=== PATIENT | male | born 1960 | race Caucasian/White ===

== ENCOUNTER 2017-09-30 19:45 | Inpatient (IN) | payer MEDICARE, MEDICAID ==
--- NOTE | 2017-09-30 20:11 | ED Physician Chart ---
ED Chief Complaint/HPI - Patient Information Date Seen:: 09/30/17 Time Seen:: 20:11 Chief Complaint:: Agitation History of Present Illness:: 57 yo male was brought from SNF to ER for evaluation of increased agitation and aggressive behavior. Allergies:: Allergies Allergy/AdvReac Type Severity Reaction Status Date / Time benztropine [From Cogentin] Allergy Verified 03/09/16 15:01 divalproex sodium Allergy Verified 03/09/16 15:01 haloperidol [From Haldol] Allergy Verified 03/09/16 15:01 sodium Allergy Verified 03/09/16 15:01 tetracycline Allergy Verified 03/09/16 15:01 Vitals:: Vital Signs - 8 hr 09/30/17 19:45 Temp 98.2 F HR 111 RR 18 BP 176/108 O2 Sat % 95 ED Review of Systems - Review of Systems General/Constitutional: No fever Skin: No bruising Head: No headache Eyes: No pain ENT: No nasal drainage Neck: No neck pain Cardio Vascular: No chest pain Pulmonary: No SOB GI: No nausea, No vomiting Musculoskeletal: No bone or joint pain Psychiatric: Prior psych history Neurological: No focal symptoms ED Past Medical History - Past Medical History Past Medical History: Other (HYPOKALEMIA, MUSCLE WEAKNESS, ABNORMAL POSTURE ) Social History: Non Smoker, No Alcohol, No Drug Use Psychiatricy History: Other (SCHIZOAFFECTIVE DISORDER) Family Medical History - Family Member Mother History Unknown: Yes Ethnicity: Hx Family Coronary Artery Disease: Yes ED Physical Exam - Physical Examination General/Constitutional: Awake, Alert Head: Atraumatic Eyes: PERRL Skin: No ecchymosis ENMT: Nasal exam nl Neck: No nuchal rigidity Respiratory: No Wheeze/Rhonchi/Rales Cardio Vascular: RRR, No murmur, gallop, rubs, NL S1 S2 GI: No tenderness/rebounding/guarding Extremities: No edema Neuro/Psych: No focal deficits ED Labs/Radiology/EKG Results - Lab Results Results: Na 135, K 2.9, Glu 155, BNP 232, WBC 9.9, UA negative - Radiology Results Results: CXR: no focal consolidation ED Assessment - Assessment General Assessment: Hypokalemia Hyponatremia Hypertension CHF? Schizoaffective disorder Psychosis Assessment/Comments:: CBC, CMP, UA EKG, CXR KCL 40 mEq po Lasix 40mg po Cleared for geropsych admission ED Septic Shock - . Is Septic Shock (SBP<90, OR Lactate>4 mmol\L) present?: No - <6hrs of presentation: Vital Signs: Vital Signs - 8 hr 09/30/17 19:45 Temp 98.2 F HR 111 RR 18 BP 176/108 O2 Sat % 95 ED Reassessment (Disposition) - Reassessment Reassessment Condition:: Improved - Patient Disposition Discharge/Transfer:: Geropsych unit w/in this hosp Admitting Medical Physician:: Kia Perez Admitting Psych Physician:: Sada Alvarado ED Discharge Plan - Patient Disposition Admit/Discharge/Transfer: Acute Care w/in this hosp
[2017-09-30 20:35] LABS: % BASOPHILS 0.5 % (0.0-2.0); % EOSINOPHILS 4.5 % (0.0-5.0); % LYMPHOCYTES 18.4 % (20.0-50.0); % MONOCYTES 7.8 % (2.0-10.0); % NEUTROPHILS 68.8 % (40.0-80.0); EOSINOPHILE ABSOLUTE 0.4 Th/cmm (0.1-0.4); HEMATOCRIT 42.6 % (41.0-60); HEMOGLOBIN 14.4 gm/dL (12-16); LYMPHOCYTE ABSOLUTE 1.8 Th/cmm (1.5-3.0); MEAN CELL VOLUME 84.9 fl (80-99); MEAN CORPUSCULAR HEMOGLOBIN 28.7 pg (26.0-30.0); MEAN CORPUSCULAR HGB CONC 33.8 pg (28.0-36.0); MEAN PLATELET VOLUME 7.3 fl; MONOCYTE ABSOLUTE 0.8 Th/cmm (0.3-1.0); NEUTROPHILE ABSOLUTE 6.9 Th/cmm (1.8-8.0); PLATELET COUNT 329 Th/cmm (150-400); RED BLOOD COUNT 5.02 Mil/cmm (4.30-5.70); RED CELL DISTRIBUTION WIDTH 13.4 % (11.5-20.0); WHITE BLOOD COUNT 9.9 Th/cmm (4.8-10.8)
[2017-09-30 20:56] LABS: ALBUMIN 3.8 gm/dL (4.2-5.5); ALKALINE PHOSPHATASE 92 U/L (34-104); ANION GAP 9.2 (7.0-16.0); BILIRUBIN,TOTAL 0.4 mg/dL (0.3-1.0); BUN - UREA NITROGEN 15 mg/dL (7-25); CALCIUM SERUM 9.3 mg/dL (8.6-10.3); CARBON DIOXIDE 29.7 mEq/L (21.0-31.0); CHLORIDE 99 mEq/L (98-107); CREATININE - SERUM 0.7 mg/dL (0.7-1.3); GFR AFRICAN-AMERICAN > 60.0 ml/min (>90); GFR NON AFRICAN-AMERICAN > 60.0 ml/min; GLUCOSE 155 mg/dL (70-105); MAGNESIUM 1.9 mg/dL (1.9-2.7); SGOT 29 U/L (13-39); SGPT/ALT 23 U/L (7-52); SODIUM SERUM 135 mEq/L (136-145); TOTAL PROTEIN,SERUM 7.8 gm/dL (6.0-8.3)
[2017-09-30] MEDS ORDERED: Potassium Chloride Elixir 20 mEq /15 mL UDC PO ONE (21:24)
[2017-09-30] MEDS ORDERED: Potassium Chloride Elixir 20 mEq /15 mL UDC ONE (21:26)
[2017-09-30 21:27] LABS: POTASSIUM SERUM 2.9 mEq/L (3.5-5.1)
[2017-09-30 22:07] LABS: URINE BILIRUBIN NEGATIVE (NEGATIVE); URINE BLOOD NEGATIVE (NEGATIVE); URINE GLUCOSE (UA) NEGATIVE (NEGATIVE); URINE KETONE NEGATIVE (NEGATIVE); URINE LEUKOCYTE ESTERASE NEGATIVE (NEGATIVE); URINE MICROSCOPIC INDICATED? YES; URINE NITRATE NEGATIVE (NEGATIVE); URINE PH 7.5 (4.6 - 8.0); URINE PROTEIN NEGATIVE (NEGATIVE); URINE SOURCE RANDOM
[2017-09-30 22:14] LABS: URINE COLOR YELLOW
[2017-09-30 22:15] LABS: URINE CLARITY CLEAR (CLEAR)
[2017-09-30 22:21] LABS: URINE BACTERIA OCCASIONAL /hpf (NONE SEEN); URINE EPITHELIAL CELLS OCCASIONAL /lpf (FEW); URINE RBC 0-2 /hpf (0-5); URINE WBC 0-2 /hpf (0-5)
[2017-09-30 22:32] VITALS: BP 142/108
[2017-09-30] MEDS ORDERED: Magnesium Hydroxide (MOM) 30 mL UDC PO PRN (22:33)
[2017-09-30] MEDS ORDERED: Maalox 30 mL Cup PO PRN (22:33)
[2017-09-30] MEDS ORDERED: Non-Formulary Item 1 EA (Melatonin [Melatonin] 6 MG) PO PRN (23:04)
--- NOTE | 2017-10-01 08:43 | Diagnostic Imaging Report ---
CHEST X-RAY: AP view INDICATION: Shortness of breath COMPARISON: Chest x-ray 09/01/2014 FINDINGS mild chronic lung changes are noted.: There is no focal consolidation or pleural effusions. The heart size at the upper limits of normal. Mildly tortuous thoracic aorta is again noted. There is evidence of old trauma and surgery of the right clavicle as seen on prior exam. IMPRESSION: No focal consolidation identified. Mildly tortuous aorta as seen on prior exam.
[2017-10-01] MEDS: Potassium Chloride 20 mEq ER Tab PO SCH (09:56)
[2017-10-01] MEDS: Multivitamin Tab PO SCH (09:56)
[2017-10-01] MEDS: Aspirin 81mg Chewable Tab PO SCH (09:57)
[2017-10-01] MEDS: Atorvastatin Calcium 10 MG TAB PO SCH (21:47)
--- NOTE | 2017-10-01 22:13 | Psychosocial Evaluation ---
DATE OF SERVICE: 10/01/2017 PSYCHIATRIC INITIAL EVALUATION AND MENTAL STATUS EXAM AGE: 57. SEX: Male. PHYSICIAN: Dr. Alvarado. CHIEF COMPLAINT: Agitation and irritability. HISTORY OF PRESENT ILLNESS: The patient is a 57-year-old male who lives in [facility] at the time. I received a phone call from the nurse correctional supply supervisor in [facility] because the patient has been agitated and in irritable mood and has been aggressive. The patient also has been restless and argumentative and intrusive to others. The patient also has not been able to follow directions. He also has been delusional and paranoid. The patient thinks that his is sleeping with his brother and that she is cheating on him. He also has been delusional and extremely paranoid and suspicious. He also has been getting easily agitated and angry. PAST PSYCHIATRIC HISTORY: The patient has history of psychosis and delusional. The patient is taking Trileptal and Risperdal. PAST MEDICAL HISTORY: The patient has a history of hypertension, hypokalemia, hyponatremia, seizure disorder, and gastroesophageal reflux disease. SOCIAL HISTORY: The patient is , but currently lives in [facility]. The patient also has no known alcohol or street drug use. ALLERGIES: No known allergies. MENTAL STATUS EXAMINATION: The patient appears slightly older than stated age. Disheveled. Irritable mood. Seems to be preoccupied. Thought processes are circumstantial. The patient denies auditory or visual hallucinations, but the patient is delusional and paranoid. The patient is alert and oriented to the situation, time and place. Intact immediate, recent and remote memories. Poor insight and poor judgment. ASSESSMENT: PRIMARY DIAGNOSIS: Schizoaffective disorder, bipolar type, severe, with psychotic features. TREATMENT PLAN: We will continue Risperdal and Trileptal. We will start individual as well as milieu psychotherapy. We will monitor and adjust psychotropic medications. ESTIMATED LENGTH OF STAY: 5-7 days. THE PATIENT'S STRENGTHS AND WEAKNESSES: The patient's strength is not clear at this time. Weaknesses is his psychosis and his irritability and poor impulse control. AFTER DISCHARGE PLAN: The patient will return to [facility] with plans for outpatient treatment and follow up to continue as an outpatient. CRITERIA FOR DISCHARGE: Better impulse control and agitation. JOB# [id number]
--- NOTE | 2017-10-01 22:53 | History & Physical ---
ADMIT DATE: HISTORY OF PRESENT ILLNESS: The patient is a 57-year-old male with history of hypertension, mild CHF, degenerative joint disease, psychosis, admitted to [facility] Department under Dr. Alvarado's service. If he has any chest pain, shortness of breath, nausea, vomiting, fever or chills. PAST MEDICAL HISTORY: Significant for hypertension, degenerative joint disease, dementia, psychosis, hyperlipidemia. PAST SURGICAL HISTORY: No recent surgery. ALLERGIES: HE IS ALLERGIC TO BENZTROPINE, VALPROIC ACID, HALOPERIDOL, SODIUM, TETRACYCLINE. SOCIAL HISTORY: No smoking, no alcohol, no drug. FAMILY HISTORY: Noncontributory. MEDICATIONS: Follow admission reconciliation. REVIEW OF SYSTEMS: RENAL SYSTEM: No history of chronic renal disorder. CARDIOVASCULAR SYSTEM: He has history of hypertension, mild CHF. ENDOCRINE SYSTEM: No diabetes or thyroid problem. GASTROINTESTINAL SYSTEM: No upper or lower GI bleeding. NEUROLOGICAL SYSTEM: No seizure disorder. SKELETOMUSCULAR SYSTEM: No muscular dystrophy. HEMATOLOGICAL SYSTEM: No bleeding tendency. RESPIRATORY SYSTEM: No asthma. GENITOURINARY SYSTEM: No dysuria or hematuria. PHYSICAL EXAMINATION: GENERAL: He is awake, not coherent. VITAL SIGNS: Temperature is 98.4, heart rate 91, blood pressure 151/93. HEENT: Normocephalic. Pupils reactive to light and accommodation. Sclerae clear. NECK: Supple. Negative for lymphadenopathy, JVD or bruit. CHEST: Air entry bilaterally normal. No rhonchi or wheezing. HEART: S1, S2 normal. No murmur. No gallop rhythm. ABDOMEN: Soft, bowel sounds positive. EXTREMITIES: No edema. BACK: No tenderness. SKIN: Intact. GENITAL AND RECTAL: No complaint. NEUROLOGIC: He is awake, alert, not fully oriented. No focal motor or sensory deficit. ASSESSMENT: 1. Hypertension. 2. Hyperlipidemia. 3. Degenerative joint disease. 4. Psychosis. PLAN: The patient admitted to the hospital under Dr. Alvarado's service. MEDICAL PROBLEMS ADDRESSED DURING HOSPITALIZATION: Psychosis. MEDICAL PROBLEMS ADDRESSED AT DISCHARGE: Hypertension and hyperlipidemia. The patient is medically stable for activity. Thank you Dr. Alvarado for asking me to see your patient. JOB# [id number]
[2017-10-02] MEDS ORDERED: chlorproMAZINE 25 mg/mL 2mL Amp ONE (07:52)
[2017-10-02] MEDS ORDERED: chlorproMAZINE 25 mg/mL 2mL Amp IM STA (07:58)
[2017-10-02] MEDS: Potassium Chloride 20 mEq ER Tab PO SCH (08:58)
[2017-10-02] MEDS: Aspirin 81mg Chewable Tab PO SCH (08:58)
[2017-10-02] MEDS: Multivitamin Tab PO SCH (08:58)
[2017-10-02 10:11] LABS: ALBUMIN 3.6 gm/dL (4.2-5.5); ALKALINE PHOSPHATASE 87 U/L (34-104); ANION GAP 10.6 (7.0-16.0); BILIRUBIN,TOTAL 0.7 mg/dL (0.3-1.0); BUN - UREA NITROGEN 16 mg/dL (7-25); CALCIUM SERUM 9.1 mg/dL (8.6-10.3); CARBON DIOXIDE 28.1 mEq/L (21.0-31.0); CHLORIDE 100 mEq/L (98-107); CREATININE - SERUM 0.9 mg/dL (0.7-1.3); GFR AFRICAN-AMERICAN > 60.0 ml/min (>90); GFR NON AFRICAN-AMERICAN > 60.0 ml/min; GLUCOSE 173 mg/dL (70-105); SGOT 41 U/L (13-39); SGPT/ALT 28 U/L (7-52); SODIUM SERUM 136 mEq/L (136-145); TOTAL PROTEIN,SERUM 7.3 gm/dL (6.0-8.3)
[2017-10-02 10:33] LABS: POTASSIUM SERUM 2.7 mEq/L (3.5-5.1)
[2017-10-02] MEDS ORDERED: Potassium Chloride 20 mEq ER Tab PO ONE ×2 (13:00→17:00)
--- NOTE | 2017-10-02 19:22 | Internal Medicine Prog Note ---
Internal Medicine Subjective - Subjective Service Date: 10/02/17 Patient seen and examined:: with staff Patient is:: talking, confused Internal Medicine Objective - Results Result Diagrams: 09/30/17 20:20 10/02/17 09:20 Recent Labs: Laboratory Last Values WBC 9.9 Th/cmm (4.8-10.8) 09/30/17 20:20 RBC 5.02 Mil/cmm (4.30-5.70) 09/30/17 20:20 Hgb 14.4 gm/dL (12-16) 09/30/17 20:20 Hct 42.6 % (41.0-60) 09/30/17 20:20 MCV 84.9 fl (80-99) 09/30/17 20:20 MCH 28.7 pg (26.0-30.0) 09/30/17 20:20 MCHC Differential 33.8 pg (28.0-36.0) 09/30/17 20:20 RDW 13.4 % (11.5-20.0) 09/30/17 20:20 Plt Count 329 Th/cmm (150-400) 09/30/17 20:20 MPV 7.3 fl 09/30/17 20:20 Neutrophils % 68.8 % (40.0-80.0) 09/30/17 20:20 Lymphocytes % 18.4 % (20.0-50.0) L 09/30/17 20:20 Monocytes % 7.8 % (2.0-10.0) 09/30/17 20:20 Eosinophils % 4.5 % (0.0-5.0) 09/30/17 20:20 Basophils % 0.5 % (0.0-2.0) 09/30/17 20:20 Sodium 136 mEq/L (136-145) 10/02/17 09:20 Potassium 2.7 mEq/L (3.5-5.1) L* 10/02/17 09:20 Chloride 100 mEq/L (98-107) 10/02/17 09:20 Carbon Dioxide 28.1 mEq/L (21.0-31.0) 10/02/17 09:20 Anion Gap 10.6 (7.0-16.0) 10/02/17 09:20 BUN 16 mg/dL (7-25) 10/02/17 09:20 Creatinine 0.9 mg/dL (0.7-1.3) 10/02/17 09:20 Est GFR ( Amer) > 60.0 ml/min (>90) 10/02/17 09:20 Est GFR (Non-Af Amer) > 60.0 ml/min 10/02/17 09:20 BUN/Creatinine Ratio 17.8 10/02/17 09:20 Glucose 173 mg/dL (70-105) H 10/02/17 09:20 Calcium 9.1 mg/dL (8.6-10.3) 10/02/17 09:20 Magnesium 1.9 mg/dL (1.9-2.7) 09/30/17 20:20 Total Bilirubin 0.7 mg/dL (0.3-1.0) 10/02/17 09:20 AST 41 U/L (13-39) H 10/02/17 09:20 ALT 28 U/L (7-52) 10/02/17 09:20 Alkaline Phosphatase 87 U/L (34-104) 10/02/17 09:20 Troponin I 0.03 ng/mL (0.01-0.05) 09/30/17 20:20 B-Natriuretic Peptide 232.0 pg/mL (5.0-100.0) H 09/30/17 20:20 Total Protein 7.3 gm/dL (6.0-8.3) 10/02/17 09:20 Albumin 3.6 gm/dL (4.2-5.5) L 10/02/17 09:20 Globulin 3.7 gm/dL 10/02/17 09:20 Albumin/Globulin Ratio 1.0 (1.0-1.8) 10/02/17 09:20 Urine Source RANDOM 09/30/17 20:40 Urine Color YELLOW 09/30/17 20:40 Urine Clarity CLEAR (CLEAR) 09/30/17 20:40 Urine pH 7.5 (4.6 - 8.0) 09/30/17 20:40 Ur Specific [place] 1.010 (1.005-1.030) 09/30/17 20:40 Urine Protein NEGATIVE mg/dL (NEGATIVE) 09/30/17 20:40 Urine Glucose (UA) NEGATIVE mg/dL (NEGATIVE) 09/30/17 20:40 Urine Ketones NEGATIVE mg/dL (NEGATIVE) 09/30/17 20:40 Urine Blood NEGATIVE (NEGATIVE) 09/30/17 20:40 Urine Nitrate NEGATIVE (NEGATIVE) 09/30/17 20:40 Urine Bilirubin NEGATIVE (NEGATIVE) 09/30/17 20:40 Urine Urobilinogen 1.0 E.U./dL (0.2 - 1.0) 09/30/17 20:40 Ur Leukocyte Esterase NEGATIVE (NEGATIVE) 09/30/17 20:40 Urine RBC 0-2 /hpf (0-5) H 09/30/17 20:40 Urine WBC 0-2 /hpf (0-5) 09/30/17 20:40 Ur Epithelial Cells OCCASIONAL /lpf (FEW) 09/30/17 20:40 Urine Bacteria OCCASIONAL /hpf (NONE SEEN) 09/30/17 20:40 - Physical Exam Vitals and I&O: Vital Signs Temp 98.2 F 10/02/17 15:08 Pulse 87 10/02/17 17:19 Resp 18 10/02/17 15:08 BP 123/79 10/02/17 17:19 Pulse Ox 96 10/02/17 15:08 Intake & Output 10/02/17 10/02/17 10/03/17 06:59 18:59 06:59 Intake Total 120 900 Balance 120 900 Intake: Oral 120 900 Other: # Voids 2 3 Active Medications: Current Medications Acetaminophen (Tylenol) 650 mg PO Q4HR PRN PRN Reason: Mild Pain / Temp above 100 Stop: 11/29/17 22:32 Al Hydrox/Mg Hydrox/Simethicone (Maalox) 30 ml PO Q4HR PRN PRN Reason: GI DISTRESS Stop: 11/29/17 22:32 Amlodipine Besylate (Norvasc) 10 mg PO DAILY [facility]IKEL Stop: 11/30/17 08:59 Last Admin: 10/02/17 08:57 Dose: Not Given Aspirin (Aspirin Chewable) 81 mg PO DAILY [facility]IKEL Stop: 11/30/17 08:59 Last Admin: 10/02/17 08:58 Dose: Not Given Atorvastatin Calcium (Lipitor) 20 mg PO HS MAIKEL Stop: 11/30/17 20:59 Last Admin: 10/01/17 21:47 Dose: Not Given Hydralazine HCl (Apresoline) 25 mg PO TID [facility] Stop: 11/30/17 08:59 Last Admin: 10/02/17 14:00 Dose: Not Given Ibuprofen (Motrin) 800 mg PO Q8HR PRN PRN Reason: right lower ext pain Stop: 11/29/17 23:03 Lisinopril (Zestril) 20 mg PO DAILY [facility] Stop: 11/30/17 08:59 Last Admin: 10/02/17 08:58 Dose: Not Given Lorazepam (Ativan) 0.5 mg PO Q4HR PRN; Protocol PRN Reason: Anxiety/agitation Stop: 10/30/17 22:32 Last Admin: 10/01/17 23:09 Dose: 0.5 mg Magnesium Hydroxide (Milk Of Magnesia) 30 ml PO HS PRN PRN Reason: Constipation Metoprolol Tartrate (Lopressor) 25 mg PO BID [facility] Stop: 11/30/17 08:59 Last Admin: 10/02/17 17:19 Dose: 25 mg Multivitamins/Vitamin C (Theragran) 1 tab PO DAILY [facility]IK[facility] Stop: 11/30/17 08:59 Last Admin: 10/02/17 08:58 Dose: Not Given Oxcarbazepine (Trileptal) 300 mg PO BID [facility]; Protocol Stop: 11/30/17 08:59 Last Admin: 10/02/17 17:19 Dose: 300 mg Potassium Chloride (Klor-Con) 20 meq PO DAILY [facility] Stop: 11/30/17 08:59 Last Admin: 10/02/17 08:58 Dose: Not Given Quetiapine Fumarate (Seroquel) 50 mg PO BID [facility]; Protocol Stop: 11/30/17 08:59 Last Admin: 10/02/17 17:19 Dose: 50 mg General: demented HEENT: NC/AT, PERRLA, EOMI, anicteric sclerae, throat clear Neck: Supple, No JVD, No thyromegaly, +2 carotid pulse wo bruit, No LAD Cardiovascular: RRR, Normal S1, Normal S2, without murmur Abdomen: soft, non-tender, non-distended Neurological: no change - Procedures Procedures: Procedures Procedure Code Date OTHER GROUP THERAPY 94.44 09/01/14 RECREATIONAL THERAPY 93.81 12/23/11 Internal Medicine Assmt/Plan - Assessment Assessment: 1.HTN. 2.CHF. 3.DEMENTIA. 4.PSYCHOSIS. 5.HYPOKALEMIA - Plan Plan: KCL 40 MEQ PO X 2.
[2017-10-02] MEDS: Atorvastatin Calcium 10 MG TAB PO SCH (20:59)
--- NOTE | 2017-10-03 00:21 | Progress Notes ---
DATE: SUBJECTIVE: Chart reviewed and the patient interviewed. Also discussed the patient's condition with the staff and reviewed the records and labs. The patient continued to be easily irritable and is still easily agitated. The patient also seems to be preoccupied and still needs lots of redirections. The patient also is still verbally abusive to staff and is talking to himself. The patient also is shouting loudly and disturbing other patients. He also is still easily agitated and easily irritable and have difficulty redirecting him. Otherwise, the patient is compliant with taking his medications with no side effects of medications. ASSESSMENT: The patient is still agitated and psychotic. TREATMENT PLAN: Continue working on behavioral modification and adjusting psychotropic medications. Also, continue follow up closely because he can be dangerous to others. JOB# [id number]
[2017-10-03] MEDS: Aspirin 81mg Chewable Tab PO SCH (08:10)
[2017-10-03] MEDS: Multivitamin Tab PO SCH (08:13)
[2017-10-03] MEDS: Potassium Chloride 20 mEq ER Tab PO SCH (08:20)
--- NOTE | 2017-10-03 14:36 | Internal Medicine Prog Note ---
Internal Medicine Subjective - Subjective Service Date: 10/03/17 Patient is:: awake, in bed, talking, confused Per staff patient has:: no adverse event Internal Medicine Objective - Results Result Diagrams: 09/30/17 20:20 10/02/17 09:20 Recent Labs: Laboratory Last Values WBC 9.9 Th/cmm (4.8-10.8) 09/30/17 20:20 RBC 5.02 Mil/cmm (4.30-5.70) 09/30/17 20:20 Hgb 14.4 gm/dL (12-16) 09/30/17 20:20 Hct 42.6 % (41.0-60) 09/30/17 20:20 MCV 84.9 fl (80-99) 09/30/17 20:20 MCH 28.7 pg (26.0-30.0) 09/30/17 20:20 MCHC Differential 33.8 pg (28.0-36.0) 09/30/17 20:20 RDW 13.4 % (11.5-20.0) 09/30/17 20:20 Plt Count 329 Th/cmm (150-400) 09/30/17 20:20 MPV 7.3 fl 09/30/17 20:20 Neutrophils % 68.8 % (40.0-80.0) 09/30/17 20:20 Lymphocytes % 18.4 % (20.0-50.0) L 09/30/17 20:20 Monocytes % 7.8 % (2.0-10.0) 09/30/17 20:20 Eosinophils % 4.5 % (0.0-5.0) 09/30/17 20:20 Basophils % 0.5 % (0.0-2.0) 09/30/17 20:20 Sodium 136 mEq/L (136-145) 10/02/17 09:20 Potassium 2.7 mEq/L (3.5-5.1) L* 10/02/17 09:20 Chloride 100 mEq/L (98-107) 10/02/17 09:20 Carbon Dioxide 28.1 mEq/L (21.0-31.0) 10/02/17 09:20 Anion Gap 10.6 (7.0-16.0) 10/02/17 09:20 BUN 16 mg/dL (7-25) 10/02/17 09:20 Creatinine 0.9 mg/dL (0.7-1.3) 10/02/17 09:20 Est GFR ( Amer) > 60.0 ml/min (>90) 10/02/17 09:20 Est GFR (Non-Af Amer) > 60.0 ml/min 10/02/17 09:20 BUN/Creatinine Ratio 17.8 10/02/17 09:20 Glucose 173 mg/dL (70-105) H 10/02/17 09:20 Calcium 9.1 mg/dL (8.6-10.3) 10/02/17 09:20 Magnesium 1.9 mg/dL (1.9-2.7) 09/30/17 20:20 Total Bilirubin 0.7 mg/dL (0.3-1.0) 10/02/17 09:20 AST 41 U/L (13-39) H 10/02/17 09:20 ALT 28 U/L (7-52) 10/02/17 09:20 Alkaline Phosphatase 87 U/L (34-104) 10/02/17 09:20 Troponin I 0.03 ng/mL (0.01-0.05) 09/30/17 20:20 B-Natriuretic Peptide 232.0 pg/mL (5.0-100.0) H 09/30/17 20:20 Total Protein 7.3 gm/dL (6.0-8.3) 10/02/17 09:20 Albumin 3.6 gm/dL (4.2-5.5) L 10/02/17 09:20 Globulin 3.7 gm/dL 10/02/17 09:20 Albumin/Globulin Ratio 1.0 (1.0-1.8) 10/02/17 09:20 Urine Source RANDOM 09/30/17 20:40 Urine Color YELLOW 09/30/17 20:40 Urine Clarity CLEAR (CLEAR) 09/30/17 20:40 Urine pH 7.5 (4.6 - 8.0) 09/30/17 20:40 Ur Specific [place] 1.010 (1.005-1.030) 09/30/17 20:40 Urine Protein NEGATIVE mg/dL (NEGATIVE) 09/30/17 20:40 Urine Glucose (UA) NEGATIVE mg/dL (NEGATIVE) 09/30/17 20:40 Urine Ketones NEGATIVE mg/dL (NEGATIVE) 09/30/17 20:40 Urine Blood NEGATIVE (NEGATIVE) 09/30/17 20:40 Urine Nitrate NEGATIVE (NEGATIVE) 09/30/17 20:40 Urine Bilirubin NEGATIVE (NEGATIVE) 09/30/17 20:40 Urine Urobilinogen 1.0 E.U./dL (0.2 - 1.0) 09/30/17 20:40 Ur Leukocyte Esterase NEGATIVE (NEGATIVE) 09/30/17 20:40 Urine RBC 0-2 /hpf (0-5) H 09/30/17 20:40 Urine WBC 0-2 /hpf (0-5) 09/30/17 20:40 Ur Epithelial Cells OCCASIONAL /lpf (FEW) 09/30/17 20:40 Urine Bacteria OCCASIONAL /hpf (NONE SEEN) 09/30/17 20:40 - Physical Exam Vitals and I&O: Vital Signs Temp 97.9 F 10/03/17 06:28 Pulse 96 10/03/17 08:12 Resp 18 10/03/17 08:00 BP 148/96 10/03/17 08:12 Pulse Ox 97 10/03/17 06:28 Intake & Output 10/02/17 10/03/17 10/03/17 18:59 06:59 18:59 Intake Total 900 120 Balance 900 120 Intake: Oral 900 120 Other: # Voids 3 2 Active Medications: Current Medications Acetaminophen (Tylenol) 650 mg PO Q4HR PRN PRN Reason: Mild Pain / Temp above 100 Stop: 11/29/17 22:32 Al Hydrox/Mg Hydrox/Simethicone (Maalox) 30 ml PO Q4HR PRN PRN Reason: GI DISTRESS Stop: 11/29/17 22:32 Amlodipine Besylate (Norvasc) 10 mg PO DAILY [facility] Stop: 11/30/17 08:59 Last Admin: 10/03/17 08:11 Dose: Not Given Aspirin (Aspirin Chewable) 81 mg PO DAILY [facility] Stop: 11/30/17 08:59 Last Admin: 10/03/17 08:10 Dose: Not Given Atorvastatin Calcium (Lipitor) 20 mg PO HS [facility] Stop: 11/30/17 20:59 Last Admin: 10/02/17 20:59 Dose: 20 mg Hydralazine HCl (Apresoline) 25 mg PO TID [facility] Stop: 11/30/17 08:59 Last Admin: 10/03/17 13:21 Dose: Not Given Ibuprofen (Motrin) 800 mg PO Q8HR PRN PRN Reason: right lower ext pain Stop: 11/29/17 23:03 Lisinopril (Zestril) 20 mg PO DAILY [facility] Stop: 11/30/17 08:59 Last Admin: 10/03/17 08:12 Dose: Not Given Lorazepam (Ativan) 0.5 mg PO Q4HR PRN; Protocol PRN Reason: Anxiety/agitation Stop: 10/30/17 22:32 Last Admin: 10/03/17 13:49 Dose: 0.5 mg Magnesium Hydroxide (Milk Of Magnesia) 30 ml PO HS PRN PRN Reason: Constipation Metoprolol Tartrate (Lopressor) 25 mg PO BID [facility] Stop: 11/30/17 08:59 Last Admin: 10/03/17 08:12 Dose: Not Given Multivitamins/Vitamin C (Theragran) 1 tab PO DAILY [facility] Stop: 11/30/17 08:59 Last Admin: 10/03/17 08:13 Dose: Not Given Oxcarbazepine (Trileptal) 300 mg PO BID [facility]; Protocol Stop: 11/30/17 08:59 Last Admin: 10/03/17 08:12 Dose: Not Given Potassium Chloride (Klor-Con) 20 meq PO DAILY [facility] Stop: 11/30/17 08:59 Last Admin: 10/03/17 08:20 Dose: 20 meq Quetiapine Fumarate (Seroquel) 50 mg PO DAILY [facility]; Protocol Stop: 12/02/17 08:59 Last Admin: 10/03/17 08:11 Dose: Not Given Quetiapine Fumarate (Seroquel) 200 mg PO HS [facility]; Protocol Stop: 12/02/17 20:59 Zolpidem Tartrate (Ambien) 5 mg PO HS PRN PRN Reason: Insomnia Stop: 12/01/17 20:43 General: demented HEENT: NC/AT, PERRLA, EOMI, anicteric sclerae, throat clear Neck: Supple, No JVD, No thyromegaly, +2 carotid pulse wo bruit, No LAD Cardiovascular: RRR, Normal S1, Normal S2, without murmur Abdomen: soft, non-tender, non-distended Neurological: no change - Procedures Procedures: Procedures Procedure Code Date OTHER GROUP THERAPY 94.44 09/01/14 RECREATIONAL THERAPY 93.81 12/23/11 Internal Medicine Assmt/Plan - Assessment Assessment: 1.HTN. 2.CHF. 3.DEMENTIA. 4.PSYCHOSIS. 5.HYPOKALEMIA - Plan Plan: CONTINUE ON CURRENT MEDICATION AND DIET. Nutritional Asmnt/Malnutr-PDOC - Dietary Evaluation Malnutrition Findings (Please click <Entered> for more info): Nutritional Asmnt/Malnutrition Start: 10/03/17 13: 42 Text: Status: Complete Freq: Protocol: Document 10/03/17 13:42 MC (Rec: 10/03/17 14:02 MC [email or web address]) Nutritional Asmnt/Malnutrition Patient General Information Nutritional Screening Moderate Risk Diagnosis psychosis Pertinent Medical Hx/Surgical Hx HTN, DJD, dementia, psychosis, hyperlipidemia Subjective Information Pt seen lying in bed at time of visit, waiting for lunch, talking confused. Per EMR, PO itnake 75-100% of meals. Current Diet Order/ Nutrition Support JAVAN, non fat milk and sugar free diet, high protein nourishment with lunch Pertinent Medications theragran, kcl, seroquel Pertinent Labs 10/02 K 2.7, glucose 173 Nutritional Hx/Data Height 1.68 m Height (Calculated Centimeters) 167.6 Current Weight (lbs) 83.461 kg Weight (Calculated Kilograms) 83.5 Weight (Calculated Grams) 34528.0 [place] Body Weight 142 Body Mass Index (BMI) 29.7 Weight Status Approriate GI Symptoms GI Symptoms None Last BM none Difficult in: None Skin Integrity/Comment: per EMR, pt refused skin check . Sujit 22. Current %PO Good (75-100%) Estimated Nutritional Goals BEE in Kcals: Using Current wt Calories/Kcals/Kg 20-25 Kcals Calculated 3435-5314 Protein: Using Current wt Protein g/k.8 Protein Calculated 67 Fluid: ml 1680-2100ml (1ml/kcal) Nutritional Problem No current Nutrition Prob Problem N/A Malnutrition Alert Is there a minimum of two criteria No selected? Query Text:Check all the applicable criteria. A minimum of two criteria are recommended for diagnosis of either severe or non-severe malnutrition. Intervention/Recommendation Comments 1. Continue with current diet as ordered. 2. Monitor PO intake, wt, labs and skin integrity 3. F/U as low risk in 7 days, 10/10 Expected Outcomes/Goals Expected Outcomes/Goals 1. PO intake to meet at least 75% of nutritional needs. 2. Wt stability, skin to remain intact, labs to approach WNL.
[2017-10-03] MEDS ORDERED: chlorproMAZINE 25 mg/mL 2mL Amp IM STA (14:53)
[2017-10-03] MEDS ORDERED: chlorproMAZINE 25 mg/mL 2mL Amp ONE (14:54)
--- NOTE | 2017-10-03 15:38 | Progress Notes ---
DATE: 10/03/2017 PSYCHIATRIC PROGRESS NOTE SUBJECTIVE: Chart reviewed and the patient interviewed. Also discussed the patient's condition with the staff and reviewed records and labs. The patient is still easily agitated and easily irritable. The patient also did not sleep last night according to the staff and he has been up all night, talking to self and in irritable and angry mood and easily agitated. The patient also is still suspicious and paranoid. Otherwise, the patient is trying to interact more, but needs lots of redirections. The patient is also still feeling that he does not belong to the hospital and minimizes his symptoms. ASSESSMENT: The patient is still psychotic and agitated. TREATMENT PLAN: We will continue monitoring his behavior and his condition closely. Also, we will increase Seroquel to 50 mg in the morning and 200 mg at bedtime. Hopefully, that will help the patient with his psychosis as well as agitation and to help him to sleep better at night. Also, continue to work on his behavior and agitation. JOB# [id number]
[2017-10-03] MEDS: Atorvastatin Calcium 10 MG TAB PO SCH (21:57)
[2017-10-04] MEDS: Aspirin 81mg Chewable Tab PO SCH (08:38)
[2017-10-04] MEDS: Potassium Chloride 20 mEq ER Tab PO SCH (08:39)
[2017-10-04] MEDS: Multivitamin Tab PO SCH (08:39)
--- NOTE | 2017-10-04 16:55 | Progress Notes ---
DATE: 10/04/2017 PSYCHIATRIC PROGRESS NOTE SUBJECTIVE: Chart reviewed and the patient interviewed. Also discussed the patient's condition with the staff and reviewed records and labs. The patient remains in angry and in irritable mood. The patient also is still easily agitated. The patient also is rambling and the thought processes are disorganized and nonsensical. The patient also still has episodes of yelling and screaming. Also, during my interview, the patient does not make any sense and he is angry and irritable. Otherwise, the patient is compliant with taking his medications. ASSESSMENT: The patient is still psychotic and agitated. TREATMENT PLAN: Continue to monitor his behavior and his condition closely. Also, continue Seroquel that was increased to 50 mg in the morning and 200 mg at bedtime and will continue to follow up closely. [facility]# [id number]
[2017-10-04] MEDS: Atorvastatin Calcium 10 MG TAB PO SCH (21:45)
--- NOTE | 2017-10-04 23:18 | General Progress Note ---
Subjective - Review of Systems Service Date: 10/04/17 Subjective: resting comfortably no distress Objective - Results Result Diagrams: 09/30/17 20:20 10/02/17 09:20 Recent Labs: Laboratory Last Values WBC 9.9 Th/cmm (4.8-10.8) 09/30/17 20:20 RBC 5.02 Mil/cmm (4.30-5.70) 09/30/17 20:20 Hgb 14.4 gm/dL (12-16) 09/30/17 20:20 Hct 42.6 % (41.0-60) 09/30/17 20:20 MCV 84.9 fl (80-99) 09/30/17 20:20 MCH 28.7 pg (26.0-30.0) 09/30/17 20:20 MCHC Differential 33.8 pg (28.0-36.0) 09/30/17 20:20 RDW 13.4 % (11.5-20.0) 09/30/17 20:20 Plt Count 329 Th/cmm (150-400) 09/30/17 20:20 MPV 7.3 fl 09/30/17 20:20 Neutrophils % 68.8 % (40.0-80.0) 09/30/17 20:20 Lymphocytes % 18.4 % (20.0-50.0) L 09/30/17 20:20 Monocytes % 7.8 % (2.0-10.0) 09/30/17 20:20 Eosinophils % 4.5 % (0.0-5.0) 09/30/17 20:20 Basophils % 0.5 % (0.0-2.0) 09/30/17 20:20 Sodium 136 mEq/L (136-145) 10/02/17 09:20 Potassium 2.7 mEq/L (3.5-5.1) L* 10/02/17 09:20 Chloride 100 mEq/L (98-107) 10/02/17 09:20 Carbon Dioxide 28.1 mEq/L (21.0-31.0) 10/02/17 09:20 Anion Gap 10.6 (7.0-16.0) 10/02/17 09:20 BUN 16 mg/dL (7-25) 10/02/17 09:20 Creatinine 0.9 mg/dL (0.7-1.3) 10/02/17 09:20 Est GFR ( Amer) > 60.0 ml/min (>90) 10/02/17 09:20 Est GFR (Non-Af Amer) > 60.0 ml/min 10/02/17 09:20 BUN/Creatinine Ratio 17.8 10/02/17 09:20 Glucose 173 mg/dL (70-105) H 10/02/17 09:20 Calcium 9.1 mg/dL (8.6-10.3) 10/02/17 09:20 Magnesium 1.9 mg/dL (1.9-2.7) 09/30/17 20:20 Total Bilirubin 0.7 mg/dL (0.3-1.0) 10/02/17 09:20 AST 41 U/L (13-39) H 10/02/17 09:20 ALT 28 U/L (7-52) 10/02/17 09:20 Alkaline Phosphatase 87 U/L (34-104) 10/02/17 09:20 Troponin I 0.03 ng/mL (0.01-0.05) 09/30/17 20:20 B-Natriuretic Peptide 232.0 pg/mL (5.0-100.0) H 09/30/17 20:20 Total Protein 7.3 gm/dL (6.0-8.3) 10/02/17 09:20 Albumin 3.6 gm/dL (4.2-5.5) L 10/02/17 09:20 Globulin 3.7 gm/dL 10/02/17 09:20 Albumin/Globulin Ratio 1.0 (1.0-1.8) 10/02/17 09:20 Urine Source RANDOM 09/30/17 20:40 Urine Color YELLOW 09/30/17 20:40 Urine Clarity CLEAR (CLEAR) 09/30/17 20:40 Urine pH 7.5 (4.6 - 8.0) 09/30/17 20:40 Ur Specific [place] 1.010 (1.005-1.030) 09/30/17 20:40 Urine Protein NEGATIVE mg/dL (NEGATIVE) 09/30/17 20:40 Urine Glucose (UA) NEGATIVE mg/dL (NEGATIVE) 09/30/17 20:40 Urine Ketones NEGATIVE mg/dL (NEGATIVE) 09/30/17 20:40 Urine Blood NEGATIVE (NEGATIVE) 09/30/17 20:40 Urine Nitrate NEGATIVE (NEGATIVE) 09/30/17 20:40 Urine Bilirubin NEGATIVE (NEGATIVE) 09/30/17 20:40 Urine Urobilinogen 1.0 E.U./dL (0.2 - 1.0) 09/30/17 20:40 Ur Leukocyte Esterase NEGATIVE (NEGATIVE) 09/30/17 20:40 Urine RBC 0-2 /hpf (0-5) H 09/30/17 20:40 Urine WBC 0-2 /hpf (0-5) 09/30/17 20:40 Ur Epithelial Cells OCCASIONAL /lpf (FEW) 09/30/17 20:40 Urine Bacteria OCCASIONAL /hpf (NONE SEEN) 09/30/17 20:40 - Physical Exam Vitals and I&O: Vital Signs Temp 98.3 F 10/04/17 20:17 Pulse 91 10/04/17 21:45 Resp 18 10/04/17 20:17 BP 139/94 10/04/17 21:45 Pulse Ox 97 10/04/17 20:17 Intake & Output 10/04/17 10/04/17 10/05/17 06:59 18:59 06:59 Intake Total 1200 240 Balance 1200 240 Intake: Oral 1200 240 Other: # Voids 1 # Bowel Movements 1 Active Medications: Current Medications Acetaminophen (Tylenol) 650 mg PO Q4HR PRN PRN Reason: Mild Pain / Temp above 100 Stop: 11/29/17 22:32 Al Hydrox/Mg Hydrox/Simethicone (Maalox) 30 ml PO Q4HR PRN PRN Reason: GI DISTRESS Stop: 11/29/17 22:32 Amlodipine Besylate (Norvasc) 10 mg PO DAILY [facility] Stop: 11/30/17 08:59 Last Admin: 10/04/17 08:37 Dose: 10 mg Aspirin (Aspirin Chewable) 81 mg PO DAILY [facility] Stop: 11/30/17 08:59 Last Admin: 10/04/17 08:38 Dose: 81 mg Atorvastatin Calcium (Lipitor) 20 mg PO HS [facility] Stop: 11/30/17 20:59 Last Admin: 10/04/17 21:45 Dose: 20 mg Hydralazine HCl (Apresoline) 25 mg PO TID [facility] Stop: 11/30/17 08:59 Last Admin: 10/04/17 21:45 Dose: 25 mg Ibuprofen (Motrin) 800 mg PO Q8HR PRN PRN Reason: right lower ext pain Stop: 11/29/17 23:03 Lisinopril (Zestril) 20 mg PO DAILY [facility] Stop: 11/30/17 08:59 Last Admin: 10/04/17 08:38 Dose: 20 mg Lorazepam (Ativan) 0.5 mg PO Q4HR PRN; Protocol PRN Reason: Anxiety/agitation Stop: 10/30/17 22:32 Last Admin: 10/03/17 13:49 Dose: 0.5 mg Magnesium Hydroxide (Milk Of Magnesia) 30 ml PO HS PRN PRN Reason: Constipation Metoprolol Tartrate (Lopressor) 25 mg PO BID [facility] Stop: 11/30/17 08:59 Last Admin: 10/04/17 17:50 Dose: Not Given Multivitamins/Vitamin C (Theragran) 1 tab PO DAILY [facility] Stop: 11/30/17 08:59 Last Admin: 10/04/17 08:39 Dose: 1 tab Oxcarbazepine (Trileptal) 300 mg PO BID [facility]; Protocol Stop: 11/30/17 08:59 Last Admin: 10/04/17 17:51 Dose: Not Given Potassium Chloride (Klor-Con) 20 meq PO DAILY [facility] Stop: 11/30/17 08:59 Last Admin: 10/04/17 08:39 Dose: 20 meq Quetiapine Fumarate (Seroquel) 50 mg PO DAILY [facility]; Protocol Stop: 12/02/17 08:59 Last Admin: 10/04/17 08:39 Dose: 50 mg Quetiapine Fumarate (Seroquel) 200 mg PO HS [facility]; Protocol Stop: 12/02/17 20:59 Last Admin: 10/04/17 21:45 Dose: 200 mg Zolpidem Tartrate (Ambien) 5 mg PO HS PRN PRN Reason: Insomnia Stop: 12/01/17 20:43 General: No acute distress HEENT: Atraumatic Neck: Supple, JVD Cardiovascular: Regular rate, Normal S1, Normal S2 Lungs: Clear to auscultation, Normal air movement Abdomen: Bowel sounds, Soft - Procedures Procedures: Procedures Procedure Code Date OTHER GROUP THERAPY 94.44 09/01/14 RECREATIONAL THERAPY 93.81 12/23/11 Assessment/Plan - Assessment Assessment: 1.HTN. 2.CHF. 3.DEMENTIA. 4.PSYCHOSIS - Plan Plan: cont current treatment Nutritional Asmnt/Malnutr-PDOC - Dietary Evaluation Malnutrition Findings (Please click <Entered> for more info): Nutritional Asmnt/Malnutrition Start: 10/03/17 13: 42 Text: Status: Complete Freq: Protocol: Document 10/03/17 13:42 MC (Rec: 10/03/17 14:02 AARON [email or web address]) Nutritional Asmnt/Malnutrition Patient General Information Nutritional Screening Moderate Risk Diagnosis psychosis Pertinent Medical Hx/Surgical Hx HTN, DJD, dementia, psychosis, hyperlipidemia Subjective Information Pt seen lying in bed at time of visit, waiting for lunch, talking confused. Per EMR, PO itnake 75-100% of meals. Current Diet Order/ Nutrition Support JAVAN, non fat milk and sugar free diet, high protein nourishment with lunch Pertinent Medications theragran, kcl, seroquel Pertinent Labs 10/02 K 2.7, glucose 173 Nutritional Hx/Data Height 1.68 m Height (Calculated Centimeters) 167.6 Current Weight (lbs) 83.461 kg Weight (Calculated Kilograms) 83.5 Weight (Calculated Grams) 27617.0 [place] Body Weight 142 Body Mass Index (BMI) 29.7 Weight Status Approriate GI Symptoms GI Symptoms None Last BM none Difficult in: None Skin Integrity/Comment: per EMR, pt refused skin check . Sujit 22. Current %PO Good (75-100%) Estimated Nutritional Goals BEE in Kcals: Using Current wt Calories/Kcals/Kg 20-25 Kcals Calculated 3501-3525 Protein: Using Current wt Protein g/k.8 Protein Calculated 67 Fluid: ml 1680-2100ml (1ml/kcal) Nutritional Problem No current Nutrition Prob Problem N/A Malnutrition Alert Is there a minimum of two criteria No selected? Query Text:Check all the applicable criteria. A minimum of two criteria are recommended for diagnosis of either severe or non-severe malnutrition. Intervention/Recommendation Comments 1. Continue with current diet as ordered. 2. Monitor PO intake, wt, labs and skin integrity 3. F/U as low risk in 7 days, 10/10 Expected Outcomes/Goals Expected Outcomes/Goals 1. PO intake to meet at least 75% of nutritional needs. 2. Wt stability, skin to remain intact, labs to approach WNL.
[2017-10-05] MEDS: Potassium Chloride 20 mEq ER Tab PO SCH (08:09)
[2017-10-05] MEDS ORDERED: chlorproMAZINE 25 mg/mL 2mL Amp ONE ×2 (09:31→17:16)
[2017-10-05] MEDS ORDERED: chlorproMAZINE 25 mg/mL 2mL Amp IM STA ×2 (09:37→17:23)
[2017-10-05] MEDS: Aspirin 81mg Chewable Tab PO SCH (10:01)
[2017-10-05] MEDS: Multivitamin Tab PO SCH (10:02)
--- NOTE | 2017-10-05 15:24 | General Progress Note ---
Subjective - Review of Systems Service Date: 10/05/17 Subjective: resting comfortably no distress Objective - Results Result Diagrams: 09/30/17 20:20 10/02/17 09:20 Recent Labs: Laboratory Last Values WBC 9.9 Th/cmm (4.8-10.8) 09/30/17 20:20 RBC 5.02 Mil/cmm (4.30-5.70) 09/30/17 20:20 Hgb 14.4 gm/dL (12-16) 09/30/17 20:20 Hct 42.6 % (41.0-60) 09/30/17 20:20 MCV 84.9 fl (80-99) 09/30/17 20:20 MCH 28.7 pg (26.0-30.0) 09/30/17 20:20 MCHC Differential 33.8 pg (28.0-36.0) 09/30/17 20:20 RDW 13.4 % (11.5-20.0) 09/30/17 20:20 Plt Count 329 Th/cmm (150-400) 09/30/17 20:20 MPV 7.3 fl 09/30/17 20:20 Neutrophils % 68.8 % (40.0-80.0) 09/30/17 20:20 Lymphocytes % 18.4 % (20.0-50.0) L 09/30/17 20:20 Monocytes % 7.8 % (2.0-10.0) 09/30/17 20:20 Eosinophils % 4.5 % (0.0-5.0) 09/30/17 20:20 Basophils % 0.5 % (0.0-2.0) 09/30/17 20:20 Sodium 136 mEq/L (136-145) 10/02/17 09:20 Potassium 2.7 mEq/L (3.5-5.1) L* 10/02/17 09:20 Chloride 100 mEq/L (98-107) 10/02/17 09:20 Carbon Dioxide 28.1 mEq/L (21.0-31.0) 10/02/17 09:20 Anion Gap 10.6 (7.0-16.0) 10/02/17 09:20 BUN 16 mg/dL (7-25) 10/02/17 09:20 Creatinine 0.9 mg/dL (0.7-1.3) 10/02/17 09:20 Est GFR ( Amer) > 60.0 ml/min (>90) 10/02/17 09:20 Est GFR (Non-Af Amer) > 60.0 ml/min 10/02/17 09:20 BUN/Creatinine Ratio 17.8 10/02/17 09:20 Glucose 173 mg/dL (70-105) H 10/02/17 09:20 Calcium 9.1 mg/dL (8.6-10.3) 10/02/17 09:20 Magnesium 1.9 mg/dL (1.9-2.7) 09/30/17 20:20 Total Bilirubin 0.7 mg/dL (0.3-1.0) 10/02/17 09:20 AST 41 U/L (13-39) H 10/02/17 09:20 ALT 28 U/L (7-52) 10/02/17 09:20 Alkaline Phosphatase 87 U/L (34-104) 10/02/17 09:20 Troponin I 0.03 ng/mL (0.01-0.05) 09/30/17 20:20 B-Natriuretic Peptide 232.0 pg/mL (5.0-100.0) H 09/30/17 20:20 Total Protein 7.3 gm/dL (6.0-8.3) 10/02/17 09:20 Albumin 3.6 gm/dL (4.2-5.5) L 10/02/17 09:20 Globulin 3.7 gm/dL 10/02/17 09:20 Albumin/Globulin Ratio 1.0 (1.0-1.8) 10/02/17 09:20 Urine Source RANDOM 09/30/17 20:40 Urine Color YELLOW 09/30/17 20:40 Urine Clarity CLEAR (CLEAR) 09/30/17 20:40 Urine pH 7.5 (4.6 - 8.0) 09/30/17 20:40 Ur Specific [place] 1.010 (1.005-1.030) 09/30/17 20:40 Urine Protein NEGATIVE mg/dL (NEGATIVE) 09/30/17 20:40 Urine Glucose (UA) NEGATIVE mg/dL (NEGATIVE) 09/30/17 20:40 Urine Ketones NEGATIVE mg/dL (NEGATIVE) 09/30/17 20:40 Urine Blood NEGATIVE (NEGATIVE) 09/30/17 20:40 Urine Nitrate NEGATIVE (NEGATIVE) 09/30/17 20:40 Urine Bilirubin NEGATIVE (NEGATIVE) 09/30/17 20:40 Urine Urobilinogen 1.0 E.U./dL (0.2 - 1.0) 09/30/17 20:40 Ur Leukocyte Esterase NEGATIVE (NEGATIVE) 09/30/17 20:40 Urine RBC 0-2 /hpf (0-5) H 09/30/17 20:40 Urine WBC 0-2 /hpf (0-5) 09/30/17 20:40 Ur Epithelial Cells OCCASIONAL /lpf (FEW) 09/30/17 20:40 Urine Bacteria OCCASIONAL /hpf (NONE SEEN) 09/30/17 20:40 - Physical Exam Vitals and I&O: Vital Signs Temp 98.3 F 10/04/17 20:17 Pulse 91 10/04/17 21:45 Resp 18 10/04/17 20:17 BP 139/94 10/04/17 21:45 Pulse Ox 97 10/04/17 20:17 Intake & Output 10/04/17 10/05/17 10/05/17 18:59 06:59 18:59 Intake Total 1200 480 Balance 1200 480 Intake: Oral 1200 480 Other: # Voids 1 # Bowel Movements 1 Active Medications: Current Medications Acetaminophen (Tylenol) 650 mg PO Q4HR PRN PRN Reason: Mild Pain / Temp above 100 Stop: 11/29/17 22:32 Al Hydrox/Mg Hydrox/Simethicone (Maalox) 30 ml PO Q4HR PRN PRN Reason: GI DISTRESS Stop: 11/29/17 22:32 Amlodipine Besylate (Norvasc) 10 mg PO DAILY [facility] Stop: 11/30/17 08:59 Last Admin: 10/05/17 10:01 Dose: Not Given Aspirin (Aspirin Chewable) 81 mg PO DAILY [facility] Stop: 11/30/17 08:59 Last Admin: 10/05/17 10:01 Dose: Not Given Atorvastatin Calcium (Lipitor) 20 mg PO HS [facility] Stop: 11/30/17 20:59 Last Admin: 10/04/17 21:45 Dose: 20 mg Chlorpromazine (Thorazine) 100 mg PO TID [facility]; Protocol Stop: 12/04/17 13:59 Last Admin: 10/05/17 14:09 Dose: Not Given Hydralazine HCl (Apresoline) 25 mg PO TID [facility] Stop: 11/30/17 08:59 Last Admin: 10/05/17 14:09 Dose: Not Given Ibuprofen (Motrin) 800 mg PO Q8HR PRN PRN Reason: right lower ext pain Stop: 11/29/17 23:03 Lisinopril (Zestril) 20 mg PO DAILY [facility] Stop: 11/30/17 08:59 Last Admin: 10/05/17 10:02 Dose: Not Given Lorazepam (Ativan) 0.5 mg PO Q4HR PRN; Protocol PRN Reason: Anxiety/agitation Stop: 10/30/17 22:32 Last Admin: 10/03/17 13:49 Dose: 0.5 mg Magnesium Hydroxide (Milk Of Magnesia) 30 ml PO HS PRN PRN Reason: Constipation Metoprolol Tartrate (Lopressor) 25 mg PO BID [facility] Stop: 11/30/17 08:59 Last Admin: 10/05/17 10:02 Dose: Not Given Multivitamins/Vitamin C (Theragran) 1 tab PO DAILY [facility] Stop: 11/30/17 08:59 Last Admin: 10/05/17 10:02 Dose: Not Given Oxcarbazepine (Trileptal) 300 mg PO BID [facility]; Protocol Stop: 11/30/17 08:59 Last Admin: 10/05/17 10:02 Dose: Not Given Potassium Chloride (Klor-Con) 20 meq PO DAILY [facility] Stop: 11/30/17 08:59 Last Admin: 10/05/17 08:09 Dose: 20 meq Quetiapine Fumarate (Seroquel) 50 mg PO DAILY [facility]; Protocol Stop: 12/02/17 08:59 Last Admin: 10/05/17 08:09 Dose: 50 mg Quetiapine Fumarate (Seroquel) 200 mg PO HS [facility]; Protocol Stop: 12/02/17 20:59 Last Admin: 10/04/17 21:45 Dose: 200 mg Zolpidem Tartrate (Ambien) 5 mg PO HS PRN PRN Reason: Insomnia Stop: 12/01/17 20:43 General: No acute distress HEENT: Atraumatic Neck: Supple, JVD Cardiovascular: Regular rate, Normal S1, Normal S2 Lungs: Clear to auscultation, Normal air movement Abdomen: Bowel sounds, Soft - Procedures Procedures: Procedures Procedure Code Date OTHER GROUP THERAPY 94.44 09/01/14 RECREATIONAL THERAPY 93.81 12/23/11 Assessment/Plan - Assessment Assessment: 1.HTN. 2.CHF. 3.DEMENTIA. 4.PSYCHOSIS - Plan Plan: cont current treatment Nutritional Asmnt/Malnutr-PDOC - Dietary Evaluation Malnutrition Findings (Please click <Entered> for more info): Nutritional Asmnt/Malnutrition Start: 10/03/17 13: 42 Text: Status: Complete Freq: Protocol: Document 10/03/17 13:42 MC (Rec: 10/03/17 14:02 MC [email or web address]) Nutritional Asmnt/Malnutrition Patient General Information Nutritional Screening Moderate Risk Diagnosis psychosis Pertinent Medical Hx/Surgical Hx HTN, DJD, dementia, psychosis, hyperlipidemia Subjective Information Pt seen lying in bed at time of visit, waiting for lunch, talking confused. Per EMR, PO itnake 75-100% of meals. Current Diet Order/ Nutrition Support JAVAN, non fat milk and sugar free diet, high protein nourishment with lunch Pertinent Medications theragran, kcl, seroquel Pertinent Labs 10/02 K 2.7, glucose 173 Nutritional Hx/Data Height 1.68 m Height (Calculated Centimeters) 167.6 Current Weight (lbs) 83.461 kg Weight (Calculated Kilograms) 83.5 Weight (Calculated Grams) 07474.0 [place] Body Weight 142 Body Mass Index (BMI) 29.7 Weight Status Approriate GI Symptoms GI Symptoms None Last BM none Difficult in: None Skin Integrity/Comment: per EMR, pt refused skin check . Sujit 22. Current %PO Good (75-100%) Estimated Nutritional Goals BEE in Kcals: Using Current wt Calories/Kcals/Kg 20-25 Kcals Calculated 6710-5594 Protein: Using Current wt Protein g/k.8 Protein Calculated 67 Fluid: ml 1680-2100ml (1ml/kcal) Nutritional Problem No current Nutrition Prob Problem N/A Malnutrition Alert Is there a minimum of two criteria No selected? Query Text:Check all the applicable criteria. A minimum of two criteria are recommended for diagnosis of either severe or non-severe malnutrition. Intervention/Recommendation Comments 1. Continue with current diet as ordered. 2. Monitor PO intake, wt, labs and skin integrity 3. F/U as low risk in 7 days, 10/10 Expected Outcomes/Goals Expected Outcomes/Goals 1. PO intake to meet at least 75% of nutritional needs. 2. Wt stability, skin to remain intact, labs to approach WNL.
[2017-10-05] MEDS: Atorvastatin Calcium 10 MG TAB PO SCH (21:58)
--- NOTE | 2017-10-06 07:07 | Progress Notes ---
DATE: 10/05/2017 PSYCHIATRIC PROGRESS NOTE SUBJECTIVE: Chart reviewed and the patient interviewed. Also discussed the patient's condition with the staff and reviewed records and labs. The patient is still rambling and he is still actively hallucinating and actively talking to himself. The patient also has been nonsensical and is unable to provide any safe information or carry on coherent conversation. The patient actually is easily agitated and has difficulty following directions. Otherwise, the patient also is refusing to take medications to give him the medications with no side effects. ASSESSMENT: The patient is still aggressive and psychotic. TREATMENT PLAN: Continue to monitor his behavior and his condition closely. Also, we will increase the Thorazine to 50 mg 3 times a day and we will continue to follow up. JOB# [id number]
[2017-10-06] MEDS: Multivitamin Tab PO SCH (08:05)
[2017-10-06] MEDS: Potassium Chloride 20 mEq ER Tab PO SCH (08:05)
[2017-10-06] MEDS: Aspirin 81mg Chewable Tab PO SCH (08:05)
--- NOTE | 2017-10-06 17:35 | Internal Medicine Prog Note ---
Internal Medicine Subjective - Subjective Service Date: 10/06/17 Patient seen and examined:: with staff (HE FEELS BETTER) Patient is:: awake, in bed, talking, confused Per staff patient has:: no adverse event Internal Medicine Objective - Results Result Diagrams: 09/30/17 20:20 10/02/17 09:20 Recent Labs: Laboratory Last Values WBC 9.9 Th/cmm (4.8-10.8) 09/30/17 20:20 RBC 5.02 Mil/cmm (4.30-5.70) 09/30/17 20:20 Hgb 14.4 gm/dL (12-16) 09/30/17 20:20 Hct 42.6 % (41.0-60) 09/30/17 20:20 MCV 84.9 fl (80-99) 09/30/17 20:20 MCH 28.7 pg (26.0-30.0) 09/30/17 20:20 MCHC Differential 33.8 pg (28.0-36.0) 09/30/17 20:20 RDW 13.4 % (11.5-20.0) 09/30/17 20:20 Plt Count 329 Th/cmm (150-400) 09/30/17 20:20 MPV 7.3 fl 09/30/17 20:20 Neutrophils % 68.8 % (40.0-80.0) 09/30/17 20:20 Lymphocytes % 18.4 % (20.0-50.0) L 09/30/17 20:20 Monocytes % 7.8 % (2.0-10.0) 09/30/17 20:20 Eosinophils % 4.5 % (0.0-5.0) 09/30/17 20:20 Basophils % 0.5 % (0.0-2.0) 09/30/17 20:20 Sodium 136 mEq/L (136-145) 10/02/17 09:20 Potassium 2.7 mEq/L (3.5-5.1) L* 10/02/17 09:20 Chloride 100 mEq/L (98-107) 10/02/17 09:20 Carbon Dioxide 28.1 mEq/L (21.0-31.0) 10/02/17 09:20 Anion Gap 10.6 (7.0-16.0) 10/02/17 09:20 BUN 16 mg/dL (7-25) 10/02/17 09:20 Creatinine 0.9 mg/dL (0.7-1.3) 10/02/17 09:20 Est GFR ( Amer) > 60.0 ml/min (>90) 10/02/17 09:20 Est GFR (Non-Af Amer) > 60.0 ml/min 10/02/17 09:20 BUN/Creatinine Ratio 17.8 10/02/17 09:20 Glucose 173 mg/dL (70-105) H 10/02/17 09:20 Calcium 9.1 mg/dL (8.6-10.3) 10/02/17 09:20 Magnesium 1.9 mg/dL (1.9-2.7) 09/30/17 20:20 Total Bilirubin 0.7 mg/dL (0.3-1.0) 10/02/17 09:20 AST 41 U/L (13-39) H 10/02/17 09:20 ALT 28 U/L (7-52) 10/02/17 09:20 Alkaline Phosphatase 87 U/L (34-104) 10/02/17 09:20 Troponin I 0.03 ng/mL (0.01-0.05) 09/30/17 20:20 B-Natriuretic Peptide 232.0 pg/mL (5.0-100.0) H 09/30/17 20:20 Total Protein 7.3 gm/dL (6.0-8.3) 10/02/17 09:20 Albumin 3.6 gm/dL (4.2-5.5) L 10/02/17 09:20 Globulin 3.7 gm/dL 10/02/17 09:20 Albumin/Globulin Ratio 1.0 (1.0-1.8) 10/02/17 09:20 Urine Source RANDOM 09/30/17 20:40 Urine Color YELLOW 09/30/17 20:40 Urine Clarity CLEAR (CLEAR) 09/30/17 20:40 Urine pH 7.5 (4.6 - 8.0) 09/30/17 20:40 Ur Specific [place] 1.010 (1.005-1.030) 09/30/17 20:40 Urine Protein NEGATIVE mg/dL (NEGATIVE) 09/30/17 20:40 Urine Glucose (UA) NEGATIVE mg/dL (NEGATIVE) 09/30/17 20:40 Urine Ketones NEGATIVE mg/dL (NEGATIVE) 09/30/17 20:40 Urine Blood NEGATIVE (NEGATIVE) 09/30/17 20:40 Urine Nitrate NEGATIVE (NEGATIVE) 09/30/17 20:40 Urine Bilirubin NEGATIVE (NEGATIVE) 09/30/17 20:40 Urine Urobilinogen 1.0 E.U./dL (0.2 - 1.0) 09/30/17 20:40 Ur Leukocyte Esterase NEGATIVE (NEGATIVE) 09/30/17 20:40 Urine RBC 0-2 /hpf (0-5) H 09/30/17 20:40 Urine WBC 0-2 /hpf (0-5) 09/30/17 20:40 Ur Epithelial Cells OCCASIONAL /lpf (FEW) 09/30/17 20:40 Urine Bacteria OCCASIONAL /hpf (NONE SEEN) 09/30/17 20:40 - Physical Exam Vitals and I&O: Vital Signs Temp 98.3 F 10/04/17 20:17 Pulse 91 10/04/17 21:45 Resp 20 10/05/17 19:40 BP 139/94 10/04/17 21:45 Pulse Ox 97 10/04/17 20:17 Intake & Output 10/05/17 10/06/17 10/06/17 18:59 06:59 18:59 Intake Total 1200 420 Balance 1200 420 Intake: Oral 1200 420 Other: # Voids 3 2 # Bowel Movements 0 Active Medications: Current Medications Acetaminophen (Tylenol) 650 mg PO Q4HR PRN PRN Reason: Mild Pain / Temp above 100 Stop: 11/29/17 22:32 Al Hydrox/Mg Hydrox/Simethicone (Maalox) 30 ml PO Q4HR PRN PRN Reason: GI DISTRESS Stop: 11/29/17 22:32 Amlodipine Besylate (Norvasc) 10 mg PO DAILY [facility] Stop: 12/06/17 08:59 Aspirin (Aspirin Chewable) 81 mg PO DAILY [facility] Stop: 11/30/17 08:59 Last Admin: 10/06/17 08:05 Dose: Not Given Atorvastatin Calcium (Lipitor) 20 mg PO HS [facility] Stop: 11/30/17 20:59 Last Admin: 10/05/17 21:58 Dose: Not Given Chlorpromazine (Thorazine) 100 mg PO TID [facility]; Protocol Stop: 12/04/17 13:59 Last Admin: 10/06/17 14:09 Dose: Not Given Hydralazine HCl (Apresoline) 25 mg PO TID [facility] Stop: 11/30/17 08:59 Last Admin: 10/06/17 14:09 Dose: Not Given Ibuprofen (Motrin) 800 mg PO Q8HR PRN PRN Reason: right lower ext pain Stop: 11/29/17 23:03 Lisinopril (Zestril) 20 mg PO DAILY [facility] Stop: 11/30/17 08:59 Last Admin: 10/06/17 08:05 Dose: Not Given Lorazepam (Ativan) 0.5 mg PO Q4HR PRN; Protocol PRN Reason: Anxiety/agitation Stop: 10/30/17 22:32 Last Admin: 10/03/17 13:49 Dose: 0.5 mg Magnesium Hydroxide (Milk Of Magnesia) 30 ml PO HS PRN PRN Reason: Constipation Metoprolol Tartrate (Lopressor) 25 mg PO BID [facility] Stop: 11/30/17 08:59 Last Admin: 10/06/17 16:05 Dose: Not Given Multivitamins/Vitamin C (Theragran) 1 tab PO DAILY [facility] Stop: 11/30/17 08:59 Last Admin: 10/06/17 08:05 Dose: Not Given Oxcarbazepine (Trileptal) 300 mg PO BID [facility]; Protocol Stop: 11/30/17 08:59 Last Admin: 10/06/17 16:05 Dose: Not Given Potassium Chloride (Klor-Con) 20 meq PO DAILY [facility] Stop: 11/30/17 08:59 Last Admin: 10/06/17 08:05 Dose: Not Given Quetiapine Fumarate (Seroquel) 50 mg PO DAILY [facility]; Protocol Stop: 12/02/17 08:59 Last Admin: 10/06/17 08:05 Dose: Not Given Quetiapine Fumarate (Seroquel) 200 mg PO HS [facility]; Protocol Stop: 12/02/17 20:59 Last Admin: 10/05/17 21:59 Dose: Not Given Zolpidem Tartrate (Ambien) 5 mg PO HS PRN PRN Reason: Insomnia Stop: 12/01/17 20:43 General: demented HEENT: NC/AT, PERRLA, EOMI, anicteric sclerae, throat clear Neck: Supple, No JVD, No thyromegaly, +2 carotid pulse wo bruit, No LAD Cardiovascular: RRR, Normal S1, Normal S2, without murmur Abdomen: soft, non-tender, non-distended Neurological: no change - Procedures Procedures: Procedures Procedure Code Date OTHER GROUP THERAPY 94.44 09/01/14 RECREATIONAL THERAPY 93.81 12/23/11 Internal Medicine Assmt/Plan - Assessment Assessment: 1.HTN. 2.CHF. 3.DEMENTIA. 4.PSYCHOSIS. 5.HYPOKALEMIA - Plan Plan: CONTINUE ON CURRENT MEDICATION AND DIET. Nutritional Asmnt/Malnutr-PDOC - Dietary Evaluation Malnutrition Findings (Please click <Entered> for more info): Nutritional Asmnt/Malnutrition Start: 10/03/17 13: 42 Text: Status: Complete Freq: Protocol: Document 10/03/17 13:42 MC (Rec: 10/03/17 14:02 MC [email or web address]) Nutritional Asmnt/Malnutrition Patient General Information Nutritional Screening Moderate Risk Diagnosis psychosis Pertinent Medical Hx/Surgical Hx HTN, DJD, dementia, psychosis, hyperlipidemia Subjective Information Pt seen lying in bed at time of visit, waiting for lunch, talking confused. Per EMR, PO itnake 75-100% of meals. Current Diet Order/ Nutrition Support JAVAN, non fat milk and sugar free diet, high protein nourishment with lunch Pertinent Medications theragran, kcl, seroquel Pertinent Labs 10/02 K 2.7, glucose 173 Nutritional Hx/Data Height 1.68 m Height (Calculated Centimeters) 167.6 Current Weight (lbs) 83.461 kg Weight (Calculated Kilograms) 83.5 Weight (Calculated Grams) 29421.0 [place] Body Weight 142 Body Mass Index (BMI) 29.7 Weight Status Approriate GI Symptoms GI Symptoms None Last BM none Difficult in: None Skin Integrity/Comment: per EMR, pt refused skin check . Sujit 22. Current %PO Good (75-100%) Estimated Nutritional Goals BEE in Kcals: Using Current wt Calories/Kcals/Kg 20-25 Kcals Calculated 3992-3758 Protein: Using Current wt Protein g/k.8 Protein Calculated 67 Fluid: ml 1680-2100ml (1ml/kcal) Nutritional Problem No current Nutrition Prob Problem N/A Malnutrition Alert Is there a minimum of two criteria No selected? Query Text:Check all the applicable criteria. A minimum of two criteria are recommended for diagnosis of either severe or non-severe malnutrition. Intervention/Recommendation Comments 1. Continue with current diet as ordered. 2. Monitor PO intake, wt, labs and skin integrity 3. F/U as low risk in 7 days, 10/10 Expected Outcomes/Goals Expected Outcomes/Goals 1. PO intake to meet at least 75% of nutritional needs. 2. Wt stability, skin to remain intact, labs to approach WNL.
[2017-10-06] MEDS: Atorvastatin Calcium 10 MG TAB PO SCH ×2 (20:38→21:31)
--- NOTE | 2017-10-07 02:50 | Progress Notes ---
DATE: 10/06/[address] Alvarado. Case was discussed with staff of the patient, reviewed records. This is a 57-year-old male who was admitted on 09/30/2017. He came from [facility]. The patient has been agitated, irritable, aggressive, restless, argumentative, intrusive, needing redirection with a history of psychosis, delusional behavior. He continues to be unpredictable, impulsive, continues to need redirection. Continues to have poor insight about his behavior. He is on Largactil of chlorpromazine 100 mg 3 times a day that was increased yesterday. He continues to have poor insight. He is also on Seroquel 50 mg daily and Trileptal 300 mg twice a day, multivitamin 1 tablet daily. Medication reviewed and no side effects with the medication, no sedation or nausea, no extrapyramidal symptoms. We will continue outpatient group therapy, milieu therapy, adjust medication as needed. [facility]# [id number]
[2017-10-07] MEDS: Multivitamin Tab PO SCH (08:51)
[2017-10-07] MEDS: Potassium Chloride 20 mEq ER Tab PO SCH (08:53)
[2017-10-07] MEDS: Aspirin 81mg Chewable Tab PO SCH (08:53)
--- NOTE | 2017-10-07 21:24 | Internal Medicine Prog Note ---
Internal Medicine Subjective - Subjective Service Date: 10/07/17 Patient seen and examined:: with staff (HE DENIES ANY PAIN) Patient is:: awake, in bed, talking, confused Per staff patient has:: no adverse event Internal Medicine Objective - Results Result Diagrams: 09/30/17 20:20 10/02/17 09:20 Recent Labs: Laboratory Last Values WBC 9.9 Th/cmm (4.8-10.8) 09/30/17 20:20 RBC 5.02 Mil/cmm (4.30-5.70) 09/30/17 20:20 Hgb 14.4 gm/dL (12-16) 09/30/17 20:20 Hct 42.6 % (41.0-60) 09/30/17 20:20 MCV 84.9 fl (80-99) 09/30/17 20:20 MCH 28.7 pg (26.0-30.0) 09/30/17 20:20 MCHC Differential 33.8 pg (28.0-36.0) 09/30/17 20:20 RDW 13.4 % (11.5-20.0) 09/30/17 20:20 Plt Count 329 Th/cmm (150-400) 09/30/17 20:20 MPV 7.3 fl 09/30/17 20:20 Neutrophils % 68.8 % (40.0-80.0) 09/30/17 20:20 Lymphocytes % 18.4 % (20.0-50.0) L 09/30/17 20:20 Monocytes % 7.8 % (2.0-10.0) 09/30/17 20:20 Eosinophils % 4.5 % (0.0-5.0) 09/30/17 20:20 Basophils % 0.5 % (0.0-2.0) 09/30/17 20:20 Sodium 136 mEq/L (136-145) 10/02/17 09:20 Potassium 2.7 mEq/L (3.5-5.1) L* 10/02/17 09:20 Chloride 100 mEq/L (98-107) 10/02/17 09:20 Carbon Dioxide 28.1 mEq/L (21.0-31.0) 10/02/17 09:20 Anion Gap 10.6 (7.0-16.0) 10/02/17 09:20 BUN 16 mg/dL (7-25) 10/02/17 09:20 Creatinine 0.9 mg/dL (0.7-1.3) 10/02/17 09:20 Est GFR ( Amer) > 60.0 ml/min (>90) 10/02/17 09:20 Est GFR (Non-Af Amer) > 60.0 ml/min 10/02/17 09:20 BUN/Creatinine Ratio 17.8 10/02/17 09:20 Glucose 173 mg/dL (70-105) H 10/02/17 09:20 Calcium 9.1 mg/dL (8.6-10.3) 10/02/17 09:20 Magnesium 1.9 mg/dL (1.9-2.7) 09/30/17 20:20 Total Bilirubin 0.7 mg/dL (0.3-1.0) 10/02/17 09:20 AST 41 U/L (13-39) H 10/02/17 09:20 ALT 28 U/L (7-52) 10/02/17 09:20 Alkaline Phosphatase 87 U/L (34-104) 10/02/17 09:20 Troponin I 0.03 ng/mL (0.01-0.05) 09/30/17 20:20 B-Natriuretic Peptide 232.0 pg/mL (5.0-100.0) H 09/30/17 20:20 Total Protein 7.3 gm/dL (6.0-8.3) 10/02/17 09:20 Albumin 3.6 gm/dL (4.2-5.5) L 10/02/17 09:20 Globulin 3.7 gm/dL 10/02/17 09:20 Albumin/Globulin Ratio 1.0 (1.0-1.8) 10/02/17 09:20 Urine Source RANDOM 09/30/17 20:40 Urine Color YELLOW 09/30/17 20:40 Urine Clarity CLEAR (CLEAR) 09/30/17 20:40 Urine pH 7.5 (4.6 - 8.0) 09/30/17 20:40 Ur Specific [place] 1.010 (1.005-1.030) 09/30/17 20:40 Urine Protein NEGATIVE mg/dL (NEGATIVE) 09/30/17 20:40 Urine Glucose (UA) NEGATIVE mg/dL (NEGATIVE) 09/30/17 20:40 Urine Ketones NEGATIVE mg/dL (NEGATIVE) 09/30/17 20:40 Urine Blood NEGATIVE (NEGATIVE) 09/30/17 20:40 Urine Nitrate NEGATIVE (NEGATIVE) 09/30/17 20:40 Urine Bilirubin NEGATIVE (NEGATIVE) 09/30/17 20:40 Urine Urobilinogen 1.0 E.U./dL (0.2 - 1.0) 09/30/17 20:40 Ur Leukocyte Esterase NEGATIVE (NEGATIVE) 09/30/17 20:40 Urine RBC 0-2 /hpf (0-5) H 09/30/17 20:40 Urine WBC 0-2 /hpf (0-5) 09/30/17 20:40 Ur Epithelial Cells OCCASIONAL /lpf (FEW) 09/30/17 20:40 Urine Bacteria OCCASIONAL /hpf (NONE SEEN) 09/30/17 20:40 - Physical Exam Vitals and I&O: Vital Signs Temp 97.2 F 10/07/17 06:05 Pulse 72 10/07/17 08:52 Resp 18 10/07/17 08:00 BP 130/87 10/07/17 08:52 Pulse Ox 99 10/07/17 06:05 Intake & Output 10/07/17 10/07/17 10/08/17 06:59 18:59 06:59 Intake Total 360 1200 Balance 360 1200 Intake: Oral 360 1200 Other: # Voids 1 4 # Bowel Movements 0 Active Medications: Current Medications Acetaminophen (Tylenol) 650 mg PO Q4HR PRN PRN Reason: Mild Pain / Temp above 100 Stop: 11/29/17 22:32 Al Hydrox/Mg Hydrox/Simethicone (Maalox) 30 ml PO Q4HR PRN PRN Reason: GI DISTRESS Stop: 11/29/17 22:32 Amlodipine Besylate (Norvasc) 10 mg PO DAILY [facility] Stop: 12/06/17 08:59 Last Admin: 10/07/17 08:51 Dose: 10 mg Aspirin (Aspirin Chewable) 81 mg PO DAILY [facility] Stop: 11/30/17 08:59 Last Admin: 10/07/17 08:53 Dose: 81 mg Atorvastatin Calcium (Lipitor) 20 mg PO HS [facility] Stop: 11/30/17 20:59 Last Admin: 06/25/18 21:31 Dose: Not Given Chlorpromazine (Thorazine) 100 mg PO TID [facility]; Protocol Stop: 12/04/17 13:59 Last Admin: 10/07/17 13:50 Dose: Not Given Hydralazine HCl (Apresoline) 25 mg PO TID [facility] Stop: 11/30/17 08:59 Last Admin: 10/07/17 13:51 Dose: Not Given Ibuprofen (Motrin) 800 mg PO Q8HR PRN PRN Reason: right lower ext pain Stop: 11/29/17 23:03 Lisinopril (Zestril) 20 mg PO DAILY [facility] Stop: 11/30/17 08:59 Last Admin: 10/07/17 08:51 Dose: 20 mg Lorazepam (Ativan) 0.5 mg PO Q4HR PRN; Protocol PRN Reason: Anxiety/agitation Stop: 10/30/17 22:32 Last Admin: 10/06/17 20:38 Dose: 0.5 mg Magnesium Hydroxide (Milk Of Magnesia) 30 ml PO HS PRN PRN Reason: Constipation Metoprolol Tartrate (Lopressor) 25 mg PO BID [facility] Stop: 11/30/17 08:59 Last Admin: 10/07/17 17:27 Dose: Not Given Multivitamins/Vitamin C (Theragran) 1 tab PO DAILY [facility] Stop: 11/30/17 08:59 Last Admin: 10/07/17 08:51 Dose: 1 tab Oxcarbazepine (Trileptal) 300 mg PO BID [facility]; Protocol Stop: 11/30/17 08:59 Last Admin: 10/07/17 17:28 Dose: Not Given Potassium Chloride (Klor-Con) 20 meq PO DAILY [facility] Stop: 11/30/17 08:59 Last Admin: 10/07/17 08:53 Dose: 20 meq Quetiapine Fumarate (Seroquel) 50 mg PO DAILY [facility]; Protocol Stop: 12/02/17 08:59 Last Admin: 10/07/17 08:51 Dose: 50 mg Quetiapine Fumarate (Seroquel) 200 mg PO HS [facility]; Protocol Stop: 12/02/17 20:59 Last Admin: 10/06/17 20:38 Dose: 200 mg Zolpidem Tartrate (Ambien) 5 mg PO HS PRN PRN Reason: Insomnia Stop: 12/01/17 20:43 Last Admin: 10/06/17 20:37 Dose: 5 mg General: demented HEENT: NC/AT, PERRLA, EOMI, anicteric sclerae, throat clear Neck: Supple, No JVD, No thyromegaly, +2 carotid pulse wo bruit, No LAD Cardiovascular: RRR, Normal S1, Normal S2, without murmur Abdomen: soft, non-tender, non-distended Neurological: no change - Procedures Procedures: Procedures Procedure Code Date OTHER GROUP THERAPY 94.44 09/01/14 RECREATIONAL THERAPY 93.81 12/23/11 Internal Medicine Assmt/Plan - Assessment Assessment: 1.HTN. 2.CHF. 3.DEMENTIA. 4.PSYCHOSIS. 5.HYPOKALEMIA - Plan Plan: CONTINUE ON CURRENT MEDICATION AND DIET. Nutritional Asmnt/Malnutr-PDOC - Dietary Evaluation Malnutrition Findings (Please click <Entered> for more info): Nutritional Asmnt/Malnutrition Start: 10/03/17 13: 42 Text: Status: Complete Freq: Protocol: Document 10/03/17 13:42 LCHENG (Rec: 10/03/17 14:02 LCHENG [id number]) Nutritional Asmnt/Malnutrition Patient General Information Nutritional Screening Moderate Risk Diagnosis psychosis Pertinent Medical Hx/Surgical Hx HTN, DJD, dementia, psychosis, hyperlipidemia Subjective Information Pt seen lying in bed at time of visit, waiting for lunch, talking confused. Per EMR, PO itnake 75-100% of meals. Current Diet Order/ Nutrition Support JAVAN, non fat milk and sugar free diet, high protein nourishment with lunch Pertinent Medications theragran, kcl, seroquel Pertinent Labs 10/02 K 2.7, glucose 173 Nutritional Hx/Data Height 1.68 m Height (Calculated Centimeters) 167.6 Current Weight (lbs) 83.461 kg Weight (Calculated Kilograms) 83.5 Weight (Calculated Grams) 24465.0 [place] Body Weight 142 Body Mass Index (BMI) 29.7 Weight Status Approriate GI Symptoms GI Symptoms None Last BM none Difficult in: None Skin Integrity/Comment: per EMR, pt refused skin check . Sujit 22. Current %PO Good (75-100%) Estimated Nutritional Goals BEE in Kcals: Using Current wt Calories/Kcals/Kg 20-25 Kcals Calculated 5091-4606 Protein: Using Current wt Protein g/k.8 Protein Calculated 67 Fluid: ml 1680-2100ml (1ml/kcal) Nutritional Problem No current Nutrition Prob Problem N/A Malnutrition Alert Is there a minimum of two criteria No selected? Query Text:Check all the applicable criteria. A minimum of two criteria are recommended for diagnosis of either severe or non-severe malnutrition. Intervention/Recommendation Comments 1. Continue with current diet as ordered. 2. Monitor PO intake, wt, labs and skin integrity 3. F/U as low risk in 7 days, 10/10 Expected Outcomes/Goals Expected Outcomes/Goals 1. PO intake to meet at least 75% of nutritional needs. 2. Wt stability, skin to remain intact, labs to approach WNL.
[2017-10-07] MEDS: Atorvastatin Calcium 10 MG TAB PO SCH (21:25)
--- NOTE | 2017-10-08 00:35 | Progress Notes ---
DATE: 10/07/2017 Case was discussed with staff of the patient, reviewed records. Covering for Dr. Alvarado. We also reviewed the labs, the patient continue to be rambling, continues to be responding to internal stimuli, at times talking to himself, not make ____, at times hard to redirect. He is compliant with the medication with no side effects, no sedation, no nausea, no extrapyramidal symptoms. He is on Seroquel 50 mg daily and 200 mg at bedtime, Trileptal 300 mg twice a day. No side effects of the medication, no sedation, no nausea, no extrapyramidal symptoms and we will continue to work with the patient in group therapy, milieu therapy, adjust medication as needed. JOB# [id number]
[2017-10-08] MEDS ORDERED: chlorproMAZINE 25 mg/mL 2mL Amp ONE (07:43)
[2017-10-08] MEDS ORDERED: chlorproMAZINE 25 mg/mL 2mL Amp IM STA (07:44)
[2017-10-08] MEDS: Aspirin 81mg Chewable Tab PO SCH (09:07)
[2017-10-08] MEDS: Potassium Chloride 20 mEq ER Tab PO SCH (09:07)
[2017-10-08] MEDS: Multivitamin Tab PO SCH (09:07)
--- NOTE | 2017-10-08 19:08 | Internal Medicine Prog Note ---
Internal Medicine Subjective - Subjective Service Date: 10/08/17 Patient seen and examined:: with staff (HE FEELS BETTER) Patient is:: awake, in bed, talking, confused Per staff patient has:: no adverse event Internal Medicine Objective - Results Result Diagrams: 09/30/17 20:20 10/02/17 09:20 Recent Labs: Laboratory Last Values WBC 9.9 Th/cmm (4.8-10.8) 09/30/17 20:20 RBC 5.02 Mil/cmm (4.30-5.70) 09/30/17 20:20 Hgb 14.4 gm/dL (12-16) 09/30/17 20:20 Hct 42.6 % (41.0-60) 09/30/17 20:20 MCV 84.9 fl (80-99) 09/30/17 20:20 MCH 28.7 pg (26.0-30.0) 09/30/17 20:20 MCHC Differential 33.8 pg (28.0-36.0) 09/30/17 20:20 RDW 13.4 % (11.5-20.0) 09/30/17 20:20 Plt Count 329 Th/cmm (150-400) 09/30/17 20:20 MPV 7.3 fl 09/30/17 20:20 Neutrophils % 68.8 % (40.0-80.0) 09/30/17 20:20 Lymphocytes % 18.4 % (20.0-50.0) L 09/30/17 20:20 Monocytes % 7.8 % (2.0-10.0) 09/30/17 20:20 Eosinophils % 4.5 % (0.0-5.0) 09/30/17 20:20 Basophils % 0.5 % (0.0-2.0) 09/30/17 20:20 Sodium 136 mEq/L (136-145) 10/02/17 09:20 Potassium 2.7 mEq/L (3.5-5.1) L* 10/02/17 09:20 Chloride 100 mEq/L (98-107) 10/02/17 09:20 Carbon Dioxide 28.1 mEq/L (21.0-31.0) 10/02/17 09:20 Anion Gap 10.6 (7.0-16.0) 10/02/17 09:20 BUN 16 mg/dL (7-25) 10/02/17 09:20 Creatinine 0.9 mg/dL (0.7-1.3) 10/02/17 09:20 Est GFR ( Amer) > 60.0 ml/min (>90) 10/02/17 09:20 Est GFR (Non-Af Amer) > 60.0 ml/min 10/02/17 09:20 BUN/Creatinine Ratio 17.8 10/02/17 09:20 Glucose 173 mg/dL (70-105) H 10/02/17 09:20 Calcium 9.1 mg/dL (8.6-10.3) 10/02/17 09:20 Magnesium 1.9 mg/dL (1.9-2.7) 09/30/17 20:20 Total Bilirubin 0.7 mg/dL (0.3-1.0) 10/02/17 09:20 AST 41 U/L (13-39) H 10/02/17 09:20 ALT 28 U/L (7-52) 10/02/17 09:20 Alkaline Phosphatase 87 U/L (34-104) 10/02/17 09:20 Troponin I 0.03 ng/mL (0.01-0.05) 09/30/17 20:20 B-Natriuretic Peptide 232.0 pg/mL (5.0-100.0) H 09/30/17 20:20 Total Protein 7.3 gm/dL (6.0-8.3) 10/02/17 09:20 Albumin 3.6 gm/dL (4.2-5.5) L 10/02/17 09:20 Globulin 3.7 gm/dL 10/02/17 09:20 Albumin/Globulin Ratio 1.0 (1.0-1.8) 10/02/17 09:20 Urine Source RANDOM 09/30/17 20:40 Urine Color YELLOW 09/30/17 20:40 Urine Clarity CLEAR (CLEAR) 09/30/17 20:40 Urine pH 7.5 (4.6 - 8.0) 09/30/17 20:40 Ur Specific [place] 1.010 (1.005-1.030) 09/30/17 20:40 Urine Protein NEGATIVE mg/dL (NEGATIVE) 09/30/17 20:40 Urine Glucose (UA) NEGATIVE mg/dL (NEGATIVE) 09/30/17 20:40 Urine Ketones NEGATIVE mg/dL (NEGATIVE) 09/30/17 20:40 Urine Blood NEGATIVE (NEGATIVE) 09/30/17 20:40 Urine Nitrate NEGATIVE (NEGATIVE) 09/30/17 20:40 Urine Bilirubin NEGATIVE (NEGATIVE) 09/30/17 20:40 Urine Urobilinogen 1.0 E.U./dL (0.2 - 1.0) 09/30/17 20:40 Ur Leukocyte Esterase NEGATIVE (NEGATIVE) 09/30/17 20:40 Urine RBC 0-2 /hpf (0-5) H 09/30/17 20:40 Urine WBC 0-2 /hpf (0-5) 09/30/17 20:40 Ur Epithelial Cells OCCASIONAL /lpf (FEW) 09/30/17 20:40 Urine Bacteria OCCASIONAL /hpf (NONE SEEN) 09/30/17 20:40 - Physical Exam Vitals and I&O: Vital Signs Temp 97.4 F 10/08/17 14:35 Pulse 89 10/08/17 14:35 Resp 18 10/08/17 14:35 BP 131/81 10/08/17 14:35 Pulse Ox 97 10/08/17 14:35 Intake & Output 10/08/17 10/08/17 10/09/17 06:59 18:59 06:59 Intake Total 120 Balance 120 Intake: Oral 120 Other: # Voids 2 Active Medications: Current Medications Acetaminophen (Tylenol) 650 mg PO Q4HR PRN PRN Reason: Mild Pain / Temp above 100 Stop: 11/29/17 22:32 Al Hydrox/Mg Hydrox/Simethicone (Maalox) 30 ml PO Q4HR PRN PRN Reason: GI DISTRESS Stop: 11/29/17 22:32 Amlodipine Besylate (Norvasc) 10 mg PO DAILY [facility] Stop: 12/06/17 08:59 Last Admin: 10/08/17 09:06 Dose: Not Given Aspirin (Aspirin Chewable) 81 mg PO DAILY [facility] Stop: 11/30/17 08:59 Last Admin: 10/08/17 09:07 Dose: Not Given Atorvastatin Calcium (Lipitor) 20 mg PO HS [facility] Stop: 11/30/17 20:59 Last Admin: 10/07/17 21:25 Dose: Not Given Chlorpromazine (Thorazine) 200 mg PO TID [facility]; Protocol Stop: 12/07/17 08:59 Last Admin: 10/08/17 14:47 Dose: Not Given Hydralazine HCl (Apresoline) 25 mg PO TID [facility] Stop: 11/30/17 08:59 Last Admin: 10/08/17 14:48 Dose: Not Given Ibuprofen (Motrin) 800 mg PO Q8HR PRN PRN Reason: right lower ext pain Stop: 11/29/17 23:03 Lisinopril (Zestril) 20 mg PO DAILY [facility] Stop: 11/30/17 08:59 Last Admin: 10/08/17 09:07 Dose: Not Given Lorazepam (Ativan) 0.5 mg PO Q4HR PRN; Protocol PRN Reason: Anxiety/agitation Stop: 10/30/17 22:32 Last Admin: 10/08/17 03:09 Dose: 0.5 mg Magnesium Hydroxide (Milk Of Magnesia) 30 ml PO HS PRN PRN Reason: Constipation Metoprolol Tartrate (Lopressor) 25 mg PO BID [facility] Stop: 11/30/17 08:59 Last Admin: 10/08/17 16:38 Dose: Not Given Multivitamins/Vitamin C (Theragran) 1 tab PO DAILY [facility] Stop: 11/30/17 08:59 Last Admin: 10/08/17 09:07 Dose: Not Given Oxcarbazepine (Trileptal) 300 mg PO BID [facility]; Protocol Stop: 11/30/17 08:59 Last Admin: 10/08/17 16:38 Dose: Not Given Potassium Chloride (Klor-Con) 20 meq PO DAILY [facility] Stop: 11/30/17 08:59 Last Admin: 10/08/17 09:07 Dose: Not Given Quetiapine Fumarate (Seroquel) 50 mg PO DAILY [facility]; Protocol Stop: 12/02/17 08:59 Last Admin: 10/08/17 09:07 Dose: Not Given Quetiapine Fumarate (Seroquel) 200 mg PO HS [facility]; Protocol Stop: 12/02/17 20:59 Last Admin: 10/07/17 21:58 Dose: Not Given Zolpidem Tartrate (Ambien) 5 mg PO HS PRN PRN Reason: Insomnia Stop: 12/01/17 20:43 Last Admin: 10/06/17 20:37 Dose: 5 mg General: demented HEENT: NC/AT, PERRLA, EOMI, anicteric sclerae, throat clear Neck: Supple, No JVD, No thyromegaly, +2 carotid pulse wo bruit, No LAD Cardiovascular: RRR, Normal S1, Normal S2, without murmur Abdomen: soft, non-tender, non-distended Neurological: no change - Procedures Procedures: Procedures Procedure Code Date OTHER GROUP THERAPY 94.44 09/01/14 RECREATIONAL THERAPY 93.81 12/23/11 Internal Medicine Assmt/Plan - Assessment Assessment: 1.HTN. 2.CHF. 3.DEMENTIA. 4.PSYCHOSIS. 5.HYPOKALEMIA - Plan Plan: CONTINUE ON CURRENT MEDICATION AND DIET. Nutritional Asmnt/Malnutr-PDOC - Dietary Evaluation Malnutrition Findings (Please click <Entered> for more info): Nutritional Asmnt/Malnutrition Start: 10/03/17 13: 42 Text: Status: Complete Freq: Protocol: Document 10/03/17 13:42 MARCEL (Rec: 10/03/17 14:02 MARCEL [email or web address]) Nutritional Asmnt/Malnutrition Patient General Information Nutritional Screening Moderate Risk Diagnosis psychosis Pertinent Medical Hx/Surgical Hx HTN, DJD, dementia, psychosis, hyperlipidemia Subjective Information Pt seen lying in bed at time of visit, waiting for lunch, talking confused. Per EMR, PO itnake 75-100% of meals. Current Diet Order/ Nutrition Support JAVAN, non fat milk and sugar free diet, high protein nourishment with lunch Pertinent Medications theragran, kcl, seroquel Pertinent Labs 10/02 K 2.7, glucose 173 Nutritional Hx/Data Height 1.68 m Height (Calculated Centimeters) 167.6 Current Weight (lbs) 83.461 kg Weight (Calculated Kilograms) 83.5 Weight (Calculated Grams) 55698.0 [place] Body Weight 142 Body Mass Index (BMI) 29.7 Weight Status Approriate GI Symptoms GI Symptoms None Last BM none Difficult in: None Skin Integrity/Comment: per EMR, pt refused skin check . Sujit 22. Current %PO Good (75-100%) Estimated Nutritional Goals BEE in Kcals: Using Current wt Calories/Kcals/Kg 20-25 Kcals Calculated 4556-7054 Protein: Using Current wt Protein g/k.8 Protein Calculated 67 Fluid: ml 1680-2100ml (1ml/kcal) Nutritional Problem No current Nutrition Prob Problem N/A Malnutrition Alert Is there a minimum of two criteria No selected? Query Text:Check all the applicable criteria. A minimum of two criteria are recommended for diagnosis of either severe or non-severe malnutrition. Intervention/Recommendation Comments 1. Continue with current diet as ordered. 2. Monitor PO intake, wt, labs and skin integrity 3. F/U as low risk in 7 days, 10/10 Expected Outcomes/Goals Expected Outcomes/Goals 1. PO intake to meet at least 75% of nutritional needs. 2. Wt stability, skin to remain intact, labs to approach WNL.
[2017-10-08] MEDS: Atorvastatin Calcium 10 MG TAB PO SCH (21:44)
--- NOTE | 2017-10-09 09:49 | Progress Notes ---
DATE: 10/08/2017 PSYCHIATRIC PROGRESS NOTE Chart reviewed and the patient interviewed. Also discussed the patient's condition with the staff and reviewed records and labs. The patient continued to be extremely agitated and extremely irritable. The patient is actively hallucinating and he is actively responding. The patient is talking to himself and he is pacing up and down the unit in a confused state and agitated and tries to hit others and the patient and the staff. The patient also was not able to follow directions and the patient has to be given emergency medications to calm him down. He is still rambling and has disorganized thoughts. The patient also was placed on seclusion room for a short time in order to control his anger and his aggressive behavior. Otherwise, the patient is still refusing to take medications. ASSESSMENT: The patient is agitated and is still aggressive and psychotic. TREATMENT PLAN: Continue to monitor his behavior and his condition closely. Also, we will increase Thorazine to 100 mg 3 times a day and will continue to follow up closely. [facility]# [id number]
[2017-10-09 09:55] LABS: ALBUMIN 3.6 gm/dL (4.2-5.5); ALKALINE PHOSPHATASE 76 U/L (34-104); ANION GAP 9.5 (7.0-16.0); BILIRUBIN,TOTAL 0.6 mg/dL (0.3-1.0); BUN - UREA NITROGEN 12 mg/dL (7-25); CARBON DIOXIDE 26.7 mEq/L (21.0-31.0); CHLORIDE 102 mEq/L (98-107); CREATININE - SERUM 0.7 mg/dL (0.7-1.3); GFR AFRICAN-AMERICAN > 60.0 ml/min (>90); GFR NON AFRICAN-AMERICAN > 60.0 ml/min; GLUCOSE 140 mg/dL (70-105); POTASSIUM SERUM 3.2 mEq/L (3.5-5.1); SGOT 34 U/L (13-39); SGPT/ALT 21 U/L (7-52); SODIUM SERUM 135 mEq/L (136-145); TOTAL PROTEIN,SERUM 7.4 gm/dL (6.0-8.3)
[2017-10-09] MEDS: Potassium Chloride 20 mEq ER Tab PO SCH (10:32)
[2017-10-09] MEDS: Multivitamin Tab PO SCH (10:32)
[2017-10-09] MEDS: Aspirin 81mg Chewable Tab PO SCH (10:32)
[2017-10-09] MEDS: risperiDONE 1 mg/mL 30 mL Bottle PO SCH ×2 (10:33→17:59)
[2017-10-09] MEDS ORDERED: chlorproMAZINE 25 mg/mL 2mL Amp ONE (14:34)
[2017-10-09] MEDS ORDERED: chlorproMAZINE 25 mg/mL 2mL Amp IM STA (14:36)
--- NOTE | 2017-10-09 17:34 | Internal Medicine Prog Note ---
Internal Medicine Subjective - Subjective Service Date: 10/09/17 Patient seen and examined:: with staff Patient is:: awake, in bed, talking, confused Per staff patient has:: no adverse event Internal Medicine Objective - Results Result Diagrams: 09/30/17 20:20 10/09/17 09:22 Recent Labs: Laboratory Last Values WBC 9.9 Th/cmm (4.8-10.8) 09/30/17 20:20 RBC 5.02 Mil/cmm (4.30-5.70) 09/30/17 20:20 Hgb 14.4 gm/dL (12-16) 09/30/17 20:20 Hct 42.6 % (41.0-60) 09/30/17 20:20 MCV 84.9 fl (80-99) 09/30/17 20:20 MCH 28.7 pg (26.0-30.0) 09/30/17 20:20 MCHC Differential 33.8 pg (28.0-36.0) 09/30/17 20:20 RDW 13.4 % (11.5-20.0) 09/30/17 20:20 Plt Count 329 Th/cmm (150-400) 09/30/17 20:20 MPV 7.3 fl 09/30/17 20:20 Neutrophils % 68.8 % (40.0-80.0) 09/30/17 20:20 Lymphocytes % 18.4 % (20.0-50.0) L 09/30/17 20:20 Monocytes % 7.8 % (2.0-10.0) 09/30/17 20:20 Eosinophils % 4.5 % (0.0-5.0) 09/30/17 20:20 Basophils % 0.5 % (0.0-2.0) 09/30/17 20:20 Sodium 135 mEq/L (136-145) L 10/09/17 09:22 Potassium 3.2 mEq/L (3.5-5.1) L 10/09/17 09:22 Chloride 102 mEq/L (98-107) 10/09/17 09:22 Carbon Dioxide 26.7 mEq/L (21.0-31.0) 10/09/17 09:22 Anion Gap 9.5 (7.0-16.0) 10/09/17 09:22 BUN 12 mg/dL (7-25) 10/09/17 09:22 Creatinine 0.7 mg/dL (0.7-1.3) 10/09/17 09:22 Est GFR ( Amer) > 60.0 ml/min (>90) 10/09/17 09:22 Est GFR (Non-Af Amer) > 60.0 ml/min 10/09/17 09:22 BUN/Creatinine Ratio 17.1 10/09/17 09:22 Glucose 140 mg/dL (70-105) H 10/09/17 09:22 Calcium 9.0 mg/dL (8.6-10.3) 10/09/17 09:22 Magnesium 1.9 mg/dL (1.9-2.7) 09/30/17 20:20 Total Bilirubin 0.6 mg/dL (0.3-1.0) 10/09/17 09:22 AST 34 U/L (13-39) 10/09/17 09:22 ALT 21 U/L (7-52) 10/09/17 09:22 Alkaline Phosphatase 76 U/L (34-104) 10/09/17 09:22 Troponin I 0.03 ng/mL (0.01-0.05) 09/30/17 20:20 B-Natriuretic Peptide 232.0 pg/mL (5.0-100.0) H 09/30/17 20:20 Total Protein 7.4 gm/dL (6.0-8.3) 10/09/17 09:22 Albumin 3.6 gm/dL (4.2-5.5) L 10/09/17 09:22 Globulin 3.8 gm/dL 10/09/17 09:22 Albumin/Globulin Ratio 1.0 (1.0-1.8) 10/09/17 09:22 Urine Source RANDOM 09/30/17 20:40 Urine Color YELLOW 09/30/17 20:40 Urine Clarity CLEAR (CLEAR) 09/30/17 20:40 Urine pH 7.5 (4.6 - 8.0) 09/30/17 20:40 Ur Specific [place] 1.010 (1.005-1.030) 09/30/17 20:40 Urine Protein NEGATIVE mg/dL (NEGATIVE) 09/30/17 20:40 Urine Glucose (UA) NEGATIVE mg/dL (NEGATIVE) 09/30/17 20:40 Urine Ketones NEGATIVE mg/dL (NEGATIVE) 09/30/17 20:40 Urine Blood NEGATIVE (NEGATIVE) 09/30/17 20:40 Urine Nitrate NEGATIVE (NEGATIVE) 09/30/17 20:40 Urine Bilirubin NEGATIVE (NEGATIVE) 09/30/17 20:40 Urine Urobilinogen 1.0 E.U./dL (0.2 - 1.0) 09/30/17 20:40 Ur Leukocyte Esterase NEGATIVE (NEGATIVE) 09/30/17 20:40 Urine RBC 0-2 /hpf (0-5) H 09/30/17 20:40 Urine WBC 0-2 /hpf (0-5) 09/30/17 20:40 Ur Epithelial Cells OCCASIONAL /lpf (FEW) 09/30/17 20:40 Urine Bacteria OCCASIONAL /hpf (NONE SEEN) 09/30/17 20:40 - Physical Exam Vitals and I&O: Vital Signs Temp 97.6 F 10/09/17 06:22 Pulse 97 10/09/17 06:22 Resp 18 10/09/17 08:00 BP 150/83 10/09/17 06:22 Pulse Ox 98 10/09/17 06:22 Intake & Output 10/08/17 10/09/17 10/09/17 18:59 06:59 18:59 Intake Total 120 Balance 120 Intake: Oral 120 Other: # Voids 3 Active Medications: Current Medications Acetaminophen (Tylenol) 650 mg PO Q4HR PRN PRN Reason: Mild Pain / Temp above 100 Stop: 11/29/17 22:32 Al Hydrox/Mg Hydrox/Simethicone (Maalox) 30 ml PO Q4HR PRN PRN Reason: GI DISTRESS Stop: 11/29/17 22:32 Amlodipine Besylate (Norvasc) 10 mg PO DAILY [facility] Stop: 12/06/17 08:59 Last Admin: 10/09/17 10:32 Dose: Not Given Aspirin (Aspirin Chewable) 81 mg PO DAILY [facility] Stop: 11/30/17 08:59 Last Admin: 10/09/17 10:32 Dose: Not Given Atorvastatin Calcium (Lipitor) 20 mg PO HS [facility] Stop: 11/30/17 20:59 Last Admin: 10/08/17 21:44 Dose: Not Given Chlorpromazine (Thorazine) 200 mg PO TID [facility]; Protocol Stop: 12/07/17 08:59 Last Admin: 10/09/17 14:01 Dose: Not Given Hydralazine HCl (Apresoline) 25 mg PO TID [facility] Stop: 11/30/17 08:59 Last Admin: 10/09/17 14:02 Dose: Not Given Ibuprofen (Motrin) 800 mg PO Q8HR PRN PRN Reason: right lower ext pain Stop: 11/29/17 23:03 Lisinopril (Zestril) 20 mg PO DAILY [facility] Stop: 11/30/17 08:59 Last Admin: 10/09/17 10:32 Dose: Not Given Lorazepam (Ativan) 0.5 mg PO Q4HR PRN; Protocol PRN Reason: Anxiety/agitation Stop: 10/30/17 22:32 Last Admin: 10/08/17 03:09 Dose: 0.5 mg Magnesium Hydroxide (Milk Of Magnesia) 30 ml PO HS PRN PRN Reason: Constipation Metoprolol Tartrate (Lopressor) 25 mg PO BID [facility] Stop: 11/30/17 08:59 Last Admin: 10/09/17 10:31 Dose: Not Given Multivitamins/Vitamin C (Theragran) 1 tab PO DAILY [facility] Stop: 11/30/17 08:59 Last Admin: 10/09/17 10:32 Dose: Not Given Oxcarbazepine (Trileptal) 300 mg PO BID [facility]; Protocol Stop: 11/30/17 08:59 Last Admin: 10/09/17 10:32 Dose: Not Given Potassium Chloride (Klor-Con) 20 meq PO DAILY [facility] Stop: 11/30/17 08:59 Last Admin: 10/09/17 10:32 Dose: Not Given Potassium Phosphate (K Phos) 500 mg PO DAILY [facility] Stop: 12/09/17 08:59 Quetiapine Fumarate (Seroquel) 50 mg PO DAILY [facility]; Protocol Stop: 12/02/17 08:59 Last Admin: 10/09/17 10:32 Dose: Not Given Quetiapine Fumarate (Seroquel) 200 mg PO HS [facility]; Protocol Stop: 12/02/17 20:59 Last Admin: 10/08/17 21:45 Dose: Not Given Risperidone (Risperdal) 1 mg PO BID [facility]; Protocol Stop: 12/08/17 08:59 Last Admin: 10/09/17 10:33 Dose: Not Given Zolpidem Tartrate (Ambien) 5 mg PO HS PRN PRN Reason: Insomnia Stop: 12/01/17 20:43 Last Admin: 10/06/17 20:37 Dose: 5 mg General: demented HEENT: NC/AT, PERRLA, EOMI, anicteric sclerae, throat clear Neck: Supple, No JVD, No thyromegaly, +2 carotid pulse wo bruit, No LAD Cardiovascular: RRR, Normal S1, Normal S2, without murmur Abdomen: soft, non-tender, non-distended Neurological: no change - Procedures Procedures: Procedures Procedure Code Date OTHER GROUP THERAPY 94.44 09/01/14 RECREATIONAL THERAPY 93.81 12/23/11 Internal Medicine Assmt/Plan - Assessment Assessment: 1.HTN. 2.CHF. 3.DEMENTIA. 4.PSYCHOSIS. 5.HYPOKALEMIA - Plan Plan: CONTINUE ON CURRENT MEDICATION AND DIET.kphose 500 mg po daliy. Nutritional Asmnt/Malnutr-PDOC - Dietary Evaluation Malnutrition Findings (Please click <Entered> for more info): Nutritional Asmnt/Malnutrition Start: 10/03/17 13: 42 Text: Status: Complete Freq: Protocol: Document 10/03/17 13:42 LCHENG (Rec: 10/03/17 14:02 LCHENG [email or web address]) Nutritional Asmnt/Malnutrition Patient General Information Nutritional Screening Moderate Risk Diagnosis psychosis Pertinent Medical Hx/Surgical Hx HTN, DJD, dementia, psychosis, hyperlipidemia Subjective Information Pt seen lying in bed at time of visit, waiting for lunch, talking confused. Per EMR, PO itnake 75-100% of meals. Current Diet Order/ Nutrition Support JAVAN, non fat milk and sugar free diet, high protein nourishment with lunch Pertinent Medications theragran, kcl, seroquel Pertinent Labs 10/02 K 2.7, glucose 173 Nutritional Hx/Data Height 1.68 m Height (Calculated Centimeters) 167.6 Current Weight (lbs) 83.461 kg Weight (Calculated Kilograms) 83.5 Weight (Calculated Grams) 90238.0 [place] Body Weight 142 Body Mass Index (BMI) 29.7 Weight Status Approriate GI Symptoms GI Symptoms None Last BM none Difficult in: None Skin Integrity/Comment: per EMR, pt refused skin check . Sujit 22. Current %PO Good (75-100%) Estimated Nutritional Goals BEE in Kcals: Using Current wt Calories/Kcals/Kg 20-25 Kcals Calculated 6950-0911 Protein: Using Current wt Protein g/k.8 Protein Calculated 67 Fluid: ml 1680-2100ml (1ml/kcal) Nutritional Problem No current Nutrition Prob Problem N/A Malnutrition Alert Is there a minimum of two criteria No selected? Query Text:Check all the applicable criteria. A minimum of two criteria are recommended for diagnosis of either severe or non-severe malnutrition. Intervention/Recommendation Comments 1. Continue with current diet as ordered. 2. Monitor PO intake, wt, labs and skin integrity 3. F/U as low risk in 7 days, 10/10 Expected Outcomes/Goals Expected Outcomes/Goals 1. PO intake to meet at least 75% of nutritional needs. 2. Wt stability, skin to remain intact, labs to approach WNL.
[2017-10-09] MEDS: Atorvastatin Calcium 10 MG TAB PO SCH (20:35)
--- NOTE | 2017-10-10 07:08 | Progress Notes ---
DATE: 10/09/2017 PSYCHIATRIC PROGRESS NOTE SUBJECTIVE: Chart reviewed and the patient interviewed. Also discussed the patient's condition with the staff and reviewed records and labs. The patient is extremely agitated and extremely irritable. The patient is taking off his gown and he is staying 1/2 naked, yelling, screaming and disturbing others. The patient also has been extremely paranoid and suspicious. He also has not been compliant with taking his medications and refused to take his medications. In spite of explaining to the patient the importance of taking his medications, but he was not able to follow and even I was trying to talk to him today, he kept being in angry and irritable mood and he kept not following any of my directions or instructions and kept talking about different issues and topics. ASSESSMENT: The patient is still psychotic and agitated. TREATMENT PLAN: Since the patient is refusing to take his medications, I will start the patient on Risperdal suspension. I will plan to change it to Risperdal Consta long-acting injection for better compliance with medications. At the same time, we will continue monitoring his behavior closely and will continue to follow up. JOB# [id number]
[2017-10-10] MEDS: risperiDONE 1 mg/mL 30 mL Bottle PO SCH ×2 (08:07→16:40)
[2017-10-10] MEDS: Potassium Chloride 20 mEq ER Tab PO SCH (08:08)
[2017-10-10] MEDS: Multivitamin Tab PO SCH (08:23)
[2017-10-10] MEDS: Aspirin 81mg Chewable Tab PO SCH (08:23)
--- NOTE | 2017-10-10 16:01 | Internal Medicine Prog Note ---
Internal Medicine Subjective - Subjective Service Date: 10/10/17 Patient seen and examined:: with staff Patient is:: awake, in bed, talking, confused Per staff patient has:: no adverse event Internal Medicine Objective - Results Result Diagrams: 09/30/17 20:20 10/09/17 09:22 Recent Labs: Laboratory Last Values WBC 9.9 Th/cmm (4.8-10.8) 09/30/17 20:20 RBC 5.02 Mil/cmm (4.30-5.70) 09/30/17 20:20 Hgb 14.4 gm/dL (12-16) 09/30/17 20:20 Hct 42.6 % (41.0-60) 09/30/17 20:20 MCV 84.9 fl (80-99) 09/30/17 20:20 MCH 28.7 pg (26.0-30.0) 09/30/17 20:20 MCHC Differential 33.8 pg (28.0-36.0) 09/30/17 20:20 RDW 13.4 % (11.5-20.0) 09/30/17 20:20 Plt Count 329 Th/cmm (150-400) 09/30/17 20:20 MPV 7.3 fl 09/30/17 20:20 Neutrophils % 68.8 % (40.0-80.0) 09/30/17 20:20 Lymphocytes % 18.4 % (20.0-50.0) L 09/30/17 20:20 Monocytes % 7.8 % (2.0-10.0) 09/30/17 20:20 Eosinophils % 4.5 % (0.0-5.0) 09/30/17 20:20 Basophils % 0.5 % (0.0-2.0) 09/30/17 20:20 Sodium 135 mEq/L (136-145) L 10/09/17 09:22 Potassium 3.2 mEq/L (3.5-5.1) L 10/09/17 09:22 Chloride 102 mEq/L (98-107) 10/09/17 09:22 Carbon Dioxide 26.7 mEq/L (21.0-31.0) 10/09/17 09:22 Anion Gap 9.5 (7.0-16.0) 10/09/17 09:22 BUN 12 mg/dL (7-25) 10/09/17 09:22 Creatinine 0.7 mg/dL (0.7-1.3) 10/09/17 09:22 Est GFR ( Amer) > 60.0 ml/min (>90) 10/09/17 09:22 Est GFR (Non-Af Amer) > 60.0 ml/min 10/09/17 09:22 BUN/Creatinine Ratio 17.1 10/09/17 09:22 Glucose 140 mg/dL (70-105) H 10/09/17 09:22 Calcium 9.0 mg/dL (8.6-10.3) 10/09/17 09:22 Magnesium 1.9 mg/dL (1.9-2.7) 09/30/17 20:20 Total Bilirubin 0.6 mg/dL (0.3-1.0) 10/09/17 09:22 AST 34 U/L (13-39) 10/09/17 09:22 ALT 21 U/L (7-52) 10/09/17 09:22 Alkaline Phosphatase 76 U/L (34-104) 10/09/17 09:22 Troponin I 0.03 ng/mL (0.01-0.05) 09/30/17 20:20 B-Natriuretic Peptide 232.0 pg/mL (5.0-100.0) H 09/30/17 20:20 Total Protein 7.4 gm/dL (6.0-8.3) 10/09/17 09:22 Albumin 3.6 gm/dL (4.2-5.5) L 10/09/17 09:22 Globulin 3.8 gm/dL 10/09/17 09:22 Albumin/Globulin Ratio 1.0 (1.0-1.8) 10/09/17 09:22 Urine Source RANDOM 09/30/17 20:40 Urine Color YELLOW 09/30/17 20:40 Urine Clarity CLEAR (CLEAR) 09/30/17 20:40 Urine pH 7.5 (4.6 - 8.0) 09/30/17 20:40 Ur Specific [place] 1.010 (1.005-1.030) 09/30/17 20:40 Urine Protein NEGATIVE mg/dL (NEGATIVE) 09/30/17 20:40 Urine Glucose (UA) NEGATIVE mg/dL (NEGATIVE) 09/30/17 20:40 Urine Ketones NEGATIVE mg/dL (NEGATIVE) 09/30/17 20:40 Urine Blood NEGATIVE (NEGATIVE) 09/30/17 20:40 Urine Nitrate NEGATIVE (NEGATIVE) 09/30/17 20:40 Urine Bilirubin NEGATIVE (NEGATIVE) 09/30/17 20:40 Urine Urobilinogen 1.0 E.U./dL (0.2 - 1.0) 09/30/17 20:40 Ur Leukocyte Esterase NEGATIVE (NEGATIVE) 09/30/17 20:40 Urine RBC 0-2 /hpf (0-5) H 09/30/17 20:40 Urine WBC 0-2 /hpf (0-5) 09/30/17 20:40 Ur Epithelial Cells OCCASIONAL /lpf (FEW) 09/30/17 20:40 Urine Bacteria OCCASIONAL /hpf (NONE SEEN) 09/30/17 20:40 - Physical Exam Vitals and I&O: Vital Signs Temp 97.8 F 10/10/17 15:54 Pulse 94 10/10/17 15:54 Resp 20 10/10/17 15:54 BP 150/92 10/10/17 15:54 Pulse Ox 98 10/10/17 15:54 Intake & Output 10/09/17 10/10/17 10/10/17 18:59 06:59 18:59 Intake Total 1000 Balance 1000 Intake: Oral 1000 Other: # Voids 3 # Bowel Movements 1 Active Medications: Current Medications Acetaminophen (Tylenol) 650 mg PO Q4HR PRN PRN Reason: Mild Pain / Temp above 100 Stop: 11/29/17 22:32 Al Hydrox/Mg Hydrox/Simethicone (Maalox) 30 ml PO Q4HR PRN PRN Reason: GI DISTRESS Stop: 11/29/17 22:32 Amlodipine Besylate (Norvasc) 10 mg PO DAILY [facility] Stop: 12/06/17 08:59 Last Admin: 10/10/17 08:23 Dose: 10 mg Aspirin (Aspirin Chewable) 81 mg PO DAILY [facility] Stop: 11/30/17 08:59 Last Admin: 10/10/17 08:23 Dose: 81 mg Atorvastatin Calcium (Lipitor) 20 mg PO HS [facility] Stop: 11/30/17 20:59 Last Admin: 10/09/17 20:35 Dose: Not Given Chlorpromazine (Thorazine) 200 mg PO TID [facility]; Protocol Stop: 12/07/17 08:59 Last Admin: 10/10/17 15:04 Dose: Not Given Hydralazine HCl (Apresoline) 25 mg PO TID [facility] Stop: 11/30/17 08:59 Last Admin: 10/10/17 15:02 Dose: 25 mg Ibuprofen (Motrin) 800 mg PO Q8HR PRN PRN Reason: right lower ext pain Stop: 11/29/17 23:03 Lisinopril (Zestril) 20 mg PO DAILY [facility] Stop: 11/30/17 08:59 Last Admin: 10/10/17 08:23 Dose: 20 mg Lorazepam (Ativan) 0.5 mg PO Q4HR PRN; Protocol PRN Reason: Anxiety/agitation Stop: 10/30/17 22:32 Last Admin: 10/08/17 03:09 Dose: 0.5 mg Magnesium Hydroxide (Milk Of Magnesia) 30 ml PO HS PRN PRN Reason: Constipation Metoprolol Tartrate (Lopressor) 25 mg PO BID [facility] Stop: 11/30/17 08:59 Last Admin: 10/10/17 08:22 Dose: 25 mg Multivitamins/Vitamin C (Theragran) 1 tab PO DAILY [facility] Stop: 11/30/17 08:59 Last Admin: 10/10/17 08:23 Dose: 1 tab Oxcarbazepine (Trileptal) 300 mg PO BID [facility]; Protocol Stop: 11/30/17 08:59 Last Admin: 10/10/17 08:24 Dose: 300 mg Potassium Chloride (Klor-Con) 20 meq PO DAILY [facility] Stop: 11/30/17 08:59 Last Admin: 10/10/17 08:08 Dose: 20 meq Potassium Phosphate (K Phos) 500 mg PO DAILY [facility] Stop: 12/09/17 08:59 Last Admin: 10/10/17 08:08 Dose: 500 mg Quetiapine Fumarate (Seroquel) 50 mg PO DAILY [facility]; Protocol Stop: 12/02/17 08:59 Last Admin: 10/10/17 08:23 Dose: 50 mg Quetiapine Fumarate (Seroquel) 200 mg PO HS [facility]; Protocol Stop: 12/02/17 20:59 Last Admin: 10/09/17 22:55 Dose: 200 mg Risperidone (Risperdal) 1 mg PO BID [facility]; Protocol Stop: 12/08/17 08:59 Last Admin: 10/10/17 08:07 Dose: 1 mg Zolpidem Tartrate (Ambien) 5 mg PO HS PRN PRN Reason: Insomnia Stop: 12/01/17 20:43 Last Admin: 10/06/17 20:37 Dose: 5 mg General: demented HEENT: NC/AT, PERRLA, EOMI, anicteric sclerae, throat clear Neck: Supple, No JVD, No thyromegaly, +2 carotid pulse wo bruit, No LAD Cardiovascular: RRR, Normal S1, Normal S2, without murmur Abdomen: soft, non-tender, non-distended Neurological: no change - Procedures Procedures: Procedures Procedure Code Date OTHER GROUP THERAPY 94.44 09/01/14 RECREATIONAL THERAPY 93.81 12/23/11 Internal Medicine Assmt/Plan - Assessment Assessment: 1.HTN. 2.CHF. 3.DEMENTIA. 4.PSYCHOSIS. 5.HYPOKALEMIA - Plan Plan: CONTINUE ON CURRENT MEDICATION AND DIET.CHEM 16 IN AM. Nutritional Asmnt/Malnutr-PDOC - Dietary Evaluation Malnutrition Findings (Please click <Entered> for more info): Nutritional Asmnt/Malnutrition Start: 10/03/17 13: 42 Text: Status: Complete Freq: Protocol: Document 10/03/17 13:42 LCHENG (Rec: 10/03/17 14:02 LCHENG [email or web address]) Nutritional Asmnt/Malnutrition Patient General Information Nutritional Screening Moderate Risk Diagnosis psychosis Pertinent Medical Hx/Surgical Hx HTN, DJD, dementia, psychosis, hyperlipidemia Subjective Information Pt seen lying in bed at time of visit, waiting for lunch, talking confused. Per EMR, PO itnake 75-100% of meals. Current Diet Order/ Nutrition Support JAVAN, non fat milk and sugar free diet, high protein nourishment with lunch Pertinent Medications theragran, kcl, seroquel Pertinent Labs 10/02 K 2.7, glucose 173 Nutritional Hx/Data Height 1.68 m Height (Calculated Centimeters) 167.6 Current Weight (lbs) 83.461 kg Weight (Calculated Kilograms) 83.5 Weight (Calculated Grams) 70420.0 [place] Body Weight 142 Body Mass Index (BMI) 29.7 Weight Status Approriate GI Symptoms GI Symptoms None Last BM none Difficult in: None Skin Integrity/Comment: per EMR, pt refused skin check . Sujit 22. Current %PO Good (75-100%) Estimated Nutritional Goals BEE in Kcals: Using Current wt Calories/Kcals/Kg 20-25 Kcals Calculated 6288-4793 Protein: Using Current wt Protein g/k.8 Protein Calculated 67 Fluid: ml 1680-2100ml (1ml/kcal) Nutritional Problem No current Nutrition Prob Problem N/A Malnutrition Alert Is there a minimum of two criteria No selected? Query Text:Check all the applicable criteria. A minimum of two criteria are recommended for diagnosis of either severe or non-severe malnutrition. Intervention/Recommendation Comments 1. Continue with current diet as ordered. 2. Monitor PO intake, wt, labs and skin integrity 3. F/U as low risk in 7 days, 10/10 Expected Outcomes/Goals Expected Outcomes/Goals 1. PO intake to meet at least 75% of nutritional needs. 2. Wt stability, skin to remain intact, labs to approach WNL.
[2017-10-10] MEDS: Atorvastatin Calcium 10 MG TAB PO SCH (21:21)
[2017-10-11] MEDS ORDERED: chlorproMAZINE 25 mg/mL 2mL Amp ONE (07:20)
[2017-10-11] MEDS ORDERED: chlorproMAZINE 25 mg/mL 2mL Amp IM STA (07:22)
[2017-10-11] MEDS: Aspirin 81mg Chewable Tab PO SCH ×2 (09:54→13:50)
[2017-10-11] MEDS: Multivitamin Tab PO SCH ×3 (09:55→14:19)
[2017-10-11] MEDS: Potassium Chloride 20 mEq ER Tab PO SCH ×2 (09:55→13:51)
[2017-10-11] MEDS: risperiDONE 1 mg/mL 30 mL Bottle PO SCH ×3 (09:56→16:43)
--- NOTE | 2017-10-11 10:57 | Internal Medicine Prog Note ---
Internal Medicine Subjective - Subjective Service Date: 10/11/17 Patient seen and examined:: with staff Patient is:: awake, in bed, talking, confused Per staff patient has:: no adverse event Internal Medicine Objective - Results Result Diagrams: 09/30/17 20:20 10/09/17 09:22 Recent Labs: Laboratory Last Values WBC 9.9 Th/cmm (4.8-10.8) 09/30/17 20:20 RBC 5.02 Mil/cmm (4.30-5.70) 09/30/17 20:20 Hgb 14.4 gm/dL (12-16) 09/30/17 20:20 Hct 42.6 % (41.0-60) 09/30/17 20:20 MCV 84.9 fl (80-99) 09/30/17 20:20 MCH 28.7 pg (26.0-30.0) 09/30/17 20:20 MCHC Differential 33.8 pg (28.0-36.0) 09/30/17 20:20 RDW 13.4 % (11.5-20.0) 09/30/17 20:20 Plt Count 329 Th/cmm (150-400) 09/30/17 20:20 MPV 7.3 fl 09/30/17 20:20 Neutrophils % 68.8 % (40.0-80.0) 09/30/17 20:20 Lymphocytes % 18.4 % (20.0-50.0) L 09/30/17 20:20 Monocytes % 7.8 % (2.0-10.0) 09/30/17 20:20 Eosinophils % 4.5 % (0.0-5.0) 09/30/17 20:20 Basophils % 0.5 % (0.0-2.0) 09/30/17 20:20 Sodium 135 mEq/L (136-145) L 10/09/17 09:22 Potassium 3.2 mEq/L (3.5-5.1) L 10/09/17 09:22 Chloride 102 mEq/L (98-107) 10/09/17 09:22 Carbon Dioxide 26.7 mEq/L (21.0-31.0) 10/09/17 09:22 Anion Gap 9.5 (7.0-16.0) 10/09/17 09:22 BUN 12 mg/dL (7-25) 10/09/17 09:22 Creatinine 0.7 mg/dL (0.7-1.3) 10/09/17 09:22 Est GFR ( Amer) > 60.0 ml/min (>90) 10/09/17 09:22 Est GFR (Non-Af Amer) > 60.0 ml/min 10/09/17 09:22 BUN/Creatinine Ratio 17.1 10/09/17 09:22 Glucose 140 mg/dL (70-105) H 10/09/17 09:22 Calcium 9.0 mg/dL (8.6-10.3) 10/09/17 09:22 Magnesium 1.9 mg/dL (1.9-2.7) 09/30/17 20:20 Total Bilirubin 0.6 mg/dL (0.3-1.0) 10/09/17 09:22 AST 34 U/L (13-39) 10/09/17 09:22 ALT 21 U/L (7-52) 10/09/17 09:22 Alkaline Phosphatase 76 U/L (34-104) 10/09/17 09:22 Troponin I 0.03 ng/mL (0.01-0.05) 09/30/17 20:20 B-Natriuretic Peptide 232.0 pg/mL (5.0-100.0) H 09/30/17 20:20 Total Protein 7.4 gm/dL (6.0-8.3) 10/09/17 09:22 Albumin 3.6 gm/dL (4.2-5.5) L 10/09/17 09:22 Globulin 3.8 gm/dL 10/09/17 09:22 Albumin/Globulin Ratio 1.0 (1.0-1.8) 10/09/17 09:22 Urine Source RANDOM 09/30/17 20:40 Urine Color YELLOW 09/30/17 20:40 Urine Clarity CLEAR (CLEAR) 09/30/17 20:40 Urine pH 7.5 (4.6 - 8.0) 09/30/17 20:40 Ur Specific [place] 1.010 (1.005-1.030) 09/30/17 20:40 Urine Protein NEGATIVE mg/dL (NEGATIVE) 09/30/17 20:40 Urine Glucose (UA) NEGATIVE mg/dL (NEGATIVE) 09/30/17 20:40 Urine Ketones NEGATIVE mg/dL (NEGATIVE) 09/30/17 20:40 Urine Blood NEGATIVE (NEGATIVE) 09/30/17 20:40 Urine Nitrate NEGATIVE (NEGATIVE) 09/30/17 20:40 Urine Bilirubin NEGATIVE (NEGATIVE) 09/30/17 20:40 Urine Urobilinogen 1.0 E.U./dL (0.2 - 1.0) 09/30/17 20:40 Ur Leukocyte Esterase NEGATIVE (NEGATIVE) 09/30/17 20:40 Urine RBC 0-2 /hpf (0-5) H 09/30/17 20:40 Urine WBC 0-2 /hpf (0-5) 09/30/17 20:40 Ur Epithelial Cells OCCASIONAL /lpf (FEW) 09/30/17 20:40 Urine Bacteria OCCASIONAL /hpf (NONE SEEN) 09/30/17 20:40 - Physical Exam Vitals and I&O: Vital Signs Temp 97.8 F 10/11/17 06:43 Pulse 91 10/11/17 09:55 Resp 20 10/11/17 06:43 BP 140/84 10/11/17 09:55 Pulse Ox 98 10/11/17 06:43 Intake & Output 10/10/17 10/11/17 10/11/17 18:59 06:59 18:59 Intake Total 1500 480 Balance 1500 480 Intake: Oral 1500 480 Other: # Voids 3 1 # Bowel Movements 1 Active Medications: Current Medications Acetaminophen (Tylenol) 650 mg PO Q4HR PRN PRN Reason: Mild Pain / Temp above 100 Stop: 11/29/17 22:32 Al Hydrox/Mg Hydrox/Simethicone (Maalox) 30 ml PO Q4HR PRN PRN Reason: GI DISTRESS Stop: 11/29/17 22:32 Amlodipine Besylate (Norvasc) 10 mg PO DAILY [facility] Stop: 12/06/17 08:59 Last Admin: 10/11/17 09:53 Dose: Not Given Aspirin (Aspirin Chewable) 81 mg PO DAILY [facility] Stop: 11/30/17 08:59 Last Admin: 10/11/17 09:54 Dose: Not Given Atorvastatin Calcium (Lipitor) 20 mg PO HS [facility] Stop: 11/30/17 20:59 Last Admin: 10/10/17 21:21 Dose: 20 mg Chlorpromazine (Thorazine) 200 mg PO TID [facility]; Protocol Stop: 12/07/17 08:59 Last Admin: 10/11/17 09:54 Dose: Not Given Hydralazine HCl (Apresoline) 25 mg PO TID [facility] Stop: 11/30/17 08:59 Last Admin: 10/11/17 09:54 Dose: Not Given Ibuprofen (Motrin) 800 mg PO Q8HR PRN PRN Reason: right lower ext pain Stop: 11/29/17 23:03 Lisinopril (Zestril) 20 mg PO DAILY [facility] Stop: 11/30/17 08:59 Last Admin: 10/11/17 09:55 Dose: Not Given Lorazepam (Ativan) 0.5 mg PO Q4HR PRN; Protocol PRN Reason: Anxiety/agitation Stop: 10/30/17 22:32 Last Admin: 10/08/17 03:09 Dose: 0.5 mg Magnesium Hydroxide (Milk Of Magnesia) 30 ml PO HS PRN PRN Reason: Constipation Metoprolol Tartrate (Lopressor) 25 mg PO BID [facility] Stop: 11/30/17 08:59 Last Admin: 10/11/17 09:52 Dose: Not Given Multivitamins/Vitamin C (Theragran) 1 tab PO DAILY [facility] Stop: 11/30/17 08:59 Last Admin: 10/11/17 09:55 Dose: Not Given Oxcarbazepine (Trileptal) 300 mg PO BID [facility]; Protocol Stop: 11/30/17 08:59 Last Admin: 10/11/17 09:53 Dose: Not Given Potassium Chloride (Klor-Con) 20 meq PO DAILY [facility] Stop: 11/30/17 08:59 Last Admin: 10/11/17 09:55 Dose: Not Given Potassium Phosphate (K Phos) 500 mg PO DAILY [facility] Stop: 12/09/17 08:59 Last Admin: 10/11/17 09:55 Dose: Not Given Quetiapine Fumarate (Seroquel) 50 mg PO DAILY [facility]; Protocol Stop: 12/02/17 08:59 Last Admin: 10/11/17 09:56 Dose: Not Given Quetiapine Fumarate (Seroquel) 200 mg PO HS [facility]; Protocol Stop: 12/02/17 20:59 Last Admin: 10/10/17 21:20 Dose: 200 mg Risperidone (Risperdal) 1 mg PO BID [facility]; Protocol Stop: 12/08/17 08:59 Last Admin: 10/11/17 09:56 Dose: Not Given Zolpidem Tartrate (Ambien) 5 mg PO HS PRN PRN Reason: Insomnia Stop: 12/01/17 20:43 Last Admin: 10/06/17 20:37 Dose: 5 mg General: demented HEENT: NC/AT, PERRLA, EOMI, anicteric sclerae, throat clear Neck: Supple, No JVD, No thyromegaly, +2 carotid pulse wo bruit, No LAD Cardiovascular: RRR, Normal S1, Normal S2, without murmur Abdomen: soft, non-tender, non-distended Neurological: no change - Procedures Procedures: Procedures Procedure Code Date OTHER GROUP THERAPY 94.44 09/01/14 RECREATIONAL THERAPY 93.81 12/23/11 Internal Medicine Assmt/Plan - Assessment Assessment: 1.HTN. 2.CHF. 3.DEMENTIA. 4.PSYCHOSIS. 5.HYPOKALEMIA - Plan Plan: CONTINUE ON CURRENT MEDICATION AND DIET. Nutritional Asmnt/Malnutr-PDOC - Dietary Evaluation Malnutrition Findings (Please click <Entered> for more info): Nutritional Asmnt/Malnutrition Start: 10/03/17 13: 42 Text: Status: Complete Freq: Protocol: Document 10/03/17 13:42 LCHENG (Rec: 10/03/17 14:02 LCHENG [email or web address]) Nutritional Asmnt/Malnutrition Patient General Information Nutritional Screening Moderate Risk Diagnosis psychosis Pertinent Medical Hx/Surgical Hx HTN, DJD, dementia, psychosis, hyperlipidemia Subjective Information Pt seen lying in bed at time of visit, waiting for lunch, talking confused. Per EMR, PO itnake 75-100% of meals. Current Diet Order/ Nutrition Support JAVAN, non fat milk and sugar free diet, high protein nourishment with lunch Pertinent Medications theragran, kcl, seroquel Pertinent Labs 10/02 K 2.7, glucose 173 Nutritional Hx/Data Height 1.68 m Height (Calculated Centimeters) 167.6 Current Weight (lbs) 83.461 kg Weight (Calculated Kilograms) 83.5 Weight (Calculated Grams) 41678.0 [place] Body Weight 142 Body Mass Index (BMI) 29.7 Weight Status Approriate GI Symptoms GI Symptoms None Last BM none Difficult in: None Skin Integrity/Comment: per EMR, pt refused skin check . Sujit 22. Current %PO Good (75-100%) Estimated Nutritional Goals BEE in Kcals: Using Current wt Calories/Kcals/Kg 20-25 Kcals Calculated 1152-6502 Protein: Using Current wt Protein g/k.8 Protein Calculated 67 Fluid: ml 1680-2100ml (1ml/kcal) Nutritional Problem No current Nutrition Prob Problem N/A Malnutrition Alert Is there a minimum of two criteria No selected? Query Text:Check all the applicable criteria. A minimum of two criteria are recommended for diagnosis of either severe or non-severe malnutrition. Intervention/Recommendation Comments 1. Continue with current diet as ordered. 2. Monitor PO intake, wt, labs and skin integrity 3. F/U as low risk in 7 days, 10/10 Expected Outcomes/Goals Expected Outcomes/Goals 1. PO intake to meet at least 75% of nutritional needs. 2. Wt stability, skin to remain intact, labs to approach WNL.
[2017-10-11 14:35] LABS: ALB/GLOB RATIO 0.9 (1.0-1.8); ALBUMIN 3.4 gm/dL (4.2-5.5); ALKALINE PHOSPHATASE 73 U/L (34-104); ANION GAP 8.3 (7.0-16.0); BILIRUBIN,TOTAL 0.4 mg/dL (0.3-1.0); BUN - UREA NITROGEN 9 mg/dL (7-25); CALCIUM SERUM 8.9 mg/dL (8.6-10.3); CHLORIDE 103 mEq/L (98-107); CREATININE - SERUM 0.8 mg/dL (0.7-1.3); GFR AFRICAN-AMERICAN > 60.0 ml/min (>90); GFR NON AFRICAN-AMERICAN > 60.0 ml/min; GLUCOSE 104 mg/dL (70-105); POTASSIUM SERUM 3.3 mEq/L (3.5-5.1); SGOT 45 U/L (13-39); SGPT/ALT 22 U/L (7-52); SODIUM SERUM 138 mEq/L (136-145)
--- NOTE | 2017-10-11 21:29 | Progress Notes ---
DATE: 10/11/2017 Case discussed with staff of the patient, reviewed records. The patient has to be medicated today because of his agitated behaviour, continues to be out at times yelling and screaming or getting mixed, paranoid, suspicious at times not taking his medication ____ self-care, unpredictable and impulsive. He is on chlorpromazine now 200 mg 3 times a day with no side effects, no sedation, no nausea and no extrapyramidal symptoms, continue Trileptal 300 mg twice a day as well as Seroquel 50 mg daily and 200 at bedtime, Risperdal 1 mg and we will continue to work with the patient in group therapy, milieu therapy and adjust medications as needed. JOB# [id number]
[2017-10-11] MEDS: Atorvastatin Calcium 10 MG TAB PO SCH (21:45)
[2017-10-12] MEDS: risperiDONE 1 mg/mL 30 mL Bottle PO SCH ×2 (09:22→18:00)
[2017-10-12] MEDS: Multivitamin Tab PO SCH (09:22)
[2017-10-12] MEDS: Aspirin 81mg Chewable Tab PO SCH (09:22)
[2017-10-12] MEDS: Potassium Chloride 20 mEq ER Tab PO SCH (09:23)
--- NOTE | 2017-10-12 14:41 | Internal Medicine Prog Note ---
Internal Medicine Subjective - Subjective Service Date: 10/12/17 Patient seen and examined:: with staff Patient is:: awake, in bed, talking, confused Per staff patient has:: no adverse event Internal Medicine Objective - Results Result Diagrams: 09/30/17 20:20 10/11/17 14:03 Recent Labs: Laboratory Last Values WBC 9.9 Th/cmm (4.8-10.8) 09/30/17 20:20 RBC 5.02 Mil/cmm (4.30-5.70) 09/30/17 20:20 Hgb 14.4 gm/dL (12-16) 09/30/17 20:20 Hct 42.6 % (41.0-60) 09/30/17 20:20 MCV 84.9 fl (80-99) 09/30/17 20:20 MCH 28.7 pg (26.0-30.0) 09/30/17 20:20 MCHC Differential 33.8 pg (28.0-36.0) 09/30/17 20:20 RDW 13.4 % (11.5-20.0) 09/30/17 20:20 Plt Count 329 Th/cmm (150-400) 09/30/17 20:20 MPV 7.3 fl 09/30/17 20:20 Neutrophils % 68.8 % (40.0-80.0) 09/30/17 20:20 Lymphocytes % 18.4 % (20.0-50.0) L 09/30/17 20:20 Monocytes % 7.8 % (2.0-10.0) 09/30/17 20:20 Eosinophils % 4.5 % (0.0-5.0) 09/30/17 20:20 Basophils % 0.5 % (0.0-2.0) 09/30/17 20:20 Sodium 138 mEq/L (136-145) 10/11/17 14:03 Potassium 3.3 mEq/L (3.5-5.1) L 10/11/17 14:03 Chloride 103 mEq/L (98-107) 10/11/17 14:03 Carbon Dioxide 30.0 mEq/L (21.0-31.0) 10/11/17 14:03 Anion Gap 8.3 (7.0-16.0) 10/11/17 14:03 BUN 9 mg/dL (7-25) 10/11/17 14:03 Creatinine 0.8 mg/dL (0.7-1.3) 10/11/17 14:03 Est GFR ( Amer) > 60.0 ml/min (>90) 10/11/17 14:03 Est GFR (Non-Af Amer) > 60.0 ml/min 10/11/17 14:03 BUN/Creatinine Ratio 11.3 10/11/17 14:03 Glucose 104 mg/dL (70-105) 10/11/17 14:03 Calcium 8.9 mg/dL (8.6-10.3) 10/11/17 14:03 Magnesium 1.9 mg/dL (1.9-2.7) 09/30/17 20:20 Total Bilirubin 0.4 mg/dL (0.3-1.0) 10/11/17 14:03 AST 45 U/L (13-39) H 10/11/17 14:03 ALT 22 U/L (7-52) 10/11/17 14:03 Alkaline Phosphatase 73 U/L (34-104) 10/11/17 14:03 Troponin I 0.03 ng/mL (0.01-0.05) 09/30/17 20:20 B-Natriuretic Peptide 232.0 pg/mL (5.0-100.0) H 09/30/17 20:20 Total Protein 7.0 gm/dL (6.0-8.3) 10/11/17 14:03 Albumin 3.4 gm/dL (4.2-5.5) L 10/11/17 14:03 Globulin 3.6 gm/dL 10/11/17 14:03 Albumin/Globulin Ratio 0.9 (1.0-1.8) L 10/11/17 14:03 Urine Source RANDOM 09/30/17 20:40 Urine Color YELLOW 09/30/17 20:40 Urine Clarity CLEAR (CLEAR) 09/30/17 20:40 Urine pH 7.5 (4.6 - 8.0) 09/30/17 20:40 Ur Specific [place] 1.010 (1.005-1.030) 09/30/17 20:40 Urine Protein NEGATIVE mg/dL (NEGATIVE) 09/30/17 20:40 Urine Glucose (UA) NEGATIVE mg/dL (NEGATIVE) 09/30/17 20:40 Urine Ketones NEGATIVE mg/dL (NEGATIVE) 09/30/17 20:40 Urine Blood NEGATIVE (NEGATIVE) 09/30/17 20:40 Urine Nitrate NEGATIVE (NEGATIVE) 09/30/17 20:40 Urine Bilirubin NEGATIVE (NEGATIVE) 09/30/17 20:40 Urine Urobilinogen 1.0 E.U./dL (0.2 - 1.0) 09/30/17 20:40 Ur Leukocyte Esterase NEGATIVE (NEGATIVE) 09/30/17 20:40 Urine RBC 0-2 /hpf (0-5) H 09/30/17 20:40 Urine WBC 0-2 /hpf (0-5) 09/30/17 20:40 Ur Epithelial Cells OCCASIONAL /lpf (FEW) 09/30/17 20:40 Urine Bacteria OCCASIONAL /hpf (NONE SEEN) 09/30/17 20:40 - Physical Exam Vitals and I&O: Vital Signs Temp 97.6 F 10/12/17 06:29 Pulse 94 10/12/17 13:04 Resp 20 10/12/17 06:29 BP 136/87 10/12/17 13:04 Pulse Ox 97 10/12/17 06:29 Intake & Output 10/11/17 10/12/17 10/12/17 18:59 06:59 18:59 Intake Total 120 Balance 120 Intake: Oral 120 Other: # Voids 2 Stool Characteristics Formed Active Medications: Current Medications Acetaminophen (Tylenol) 650 mg PO Q4HR PRN PRN Reason: Mild Pain / Temp above 100 Stop: 11/29/17 22:32 Al Hydrox/Mg Hydrox/Simethicone (Maalox) 30 ml PO Q4HR PRN PRN Reason: GI DISTRESS Stop: 11/29/17 22:32 Amlodipine Besylate (Norvasc) 10 mg PO DAILY [facility] Stop: 12/06/17 08:59 Last Admin: 10/12/17 10:11 Dose: Not Given Aspirin (Aspirin Chewable) 81 mg PO DAILY [facility] Stop: 11/30/17 08:59 Last Admin: 10/12/17 09:22 Dose: 81 mg Atorvastatin Calcium (Lipitor) 20 mg PO HS [facility] Stop: 11/30/17 20:59 Last Admin: 06/30/18 21:45 Dose: 20 mg Chlorpromazine (Thorazine) 200 mg PO TID [facility]; Protocol Stop: 12/07/17 08:59 Last Admin: 10/12/17 13:05 Dose: 50 mg Hydralazine HCl (Apresoline) 25 mg PO TID [facility] Stop: 11/30/17 08:59 Last Admin: 10/12/17 13:04 Dose: 25 mg Ibuprofen (Motrin) 800 mg PO Q8HR PRN PRN Reason: right lower ext pain Stop: 11/29/17 23:03 Lisinopril (Zestril) 20 mg PO DAILY [facility] Stop: 11/30/17 08:59 Last Admin: 10/12/17 10:12 Dose: Not Given Lorazepam (Ativan) 0.5 mg PO Q4HR PRN; Protocol PRN Reason: Anxiety/agitation Stop: 10/30/17 22:32 Last Admin: 10/08/17 03:09 Dose: 0.5 mg Magnesium Hydroxide (Milk Of Magnesia) 30 ml PO HS PRN PRN Reason: Constipation Metoprolol Tartrate (Lopressor) 25 mg PO BID [facility] Stop: 11/30/17 08:59 Last Admin: 10/12/17 10:10 Dose: Not Given Multivitamins/Vitamin C (Theragran) 1 tab PO DAILY [facility] Stop: 11/30/17 08:59 Last Admin: 10/12/17 09:22 Dose: 1 tab Oxcarbazepine (Trileptal) 300 mg PO BID [facility]; Protocol Stop: 11/30/17 08:59 Last Admin: 10/12/17 09:24 Dose: 300 mg Potassium Chloride (Klor-Con) 20 meq PO DAILY [facility] Stop: 11/30/17 08:59 Last Admin: 10/12/17 09:23 Dose: 20 meq Potassium Phosphate (K Phos) 500 mg PO DAILY [facility] Stop: 12/09/17 08:59 Last Admin: 10/12/17 09:21 Dose: 500 mg Quetiapine Fumarate (Seroquel) 50 mg PO DAILY [facility]; Protocol Stop: 12/02/17 08:59 Last Admin: 10/12/17 09:23 Dose: 50 mg Quetiapine Fumarate (Seroquel) 200 mg PO HS [facility]; Protocol Stop: 12/02/17 20:59 Last Admin: 10/11/17 21:45 Dose: 200 mg Risperidone (Risperdal) 1 mg PO BID [facility]; Protocol Stop: 12/08/17 08:59 Last Admin: 10/12/17 09:22 Dose: 1 mg Zolpidem Tartrate (Ambien) 5 mg PO HS PRN PRN Reason: Insomnia Stop: 12/01/17 20:43 Last Admin: 10/06/17 20:37 Dose: 5 mg General: demented HEENT: NC/AT, PERRLA, EOMI, anicteric sclerae, throat clear Neck: Supple, No JVD, No thyromegaly, +2 carotid pulse wo bruit, No LAD Cardiovascular: RRR, Normal S1, Normal S2, without murmur Abdomen: soft, non-tender, non-distended Neurological: no change - Procedures Procedures: Procedures Procedure Code Date OTHER GROUP THERAPY 94.44 09/01/14 RECREATIONAL THERAPY 93.81 12/23/11 Internal Medicine Assmt/Plan - Assessment Assessment: 1.HTN. 2.CHF. 3.DEMENTIA. 4.PSYCHOSIS. 5.HYPOKALEMIA - Plan Plan: CONTINUE ON CURRENT MEDICATION AND DIET.CHEM 16. Nutritional Asmnt/Malnutr-PDOC - Dietary Evaluation Malnutrition Findings (Please click <Entered> for more info): Nutritional Asmnt/Malnutrition Start: 10/03/17 13: 42 Text: Status: Complete Freq: Protocol: Document 10/03/17 13:42 LCHENG (Rec: 10/03/17 14:02 LCHENG [email or web address]) Nutritional Asmnt/Malnutrition Patient General Information Nutritional Screening Moderate Risk Diagnosis psychosis Pertinent Medical Hx/Surgical Hx HTN, DJD, dementia, psychosis, hyperlipidemia Subjective Information Pt seen lying in bed at time of visit, waiting for lunch, talking confused. Per EMR, PO itnake 75-100% of meals. Current Diet Order/ Nutrition Support JAVAN, non fat milk and sugar free diet, high protein nourishment with lunch Pertinent Medications theragran, kcl, seroquel Pertinent Labs 10/02 K 2.7, glucose 173 Nutritional Hx/Data Height 1.68 m Height (Calculated Centimeters) 167.6 Current Weight (lbs) 83.461 kg Weight (Calculated Kilograms) 83.5 Weight (Calculated Grams) 58728.0 [place] Body Weight 142 Body Mass Index (BMI) 29.7 Weight Status Approriate GI Symptoms GI Symptoms None Last BM none Difficult in: None Skin Integrity/Comment: per EMR, pt refused skin check . Sujit 22. Current %PO Good (75-100%) Estimated Nutritional Goals BEE in Kcals: Using Current wt Calories/Kcals/Kg 20-25 Kcals Calculated 4235-6476 Protein: Using Current wt Protein g/k.8 Protein Calculated 67 Fluid: ml 1680-2100ml (1ml/kcal) Nutritional Problem No current Nutrition Prob Problem N/A Malnutrition Alert Is there a minimum of two criteria No selected? Query Text:Check all the applicable criteria. A minimum of two criteria are recommended for diagnosis of either severe or non-severe malnutrition. Intervention/Recommendation Comments 1. Continue with current diet as ordered. 2. Monitor PO intake, wt, labs and skin integrity 3. F/U as low risk in 7 days, 10/10 Expected Outcomes/Goals Expected Outcomes/Goals 1. PO intake to meet at least 75% of nutritional needs. 2. Wt stability, skin to remain intact, labs to approach WNL.
[2017-10-12 15:29] LABS: ALB/GLOB RATIO 0.9 (1.0-1.8); ALKALINE PHOSPHATASE 68 U/L (34-104); BILIRUBIN,TOTAL 0.3 mg/dL (0.3-1.0); BUN - UREA NITROGEN 10 mg/dL (7-25); CALCIUM SERUM 8.7 mg/dL (8.6-10.3); CARBON DIOXIDE 27.1 mEq/L (21.0-31.0); CHLORIDE 103 mEq/L (98-107); CREATININE - SERUM 0.8 mg/dL (0.7-1.3); GFR AFRICAN-AMERICAN > 60.0 ml/min (>90); GFR NON AFRICAN-AMERICAN > 60.0 ml/min; GLUCOSE 115 mg/dL (70-105); POTASSIUM SERUM 4.1 mEq/L (3.5-5.1); SGOT 34 U/L (13-39); SGPT/ALT 21 U/L (7-52); SODIUM SERUM 137 mEq/L (136-145); TOTAL PROTEIN,SERUM 6.2 gm/dL (6.0-8.3)
--- NOTE | 2017-10-12 16:36 | Progress Notes ---
DATE: 10/10/2017 PSYCHIATRIC PROGRESS NOTE SUBJECTIVE: Chart reviewed and the patient interviewed. Also, discussed the patient's condition with the staff and reviewed records and labs. The patient seems to be slightly calmer than before. He seems to be less irritable and less agitated. The patient also is interacting slightly more, but he is still confused and unable to carry on coherent conversation. The patient also is still argumentative and having episodes of agitation and anger. Otherwise, also patient started to comply more with medications with no side effects. ASSESSMENT: The patient is still psychotic and needs close monitoring. TREATMENT PLAN: Continue to monitor behavior and condition closely. Also, continue to work on his compliance with medication and adjusting psychotropic medications and continue to follow up. JOB# [id number]
--- NOTE | 2017-10-12 20:08 | Psychosocial Evaluation ---
DATE OF SERVICE: 10/12/[address] Alvarado. Case was discussed with staff of the patient, reviewed records and medication list and lab work. The patient continues to have still agitation. Continues to be unpredictable, impulsive, needing redirection. Continues to have poor insight, unable to make a safe plan for self-care. Continues to be paranoid, suspicious, and not ready to go to a lesser level of care because of his irritable, unpredictable, aggressive behavior. No side effects with the medication, no sedation, no nausea, no extrapyramidal symptoms. We will continue outpatient group therapy, milieu therapy and adjust medications as needed. JOB# [id number]
[2017-10-12] MEDS: Atorvastatin Calcium 10 MG TAB PO SCH (21:05)
--- NOTE | 2017-10-13 06:45 | Progress Notes ---
DATE: 10/13/2017 PSYCHIATRIC PROGRESS NOTE SUBJECTIVE: Chart reviewed and the patient interviewed. Also discussed the patient's condition with the staff and reviewed records and labs. The patient seems to be slightly calmer, but he is still talking nonstop and preoccupied. The patient also still talking to himself and is severely paranoid. Also, is preoccupied and he is still easily agitated, but easier to redirect him. The patient also has been compliant with taking his medications with no side effects of medications. ASSESSMENT: The patient is showing some improvement and he seems to be less agitated. TREATMENT PLAN: Continue to monitor his behavior and his condition closely. Also, continue to adjust his medications. Also, working on behavioral modification as well as discharge plans. JOB# [id number]
[2017-10-13] MEDS: risperiDONE 1 mg/mL 30 mL Bottle PO SCH ×3 (10:10→18:28)
[2017-10-13] MEDS: Potassium Chloride 20 mEq ER Tab PO SCH (10:10)
[2017-10-13] MEDS: Aspirin 81mg Chewable Tab PO SCH (10:13)
[2017-10-13] MEDS: Multivitamin Tab PO SCH (10:13)
--- NOTE | 2017-10-13 18:19 | Internal Medicine Prog Note ---
Internal Medicine Subjective - Subjective Service Date: 10/13/17 Patient seen and examined:: with staff Patient is:: awake, in bed, talking, confused Per staff patient has:: no adverse event Internal Medicine Objective - Results Result Diagrams: 09/30/17 20:20 10/12/17 14:54 Recent Labs: Laboratory Last Values WBC 9.9 Th/cmm (4.8-10.8) 09/30/17 20:20 RBC 5.02 Mil/cmm (4.30-5.70) 09/30/17 20:20 Hgb 14.4 gm/dL (12-16) 09/30/17 20:20 Hct 42.6 % (41.0-60) 09/30/17 20:20 MCV 84.9 fl (80-99) 09/30/17 20:20 MCH 28.7 pg (26.0-30.0) 09/30/17 20:20 MCHC Differential 33.8 pg (28.0-36.0) 09/30/17 20:20 RDW 13.4 % (11.5-20.0) 09/30/17 20:20 Plt Count 329 Th/cmm (150-400) 09/30/17 20:20 MPV 7.3 fl 09/30/17 20:20 Neutrophils % 68.8 % (40.0-80.0) 09/30/17 20:20 Lymphocytes % 18.4 % (20.0-50.0) L 09/30/17 20:20 Monocytes % 7.8 % (2.0-10.0) 09/30/17 20:20 Eosinophils % 4.5 % (0.0-5.0) 09/30/17 20:20 Basophils % 0.5 % (0.0-2.0) 09/30/17 20:20 Sodium 137 mEq/L (136-145) 10/12/17 14:54 Potassium 4.1 mEq/L (3.5-5.1) 10/12/17 14:54 Chloride 103 mEq/L (98-107) 10/12/17 14:54 Carbon Dioxide 27.1 mEq/L (21.0-31.0) 10/12/17 14:54 Anion Gap 11.0 (7.0-16.0) 10/12/17 14:54 BUN 10 mg/dL (7-25) 10/12/17 14:54 Creatinine 0.8 mg/dL (0.7-1.3) 10/12/17 14:54 Est GFR ( Amer) > 60.0 ml/min (>90) 10/12/17 14:54 Est GFR (Non-Af Amer) > 60.0 ml/min 10/12/17 14:54 BUN/Creatinine Ratio 12.5 10/12/17 14:54 Glucose 115 mg/dL (70-105) H 10/12/17 14:54 Calcium 8.7 mg/dL (8.6-10.3) 10/12/17 14:54 Magnesium 1.9 mg/dL (1.9-2.7) 09/30/17 20:20 Total Bilirubin 0.3 mg/dL (0.3-1.0) 10/12/17 14:54 AST 34 U/L (13-39) 10/12/17 14:54 ALT 21 U/L (7-52) 10/12/17 14:54 Alkaline Phosphatase 68 U/L (34-104) 10/12/17 14:54 Troponin I 0.03 ng/mL (0.01-0.05) 09/30/17 20:20 B-Natriuretic Peptide 232.0 pg/mL (5.0-100.0) H 09/30/17 20:20 Total Protein 6.2 gm/dL (6.0-8.3) 10/12/17 14:54 Albumin 3.0 gm/dL (4.2-5.5) L 10/12/17 14:54 Globulin 3.2 gm/dL 10/12/17 14:54 Albumin/Globulin Ratio 0.9 (1.0-1.8) L 10/12/17 14:54 Urine Source RANDOM 09/30/17 20:40 Urine Color YELLOW 09/30/17 20:40 Urine Clarity CLEAR (CLEAR) 09/30/17 20:40 Urine pH 7.5 (4.6 - 8.0) 09/30/17 20:40 Ur Specific [place] 1.010 (1.005-1.030) 09/30/17 20:40 Urine Protein NEGATIVE mg/dL (NEGATIVE) 09/30/17 20:40 Urine Glucose (UA) NEGATIVE mg/dL (NEGATIVE) 09/30/17 20:40 Urine Ketones NEGATIVE mg/dL (NEGATIVE) 09/30/17 20:40 Urine Blood NEGATIVE (NEGATIVE) 09/30/17 20:40 Urine Nitrate NEGATIVE (NEGATIVE) 09/30/17 20:40 Urine Bilirubin NEGATIVE (NEGATIVE) 09/30/17 20:40 Urine Urobilinogen 1.0 E.U./dL (0.2 - 1.0) 09/30/17 20:40 Ur Leukocyte Esterase NEGATIVE (NEGATIVE) 09/30/17 20:40 Urine RBC 0-2 /hpf (0-5) H 09/30/17 20:40 Urine WBC 0-2 /hpf (0-5) 09/30/17 20:40 Ur Epithelial Cells OCCASIONAL /lpf (FEW) 09/30/17 20:40 Urine Bacteria OCCASIONAL /hpf (NONE SEEN) 09/30/17 20:40 - Physical Exam Vitals and I&O: Vital Signs Temp 98.0 F 10/13/17 15:04 Pulse 96 10/13/17 16:27 Resp 18 10/13/17 15:04 BP 129/80 10/13/17 16:27 Pulse Ox 98 10/13/17 15:04 Intake & Output 10/12/17 10/13/17 10/13/17 18:59 06:59 18:59 Intake Total 2703 067 6489 Balance 1807 025 8927 Intake: Oral 4216 950 5465 Other: # Voids 4 2 4 # Bowel Movements 1 Active Medications: Current Medications Acetaminophen (Tylenol) 650 mg PO Q4HR PRN PRN Reason: Mild Pain / Temp above 100 Stop: 11/29/17 22:32 Al Hydrox/Mg Hydrox/Simethicone (Maalox) 30 ml PO Q4HR PRN PRN Reason: GI DISTRESS Stop: 11/29/17 22:32 Amlodipine Besylate (Norvasc) 10 mg PO DAILY [facility] Stop: 12/06/17 08:59 Last Admin: 10/13/17 10:12 Dose: Not Given Aspirin (Aspirin Chewable) 81 mg PO DAILY [facility] Stop: 11/30/17 08:59 Last Admin: 10/13/17 10:13 Dose: Not Given Atorvastatin Calcium (Lipitor) 20 mg PO HS [facility] Stop: 11/30/17 20:59 Last Admin: 10/12/17 21:05 Dose: 20 mg Chlorpromazine (Thorazine) 200 mg PO TID [facility]; Protocol Stop: 12/07/17 08:59 Last Admin: 10/13/17 16:28 Dose: 200 mg Hydralazine HCl (Apresoline) 25 mg PO TID [facility] Stop: 11/30/17 08:59 Last Admin: 10/13/17 14:30 Dose: Not Given Ibuprofen (Motrin) 800 mg PO Q8HR PRN PRN Reason: right lower ext pain Stop: 11/29/17 23:03 Lisinopril (Zestril) 20 mg PO DAILY [facility] Stop: 11/30/17 08:59 Last Admin: 10/13/17 10:13 Dose: Not Given Lorazepam (Ativan) 0.5 mg PO Q4HR PRN; Protocol PRN Reason: Anxiety/agitation Stop: 10/30/17 22:32 Last Admin: 10/12/17 21:06 Dose: 0.5 mg Magnesium Hydroxide (Milk Of Magnesia) 30 ml PO HS PRN PRN Reason: Constipation Metoprolol Tartrate (Lopressor) 25 mg PO BID [facility] Stop: 11/30/17 08:59 Last Admin: 10/13/17 16:27 Dose: 25 mg Multivitamins/Vitamin C (Theragran) 1 tab PO DAILY [facility] Stop: 11/30/17 08:59 Last Admin: 10/13/17 10:13 Dose: Not Given Oxcarbazepine (Trileptal) 300 mg PO BID [facility]; Protocol Stop: 11/30/17 08:59 Last Admin: 10/13/17 16:30 Dose: 300 mg Potassium Chloride (Klor-Con) 20 meq PO DAILY [facility] Stop: 11/30/17 08:59 Last Admin: 10/13/17 10:10 Dose: Not Given Potassium Phosphate (K Phos) 500 mg PO DAILY [facility] Stop: 12/09/17 08:59 Last Admin: 10/13/17 10:11 Dose: 500 mg Quetiapine Fumarate (Seroquel) 50 mg PO DAILY [facility]; Protocol Stop: 12/02/17 08:59 Last Admin: 10/13/17 12:31 Dose: 50 mg Quetiapine Fumarate (Seroquel) 200 mg PO HS [facility]; Protocol Stop: 12/02/17 20:59 Last Admin: 10/12/17 21:05 Dose: 200 mg Risperidone (Risperdal) 1 mg PO BID [facility]; Protocol Stop: 12/08/17 08:59 Last Admin: 10/13/17 16:31 Dose: 1 mg Zolpidem Tartrate (Ambien) 5 mg PO HS PRN PRN Reason: Insomnia Stop: 12/01/17 20:43 Last Admin: 10/12/17 21:05 Dose: 5 mg General: demented HEENT: NC/AT, PERRLA, EOMI, anicteric sclerae, throat clear Neck: Supple, No JVD, No thyromegaly, +2 carotid pulse wo bruit, No LAD Cardiovascular: RRR, Normal S1, Normal S2, without murmur Abdomen: soft, non-tender, non-distended Neurological: no change - Procedures Procedures: Procedures Procedure Code Date OTHER GROUP THERAPY 94.44 09/01/14 RECREATIONAL THERAPY 93.81 12/23/11 Internal Medicine Assmt/Plan - Assessment Assessment: 1.HTN. 2.CHF. 3.DEMENTIA. 4.PSYCHOSIS. 5.HYPOKALEMIA - Plan Plan: CONTINUE ON CURRENT MEDICATION AND DIET. Nutritional Asmnt/Malnutr-PDOC - Dietary Evaluation Malnutrition Findings (Please click <Entered> for more info): Nutritional Asmnt/Malnutrition Start: 10/03/17 13: 42 Text: Status: Complete Freq: Protocol: Document 10/03/17 13:42 LCHENG (Rec: 10/03/17 14:02 LCHENG [email or web address]) Nutritional Asmnt/Malnutrition Patient General Information Nutritional Screening Moderate Risk Diagnosis psychosis Pertinent Medical Hx/Surgical Hx HTN, DJD, dementia, psychosis, hyperlipidemia Subjective Information Pt seen lying in bed at time of visit, waiting for lunch, talking confused. Per EMR, PO itnake 75-100% of meals. Current Diet Order/ Nutrition Support JAVAN, non fat milk and sugar free diet, high protein nourishment with lunch Pertinent Medications theragran, kcl, seroquel Pertinent Labs 10/02 K 2.7, glucose 173 Nutritional Hx/Data Height 1.68 m Height (Calculated Centimeters) 167.6 Current Weight (lbs) 83.461 kg Weight (Calculated Kilograms) 83.5 Weight (Calculated Grams) 16355.0 [place] Body Weight 142 Body Mass Index (BMI) 29.7 Weight Status Approriate GI Symptoms GI Symptoms None Last BM none Difficult in: None Skin Integrity/Comment: per EMR, pt refused skin check . Sujit 22. Current %PO Good (75-100%) Estimated Nutritional Goals BEE in Kcals: Using Current wt Calories/Kcals/Kg 20-25 Kcals Calculated 4492-0400 Protein: Using Current wt Protein g/k.8 Protein Calculated 67 Fluid: ml 1680-2100ml (1ml/kcal) Nutritional Problem No current Nutrition Prob Problem N/A Malnutrition Alert Is there a minimum of two criteria No selected? Query Text:Check all the applicable criteria. A minimum of two criteria are recommended for diagnosis of either severe or non-severe malnutrition. Intervention/Recommendation Comments 1. Continue with current diet as ordered. 2. Monitor PO intake, wt, labs and skin integrity 3. F/U as low risk in 7 days, 10/10 Expected Outcomes/Goals Expected Outcomes/Goals 1. PO intake to meet at least 75% of nutritional needs. 2. Wt stability, skin to remain intact, labs to approach WNL.
--- NOTE | 2017-10-13 19:10 | Internal Medicine Prog Note ---
Internal Medicine Subjective - Subjective Service Date: 10/13/17 Patient seen and examined:: with staff Patient is:: awake, in bed, talking, confused Per staff patient has:: no adverse event Internal Medicine Objective - Results Result Diagrams: 09/30/17 20:20 10/12/17 14:54 Recent Labs: Laboratory Last Values WBC 9.9 Th/cmm (4.8-10.8) 09/30/17 20:20 RBC 5.02 Mil/cmm (4.30-5.70) 09/30/17 20:20 Hgb 14.4 gm/dL (12-16) 09/30/17 20:20 Hct 42.6 % (41.0-60) 09/30/17 20:20 MCV 84.9 fl (80-99) 09/30/17 20:20 MCH 28.7 pg (26.0-30.0) 09/30/17 20:20 MCHC Differential 33.8 pg (28.0-36.0) 09/30/17 20:20 RDW 13.4 % (11.5-20.0) 09/30/17 20:20 Plt Count 329 Th/cmm (150-400) 09/30/17 20:20 MPV 7.3 fl 09/30/17 20:20 Neutrophils % 68.8 % (40.0-80.0) 09/30/17 20:20 Lymphocytes % 18.4 % (20.0-50.0) L 09/30/17 20:20 Monocytes % 7.8 % (2.0-10.0) 09/30/17 20:20 Eosinophils % 4.5 % (0.0-5.0) 09/30/17 20:20 Basophils % 0.5 % (0.0-2.0) 09/30/17 20:20 Sodium 137 mEq/L (136-145) 10/12/17 14:54 Potassium 4.1 mEq/L (3.5-5.1) 10/12/17 14:54 Chloride 103 mEq/L (98-107) 10/12/17 14:54 Carbon Dioxide 27.1 mEq/L (21.0-31.0) 10/12/17 14:54 Anion Gap 11.0 (7.0-16.0) 10/12/17 14:54 BUN 10 mg/dL (7-25) 10/12/17 14:54 Creatinine 0.8 mg/dL (0.7-1.3) 10/12/17 14:54 Est GFR ( Amer) > 60.0 ml/min (>90) 10/12/17 14:54 Est GFR (Non-Af Amer) > 60.0 ml/min 10/12/17 14:54 BUN/Creatinine Ratio 12.5 10/12/17 14:54 Glucose 115 mg/dL (70-105) H 10/12/17 14:54 Calcium 8.7 mg/dL (8.6-10.3) 10/12/17 14:54 Magnesium 1.9 mg/dL (1.9-2.7) 09/30/17 20:20 Total Bilirubin 0.3 mg/dL (0.3-1.0) 10/12/17 14:54 AST 34 U/L (13-39) 10/12/17 14:54 ALT 21 U/L (7-52) 10/12/17 14:54 Alkaline Phosphatase 68 U/L (34-104) 10/12/17 14:54 Troponin I 0.03 ng/mL (0.01-0.05) 09/30/17 20:20 B-Natriuretic Peptide 232.0 pg/mL (5.0-100.0) H 09/30/17 20:20 Total Protein 6.2 gm/dL (6.0-8.3) 10/12/17 14:54 Albumin 3.0 gm/dL (4.2-5.5) L 10/12/17 14:54 Globulin 3.2 gm/dL 10/12/17 14:54 Albumin/Globulin Ratio 0.9 (1.0-1.8) L 10/12/17 14:54 Urine Source RANDOM 09/30/17 20:40 Urine Color YELLOW 09/30/17 20:40 Urine Clarity CLEAR (CLEAR) 09/30/17 20:40 Urine pH 7.5 (4.6 - 8.0) 09/30/17 20:40 Ur Specific [place] 1.010 (1.005-1.030) 09/30/17 20:40 Urine Protein NEGATIVE mg/dL (NEGATIVE) 09/30/17 20:40 Urine Glucose (UA) NEGATIVE mg/dL (NEGATIVE) 09/30/17 20:40 Urine Ketones NEGATIVE mg/dL (NEGATIVE) 09/30/17 20:40 Urine Blood NEGATIVE (NEGATIVE) 09/30/17 20:40 Urine Nitrate NEGATIVE (NEGATIVE) 09/30/17 20:40 Urine Bilirubin NEGATIVE (NEGATIVE) 09/30/17 20:40 Urine Urobilinogen 1.0 E.U./dL (0.2 - 1.0) 09/30/17 20:40 Ur Leukocyte Esterase NEGATIVE (NEGATIVE) 09/30/17 20:40 Urine RBC 0-2 /hpf (0-5) H 09/30/17 20:40 Urine WBC 0-2 /hpf (0-5) 09/30/17 20:40 Ur Epithelial Cells OCCASIONAL /lpf (FEW) 09/30/17 20:40 Urine Bacteria OCCASIONAL /hpf (NONE SEEN) 09/30/17 20:40 - Physical Exam Vitals and I&O: Vital Signs Temp 98.0 F 10/13/17 15:04 Pulse 96 10/13/17 15:04 Resp 18 10/13/17 15:04 BP 129/80 10/13/17 15:04 Pulse Ox 98 10/13/17 15:04 Intake & Output 10/13/17 10/13/17 10/14/17 06:59 18:59 06:59 Intake Total 120 1000 Balance 120 1000 Intake: Oral 120 1000 Other: # Voids 2 4 # Bowel Movements 1 Active Medications: Current Medications Acetaminophen (Tylenol) 650 mg PO Q4HR PRN PRN Reason: Mild Pain / Temp above 100 Stop: 11/29/17 22:32 Al Hydrox/Mg Hydrox/Simethicone (Maalox) 30 ml PO Q4HR PRN PRN Reason: GI DISTRESS Stop: 11/29/17 22:32 Amlodipine Besylate (Norvasc) 10 mg PO DAILY [facility] Stop: 12/06/17 08:59 Last Admin: 10/13/17 10:12 Dose: Not Given Aspirin (Aspirin Chewable) 81 mg PO DAILY [facility] Stop: 11/30/17 08:59 Last Admin: 10/13/17 10:13 Dose: Not Given Atorvastatin Calcium (Lipitor) 20 mg PO HS [facility] Stop: 11/30/17 20:59 Last Admin: 10/12/17 21:05 Dose: 20 mg Chlorpromazine (Thorazine) 200 mg PO TID [facility]; Protocol Stop: 12/07/17 08:59 Last Admin: 10/13/17 14:27 Dose: Not Given Hydralazine HCl (Apresoline) 25 mg PO TID [facility] Stop: 11/30/17 08:59 Last Admin: 10/13/17 14:30 Dose: Not Given Ibuprofen (Motrin) 800 mg PO Q8HR PRN PRN Reason: right lower ext pain Stop: 11/29/17 23:03 Lisinopril (Zestril) 20 mg PO DAILY [facility] Stop: 11/30/17 08:59 Last Admin: 10/13/17 10:13 Dose: Not Given Lorazepam (Ativan) 0.5 mg PO Q4HR PRN; Protocol PRN Reason: Anxiety/agitation Stop: 10/30/17 22:32 Last Admin: 10/12/17 21:06 Dose: 0.5 mg Magnesium Hydroxide (Milk Of Magnesia) 30 ml PO HS PRN PRN Reason: Constipation Metoprolol Tartrate (Lopressor) 25 mg PO BID [facility] Stop: 11/30/17 08:59 Last Admin: 10/13/17 18:28 Dose: Not Given Multivitamins/Vitamin C (Theragran) 1 tab PO DAILY [facility] Stop: 11/30/17 08:59 Last Admin: 10/13/17 10:13 Dose: Not Given Oxcarbazepine (Trileptal) 300 mg PO BID [facility]; Protocol Stop: 11/30/17 08:59 Last Admin: 10/13/17 18:28 Dose: Not Given Potassium Chloride (Klor-Con) 20 meq PO DAILY [facility] Stop: 11/30/17 08:59 Last Admin: 10/13/17 10:10 Dose: Not Given Potassium Phosphate (K Phos) 500 mg PO DAILY [facility] Stop: 12/09/17 08:59 Last Admin: 10/13/17 10:11 Dose: 500 mg Quetiapine Fumarate (Seroquel) 50 mg PO DAILY [facility]; Protocol Stop: 12/02/17 08:59 Last Admin: 10/13/17 12:31 Dose: 50 mg Quetiapine Fumarate (Seroquel) 200 mg PO HS [facility]; Protocol Stop: 08/21/18 20:59 Last Admin: 10/12/17 21:05 Dose: 200 mg Risperidone (Risperdal) 1 mg PO BID [facility]; Protocol Stop: 12/08/17 08:59 Last Admin: 10/13/17 18:28 Dose: Not Given Zolpidem Tartrate (Ambien) 5 mg PO HS PRN PRN Reason: Insomnia Stop: 12/01/17 20:43 Last Admin: 10/12/17 21:05 Dose: 5 mg General: demented HEENT: NC/AT, PERRLA, EOMI, anicteric sclerae, throat clear Neck: Supple, No JVD, No thyromegaly, +2 carotid pulse wo bruit, No LAD Cardiovascular: RRR, Normal S1, Normal S2, without murmur Abdomen: soft, non-tender, non-distended Neurological: no change - Procedures Procedures: Procedures Procedure Code Date OTHER GROUP THERAPY 94.44 09/01/14 RECREATIONAL THERAPY 93.81 12/23/11 Internal Medicine Assmt/Plan - Assessment Assessment: 1.HTN. 2.CHF. 3.DEMENTIA. 4.PSYCHOSIS. 5.HYPOKALEMIA - Plan Plan: CONTINUE ON CURRENT MEDICATION AND DIET. Nutritional Asmnt/Malnutr-PDOC - Dietary Evaluation Malnutrition Findings (Please click <Entered> for more info): Nutritional Asmnt/Malnutrition Start: 10/03/17 13: 42 Text: Status: Complete Freq: Protocol: Document 10/03/17 13:42 LCHENG (Rec: 10/03/17 14:02 LCHENG [email or web address]) Nutritional Asmnt/Malnutrition Patient General Information Nutritional Screening Moderate Risk Diagnosis psychosis Pertinent Medical Hx/Surgical Hx HTN, DJD, dementia, psychosis, hyperlipidemia Subjective Information Pt seen lying in bed at time of visit, waiting for lunch, talking confused. Per EMR, PO itnake 75-100% of meals. Current Diet Order/ Nutrition Support JAVAN, non fat milk and sugar free diet, high protein nourishment with lunch Pertinent Medications theragran, kcl, seroquel Pertinent Labs 10/02 K 2.7, glucose 173 Nutritional Hx/Data Height 1.68 m Height (Calculated Centimeters) 167.6 Current Weight (lbs) 83.461 kg Weight (Calculated Kilograms) 83.5 Weight (Calculated Grams) 97060.0 [place] Body Weight 142 Body Mass Index (BMI) 29.7 Weight Status Approriate GI Symptoms GI Symptoms None Last BM none Difficult in: None Skin Integrity/Comment: per EMR, pt refused skin check . Sujit 22. Current %PO Good (75-100%) Estimated Nutritional Goals BEE in Kcals: Using Current wt Calories/Kcals/Kg 20-25 Kcals Calculated 0895-8795 Protein: Using Current wt Protein g/k.8 Protein Calculated 67 Fluid: ml 1680-2100ml (1ml/kcal) Nutritional Problem No current Nutrition Prob Problem N/A Malnutrition Alert Is there a minimum of two criteria No selected? Query Text:Check all the applicable criteria. A minimum of two criteria are recommended for diagnosis of either severe or non-severe malnutrition. Intervention/Recommendation Comments 1. Continue with current diet as ordered. 2. Monitor PO intake, wt, labs and skin integrity 3. F/U as low risk in 7 days, 10/10 Expected Outcomes/Goals Expected Outcomes/Goals 1. PO intake to meet at least 75% of nutritional needs. 2. Wt stability, skin to remain intact, labs to approach WNL.
[2017-10-13] MEDS: Atorvastatin Calcium 10 MG TAB PO SCH (21:43)
--- NOTE | 2017-10-14 06:52 | Progress Notes ---
DATE: 10/14/2017 PSYCHIATRIC PROGRESS NOTE SUBJECTIVE: Chart reviewed and the patient interviewed. Also discussed the patient's condition with the staff and reviewed records and labs. The patient seems to be slightly calmer, but he is still paranoid and is still agitated easily and in irritable mood. The patient also is still having mood swings and at times seems to be calm and at times is agitated. Also, during the conversation the patient is having thought processes are circumstantial with flight of ideas. Also, he is still at times demanding. Also, not easy to take medications. Otherwise, the patient is showing some improvement and not as irritable. ASSESSMENT: The patient is still psychotic, but slightly improved. TREATMENT PLAN: Continue monitoring his medications and continue adjusting psychotropic medications and continue to work on his irritability and followup. JOB# [id number]
[2017-10-14] MEDS: risperiDONE 1 mg/mL 30 mL Bottle PO SCH ×2 (08:01→17:24)
[2017-10-14] MEDS: Aspirin 81mg Chewable Tab PO SCH (08:04)
[2017-10-14] MEDS: Potassium Chloride 20 mEq ER Tab PO SCH (08:06)
[2017-10-14] MEDS: Multivitamin Tab PO SCH (08:07)
[2017-10-14] MEDS: Atorvastatin Calcium 10 MG TAB PO SCH (20:47)
--- NOTE | 2017-10-14 21:30 | Internal Medicine Prog Note ---
Internal Medicine Subjective - Subjective Service Date: 10/14/17 Patient seen and examined:: with staff (HE FEELS WELL) Patient is:: awake, in bed, talking, confused Per staff patient has:: no adverse event Internal Medicine Objective - Results Result Diagrams: 09/30/17 20:20 10/12/17 14:54 Recent Labs: Laboratory Last Values WBC 9.9 Th/cmm (4.8-10.8) 09/30/17 20:20 RBC 5.02 Mil/cmm (4.30-5.70) 09/30/17 20:20 Hgb 14.4 gm/dL (12-16) 09/30/17 20:20 Hct 42.6 % (41.0-60) 09/30/17 20:20 MCV 84.9 fl (80-99) 09/30/17 20:20 MCH 28.7 pg (26.0-30.0) 09/30/17 20:20 MCHC Differential 33.8 pg (28.0-36.0) 09/30/17 20:20 RDW 13.4 % (11.5-20.0) 09/30/17 20:20 Plt Count 329 Th/cmm (150-400) 09/30/17 20:20 MPV 7.3 fl 09/30/17 20:20 Neutrophils % 68.8 % (40.0-80.0) 09/30/17 20:20 Lymphocytes % 18.4 % (20.0-50.0) L 09/30/17 20:20 Monocytes % 7.8 % (2.0-10.0) 09/30/17 20:20 Eosinophils % 4.5 % (0.0-5.0) 09/30/17 20:20 Basophils % 0.5 % (0.0-2.0) 09/30/17 20:20 Sodium 137 mEq/L (136-145) 10/12/17 14:54 Potassium 4.1 mEq/L (3.5-5.1) 10/12/17 14:54 Chloride 103 mEq/L (98-107) 10/12/17 14:54 Carbon Dioxide 27.1 mEq/L (21.0-31.0) 10/12/17 14:54 Anion Gap 11.0 (7.0-16.0) 10/12/17 14:54 BUN 10 mg/dL (7-25) 10/12/17 14:54 Creatinine 0.8 mg/dL (0.7-1.3) 10/12/17 14:54 Est GFR ( Amer) > 60.0 ml/min (>90) 10/12/17 14:54 Est GFR (Non-Af Amer) > 60.0 ml/min 10/12/17 14:54 BUN/Creatinine Ratio 12.5 10/12/17 14:54 Glucose 115 mg/dL (70-105) H 10/12/17 14:54 Calcium 8.7 mg/dL (8.6-10.3) 10/12/17 14:54 Magnesium 1.9 mg/dL (1.9-2.7) 09/30/17 20:20 Total Bilirubin 0.3 mg/dL (0.3-1.0) 10/12/17 14:54 AST 34 U/L (13-39) 10/12/17 14:54 ALT 21 U/L (7-52) 10/12/17 14:54 Alkaline Phosphatase 68 U/L (34-104) 10/12/17 14:54 Troponin I 0.03 ng/mL (0.01-0.05) 09/30/17 20:20 B-Natriuretic Peptide 232.0 pg/mL (5.0-100.0) H 09/30/17 20:20 Total Protein 6.2 gm/dL (6.0-8.3) 10/12/17 14:54 Albumin 3.0 gm/dL (4.2-5.5) L 10/12/17 14:54 Globulin 3.2 gm/dL 10/12/17 14:54 Albumin/Globulin Ratio 0.9 (1.0-1.8) L 10/12/17 14:54 Urine Source RANDOM 09/30/17 20:40 Urine Color YELLOW 09/30/17 20:40 Urine Clarity CLEAR (CLEAR) 09/30/17 20:40 Urine pH 7.5 (4.6 - 8.0) 09/30/17 20:40 Ur Specific [place] 1.010 (1.005-1.030) 09/30/17 20:40 Urine Protein NEGATIVE mg/dL (NEGATIVE) 09/30/17 20:40 Urine Glucose (UA) NEGATIVE mg/dL (NEGATIVE) 09/30/17 20:40 Urine Ketones NEGATIVE mg/dL (NEGATIVE) 09/30/17 20:40 Urine Blood NEGATIVE (NEGATIVE) 09/30/17 20:40 Urine Nitrate NEGATIVE (NEGATIVE) 09/30/17 20:40 Urine Bilirubin NEGATIVE (NEGATIVE) 09/30/17 20:40 Urine Urobilinogen 1.0 E.U./dL (0.2 - 1.0) 09/30/17 20:40 Ur Leukocyte Esterase NEGATIVE (NEGATIVE) 09/30/17 20:40 Urine RBC 0-2 /hpf (0-5) H 09/30/17 20:40 Urine WBC 0-2 /hpf (0-5) 09/30/17 20:40 Ur Epithelial Cells OCCASIONAL /lpf (FEW) 09/30/17 20:40 Urine Bacteria OCCASIONAL /hpf (NONE SEEN) 09/30/17 20:40 - Physical Exam Vitals and I&O: Vital Signs Temp 97.0 F 10/14/17 20:36 Pulse 97 10/14/17 20:48 Resp 20 10/14/17 20:36 BP 143/99 10/14/17 20:48 Pulse Ox 95 10/14/17 20:36 Intake & Output 10/14/17 10/14/17 10/15/17 06:59 18:59 06:59 Intake Total 240 1500 180 Balance 240 1500 180 Intake: Oral 240 1500 180 Other: # Voids 1 4 2 # Bowel Movements 1 0 Active Medications: Current Medications Acetaminophen (Tylenol) 650 mg PO Q4HR PRN PRN Reason: Mild Pain / Temp above 100 Stop: 11/29/17 22:32 Al Hydrox/Mg Hydrox/Simethicone (Maalox) 30 ml PO Q4HR PRN PRN Reason: GI DISTRESS Stop: 11/29/17 22:32 Amlodipine Besylate (Norvasc) 10 mg PO DAILY [facility] Stop: 12/06/17 08:59 Last Admin: 10/14/17 08:04 Dose: Not Given Aspirin (Aspirin Chewable) 81 mg PO DAILY [facility] Stop: 11/30/17 08:59 Last Admin: 10/14/17 08:04 Dose: Not Given Atorvastatin Calcium (Lipitor) 20 mg PO HS [facility] Stop: 11/30/17 20:59 Last Admin: 10/14/17 20:47 Dose: 20 mg Chlorpromazine (Thorazine) 200 mg PO TID [facility] Stop: 12/13/17 08:59 Last Admin: 10/14/17 20:47 Dose: 200 mg Hydralazine HCl (Apresoline) 25 mg PO TID [facility] Stop: 11/30/17 08:59 Last Admin: 10/14/17 20:48 Dose: 25 mg Ibuprofen (Motrin) 800 mg PO Q8HR PRN PRN Reason: right lower ext pain Stop: 11/29/17 23:03 Lisinopril (Zestril) 20 mg PO DAILY [facility] Stop: 11/30/17 08:59 Last Admin: 10/14/17 08:06 Dose: Not Given Lorazepam (Ativan) 0.5 mg PO Q4HR PRN; Protocol PRN Reason: Anxiety/agitation Stop: 10/30/17 22:32 Last Admin: 10/14/17 20:48 Dose: 0.5 mg Magnesium Hydroxide (Milk Of Magnesia) 30 ml PO HS PRN PRN Reason: Constipation Metoprolol Tartrate (Lopressor) 25 mg PO BID [facility] Stop: 11/30/17 08:59 Last Admin: 10/14/17 17:24 Dose: 25 mg Multivitamins/Vitamin C (Theragran) 1 tab PO DAILY [facility] Stop: 11/30/17 08:59 Last Admin: 10/14/17 08:07 Dose: Not Given Oxcarbazepine (Trileptal) 300 mg PO BID [facility]; Protocol Stop: 11/30/17 08:59 Last Admin: 10/14/17 17:24 Dose: 300 mg Potassium Chloride (Klor-Con) 20 meq PO DAILY [facility] Stop: 11/30/17 08:59 Last Admin: 10/14/17 08:06 Dose: Not Given Potassium Phosphate (K Phos) 500 mg PO DAILY [facility] Stop: 12/09/17 08:59 Last Admin: 10/14/17 08:08 Dose: Not Given Quetiapine Fumarate (Seroquel) 50 mg PO DAILY [facility]; Protocol Stop: 12/02/17 08:59 Last Admin: 10/14/17 08:05 Dose: 50 mg Quetiapine Fumarate (Seroquel) 200 mg PO HS [facility]; Protocol Stop: 12/02/17 20:59 Last Admin: 10/14/17 20:48 Dose: 200 mg Risperidone (Risperdal) 1 mg PO BID [facility]; Protocol Stop: 12/08/17 08:59 Last Admin: 10/14/17 17:24 Dose: 1 mg Zolpidem Tartrate (Ambien) 5 mg PO HS PRN PRN Reason: Insomnia Stop: 12/01/17 20:43 Last Admin: 10/14/17 20:48 Dose: 5 mg General: demented HEENT: NC/AT, PERRLA, EOMI, anicteric sclerae, throat clear Neck: Supple, No JVD, No thyromegaly, +2 carotid pulse wo bruit, No LAD Cardiovascular: RRR, Normal S1, Normal S2, without murmur Abdomen: soft, non-tender, non-distended Neurological: no change - Procedures Procedures: Procedures Procedure Code Date OTHER GROUP THERAPY 94.44 09/01/14 RECREATIONAL THERAPY 93.81 12/23/11 Internal Medicine Assmt/Plan - Assessment Assessment: 1.HTN. 2.CHF. 3.DEMENTIA. 4.PSYCHOSIS. 5.HYPOKALEMIA - Plan Plan: CONTINUE ON CURRENT MEDICATION AND DIET. Nutritional Asmnt/Malnutr-PDOC - Dietary Evaluation Malnutrition Findings (Please click <Entered> for more info): Nutritional Asmnt/Malnutrition Start: 10/03/17 13: 42 Text: Status: Complete Freq: Protocol: Document 10/03/17 13:42 LCHENG (Rec: 10/03/17 14:02 LCHENG [email or web address]) Nutritional Asmnt/Malnutrition Patient General Information Nutritional Screening Moderate Risk Diagnosis psychosis Pertinent Medical Hx/Surgical Hx HTN, DJD, dementia, psychosis, hyperlipidemia Subjective Information Pt seen lying in bed at time of visit, waiting for lunch, talking confused. Per EMR, PO itnake 75-100% of meals. Current Diet Order/ Nutrition Support JAVAN, non fat milk and sugar free diet, high protein nourishment with lunch Pertinent Medications theragran, kcl, seroquel Pertinent Labs 10/02 K 2.7, glucose 173 Nutritional Hx/Data Height 1.68 m Height (Calculated Centimeters) 167.6 Current Weight (lbs) 83.461 kg Weight (Calculated Kilograms) 83.5 Weight (Calculated Grams) [address]40.[address] [place] Body Weight 142 Body Mass Index (BMI) 29.7 Weight Status Approriate GI Symptoms GI Symptoms None Last BM none Difficult in: None Skin Integrity/Comment: per EMR, pt refused skin check . Sujit 22. Current %PO Good (75-100%) Estimated Nutritional Goals BEE in Kcals: Using Current wt Calories/Kcals/Kg 20-25 Kcals Calculated 0400-7659 Protein: Using Current wt Protein g/k.8 Protein Calculated 67 Fluid: ml 1680-2100ml (1ml/kcal) Nutritional Problem No current Nutrition Prob Problem N/A Malnutrition Alert Is there a minimum of two criteria No selected? Query Text:Check all the applicable criteria. A minimum of two criteria are recommended for diagnosis of either severe or non-severe malnutrition. Intervention/Recommendation Comments 1. Continue with current diet as ordered. 2. Monitor PO intake, wt, labs and skin integrity 3. F/U as low risk in 7 days, 10/10 Expected Outcomes/Goals Expected Outcomes/Goals 1. PO intake to meet at least 75% of nutritional needs. 2. Wt stability, skin to remain intact, labs to approach WNL.
[2017-10-15] MEDS ORDERED: risperiDONE 1 mg/mL 30 mL Bottle PO SCH (09:00)
[2017-10-15] MEDS: risperiDONE 1 mg/mL 30 mL Bottle PO SCH ×2 (09:01→16:17)
[2017-10-15] MEDS: Multivitamin Tab PO SCH (09:03)
[2017-10-15] MEDS: Aspirin 81mg Chewable Tab PO SCH (09:08)
[2017-10-15] MEDS: Potassium Chloride 20 mEq ER Tab PO SCH (09:08)
--- NOTE | 2017-10-15 20:54 | Internal Medicine Prog Note ---
Internal Medicine Subjective - Subjective Service Date: 10/15/17 Patient seen and examined:: with staff Patient is:: awake, in bed, talking, confused Per staff patient has:: no adverse event Internal Medicine Objective - Results Result Diagrams: 09/30/17 20:20 10/12/17 14:54 Recent Labs: Laboratory Last Values WBC 9.9 Th/cmm (4.8-10.8) 09/30/17 20:20 RBC 5.02 Mil/cmm (4.30-5.70) 09/30/17 20:20 Hgb 14.4 gm/dL (12-16) 09/30/17 20:20 Hct 42.6 % (41.0-60) 09/30/17 20:20 MCV 84.9 fl (80-99) 09/30/17 20:20 MCH 28.7 pg (26.0-30.0) 09/30/17 20:20 MCHC Differential 33.8 pg (28.0-36.0) 09/30/17 20:20 RDW 13.4 % (11.5-20.0) 09/30/17 20:20 Plt Count 329 Th/cmm (150-400) 09/30/17 20:20 MPV 7.3 fl 09/30/17 20:20 Neutrophils % 68.8 % (40.0-80.0) 09/30/17 20:20 Lymphocytes % 18.4 % (20.0-50.0) L 09/30/17 20:20 Monocytes % 7.8 % (2.0-10.0) 09/30/17 20:20 Eosinophils % 4.5 % (0.0-5.0) 09/30/17 20:20 Basophils % 0.5 % (0.0-2.0) 09/30/17 20:20 Sodium 137 mEq/L (136-145) 10/12/17 14:54 Potassium 4.1 mEq/L (3.5-5.1) 10/12/17 14:54 Chloride 103 mEq/L (98-107) 10/12/17 14:54 Carbon Dioxide 27.1 mEq/L (21.0-31.0) 10/12/17 14:54 Anion Gap 11.0 (7.0-16.0) 10/12/17 14:54 BUN 10 mg/dL (7-25) 10/12/17 14:54 Creatinine 0.8 mg/dL (0.7-1.3) 10/12/17 14:54 Est GFR ( Amer) > 60.0 ml/min (>90) 10/12/17 14:54 Est GFR (Non-Af Amer) > 60.0 ml/min 10/12/17 14:54 BUN/Creatinine Ratio 12.5 10/12/17 14:54 Glucose 115 mg/dL (70-105) H 10/12/17 14:54 Calcium 8.7 mg/dL (8.6-10.3) 10/12/17 14:54 Magnesium 1.9 mg/dL (1.9-2.7) 09/30/17 20:20 Total Bilirubin 0.3 mg/dL (0.3-1.0) 10/12/17 14:54 AST 34 U/L (13-39) 10/12/17 14:54 ALT 21 U/L (7-52) 10/12/17 14:54 Alkaline Phosphatase 68 U/L (34-104) 10/12/17 14:54 Troponin I 0.03 ng/mL (0.01-0.05) 09/30/17 20:20 B-Natriuretic Peptide 232.0 pg/mL (5.0-100.0) H 09/30/17 20:20 Total Protein 6.2 gm/dL (6.0-8.3) 10/12/17 14:54 Albumin 3.0 gm/dL (4.2-5.5) L 10/12/17 14:54 Globulin 3.2 gm/dL 10/12/17 14:54 Albumin/Globulin Ratio 0.9 (1.0-1.8) L 10/12/17 14:54 Urine Source RANDOM 09/30/17 20:40 Urine Color YELLOW 09/30/17 20:40 Urine Clarity CLEAR (CLEAR) 09/30/17 20:40 Urine pH 7.5 (4.6 - 8.0) 09/30/17 20:40 Ur Specific [place] 1.010 (1.005-1.030) 09/30/17 20:40 Urine Protein NEGATIVE mg/dL (NEGATIVE) 09/30/17 20:40 Urine Glucose (UA) NEGATIVE mg/dL (NEGATIVE) 09/30/17 20:40 Urine Ketones NEGATIVE mg/dL (NEGATIVE) 09/30/17 20:40 Urine Blood NEGATIVE (NEGATIVE) 09/30/17 20:40 Urine Nitrate NEGATIVE (NEGATIVE) 09/30/17 20:40 Urine Bilirubin NEGATIVE (NEGATIVE) 09/30/17 20:40 Urine Urobilinogen 1.0 E.U./dL (0.2 - 1.0) 09/30/17 20:40 Ur Leukocyte Esterase NEGATIVE (NEGATIVE) 09/30/17 20:40 Urine RBC 0-2 /hpf (0-5) H 09/30/17 20:40 Urine WBC 0-2 /hpf (0-5) 09/30/17 20:40 Ur Epithelial Cells OCCASIONAL /lpf (FEW) 09/30/17 20:40 Urine Bacteria OCCASIONAL /hpf (NONE SEEN) 09/30/17 20:40 - Physical Exam Vitals and I&O: Vital Signs Temp 97.8 F 10/15/17 14:31 Pulse 97 10/15/17 16:19 Resp 20 10/15/17 14:31 BP 140/89 10/15/17 16:19 Pulse Ox 96 10/15/17 14:31 Intake & Output 10/15/17 10/15/17 10/16/17 06:59 18:59 06:59 Intake Total 420 1500 Balance 420 1500 Intake: Oral 420 1500 Other: # Voids 1 4 # Bowel Movements 0 1 Active Medications: Current Medications Acetaminophen (Tylenol) 650 mg PO Q4HR PRN PRN Reason: Mild Pain / Temp above 100 Stop: 11/29/17 22:32 Al Hydrox/Mg Hydrox/Simethicone (Maalox) 30 ml PO Q4HR PRN PRN Reason: GI DISTRESS Stop: 11/29/17 22:32 Amlodipine Besylate (Norvasc) 10 mg PO DAILY [facility] Stop: 12/06/17 08:59 Last Admin: 10/15/17 08:58 Dose: 10 mg Aspirin (Aspirin Chewable) 81 mg PO DAILY [facility] Stop: 11/30/17 08:59 Last Admin: 10/15/17 09:08 Dose: Not Given Atorvastatin Calcium (Lipitor) 20 mg PO HS [facility] Stop: 11/30/17 20:59 Last Admin: 10/14/17 20:47 Dose: 20 mg Chlorpromazine (Thorazine) 200 mg PO TID [facility] Stop: 12/13/17 08:59 Last Admin: 10/15/17 14:31 Dose: Not Given Hydralazine HCl (Apresoline) 25 mg PO TID [facility] Stop: 11/30/17 08:59 Last Admin: 10/15/17 14:33 Dose: 25 mg Ibuprofen (Motrin) 800 mg PO Q8HR PRN PRN Reason: right lower ext pain Stop: 11/29/17 23:03 Lisinopril (Zestril) 20 mg PO DAILY [facility] Stop: 11/30/17 08:59 Last Admin: 10/15/17 09:03 Dose: 20 mg Lorazepam (Ativan) 0.5 mg PO Q4HR PRN; Protocol PRN Reason: Anxiety/agitation Stop: 10/30/17 22:32 Last Admin: 10/14/17 20:48 Dose: 0.5 mg Magnesium Hydroxide (Milk Of Magnesia) 30 ml PO HS PRN PRN Reason: Constipation Metoprolol Tartrate (Lopressor) 25 mg PO BID [facility] Stop: 11/30/17 08:59 Last Admin: 10/15/17 16:19 Dose: Not Given Multivitamins/Vitamin C (Theragran) 1 tab PO DAILY [facility] Stop: 11/30/17 08:59 Last Admin: 10/15/17 09:03 Dose: Not Given Oxcarbazepine (Trileptal) 300 mg PO BID [facility]; Protocol Stop: 11/30/17 08:59 Last Admin: 10/15/17 16:18 Dose: Not Given Potassium Chloride (Klor-Con) 20 meq PO DAILY [facility] Stop: 11/30/17 08:59 Last Admin: 10/15/17 09:08 Dose: 20 meq Potassium Phosphate (K Phos) 500 mg PO DAILY [facility] Stop: 12/09/17 08:59 Last Admin: 10/15/17 09:09 Dose: 500 mg Quetiapine Fumarate (Seroquel) 50 mg PO DAILY [facility]; Protocol Stop: 12/02/17 08:59 Last Admin: 10/15/17 09:05 Dose: 50 mg Quetiapine Fumarate (Seroquel) 200 mg PO HS [facility]; Protocol Stop: 12/02/17 20:59 Last Admin: 10/14/17 20:48 Dose: 200 mg Risperidone (Risperdal) 1 mg PO BID [facility]; Protocol Stop: 12/08/17 08:59 Last Admin: 10/15/17 16:17 Dose: Not Given Zolpidem Tartrate (Ambien) 5 mg PO HS PRN PRN Reason: Insomnia Stop: 12/01/17 20:43 Last Admin: 10/14/17 20:48 Dose: 5 mg General: demented HEENT: NC/AT, PERRLA, EOMI, anicteric sclerae, throat clear Neck: Supple, No JVD, No thyromegaly, +2 carotid pulse wo bruit, No LAD Cardiovascular: RRR, Normal S1, Normal S2, without murmur Abdomen: soft, non-tender, non-distended Neurological: no change - Procedures Procedures: Procedures Procedure Code Date OTHER GROUP THERAPY 94.44 09/01/14 RECREATIONAL THERAPY 93.81 12/23/11 Internal Medicine Assmt/Plan - Assessment Assessment: 1.HTN. 2.CHF. 3.DEMENTIA. 4.PSYCHOSIS. - Plan Plan: CONTINUE ON CURRENT MEDICATION AND DIET. Nutritional Asmnt/Malnutr-PDOC - Dietary Evaluation Malnutrition Findings (Please click <Entered> for more info): Nutritional Asmnt/Malnutrition Start: 10/03/17 13: 42 Text: Status: Complete Freq: Protocol: Document 10/03/17 13:42 LCHENG (Rec: 10/03/17 14:02 LCHENG [email or web address]) Nutritional Asmnt/Malnutrition Patient General Information Nutritional Screening Moderate Risk Diagnosis psychosis Pertinent Medical Hx/Surgical Hx HTN, DJD, dementia, psychosis, hyperlipidemia Subjective Information Pt seen lying in bed at time of visit, waiting for lunch, talking confused. Per EMR, PO itnake 75-100% of meals. Current Diet Order/ Nutrition Support JAVAN, non fat milk and sugar free diet, high protein nourishment with lunch Pertinent Medications theragran, kcl, seroquel Pertinent Labs 10/02 K 2.7, glucose 173 Nutritional Hx/Data Height 1.68 m Height (Calculated Centimeters) 167.6 Current Weight (lbs) 83.461 kg Weight (Calculated Kilograms) 83.5 Weight (Calculated Grams) 57299.0 [place] Body Weight 142 Body Mass Index (BMI) 29.7 Weight Status Approriate GI Symptoms GI Symptoms None Last BM none Difficult in: None Skin Integrity/Comment: per EMR, pt refused skin check . Sujit 22. Current %PO Good (75-100%) Estimated Nutritional Goals BEE in Kcals: Using Current wt Calories/Kcals/Kg 20-25 Kcals Calculated 9299-2169 Protein: Using Current wt Protein g/k.8 Protein Calculated 67 Fluid: ml 1680-2100ml (1ml/kcal) Nutritional Problem No current Nutrition Prob Problem N/A Malnutrition Alert Is there a minimum of two criteria No selected? Query Text:Check all the applicable criteria. A minimum of two criteria are recommended for diagnosis of either severe or non-severe malnutrition. Intervention/Recommendation Comments 1. Continue with current diet as ordered. 2. Monitor PO intake, wt, labs and skin integrity 3. F/U as low risk in 7 days, 10/10 Expected Outcomes/Goals Expected Outcomes/Goals 1. PO intake to meet at least 75% of nutritional needs. 2. Wt stability, skin to remain intact, labs to approach WNL.
[2017-10-15] MEDS: Atorvastatin Calcium 10 MG TAB PO SCH (21:30)
--- NOTE | 2017-10-16 01:40 | Progress Notes ---
DATE: SUBJECTIVE: Chart reviewed and the patient interviewed. Also discussed the patient's condition with the staff and reviewed records and labs. The patient is still agitated and in irritable mood. The patient also is still obsessed with drinking water. Also, he is still paranoid and he is still agitated. The patient also is still inconsistent with taking his medications, sometimes taking and sometimes refuse to take it. staff has to be prompt with him to take it. Otherwise, the patient is slightly easier to redirect him. ASSESSMENT: The patient is still psychotic and is still agitated. TREATMENT PLAN: Continue to monitor his behavior and his condition closely. Also, we will start the patient on Risperdal 1 mg twice a day with plan to change it to Risperdal Consta for better compliance with taking his medications and after establishing non-sensitivity to Risperdal. JOB# [id number]
[2017-10-16] MEDS: Potassium Chloride 20 mEq ER Tab PO SCH (09:30)
[2017-10-16] MEDS: risperiDONE 1 mg/mL 30 mL Bottle PO SCH ×2 (09:30→17:01)
[2017-10-16] MEDS: Multivitamin Tab PO SCH (09:30)
[2017-10-16] MEDS: Aspirin 81mg Chewable Tab PO SCH (09:35)
--- NOTE | 2017-10-16 17:13 | Internal Medicine Prog Note ---
Internal Medicine Subjective - Subjective Service Date: 10/16/17 Patient seen and examined:: with staff Patient is:: awake, in bed, talking, confused Per staff patient has:: no adverse event Internal Medicine Objective - Results Result Diagrams: 09/30/17 20:20 10/12/17 14:54 Recent Labs: Laboratory Last Values WBC 9.9 Th/cmm (4.8-10.8) 09/30/17 20:20 RBC 5.02 Mil/cmm (4.30-5.70) 09/30/17 20:20 Hgb 14.4 gm/dL (12-16) 09/30/17 20:20 Hct 42.6 % (41.0-60) 09/30/17 20:20 MCV 84.9 fl (80-99) 09/30/17 20:20 MCH 28.7 pg (26.0-30.0) 09/30/17 20:20 MCHC Differential 33.8 pg (28.0-36.0) 09/30/17 20:20 RDW 13.4 % (11.5-20.0) 09/30/17 20:20 Plt Count 329 Th/cmm (150-400) 09/30/17 20:20 MPV 7.3 fl 09/30/17 20:20 Neutrophils % 68.8 % (40.0-80.0) 09/30/17 20:20 Lymphocytes % 18.4 % (20.0-50.0) L 09/30/17 20:20 Monocytes % 7.8 % (2.0-10.0) 09/30/17 20:20 Eosinophils % 4.5 % (0.0-5.0) 09/30/17 20:20 Basophils % 0.5 % (0.0-2.0) 09/30/17 20:20 Sodium 137 mEq/L (136-145) 10/12/17 14:54 Potassium 4.1 mEq/L (3.5-5.1) 10/12/17 14:54 Chloride 103 mEq/L (98-107) 10/12/17 14:54 Carbon Dioxide 27.1 mEq/L (21.0-31.0) 10/12/17 14:54 Anion Gap 11.0 (7.0-16.0) 10/12/17 14:54 BUN 10 mg/dL (7-25) 10/12/17 14:54 Creatinine 0.8 mg/dL (0.7-1.3) 10/12/17 14:54 Est GFR ( Amer) > 60.0 ml/min (>90) 10/12/17 14:54 Est GFR (Non-Af Amer) > 60.0 ml/min 10/12/17 14:54 BUN/Creatinine Ratio 12.5 10/12/17 14:54 Glucose 115 mg/dL (70-105) H 10/12/17 14:54 Calcium 8.7 mg/dL (8.6-10.3) 10/12/17 14:54 Magnesium 1.9 mg/dL (1.9-2.7) 09/30/17 20:20 Total Bilirubin 0.3 mg/dL (0.3-1.0) 10/12/17 14:54 AST 34 U/L (13-39) 10/12/17 14:54 ALT 21 U/L (7-52) 10/12/17 14:54 Alkaline Phosphatase 68 U/L (34-104) 10/12/17 14:54 Troponin I 0.03 ng/mL (0.01-0.05) 09/30/17 20:20 B-Natriuretic Peptide 232.0 pg/mL (5.0-100.0) H 09/30/17 20:20 Total Protein 6.2 gm/dL (6.0-8.3) 10/12/17 14:54 Albumin 3.0 gm/dL (4.2-5.5) L 10/12/17 14:54 Globulin 3.2 gm/dL 10/12/17 14:54 Albumin/Globulin Ratio 0.9 (1.0-1.8) L 10/12/17 14:54 Urine Source RANDOM 09/30/17 20:40 Urine Color YELLOW 09/30/17 20:40 Urine Clarity CLEAR (CLEAR) 09/30/17 20:40 Urine pH 7.5 (4.6 - 8.0) 09/30/17 20:40 Ur Specific [place] 1.010 (1.005-1.030) 09/30/17 20:40 Urine Protein NEGATIVE mg/dL (NEGATIVE) 09/30/17 20:40 Urine Glucose (UA) NEGATIVE mg/dL (NEGATIVE) 09/30/17 20:40 Urine Ketones NEGATIVE mg/dL (NEGATIVE) 09/30/17 20:40 Urine Blood NEGATIVE (NEGATIVE) 09/30/17 20:40 Urine Nitrate NEGATIVE (NEGATIVE) 09/30/17 20:40 Urine Bilirubin NEGATIVE (NEGATIVE) 09/30/17 20:40 Urine Urobilinogen 1.0 E.U./dL (0.2 - 1.0) 09/30/17 20:40 Ur Leukocyte Esterase NEGATIVE (NEGATIVE) 09/30/17 20:40 Urine RBC 0-2 /hpf (0-5) H 09/30/17 20:40 Urine WBC 0-2 /hpf (0-5) 09/30/17 20:40 Ur Epithelial Cells OCCASIONAL /lpf (FEW) 09/30/17 20:40 Urine Bacteria OCCASIONAL /hpf (NONE SEEN) 09/30/17 20:40 - Physical Exam Vitals and I&O: Vital Signs Temp 97.6 F 10/16/17 15:31 Pulse 94 10/16/17 17:00 Resp 18 10/16/17 15:31 BP 125/85 10/16/17 17:00 Pulse Ox 97 10/16/17 15:31 Intake & Output 10/15/17 10/16/17 10/16/17 18:59 06:59 18:59 Intake Total 1500 800 Balance 1500 800 Intake: Oral 1500 800 Other: # Voids 4 1 # Bowel Movements 1 Active Medications: Current Medications Acetaminophen (Tylenol) 650 mg PO Q4HR PRN PRN Reason: Mild Pain / Temp above 100 Stop: 11/29/17 22:32 Al Hydrox/Mg Hydrox/Simethicone (Maalox) 30 ml PO Q4HR PRN PRN Reason: GI DISTRESS Stop: 11/29/17 22:32 Amlodipine Besylate (Norvasc) 10 mg PO DAILY [facility] Stop: 12/06/17 08:59 Last Admin: 10/16/17 09:34 Dose: 10 mg Aspirin (Aspirin Chewable) 81 mg PO DAILY [facility] Stop: 11/30/17 08:59 Last Admin: 10/16/17 09:35 Dose: 81 mg Atorvastatin Calcium (Lipitor) 20 mg PO HS [facility] Stop: 11/30/17 20:59 Last Admin: 10/15/17 21:30 Dose: 20 mg Chlorpromazine (Thorazine) 200 mg PO TID [facility] Stop: 12/13/17 08:59 Last Admin: 10/16/17 16:24 Dose: Not Given Hydralazine HCl (Apresoline) 25 mg PO TID [facility] Stop: 11/30/17 08:59 Last Admin: 10/16/17 14:20 Dose: Not Given Ibuprofen (Motrin) 800 mg PO Q8HR PRN PRN Reason: right lower ext pain Stop: 11/29/17 23:03 Lisinopril (Zestril) 20 mg PO DAILY [facility] Stop: 11/30/17 08:59 Last Admin: 10/16/17 09:30 Dose: 20 mg Lorazepam (Ativan) 0.5 mg PO Q4HR PRN; Protocol PRN Reason: Anxiety/agitation Stop: 10/30/17 22:32 Last Admin: 10/14/17 20:48 Dose: 0.5 mg Magnesium Hydroxide (Milk Of Magnesia) 30 ml PO HS PRN PRN Reason: Constipation Metoprolol Tartrate (Lopressor) 25 mg PO BID [facility] Stop: 11/30/17 08:59 Last Admin: 10/16/17 17:00 Dose: 25 mg Multivitamins/Vitamin C (Theragran) 1 tab PO DAILY [facility] Stop: 11/30/17 08:59 Last Admin: 10/16/17 09:30 Dose: 1 tab Oxcarbazepine (Trileptal) 300 mg PO BID [facility]; Protocol Stop: 11/30/17 08:59 Last Admin: 10/16/17 17:01 Dose: 300 mg Potassium Chloride (Klor-Con) 20 meq PO DAILY [facility] Stop: 11/30/17 08:59 Last Admin: 10/16/17 09:30 Dose: 20 meq Potassium Phosphate (K Phos) 500 mg PO DAILY [facility] Stop: 12/09/17 08:59 Last Admin: 10/16/17 09:30 Dose: 500 mg Quetiapine Fumarate (Seroquel) 300 mg PO HS [facility]; Protocol Stop: 12/15/17 20:59 Quetiapine Fumarate (Seroquel) 100 mg PO DAILY [facility]; Protocol Stop: 12/15/17 08:59 Last Admin: 10/16/17 09:30 Dose: 100 mg Risperidone (Risperdal) 1 mg PO BID [facility]; Protocol Stop: 12/08/17 08:59 Last Admin: 10/16/17 17:01 Dose: 1 mg Zolpidem Tartrate (Ambien) 5 mg PO HS PRN PRN Reason: Insomnia Stop: 12/01/17 20:43 Last Admin: 10/15/17 21:30 Dose: 5 mg General: demented HEENT: NC/AT, PERRLA, EOMI, anicteric sclerae, throat clear Neck: Supple, No JVD, No thyromegaly, +2 carotid pulse wo bruit, No LAD Cardiovascular: RRR, Normal S1, Normal S2, without murmur Abdomen: soft, non-tender, non-distended Neurological: no change - Procedures Procedures: Procedures Procedure Code Date OTHER GROUP THERAPY 94.44 09/01/14 RECREATIONAL THERAPY 93.81 12/23/11 Internal Medicine Assmt/Plan - Assessment Assessment: 1.HTN. 2.CHF. 3.DEMENTIA. 4.PSYCHOSIS. - Plan Plan: CONTINUE ON CURRENT MEDICATION AND DIET. Nutritional Asmnt/Malnutr-PDOC - Dietary Evaluation Malnutrition Findings (Please click <Entered> for more info): Nutritional Asmnt/Malnutrition Start: 10/03/17 13: 42 Text: Status: Complete Freq: Protocol: Document 10/03/17 13:42 LCMARCELG (Rec: 10/03/17 14:02 LCMARCELG [id number]) Nutritional Asmnt/Malnutrition Patient General Information Nutritional Screening Moderate Risk Diagnosis psychosis Pertinent Medical Hx/Surgical Hx HTN, DJD, dementia, psychosis, hyperlipidemia Subjective Information Pt seen lying in bed at time of visit, waiting for lunch, talking confused. Per EMR, PO itnake 75-100% of meals. Current Diet Order/ Nutrition Support JAVAN, non fat milk and sugar free diet, high protein nourishment with lunch Pertinent Medications theragran, kcl, seroquel Pertinent Labs 10/02 K 2.7, glucose 173 Nutritional Hx/Data Height 1.68 m Height (Calculated Centimeters) 167.6 Current Weight (lbs) 83.461 kg Weight (Calculated Kilograms) 83.5 Weight (Calculated Grams) 34919.0 [place] Body Weight 142 Body Mass Index (BMI) 29.7 Weight Status Approriate GI Symptoms GI Symptoms None Last BM none Difficult in: None Skin Integrity/Comment: per EMR, pt refused skin check . Sujit 22. Current %PO Good (75-100%) Estimated Nutritional Goals BEE in Kcals: Using Current wt Calories/Kcals/Kg 20-25 Kcals Calculated 2700-4319 Protein: Using Current wt Protein g/k.8 Protein Calculated 67 Fluid: ml 1680-2100ml (1ml/kcal) Nutritional Problem No current Nutrition Prob Problem N/A Malnutrition Alert Is there a minimum of two criteria No selected? Query Text:Check all the applicable criteria. A minimum of two criteria are recommended for diagnosis of either severe or non-severe malnutrition. Intervention/Recommendation Comments 1. Continue with current diet as ordered. 2. Monitor PO intake, wt, labs and skin integrity 3. F/U as low risk in 7 days, 10/10 Expected Outcomes/Goals Expected Outcomes/Goals 1. PO intake to meet at least 75% of nutritional needs. 2. Wt stability, skin to remain intact, labs to approach WNL.
[2017-10-16] MEDS: Atorvastatin Calcium 10 MG TAB PO SCH (21:00)
--- NOTE | 2017-10-17 00:17 | Progress Notes ---
DATE: 10/16/2017 PSYCHIATRIC PROGRESS NOTE SUBJECTIVE: Chart reviewed and the patient interviewed. Also discussed the patient's condition with the staff and reviewed records and labs. The patient seems to be slightly calmer than before, but he is still delusional and he is still paranoid and easily agitated. The patient also is still rambling, but his thought processes seems to be more goal directed and he is able to answer my questions slightly more coherently. He is still suspicious and is still paranoid with angry mood. Otherwise, the patient is more compliant with taking his medications with no side effects of medications. ASSESSMENT: The patient is still psychotic, but showing some improvement and slightly calmer. TREATMENT PLAN: Continue to monitor his behavior and his condition closely. Also, we will increase Seroquel to 100 mg in the morning and 300 mg at bedtime and continue to monitor his behavior and his condition closely. [facility]# [id number]
[2017-10-17] MEDS: Aspirin 81mg Chewable Tab PO SCH ×2 (09:04→09:14)
[2017-10-17] MEDS: Potassium Chloride 20 mEq ER Tab PO SCH (09:05)
[2017-10-17] MEDS: Multivitamin Tab PO SCH (09:06)
[2017-10-17] MEDS: risperiDONE 1 mg/mL 30 mL Bottle PO SCH (09:08)
--- NOTE | 2017-10-17 16:30 | Internal Medicine Prog Note ---
Internal Medicine Subjective - Subjective Service Date: 10/17/17 Patient seen and examined:: with staff Patient is:: awake, in bed, talking, confused Per staff patient has:: no adverse event Internal Medicine Objective - Results Result Diagrams: 09/30/17 20:20 10/12/17 14:54 Recent Labs: Laboratory Last Values WBC 9.9 Th/cmm (4.8-10.8) 09/30/17 20:20 RBC 5.02 Mil/cmm (4.30-5.70) 09/30/17 20:20 Hgb 14.4 gm/dL (12-16) 09/30/17 20:20 Hct 42.6 % (41.0-60) 09/30/17 20:20 MCV 84.9 fl (80-99) 09/30/17 20:20 MCH 28.7 pg (26.0-30.0) 09/30/17 20:20 MCHC Differential 33.8 pg (28.0-36.0) 09/30/17 20:20 RDW 13.4 % (11.5-20.0) 09/30/17 20:20 Plt Count 329 Th/cmm (150-400) 09/30/17 20:20 MPV 7.3 fl 09/30/17 20:20 Neutrophils % 68.8 % (40.0-80.0) 09/30/17 20:20 Lymphocytes % 18.4 % (20.0-50.0) L 09/30/17 20:20 Monocytes % 7.8 % (2.0-10.0) 09/30/17 20:20 Eosinophils % 4.5 % (0.0-5.0) 09/30/17 20:20 Basophils % 0.5 % (0.0-2.0) 09/30/17 20:20 Sodium 137 mEq/L (136-145) 10/12/17 14:54 Potassium 4.1 mEq/L (3.5-5.1) 10/12/17 14:54 Chloride 103 mEq/L (98-107) 10/12/17 14:54 Carbon Dioxide 27.1 mEq/L (21.0-31.0) 10/12/17 14:54 Anion Gap 11.0 (7.0-16.0) 10/12/17 14:54 BUN 10 mg/dL (7-25) 10/12/17 14:54 Creatinine 0.8 mg/dL (0.7-1.3) 10/12/17 14:54 Est GFR ( Amer) > 60.0 ml/min (>90) 10/12/17 14:54 Est GFR (Non-Af Amer) > 60.0 ml/min 10/12/17 14:54 BUN/Creatinine Ratio 12.5 10/12/17 14:54 Glucose 115 mg/dL (70-105) H 10/12/17 14:54 Calcium 8.7 mg/dL (8.6-10.3) 10/12/17 14:54 Magnesium 1.9 mg/dL (1.9-2.7) 09/30/17 20:20 Total Bilirubin 0.3 mg/dL (0.3-1.0) 10/12/17 14:54 AST 34 U/L (13-39) 10/12/17 14:54 ALT 21 U/L (7-52) 10/12/17 14:54 Alkaline Phosphatase 68 U/L (34-104) 10/12/17 14:54 Troponin I 0.03 ng/mL (0.01-0.05) 09/30/17 20:20 B-Natriuretic Peptide 232.0 pg/mL (5.0-100.0) H 09/30/17 20:20 Total Protein 6.2 gm/dL (6.0-8.3) 10/12/17 14:54 Albumin 3.0 gm/dL (4.2-5.5) L 10/12/17 14:54 Globulin 3.2 gm/dL 10/12/17 14:54 Albumin/Globulin Ratio 0.9 (1.0-1.8) L 10/12/17 14:54 Urine Source RANDOM 09/30/17 20:40 Urine Color YELLOW 09/30/17 20:40 Urine Clarity CLEAR (CLEAR) 09/30/17 20:40 Urine pH 7.5 (4.6 - 8.0) 09/30/17 20:40 Ur Specific [place] 1.010 (1.005-1.030) 09/30/17 20:40 Urine Protein NEGATIVE mg/dL (NEGATIVE) 09/30/17 20:40 Urine Glucose (UA) NEGATIVE mg/dL (NEGATIVE) 09/30/17 20:40 Urine Ketones NEGATIVE mg/dL (NEGATIVE) 09/30/17 20:40 Urine Blood NEGATIVE (NEGATIVE) 09/30/17 20:40 Urine Nitrate NEGATIVE (NEGATIVE) 09/30/17 20:40 Urine Bilirubin NEGATIVE (NEGATIVE) 09/30/17 20:40 Urine Urobilinogen 1.0 E.U./dL (0.2 - 1.0) 09/30/17 20:40 Ur Leukocyte Esterase NEGATIVE (NEGATIVE) 09/30/17 20:40 Urine RBC 0-2 /hpf (0-5) H 09/30/17 20:40 Urine WBC 0-2 /hpf (0-5) 09/30/17 20:40 Ur Epithelial Cells OCCASIONAL /lpf (FEW) 09/30/17 20:40 Urine Bacteria OCCASIONAL /hpf (NONE SEEN) 09/30/17 20:40 - Physical Exam Vitals and I&O: Vital Signs Temp 96.9 F 10/17/17 10:54 Pulse 91 10/17/17 10:54 Resp 20 10/17/17 10:54 BP 132/84 10/17/17 10:54 Pulse Ox 98 10/17/17 10:54 Intake & Output 10/16/17 10/17/17 10/17/17 18:59 06:59 18:59 Intake Total 1500 Balance 1500 Intake: Oral 1500 Other: # Voids 3 # Bowel Movements 1 Active Medications: Current Medications Acetaminophen (Tylenol) 650 mg PO Q4HR PRN PRN Reason: Mild Pain / Temp above 100 Stop: 11/29/17 22:32 Al Hydrox/Mg Hydrox/Simethicone (Maalox) 30 ml PO Q4HR PRN PRN Reason: GI DISTRESS Stop: 11/29/17 22:32 Amlodipine Besylate (Norvasc) 10 mg PO DAILY [facility] Stop: 12/06/17 08:59 Last Admin: 10/17/17 09:14 Dose: Not Given Aspirin (Aspirin Chewable) 81 mg PO DAILY [facility] Stop: 11/30/17 08:59 Last Admin: 10/17/17 09:14 Dose: Not Given Atorvastatin Calcium (Lipitor) 20 mg PO HS [facility] Stop: 11/30/17 20:59 Last Admin: 10/16/17 21:00 Dose: 20 mg Chlorpromazine (Thorazine) 200 mg PO TID [facility] Stop: 12/13/17 08:59 Last Admin: 10/17/17 14:10 Dose: Not Given Hydralazine HCl (Apresoline) 25 mg PO TID [facility] Stop: 11/30/17 08:59 Last Admin: 10/17/17 14:10 Dose: Not Given Ibuprofen (Motrin) 800 mg PO Q8HR PRN PRN Reason: right lower ext pain Stop: 11/29/17 23:03 Lisinopril (Zestril) 20 mg PO DAILY [facility] Stop: 11/30/17 08:59 Last Admin: 10/17/17 09:04 Dose: 20 mg Lorazepam (Ativan) 0.5 mg PO Q4HR PRN; Protocol PRN Reason: Anxiety/agitation Stop: 10/30/17 22:32 Last Admin: 10/17/17 04:30 Dose: 0.5 mg Magnesium Hydroxide (Milk Of Magnesia) 30 ml PO HS PRN PRN Reason: Constipation Metoprolol Tartrate (Lopressor) 25 mg PO BID [facility] Stop: 11/30/17 08:59 Last Admin: 10/17/17 09:14 Dose: Not Given Multivitamins/Vitamin C (Theragran) 1 tab PO DAILY [facility] Stop: 11/30/17 08:59 Last Admin: 10/17/17 09:06 Dose: Not Given Oxcarbazepine (Trileptal) 300 mg PO BID [facility]; Protocol Stop: 11/30/17 08:59 Last Admin: 10/17/17 09:14 Dose: Not Given Potassium Chloride (Klor-Con) 20 meq PO DAILY [facility] Stop: 11/30/17 08:59 Last Admin: 10/17/17 09:05 Dose: 20 meq Potassium Phosphate (K Phos) 500 mg PO DAILY [facility] Stop: 12/09/17 08:59 Last Admin: 10/17/17 09:14 Dose: Not Given Quetiapine Fumarate (Seroquel) 100 mg PO DAILY [facility]; Protocol Stop: 12/17/17 08:59 Quetiapine Fumarate (Seroquel) 300 mg PO HS [facility] Stop: 12/16/17 20:59 Risperidone (Risperdal) 1 mg PO BID [facility]; Protocol Stop: 12/08/17 08:59 Last Admin: 10/17/17 09:08 Dose: 1 mg General: demented HEENT: NC/AT, PERRLA, EOMI, anicteric sclerae, throat clear Neck: Supple, No JVD, No thyromegaly, +2 carotid pulse wo bruit, No LAD Cardiovascular: RRR, Normal S1, Normal S2, without murmur Abdomen: soft, non-tender, non-distended Neurological: no change - Procedures Procedures: Procedures Procedure Code Date OTHER GROUP THERAPY 94.44 09/01/14 RECREATIONAL THERAPY 93.81 12/23/11 Internal Medicine Assmt/Plan - Assessment Assessment: 1.HTN. 2.CHF. 3.DEMENTIA. 4.PSYCHOSIS. - Plan Plan: CONTINUE ON CURRENT MEDICATION AND DIET. Nutritional Asmnt/Malnutr-PDOC - Dietary Evaluation Malnutrition Findings (Please click <Entered> for more info): Nutritional Asmnt/Malnutrition Start: 10/03/17 13: 42 Text: Status: Complete Freq: Protocol: Document 10/03/17 13:42 MC (Rec: 10/03/17 14:02 MC [email or web address]) Nutritional Asmnt/Malnutrition Patient General Information Nutritional Screening Moderate Risk Diagnosis psychosis Pertinent Medical Hx/Surgical Hx HTN, DJD, dementia, psychosis, hyperlipidemia Subjective Information Pt seen lying in bed at time of visit, waiting for lunch, talking confused. Per EMR, PO itnake 75-100% of meals. Current Diet Order/ Nutrition Support JAVAN, non fat milk and sugar free diet, high protein nourishment with lunch Pertinent Medications theragran, kcl, seroquel Pertinent Labs 10/02 K 2.7, glucose 173 Nutritional Hx/Data Height 1.68 m Height (Calculated Centimeters) 167.6 Current Weight (lbs) 83.461 kg Weight (Calculated Kilograms) 83.5 Weight (Calculated Grams) 26632.0 [place] Body Weight 142 Body Mass Index (BMI) 29.7 Weight Status Approriate GI Symptoms GI Symptoms None Last BM none Difficult in: None Skin Integrity/Comment: per EMR, pt refused skin check . Sujit 22. Current %PO Good (75-100%) Estimated Nutritional Goals BEE in Kcals: Using Current wt Calories/Kcals/Kg 20-25 Kcals Calculated 5929-4348 Protein: Using Current wt Protein g/k.8 Protein Calculated 67 Fluid: ml 1680-2100ml (1ml/kcal) Nutritional Problem No current Nutrition Prob Problem N/A Malnutrition Alert Is there a minimum of two criteria No selected? Query Text:Check all the applicable criteria. A minimum of two criteria are recommended for diagnosis of either severe or non-severe malnutrition. Intervention/Recommendation Comments 1. Continue with current diet as ordered. 2. Monitor PO intake, wt, labs and skin integrity 3. F/U as low risk in 7 days, 10/10 Expected Outcomes/Goals Expected Outcomes/Goals 1. PO intake to meet at least 75% of nutritional needs. 2. Wt stability, skin to remain intact, labs to approach WNL.
--- NOTE | 2017-10-18 16:50 | Discharge Summary ---
DATE OF DISCHARGE: 10/17/2017 AGE: 57. SEX: Male. PHYSICIAN: Dr. Alvarado. FINAL DIAGNOSES: PRIMARY DIAGNOSES: Schizoaffective disorder, bipolar type, severe, with psychotic features. REASON FOR HOSPITALIZATION: The patient was admitted to the hospital from [facility] because of increased agitation and confusion. The patient was aggressive with the staff and he was confused and not able to follow any of staff directions and he was brought into the hospital. HOSPITAL COURSE: The patient continued to be confused and agitated. The patient was in irritable and angry mood. The patient also was suspicious and was paranoid. He interacted minimally with others. The patient also needed lots of redirections. The patient also was rambling and was aggressive with the staff when they were trying to help him with his ADLs. The patient also was refusing to take any medications at certain time in the beginning of his hospitalizations. The patient started on Thorazine and the dose adjusted to 200 mg 3 times a day and when the patient started to take Thorazine, he started to show some improvement. Also, is taking Seroquel and the dose adjusted to 100 mg in the morning and 300 mg at bedtime. Also, continue to take Trileptal and dose adjusted to 300 mg twice a day. The patient was less irritable and less agitated. Risperdal was added with a plan to give him long acting injectable Risperdal later on because of his history of noncompliance with treatment. The patient was calmer. [facility] accepted the patient back. The patient was discharged from the hospital back to [facility]. Physical exam of the patient shows no major medical problems. The patient had no major medical problems while in the hospital here. Also, blood workup was basically within normal. AFTER-DISCHARGE PLANS: The patient discharged from the hospital and went to [facility] with plans to follow up there. EXPECTED OUTCOME AFTER DISCHARGE: Fair if the patient continued to take his psychotropic medications and follow up with discharge plans. [facility]# [id number]
== END 2017-10-17 17:20 | DRG 885 ==
LOC: ER 19:45 → GERO 21:09
PROVIDERS: ADMIT Psychiatry & Neurology Psychiatry; ATTEND Psychiatry & Neurology Psychiatry
DX: F25.0 Schizoaffective disorder, bipolar type (principal); I11.0 Hypertensive heart disease with heart failure; E87.1 Hypo-osmolality and hyponatremia; E78.5 Hyperlipidemia, unspecified; E87.6 Hypokalemia; G40.909 Epilepsy, unspecified, not intractable, without status epilepticus; K21.9 Gastro-esophageal reflux disease without esophagitis; F29 Unspecified psychosis not due to a substance or known physiological condition; I50.9 Heart failure, unspecified; M19.90 Unspecified osteoarthritis, unspecified site; Z82.49 Family history of ischemic heart disease and other diseases of the circulatory system; Z88.8 Allergy status to other drugs, medicaments and biological substances
CPT/HCPCS: 36415-UA; 71045-TC; 80053-TC; 81001-TC; 83735-TC; 83880-TC; 84484-TC; 85025-TC; 93005; G0410; J2060; J3230; Q0161; Z7610

== ENCOUNTER 2018-09-01 16:47 | Inpatient (IN) | payer MEDICARE, MEDICAID ==
[2018-09-01] MEDS ORDERED: NITROGLYCERIN OINT 2% 1 INCH PACKET TP STA (17:33)
--- NOTE | 2018-09-01 17:33 | ED Physician Chart ---
ED Chief Complaint/HPI - Patient Information Date Seen:: 09/01/18 Time Seen:: 17:10 Chief Complaint:: Agitation History of Present Illness:: onset x 3 days of agitation and aggressive behavior; no report of trauma, SIs, H /As, S/T, neck pain, cough, C/P, SOB, Abd. Pain, or urinary s/s Allergies:: Allergies Allergy/AdvReac Type Severity Reaction Status Date / Time benztropine [From Cogentin] Allergy Verified 03/09/16 15:01 divalproex sodium Allergy Verified 03/09/16 15:01 haloperidol [From Haldol] Allergy Verified 03/09/16 15:01 sodium Allergy Verified 03/09/16 15:01 tetracycline Allergy Verified 03/09/16 15:01 Vitals:: Vital Signs - 8 hr 09/01/18 17:13 Temp 98 F HR 70 RR 16 BP 193/110 O2 Sat % 98 Historian:: Patient, EMS, Family Member Review:: Nurse's Note Reviewed, Old Chart Reviewed, EMS run form Reviewed ED Review of Systems - Review of Systems General/Constitutional: No fever, No chills, No weight loss, No weakness, No diaphoresis, No edema, No loss of appetite Skin: No skin lesions, No rash, No bruising Head: No headache, No light-headedness Eyes: No loss of vision, No pain, No diplopia ENT: No earache, No nasal drainage, No sore throat, No tinnitus Neck: No neck pain, No swelling, No thyromegaly, No stiffness, No mass noted Cardio Vascular: No chest pain, No palpitations, No PND, No orthopnea, No edema Pulmonary: No SOB, No cough, No sputum, No wheezing GI: No nausea, No vomiting, No diarrhea, No pain, No melena, No hematochezia, No constipation, No hematemesis G/U: No dysuria, No frequency, No hematuria, No nacturia Musculoskeletal: No bone or joint pain, No back pain, No muscle pain Endocrine: No polyuria, No polydipsia Psychiatric: Prior psych history, Depression, Anxiety, No suicidal ideation, No homicidal ideation, No auditory hallucination, No visual hallucination Hematopoietic: No bruising, No lymphadenopathy Allergic/Immuno: No urticaria, No angioedema Neurological: No syncope, No focal symptoms, No weakness, No paresthesia, No headache, No seizure, No dizziness, No confusion, No vertigo ED Past Medical History - Past Medical History Obtainable: Yes Past Medical History: HTN, Dyslipidemia Family History: HTN Social History: Non Smoker, No Alcohol, No Drug Use, Single, Care Facility Surgical History: None Psychiatricy History: Depression, Bipolar Medication: Reviewed Family Medical History - Family Member Mother History Unknown: Yes Ethnicity: Living Status: Unknown Hx Family Coronary Artery Disease: Yes ED Physical Exam - Physical Examination General/Constitutional: Awake, Well-developed, well-nourished, Alert, No distress, GCS 15, Non-toxic appearing, Ambulatory Head: Atraumatic Eyes: Lids, conjuctiva normal, PERRL, EOMI Skin: Nl inspection, No rash, No skin lesions, No ecchymosis, Well hydrated, No lymphadenopathy ENMT: External ears, nose nl, TM canals nl, Nasal exam nl, Lips, teeth, gums nl , Oropharynx nl, Tonsils nl Neck: Nontender, Full ROM w/o pain, No JVD, No nuchal rigidity, No bruit, No mass, No stridor Other Neck comments:: supple; no meningeal signs; no cervical tenderness; no bruits Respiratory: Nl effort/Exclusion, Clear to Auscultation, No Wheeze/Rhonchi/Rales Cardio Vascular: RRR, No murmur, gallop, rubs, NL S1 S2, Carotid/Femoral/Distal pulses equal bilaterally GI: No tenderness/rebounding/guarding, No organomegaly, No hernia, Normal BS's, Nondistended, No mass/bruits, No McBurney tenderness, Rectum exam nl Other GI comments:: no pulsatile masses; good BS : No CVA tenderness Extremities: No tenderness or effusion, Full ROM, normal strength in all extremities, No edema, Normal digits & nails Neuro/Psych: Alert/oriented, DTR's symmetric, Normal sensory exam, Normal motor strength, Judgement/insight normal, Mood normal, Normal gait, No focal deficits Other Neuro/Psych comments:: no focal signs; MSE: + Psychomotor Agitation; Mood/Affect: Labile; no SIs Misc: Normal back, No paraspinal tenderness ED Labs/Radiology/EKG Results - Lab Results Comments:: Reviewed - EKG Interpretations EKG Time:: 17:41 Rate & Rhythm: 68; NSR Comments:: LVH; LAFB; non-specific st-t changes ED Septic Shock - . Is Septic Shock (SBP<90, OR Lactate>4 mmol\L) present?: No - <6hrs of presentation: Vital Signs: Vital Signs - 8 hr 09/01/18 17:13 Temp 98 F HR 70 RR 16 BP 193/110 O2 Sat % 98 ED Reassessment (Disposition) - Reassessment Reassessment Condition:: Improved - Diagnosis Diagnosis:: Agitation; Medical Clearance; Hypertension; Psychosis; Bipolar Disorder - Aftercare/Follow up Instructions Aftercare/Follow-Up Instructions:: Counseled pt regarding lab results/diagnosis & need follow up, Counseled pt & family regarding lab results/diagnosis & need follow up - Patient Disposition Discharge/Transfer:: Acute Care w/in this hosp Admitted to:: [facility] Condition at Disposition:: Stable, Improved
[2018-09-01 18:06] LABS: % BASOPHILS 0.1 % (0.0-2.0); % EOSINOPHILS 4.4 % (0.0-5.0); % LYMPHOCYTES 18.3 % (20.0-50.0); % MONOCYTES 7.1 % (2.0-10.0); % NEUTROPHILS 70.1 % (40.0-80.0); EOSINOPHILE ABSOLUTE 0.4 Th/cmm (0.1-0.4); HEMATOCRIT 44.2 % (41.0-60); HEMOGLOBIN 14.4 gm/dL (12-16); LYMPHOCYTE ABSOLUTE 1.6 Th/cmm (1.5-3.0); MEAN CELL VOLUME 91.5 fl (80-99); MEAN CORPUSCULAR HEMOGLOBIN 29.8 pg (26.0-30.0); MEAN CORPUSCULAR HGB CONC 32.6 pg (28.0-36.0); MONOCYTE ABSOLUTE 0.6 Th/cmm (0.3-1.0); NEUTROPHILE ABSOLUTE 6.2 Th/cmm (1.8-8.0); PLATELET COUNT 262 Th/cmm (150-400); RED BLOOD COUNT 4.83 Mil/cmm (4.30-5.70); RED CELL DISTRIBUTION WIDTH 13.7 % (11.5-20.0); WHITE BLOOD COUNT 8.8 Th/cmm (4.8-10.8)
[2018-09-01 18:38] LABS: ACETAMINOPHEN < 10.0 ug/mL (10.0-30.0); ALB/GLOB RATIO 1.2 (1.0-1.8); ALBUMIN 4.3 gm/dL (4.2-5.5); ALKALINE PHOSPHATASE 87 U/L (34-104); ANION GAP 11.1 (7.0-16.0); BILIRUBIN,TOTAL 0.6 mg/dL (0.3-1.0); BUN - UREA NITROGEN 11 mg/dL (7-25); CALCIUM SERUM 10.1 mg/dL (8.6-10.3); CARBON DIOXIDE 29.7 mEq/L (21.0-31.0); CHLORIDE 101 mEq/L (98-107); CHOLESTEROL 144 mg/dL (<200); CREATININE - SERUM 0.8 mg/dL (0.7-1.3); GFR AFRICAN-AMERICAN > 60.0 ml/min (>90); GFR NON AFRICAN-AMERICAN > 60.0 ml/min; GLUCOSE 121 mg/dL (70-105); HDL -HIGH DENSITY LIPOPROTEIN 51 mg/dL (23-92); POTASSIUM SERUM 3.8 mEq/L (3.5-5.1); SGOT 40 U/L (13-39); SGPT/ALT 37 U/L (7-52); SODIUM SERUM 138 mEq/L (136-145); TRIGLYCERIDES 116 mg/dL (<150)
[2018-09-01 18:49] LABS: URINE SOURCE CLEAN C
[2018-09-01 18:53] LABS: URINE BILIRUBIN NEGATIVE (NEGATIVE); URINE BLOOD NEGATIVE (NEGATIVE); URINE GLUCOSE (UA) 100 mg/dL (NEGATIVE); URINE KETONE NEGATIVE (NEGATIVE); URINE LEUKOCYTE ESTERASE NEGATIVE (NEGATIVE); URINE NITRATE NEGATIVE (NEGATIVE); URINE PH 7.5 (4.6 - 8.0); URINE PROTEIN NEGATIVE (NEGATIVE); URINE UROBILINOGEN 0.2 E.U./dL (0.2 - 1.0)
[2018-09-01 19:08] LABS: URINE CLARITY CLEAR (CLEAR); URINE COLOR YELLOW; URINE MICROSCOPIC INDICATED? YES
[2018-09-01 19:10] LABS: URINE BACTERIA FEW /hpf (NONE SEEN); URINE EPITHELIAL CELLS OCCASIONAL /lpf (FEW); URINE RBC NONE SEEN /hpf (0-5); URINE WBC 0-2 /hpf (0-5)
[2018-09-01 19:57] LABS: AMPHETAMINE URINE NEGATIVE (NEGATIVE); BARBITURATES URINE NEGATIVE (NEGATIVE); BENZODIAZEPINES QUAL URINE NEGATIVE (NEGATIVE); CANNABINOID THC NEGATIVE (NEGATIVE); COCAINE METABOLITE QUAL URINE NEGATIVE (NEGATIVE); METHADONE URINE NEGATIVE (NEGATIVE); METHAMPHETAMINES QUAL URINE NEGATIVE (NEGATIVE); OPIATES (MORPHINE) QUAL. URINE NEGATIVE (NEGATIVE); PHENCYCLIDINE (PCP) URINE NEGATIVE (NEGATIVE); TRICYCLICS (TCA) QUAL. URINE NEGATIVE (NEGATIVE)
[2018-09-01 21:52] VITALS: BP 152/86
[2018-09-01] MEDS ORDERED: Maalox 30 mL Cup PO PRN (22:59)
[2018-09-01] MEDS ORDERED: Magnesium Hydroxide (MOM) 30 mL UDC PO PRN (22:59)
[2018-09-02 06:31] LABS: % BASOPHILS 1.2 % (0.0-2.0); % EOSINOPHILS 4.2 % (0.0-5.0); % LYMPHOCYTES 20.9 % (20.0-50.0); % MONOCYTES 10.7 % (2.0-10.0); BASOPHILE ABSOLUTE 0.1 Th/cumm (0-0.2); EOSINOPHILE ABSOLUTE 0.4 Th/cmm (0.1-0.4); HEMATOCRIT 39.8 % (41.0-60); HEMOGLOBIN 13.2 gm/dL (12-16); LYMPHOCYTE ABSOLUTE 1.8 Th/cmm (1.5-3.0); MEAN CELL VOLUME 90.7 fl (80-99); MEAN CORPUSCULAR HEMOGLOBIN 30.1 pg (26.0-30.0); MEAN CORPUSCULAR HGB CONC 33.2 pg (28.0-36.0); MONOCYTE ABSOLUTE 0.9 Th/cmm (0.3-1.0); NEUTROPHILE ABSOLUTE 5.4 Th/cmm (1.8-8.0); PLATELET COUNT 236 Th/cmm (150-400); RED BLOOD COUNT 4.38 Mil/cmm (4.30-5.70); RED CELL DISTRIBUTION WIDTH 13.3 % (11.5-20.0); WHITE BLOOD COUNT 8.6 Th/cmm (4.8-10.8)
[2018-09-02 06:46] LABS: ALB/GLOB RATIO 1.2 (1.0-1.8); ALBUMIN 3.8 gm/dL (4.2-5.5); ALKALINE PHOSPHATASE 81 U/L (34-104); BILIRUBIN,TOTAL 0.7 mg/dL (0.3-1.0); BUN - UREA NITROGEN 12 mg/dL (7-25); CALCIUM SERUM 9.8 mg/dL (8.6-10.3); CARBON DIOXIDE 30.2 mEq/L (21.0-31.0); CHLORIDE 103 mEq/L (98-107); CREATININE - SERUM 0.9 mg/dL (0.7-1.3); GFR AFRICAN-AMERICAN > 60.0 ml/min (>90); GFR NON AFRICAN-AMERICAN > 60.0 ml/min; GLUCOSE 91 mg/dL (70-105); POTASSIUM SERUM 4.2 mEq/L (3.5-5.1); SGOT 36 U/L (13-39); SGPT/ALT 32 U/L (7-52); SODIUM SERUM 140 mEq/L (136-145); TOTAL PROTEIN,SERUM 7.1 gm/dL (6.0-8.3)
[2018-09-02 06:47] LABS: CHOLESTEROL 127 mg/dL (<200); HDL -HIGH DENSITY LIPOPROTEIN 44 mg/dL (23-92); TRIGLYCERIDES 102 mg/dL (<150)
[2018-09-02] MEDS: Aspirin 81mg Chewable Tab PO SCH (08:57)
[2018-09-02] MEDS: Potassium Chloride 20 mEq ER Tab PO SCH (08:58)
[2018-09-02] MEDS: Multivitamin Tab PO SCH (08:59)
[2018-09-02] MEDS: Metolazone 5 MG TAB PO SCH (08:59)
[2018-09-02] MEDS ORDERED: SACUBITRIL PO SCH (09:00)
[2018-09-02] MEDS ORDERED: VALSARTAN PO SCH (09:00)
[2018-09-02] MEDS ORDERED: Non-Formulary Item 1 EA (Carvedilol [Coreg] 25 MG) PO SCH (09:00)
[2018-09-02] MEDS: Lactulose 10 Gm/15 mL 30mL UDC PO SCH ×2 (09:01→16:54)
[2018-09-02] MEDS: risperiDONE 1 mg/mL 30 mL Bottle PO SCH ×2 (09:03→16:55)
--- NOTE | 2018-09-02 12:32 | Psychiatric Evaluation ---
DATE OF SERVICE: 09/01/2018 IDENTIFYING INFORMATION: The patient is a 58-year-old male. CHIEF COMPLAINT: The patient has been agitated and aggressive, referred from [facility]. HISTORY OF PRESENT ILLNESS: The patient was a poor historian. He reported that he was hearing voices telling him to not overeat, denies any intent to harm himself; however, he is unpredictable, impulsive. According to the notes from [facility], the patient has schizoaffective disorder, has been acting out of control, very agitated, attempting to strike out at staff, delusional. When I talked to him, he was not a very good historian. He believes he is 59 year of age. He reports sleeps well, eats well. He denies that he was trying to harm himself or anyone. Denies current substance abuse. PAST PSYCHIATRIC HISTORY: The patient diagnosed with schizoaffective disorder, bipolar type. He has been hospitalized many times. The patient denies prior suicide attempt. He said, in the past, he used to drink beer, but not anymore. The patient denies prior suicide attempt. MEDICAL HISTORY: The patient has a history of dyslipidemia and hypertension. ALLERGIES: THE PATIENT IS ALLERGIC TO BENZTROPINE, DEPAKOTE, HALDOL, SODIUM, AND TETRACYCLINE. MEDICATIONS: The patient was restarted on medications, which is Trileptal and Risperdal 3 mg twice a day by Dr. Alvarado. FAMILY AND SOCIAL HISTORY: The patient reported to be since 1985. He has four children. 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 He has 11th grade education. Denies current substance abuse. Used to use alcohol in the past, but not prominent. No legal problem. No family psychotic disorder. MENTAL STATUS EXAMINATION: The patient is appropriately dressed, not well groomed. He was in bed. He was able to tell me the date. He knew the clinical pharmacist. He was hearing voices telling him not to overeat. His long-term memory is poor, cannot remember the exact age, though he said roughly, 59. His short-term ____ come and get because of psychosis. His insight about his illness is poor, does not realize has a problem. Judgment is poor with his agitation and aggressive behavior. IMPRESSION: Schizoaffective disorder, bipolar type. MEDICAL: Hypertension, hyperlipidemia. His assets, he is accepting treatment. Negative poor coping skills. INITIAL TREATMENT PLAN: The patient will be started back on his medication. We will do group therapy, milieu therapy, and individual therapy. ESTIMATED LENGTH OF STAY: 3-7 days. DISCHARGE CRITERIA: Decreasing agitation, psychosis. After discharge, outpatient treatment. JOB# [id number]
--- NOTE | 2018-09-02 22:13 | History & Physical ---
ADMIT DATE: 09/01/2018 HISTORY OF PRESENT ILLNESS: The patient is a 58-year-old male with long history of hypertension, congestive heart failure, cardiomyopathy, benign prostatic hypertrophy, and schizoaffective disorder, bipolar type admitted to Geropsych Department under Dr. Alvarado's service for evaluation and treatment. The patient has been very agitated and combative. No chest pain, no shortness of breath, no nausea, no vomiting, no fever and no chills. PAST MEDICAL HISTORY: Significant for hypertension, congestive heart failure, cardiomyopathy and benign prostatic hypertrophy. PAST SURGICAL HISTORY: No recent surgery. ALLERGIES: SHE IS ALLERGIC TO BENZTROPINE, VALPROIC ACID, HALOPERIDOL AND TETRACYCLINE. SOCIAL HISTORY: No smoking, no alcohol and no drugs. FAMILY HISTORY: Noncontributory. MEDICATIONS: Follow admission reconciliation. REVIEW OF SYSTEMS: RENAL SYSTEM: No history of chronic renal disorder. CARDIOVASCULAR SYSTEM: He has history of hypertension, coronary artery disease and cardiomyopathy. ENDOCRINE SYSTEM: No diabetes or thyroid problem. GASTROINTESTINAL SYSTEM: No upper or lower gastrointestinal bleed. NEUROLOGICAL SYSTEM: Seizure disorder. SKELETOMUSCULAR SYSTEM: No muscular dystrophy. HEMATOLOGICAL SYSTEM: No bleeding tendencies. RESPIRATORY SYSTEM: No history of asthma. GENITOURINARY SYSTEM: No dysuria or hematuria. PHYSICAL EXAMINATION: GENERAL: He is awake, alert, but confused. VITAL SIGNS: Temperature 97.3, heart rate 84 and blood pressure 139/91. HEENT: Normocephalic. Pupils are reactive to light and accommodation. Sclerae clear. NECK: Supple. Negative for lymphadenopathy, JVD or bruit. CHEST: Bilaterally normal. No rhonchi or wheezing. HEART: S1, S2 normal. No murmur or gallop rhythm. ABDOMEN: Soft, bowel sounds positive. EXTREMITIES: No edema. NEUROLOGIC: He is awake, alert, not fully oriented. No focal motor deficits. LABORATORY DATA: White blood cell 8.6, hemoglobin 13.2, hematocrit 39.8 and platelet 236. Sodium 140, potassium 4.2, BUN is 12 and creatinine ____. ASSESSMENT: 1. Hypertension. 2. Congestive heart failure. 3. Cardiomyopathy. 4. Benign prostatic hypertrophy. 5. Schizoaffective disorder. PLAN: The patient is in the hospital under Dr. Alvarado's service. Medical problem addressed during this hospitalization is schizoaffective disorder. Medical problems addressed at discharge are hypertension, CHF and benign prostatic hypertrophy. The patient is medically stable for activity. The patient is a full code. JOB# [id number]
[2018-09-03 06:05] LABS: A1C 5.7 % (4.8-5.6)
[2018-09-03] MEDS: Lactulose 10 Gm/15 mL 30mL UDC PO SCH ×2 (08:28→16:56)
[2018-09-03] MEDS: Aspirin 81mg Chewable Tab PO SCH (08:28)
[2018-09-03] MEDS: Multivitamin Tab PO SCH (08:29)
[2018-09-03] MEDS: Potassium Chloride 20 mEq ER Tab PO SCH (08:30)
[2018-09-03] MEDS: risperiDONE 1 mg/mL 30 mL Bottle PO SCH ×2 (08:34→16:56)
[2018-09-03] MEDS: Metolazone 5 MG TAB PO SCH (09:42)
--- NOTE | 2018-09-03 17:55 | Psychiatric Evaluation ---
DATE OF SERVICE: PATIENT'S AGE: 58. SEX: Male. PHYSICIAN: Dr. Alvarado. CHIEF COMPLAINT: Severe depression. HISTORY OF PRESENT ILLNESS: The patient is a 58-year-old male with history of depression. The patient is a resident in [facility] JOB# [id number]
--- NOTE | 2018-09-03 18:29 | Progress Notes ---
DATE: 09/03/2018 Chart was reviewed and the patient interviewed. Also discussed the patient's condition with the staff and reviewed records and labs. The patient is still in a suspicious and continued to be paranoid. The patient also is restless and still needs close observations and redirections. He also still seems to be suspicious and paranoid to his surroundings and he is also uncooperative with the staff. Otherwise, the patient is compliant with taking his medications with no side effects of medications and the patient is taking Risperdal in a dose of 3 mg twice a day. We will continue same dose and continue to follow up closely. Also, we will add Aricept in a dose of 5 mg every day and we will continue to follow up. [facility]# [id number]
--- NOTE | 2018-09-03 23:15 | Internal Medicine Prog Note ---
Internal Medicine Subjective - Subjective Service Date: 09/03/18 Patient seen and examined:: with staff (HE FEELS BETTER,NO SOB.) Patient is:: awake, verbal, talking, confused Per staff patient has:: no adverse event Internal Medicine Objective - Results Result Diagrams: 09/02/18 06:05 09/02/18 06:05 Recent Labs: Laboratory Last Values WBC 8.6 Th/cmm (4.8-10.8) 09/02/18 06:05 RBC 4.38 Mil/cmm (4.30-5.70) 09/02/18 06:05 Hgb 13.2 gm/dL (12-16) 09/02/18 06:05 Hct 39.8 % (41.0-60) L 09/02/18 06:05 MCV 90.7 fl (80-99) 09/02/18 06:05 MCH 30.1 pg (26.0-30.0) H 09/02/18 06:05 MCHC Differential 33.2 pg (28.0-36.0) 09/02/18 06:05 RDW 13.3 % (11.5-20.0) 09/02/18 06:05 Plt Count 236 Th/cmm (150-400) 09/02/18 06:05 MPV 7.5 fl 09/02/18 06:05 Neutrophils % 63.0 % (40.0-80.0) 09/02/18 06:05 Lymphocytes % 20.9 % (20.0-50.0) 09/02/18 06:05 Monocytes % 10.7 % (2.0-10.0) H 09/02/18 06:05 Eosinophils % 4.2 % (0.0-5.0) 09/02/18 06:05 Basophils % 1.2 % (0.0-2.0) 09/02/18 06:05 Sodium 140 mEq/L (136-145) 09/02/18 06:05 Potassium 4.2 mEq/L (3.5-5.1) 09/02/18 06:05 Chloride 103 mEq/L (98-107) 09/02/18 06:05 Carbon Dioxide 30.2 mEq/L (21.0-31.0) 09/02/18 06:05 Anion Gap 11.0 (7.0-16.0) 09/02/18 06:05 BUN 12 mg/dL (7-25) 09/02/18 06:05 Creatinine 0.9 mg/dL (0.7-1.3) 09/02/18 06:05 Est GFR ( Amer) > 60.0 ml/min (>90) 09/02/18 06:05 Est GFR (Non-Af Amer) > 60.0 ml/min 09/02/18 06:05 BUN/Creatinine Ratio 13.3 09/02/18 06:05 Glucose 91 mg/dL (70-105) 09/02/18 06:05 Calcium 9.8 mg/dL (8.6-10.3) 09/02/18 06:05 Total Bilirubin 0.7 mg/dL (0.3-1.0) 09/02/18 06:05 AST 36 U/L (13-39) 09/02/18 06:05 ALT 32 U/L (7-52) 09/02/18 06:05 Alkaline Phosphatase 81 U/L (34-104) 09/02/18 06:05 Troponin I 0.02 ng/mL (0.01-0.05) 09/01/18 18:00 Total Protein 7.1 gm/dL (6.0-8.3) 09/02/18 06:05 Albumin 3.8 gm/dL (4.2-5.5) L 09/02/18 06:05 Globulin 3.3 gm/dL 09/02/18 06:05 Albumin/Globulin Ratio 1.2 (1.0-1.8) 09/02/18 06:05 Triglycerides 102 mg/dL (<150) 09/02/18 06:05 Cholesterol 127 mg/dL (<200) 09/02/18 06:05 LDL Cholesterol Direct 63 mg/dL (75-193) L 09/02/18 06:05 HDL Cholesterol 44 mg/dL (23-92) 09/02/18 06:05 TSH 0.80 uIU/ml (0.34-5.60) 09/01/18 18:00 Urine Source CLEAN C 09/01/18 18:45 Urine Color YELLOW 09/01/18 18:45 Urine Clarity CLEAR (CLEAR) 09/01/18 18:45 Urine pH 7.5 (4.6 - 8.0) 09/01/18 18:45 Ur Specific [place] 1.020 (1.005-1.030) 09/01/18 18:45 Urine Protein NEGATIVE mg/dL (NEGATIVE) 09/01/18 18:45 Urine Glucose (UA) 100 mg/dL (NEGATIVE) H 09/01/18 18:45 Urine Ketones NEGATIVE mg/dL (NEGATIVE) 09/01/18 18:45 Urine Blood NEGATIVE (NEGATIVE) 09/01/18 18:45 Urine Nitrate NEGATIVE (NEGATIVE) 09/01/18 18:45 Urine Bilirubin NEGATIVE (NEGATIVE) 09/01/18 18:45 Urine Urobilinogen 0.2 E.U./dL (0.2 - 1.0) 09/01/18 18:45 Ur Leukocyte Esterase NEGATIVE (NEGATIVE) 09/01/18 18:45 Urine RBC NONE SEEN /hpf (0-5) 09/01/18 18:45 Urine WBC 0-2 /hpf (0-5) 09/01/18 18:45 Ur Epithelial Cells OCCASIONAL /lpf (FEW) 09/01/18 18:45 Urine Bacteria FEW /hpf (NONE SEEN) 09/01/18 18:45 Salicylates < 25.0 mg/L (30.0-100.0) L 09/01/18 18:00 Urine Opiates Screen NEGATIVE (NEGATIVE) 09/01/18 19:36 Urine Methadone Screen NEGATIVE (NEGATIVE) 09/01/18 19:36 Acetaminophen < 10.0 ug/mL (10.0-30.0) L 09/01/18 18:00 Ur Barbiturates Screen NEGATIVE (NEGATIVE) 09/01/18 19:36 Ur Tricyclics Screen NEGATIVE (NEGATIVE) 09/01/18 19:36 Ur Phencyclidine Scrn NEGATIVE (NEGATIVE) 09/01/18 19:36 Amphetamines Screen NEGATIVE (NEGATIVE) 09/01/18 19:36 U Methamphetamines Scrn NEGATIVE (NEGATIVE) 09/01/18 19:36 U Benzodiazepines Scrn NEGATIVE (NEGATIVE) 09/01/18 19:36 U Cocaine Metab Screen NEGATIVE (NEGATIVE) 09/01/18 19:36 U Cannabinoids Screen NEGATIVE (NEGATIVE) 09/01/18 19:36 Ethyl Alcohol < 10 mg/dL (0-10) 09/01/18 18:00 RPR NONREACTIVE (NONREACTIVE) 09/01/18 18:00 - Physical Exam Vitals and I&O: Vital Signs Temp 98.3 F 09/03/18 20:00 Pulse 61 09/03/18 20:00 Resp 20 09/03/18 20:00 BP 108/63 09/03/18 21:12 Pulse Ox 98 09/03/18 20:00 Intake & Output 09/03/18 09/03/18 09/04/18 06:59 18:59 06:59 Intake Total 120 900 Balance 120 900 Intake: Oral 120 900 Other: # Voids 3 3 # Bowel Movements 1 Active Medications: Current Medications Acetaminophen (Tylenol) 650 mg PO Q4HR PRN PRN Reason: Mild Pain / Temp above 100 Stop: 10/31/18 22:39 Al Hydrox/Mg Hydrox/Simethicone (Maalox) 30 ml PO Q4HR PRN PRN Reason: GI DISTRESS Stop: 10/31/18 22:58 Amlodipine Besylate (Norvasc) 5 mg PO DAILY [facility] Stop: 11/01/18 08:59 Last Admin: 09/03/18 09:39 Dose: Not Given Aspirin (Aspirin Chewable) 81 mg PO DAILY [facility] Stop: 11/01/18 08:59 Last Admin: 09/03/18 08:28 Dose: 81 mg Carvedilol (Coreg) 25 mg PO BIDWM [facility] Stop: 11/01/18 07:59 Last Admin: 09/03/18 17:22 Dose: 25 mg Donepezil HCl (Aricept) 5 mg PO HS [facility] Stop: 11/02/18 20:59 Last Admin: 09/03/18 21:12 Dose: 5 mg Furosemide (Lasix) 20 mg PO TID [facility] Stop: 11/01/18 08:59 Last Admin: 09/03/18 21:12 Dose: Not Given Lactulose (Cephulac) 20 gm PO BID [facility] Stop: 11/01/18 08:59 Last Admin: 09/03/18 16:56 Dose: 20 gm Lorazepam (Ativan) 0.5 mg PO Q4HR PRN; Protocol PRN Reason: Anxiety Stop: 10/01/18 22:56 Magnesium Hydroxide (Milk Of Magnesia) 30 ml PO HS PRN PRN Reason: Constipation Magnesium Oxide (Mag-Oxide) 400 mg PO BID [facility] Stop: 11/01/18 08:59 Last Admin: 09/03/18 16:55 Dose: 400 mg Metolazone (Zaroxolyn) 5 mg PO DAILY [facility] Stop: 11/01/18 08:59 Last Admin: 09/03/18 09:42 Dose: Not Given Miscellaneous (Sacubitril/Valsartan [Entresto 24 Mg-26 Mg Tablet]) 1 tab PO BID [facility] Stop: 11/01/18 08:59 Multivitamins/Vitamin C (Theragran) 1 tab PO DAILY [facility] Stop: 11/01/18 08:59 Last Admin: 09/03/18 08:29 Dose: 1 tab Oxcarbazepine (Trileptal) 300 mg PO BID [facility]; Protocol Stop: 11/01/18 08:59 Last Admin: 09/03/18 16:55 Dose: 300 mg Potassium Chloride (Klor-Con) 40 meq PO DAILY [facility] Stop: 11/01/18 08:59 Last Admin: 09/03/18 08:30 Dose: 40 meq Risperidone (Risperdal) 3 mg PO BID [facility]; Protocol Stop: 11/01/18 08:59 Last Admin: 09/03/18 16:56 Dose: 3 mg Spironolactone (Aldactone) 25 mg PO DAILY [facility] Stop: 11/01/18 08:59 Last Admin: 09/03/18 09:46 Dose: Not Given Tamsulosin HCl (Flomax) 0.4 mg PO HS [facility] Stop: 11/01/18 20:59 Last Admin: 09/03/18 21:12 Dose: 0.4 mg Zolpidem Tartrate (Ambien) 5 mg PO HS PRN PRN Reason: Insomnia Stop: 10/31/18 22:56 Last Admin: 09/02/18 20:42 Dose: 5 mg General: alert, demented HEENT: NC/AT, PERRLA, EOMI, anicteric sclerae, throat clear Neck: Supple, No JVD, No thyromegaly, +2 carotid pulse wo bruit, No LAD Lungs: CTAB Cardiovascular: RRR, Normal S1, Normal S2, without murmur Abdomen: soft, non-tender, non-distended Extremities: clear Neurological: no change - Procedures Procedures: Procedures Procedure Code Date OTHER GROUP THERAPY 94.44 09/01/14 RECREATIONAL THERAPY 93.81 09/10/12 Internal Medicine Assmt/Plan - Assessment Assessment: 1.HTN. 2.CHF. 3.CARDIOMYOPATHY. 4.BPH. 5.SCHIZOAFFECTIVE DISORDER. - Plan Plan: CONTINUE ON CURRENT MEDICATION AND DIET.
--- NOTE | 2018-09-04 06:33 | Progress Notes ---
DATE: 09/04/2018 SUBJECTIVE: Chart reviewed and the patient interviewed. Also discussed the patient's condition with the staff and reviewed records and labs. The patient is still agitated and he is still actively hallucinating. The patient is pacing up and down and talking to himself and talking to imaginary objects. The patient also still needs redirections and gets agitated when staff tried to redirect him. Also confused and tried to enter other patients' rooms. Otherwise, the patient is compliant with taking medications with no side effects of medications. ASSESSMENT: The patient is still psychotic. TREATMENT PLAN: Continue Risperdal 3 mg twice a day and the Trileptal 300 mg twice a day. Also, we will increase Aricept to 10 mg at bedtime. Also, we will get Trileptal blood level and monitor his behavior and his condition closely. JOB# [id number]
--- NOTE | 2018-09-04 06:43 | Progress Notes ---
DATE: 09/04/2018 ADDENDUM The patient is complaining of nightmares and of trouble sleeping at night. We will add trazodone on a dose of 25 mg at bedtime. Also, continue to work on his confusion and agitation and continue to follow up. [facility]# [id number]
[2018-09-04] MEDS: Lactulose 10 Gm/15 mL 30mL UDC PO SCH ×2 (09:28→17:39)
[2018-09-04] MEDS: Metolazone 5 MG TAB PO SCH (09:29)
[2018-09-04] MEDS: Multivitamin Tab PO SCH (09:31)
[2018-09-04] MEDS: Potassium Chloride 20 mEq ER Tab PO SCH (09:31)
[2018-09-04] MEDS: Aspirin 81mg Chewable Tab PO SCH (09:31)
[2018-09-04] MEDS: risperiDONE 1 mg/mL 30 mL Bottle PO SCH ×2 (09:55→17:40)
--- NOTE | 2018-09-04 17:52 | Internal Medicine Prog Note ---
Internal Medicine Subjective - Subjective Service Date: 09/04/18 Patient seen and examined:: without staff (HE FEELS WELL) Patient is:: awake, verbal, talking, confused Per staff patient has:: no adverse event Internal Medicine Objective - Results Result Diagrams: 09/02/18 06:05 09/02/18 06:05 Recent Labs: Laboratory Last Values WBC 8.6 Th/cmm (4.8-10.8) 09/02/18 06:05 RBC 4.38 Mil/cmm (4.30-5.70) 09/02/18 06:05 Hgb 13.2 gm/dL (12-16) 09/02/18 06:05 Hct 39.8 % (41.0-60) L 09/02/18 06:05 MCV 90.7 fl (80-99) 09/02/18 06:05 MCH 30.1 pg (26.0-30.0) H 09/02/18 06:05 MCHC Differential 33.2 pg (28.0-36.0) 09/02/18 06:05 RDW 13.3 % (11.5-20.0) 09/02/18 06:05 Plt Count 236 Th/cmm (150-400) 09/02/18 06:05 MPV 7.5 fl 09/02/18 06:05 Neutrophils % 63.0 % (40.0-80.0) 09/02/18 06:05 Lymphocytes % 20.9 % (20.0-50.0) 09/02/18 06:05 Monocytes % 10.7 % (2.0-10.0) H 09/02/18 06:05 Eosinophils % 4.2 % (0.0-5.0) 09/02/18 06:05 Basophils % 1.2 % (0.0-2.0) 09/02/18 06:05 Sodium 140 mEq/L (136-145) 09/02/18 06:05 Potassium 4.2 mEq/L (3.5-5.1) 09/02/18 06:05 Chloride 103 mEq/L (98-107) 09/02/18 06:05 Carbon Dioxide 30.2 mEq/L (21.0-31.0) 09/02/18 06:05 Anion Gap 11.0 (7.0-16.0) 09/02/18 06:05 BUN 12 mg/dL (7-25) 09/02/18 06:05 Creatinine 0.9 mg/dL (0.7-1.3) 09/02/18 06:05 Est GFR ( Amer) > 60.0 ml/min (>90) 09/02/18 06:05 Est GFR (Non-Af Amer) > 60.0 ml/min 09/02/18 06:05 BUN/Creatinine Ratio 13.3 09/02/18 06:05 Glucose 91 mg/dL (70-105) 09/02/18 06:05 Calcium 9.8 mg/dL (8.6-10.3) 09/02/18 06:05 Total Bilirubin 0.7 mg/dL (0.3-1.0) 09/02/18 06:05 AST 36 U/L (13-39) 09/02/18 06:05 ALT 32 U/L (7-52) 09/02/18 06:05 Alkaline Phosphatase 81 U/L (34-104) 09/02/18 06:05 Troponin I 0.02 ng/mL (0.01-0.05) 09/01/18 18:00 Total Protein 7.1 gm/dL (6.0-8.3) 09/02/18 06:05 Albumin 3.8 gm/dL (4.2-5.5) L 09/02/18 06:05 Globulin 3.3 gm/dL 09/02/18 06:05 Albumin/Globulin Ratio 1.2 (1.0-1.8) 09/02/18 06:05 Triglycerides 102 mg/dL (<150) 09/02/18 06:05 Cholesterol 127 mg/dL (<200) 09/02/18 06:05 LDL Cholesterol Direct 63 mg/dL (75-193) L 09/02/18 06:05 HDL Cholesterol 44 mg/dL (23-92) 09/02/18 06:05 TSH 0.80 uIU/ml (0.34-5.60) 09/01/18 18:00 Urine Source CLEAN C 09/01/18 18:45 Urine Color YELLOW 09/01/18 18:45 Urine Clarity CLEAR (CLEAR) 09/01/18 18:45 Urine pH 7.5 (4.6 - 8.0) 09/01/18 18:45 Ur Specific [place] 1.020 (1.005-1.030) 09/01/18 18:45 Urine Protein NEGATIVE mg/dL (NEGATIVE) 09/01/18 18:45 Urine Glucose (UA) 100 mg/dL (NEGATIVE) H 09/01/18 18:45 Urine Ketones NEGATIVE mg/dL (NEGATIVE) 09/01/18 18:45 Urine Blood NEGATIVE (NEGATIVE) 09/01/18 18:45 Urine Nitrate NEGATIVE (NEGATIVE) 09/01/18 18:45 Urine Bilirubin NEGATIVE (NEGATIVE) 09/01/18 18:45 Urine Urobilinogen 0.2 E.U./dL (0.2 - 1.0) 09/01/18 18:45 Ur Leukocyte Esterase NEGATIVE (NEGATIVE) 09/01/18 18:45 Urine RBC NONE SEEN /hpf (0-5) 09/01/18 18:45 Urine WBC 0-2 /hpf (0-5) 09/01/18 18:45 Ur Epithelial Cells OCCASIONAL /lpf (FEW) 09/01/18 18:45 Urine Bacteria FEW /hpf (NONE SEEN) 09/01/18 18:45 Salicylates < 25.0 mg/L (30.0-100.0) L 09/01/18 18:00 Urine Opiates Screen NEGATIVE (NEGATIVE) 09/01/18 19:36 Urine Methadone Screen NEGATIVE (NEGATIVE) 09/01/18 19:36 Acetaminophen < 10.0 ug/mL (10.0-30.0) L 09/01/18 18:00 Ur Barbiturates Screen NEGATIVE (NEGATIVE) 09/01/18 19:36 Ur Tricyclics Screen NEGATIVE (NEGATIVE) 09/01/18 19:36 Ur Phencyclidine Scrn NEGATIVE (NEGATIVE) 09/01/18 19:36 Amphetamines Screen NEGATIVE (NEGATIVE) 09/01/18 19:36 U Methamphetamines Scrn NEGATIVE (NEGATIVE) 09/01/18 19:36 U Benzodiazepines Scrn NEGATIVE (NEGATIVE) 09/01/18 19:36 U Cocaine Metab Screen NEGATIVE (NEGATIVE) 09/01/18 19:36 U Cannabinoids Screen NEGATIVE (NEGATIVE) 09/01/18 19:36 Ethyl Alcohol < 10 mg/dL (0-10) 09/01/18 18:00 RPR NONREACTIVE (NONREACTIVE) 09/01/18 18:00 - Physical Exam Vitals and I&O: Vital Signs Temp 97.3 F 09/04/18 14:00 Pulse 75 09/04/18 17:40 Resp 18 09/04/18 14:00 BP 115/76 09/04/18 17:40 Pulse Ox 96 09/04/18 14:00 Intake & Output 09/03/18 09/04/18 09/04/18 18:59 06:59 18:59 Intake Total 900 120 Balance 900 120 Intake: Oral 900 120 Other: # Voids 3 3 # Bowel Movements 1 Active Medications: Current Medications Acetaminophen (Tylenol) 650 mg PO Q4HR PRN PRN Reason: Mild Pain / Temp above 100 Stop: 10/31/18 22:39 Al Hydrox/Mg Hydrox/Simethicone (Maalox) 30 ml PO Q4HR PRN PRN Reason: GI DISTRESS Stop: 10/31/18 22:58 Amlodipine Besylate (Norvasc) 5 mg PO DAILY [facility] Stop: 11/01/18 08:59 Last Admin: 09/04/18 09:31 Dose: 5 mg Aspirin (Aspirin Chewable) 81 mg PO DAILY [facility] Stop: 11/01/18 08:59 Last Admin: 09/04/18 09:31 Dose: 81 mg Carvedilol (Coreg) 25 mg PO BIDWM [facility] Stop: 11/01/18 07:59 Last Admin: 09/04/18 17:40 Dose: Not Given Donepezil HCl (Aricept) 10 mg PO HS [facility] Stop: 11/03/18 20:59 Furosemide (Lasix) 20 mg PO TID [facility] Stop: 11/01/18 08:59 Last Admin: 09/04/18 13:07 Dose: Not Given Lactulose (Cephulac) 20 gm PO BID [facility] Stop: 11/01/18 08:59 Last Admin: 09/04/18 17:39 Dose: Not Given Lorazepam (Ativan) 0.5 mg PO Q4HR PRN; Protocol PRN Reason: Anxiety Stop: 10/01/18 22:56 Magnesium Hydroxide (Milk Of Magnesia) 30 ml PO HS PRN PRN Reason: Constipation Magnesium Oxide (Mag-Oxide) 400 mg PO BID [facility] Stop: 11/01/18 08:59 Last Admin: 09/04/18 17:40 Dose: Not Given Metolazone (Zaroxolyn) 5 mg PO DAILY [facility] Stop: 11/01/18 08:59 Last Admin: 09/04/18 09:29 Dose: 5 mg Miscellaneous (Sacubitril/Valsartan [Entresto 24 Mg-26 Mg Tablet]) 1 tab PO BID [facility] Stop: 11/01/18 08:59 Multivitamins/Vitamin C (Theragran) 1 tab PO DAILY [facility] Stop: 11/01/18 08:59 Last Admin: 09/04/18 09:31 Dose: 1 tab Oxcarbazepine (Trileptal) 300 mg PO BID [facility]; Protocol Stop: 11/01/18 08:59 Last Admin: 09/04/18 17:40 Dose: Not Given Potassium Chloride (Klor-Con) 40 meq PO DAILY [facility] Stop: 11/01/18 08:59 Last Admin: 09/04/18 09:31 Dose: 40 meq Risperidone (Risperdal) 3 mg PO BID [facility]; Protocol Stop: 11/01/18 08:59 Last Admin: 09/04/18 17:40 Dose: Not Given Spironolactone (Aldactone) 25 mg PO DAILY [facility] Stop: 11/01/18 08:59 Last Admin: 09/04/18 09:30 Dose: 25 mg Tamsulosin HCl (Flomax) 0.4 mg PO HS [facility] Stop: 11/01/18 20:59 Last Admin: 09/03/18 21:12 Dose: 0.4 mg Trazodone HCl (Desyrel) 25 mg PO HS [facility]; Protocol Stop: 11/03/18 20:59 Zolpidem Tartrate (Ambien) 5 mg PO HS PRN PRN Reason: Insomnia Stop: 10/31/18 22:56 Last Admin: 09/02/18 20:42 Dose: 5 mg General: alert, demented HEENT: NC/AT, PERRLA, EOMI, anicteric sclerae, throat clear Neck: Supple, No JVD, No thyromegaly, +2 carotid pulse wo bruit, No LAD Lungs: CTAB Cardiovascular: RRR, Normal S1, Normal S2, without murmur Abdomen: soft, non-tender, non-distended Extremities: clear Neurological: no change - Procedures Procedures: Procedures Procedure Code Date OTHER GROUP THERAPY 94.44 09/01/14 RECREATIONAL THERAPY 93.81 12/23/11 Internal Medicine Assmt/Plan - Assessment Assessment: 1.HTN. 2.CHF. 3.CARDIOMYOPATHY. 4.BPH. 5.SCHIZOAFFECTIVE DISORDER. - Plan Plan: CONTINUE ON CURRENT MEDICATION AND DIET.
[2018-09-05] MEDS: Potassium Chloride 20 mEq ER Tab PO SCH (09:43)
[2018-09-05] MEDS: Multivitamin Tab PO SCH (09:43)
[2018-09-05] MEDS: Aspirin 81mg Chewable Tab PO SCH (09:43)
[2018-09-05] MEDS: Lactulose 10 Gm/15 mL 30mL UDC PO SCH ×2 (09:55→17:27)
[2018-09-05] MEDS: Metolazone 5 MG TAB PO SCH (09:56)
[2018-09-05] MEDS: risperiDONE 1 mg/mL 30 mL Bottle PO SCH ×2 (09:57→17:28)
--- NOTE | 2018-09-05 17:59 | Progress Notes ---
DATE: 09/05/2018 SUBJECTIVE: Chart was reviewed and the patient interviewed. Also discussed the patient's condition with the staff and reviewed records and labs. The patient is still suspicious and paranoid and is still easily agitated and easily irritable. The patient seems to be slightly calmer than before, but still pacing up and down. The patient also still has difficulty taking medications and is reluctant to take medications, but he has been taking it. The patient also is still in angry mood and is still suspicious and paranoid, especially when talking about his . He also is still having severe mood swings. Otherwise, the patient is compliant with taking his medications with no side effects of medications. ASSESSMENT: The patient is still agitated and psychotic and can be dangerous to others. TREATMENT PLAN: Continue to monitor his behavior and his condition closely. Also, continue adjusting psychotropic medications and work on his behavior. JOB# [id number]
--- NOTE | 2018-09-05 19:03 | General Progress Note ---
Subjective - Review of Systems Service Date: 09/05/18 Subjective: RESTING COMFORTABLY NO DISTRESS Objective - Results Result Diagrams: 09/02/18 06:05 09/02/18 06:05 Recent Labs: Laboratory Last Values WBC 8.6 Th/cmm (4.8-10.8) 09/02/18 06:05 RBC 4.38 Mil/cmm (4.30-5.70) 09/02/18 06:05 Hgb 13.2 gm/dL (12-16) 09/02/18 06:05 Hct 39.8 % (41.0-60) L 09/02/18 06:05 MCV 90.7 fl (80-99) 09/02/18 06:05 MCH 30.1 pg (26.0-30.0) H 09/02/18 06:05 MCHC Differential 33.2 pg (28.0-36.0) 09/02/18 06:05 RDW 13.3 % (11.5-20.0) 09/02/18 06:05 Plt Count 236 Th/cmm (150-400) 09/02/18 06:05 MPV 7.5 fl 09/02/18 06:05 Neutrophils % 63.0 % (40.0-80.0) 09/02/18 06:05 Lymphocytes % 20.9 % (20.0-50.0) 09/02/18 06:05 Monocytes % 10.7 % (2.0-10.0) H 09/02/18 06:05 Eosinophils % 4.2 % (0.0-5.0) 09/02/18 06:05 Basophils % 1.2 % (0.0-2.0) 09/02/18 06:05 Sodium 140 mEq/L (136-145) 09/02/18 06:05 Potassium 4.2 mEq/L (3.5-5.1) 09/02/18 06:05 Chloride 103 mEq/L (98-107) 09/02/18 06:05 Carbon Dioxide 30.2 mEq/L (21.0-31.0) 09/02/18 06:05 Anion Gap 11.0 (7.0-16.0) 09/02/18 06:05 BUN 12 mg/dL (7-25) 09/02/18 06:05 Creatinine 0.9 mg/dL (0.7-1.3) 09/02/18 06:05 Est GFR ( Amer) > 60.0 ml/min (>90) 09/02/18 06:05 Est GFR (Non-Af Amer) > 60.0 ml/min 09/02/18 06:05 BUN/Creatinine Ratio 13.3 09/02/18 06:05 Glucose 91 mg/dL (70-105) 09/02/18 06:05 Calcium 9.8 mg/dL (8.6-10.3) 09/02/18 06:05 Total Bilirubin 0.7 mg/dL (0.3-1.0) 09/02/18 06:05 AST 36 U/L (13-39) 09/02/18 06:05 ALT 32 U/L (7-52) 09/02/18 06:05 Alkaline Phosphatase 81 U/L (34-104) 09/02/18 06:05 Troponin I 0.02 ng/mL (0.01-0.05) 09/01/18 18:00 Total Protein 7.1 gm/dL (6.0-8.3) 09/02/18 06:05 Albumin 3.8 gm/dL (4.2-5.5) L 09/02/18 06:05 Globulin 3.3 gm/dL 09/02/18 06:05 Albumin/Globulin Ratio 1.2 (1.0-1.8) 09/02/18 06:05 Triglycerides 102 mg/dL (<150) 09/02/18 06:05 Cholesterol 127 mg/dL (<200) 09/02/18 06:05 LDL Cholesterol Direct 63 mg/dL (75-193) L 09/02/18 06:05 HDL Cholesterol 44 mg/dL (23-92) 09/02/18 06:05 TSH 0.80 uIU/ml (0.34-5.60) 09/01/18 18:00 Urine Source CLEAN C 09/01/18 18:45 Urine Color YELLOW 09/01/18 18:45 Urine Clarity CLEAR (CLEAR) 09/01/18 18:45 Urine pH 7.5 (4.6 - 8.0) 09/01/18 18:45 Ur Specific [place] 1.020 (1.005-1.030) 09/01/18 18:45 Urine Protein NEGATIVE mg/dL (NEGATIVE) 09/01/18 18:45 Urine Glucose (UA) 100 mg/dL (NEGATIVE) H 09/01/18 18:45 Urine Ketones NEGATIVE mg/dL (NEGATIVE) 09/01/18 18:45 Urine Blood NEGATIVE (NEGATIVE) 09/01/18 18:45 Urine Nitrate NEGATIVE (NEGATIVE) 09/01/18 18:45 Urine Bilirubin NEGATIVE (NEGATIVE) 09/01/18 18:45 Urine Urobilinogen 0.2 E.U./dL (0.2 - 1.0) 09/01/18 18:45 Ur Leukocyte Esterase NEGATIVE (NEGATIVE) 09/01/18 18:45 Urine RBC NONE SEEN /hpf (0-5) 09/01/18 18:45 Urine WBC 0-2 /hpf (0-5) 09/01/18 18:45 Ur Epithelial Cells OCCASIONAL /lpf (FEW) 09/01/18 18:45 Urine Bacteria FEW /hpf (NONE SEEN) 09/01/18 18:45 Salicylates < 25.0 mg/L (30.0-100.0) L 09/01/18 18:00 Urine Opiates Screen NEGATIVE (NEGATIVE) 09/01/18 19:36 Urine Methadone Screen NEGATIVE (NEGATIVE) 09/01/18 19:36 Acetaminophen < 10.0 ug/mL (10.0-30.0) L 09/01/18 18:00 Ur Barbiturates Screen NEGATIVE (NEGATIVE) 09/01/18 19:36 Ur Tricyclics Screen NEGATIVE (NEGATIVE) 09/01/18 19:36 Ur Phencyclidine Scrn NEGATIVE (NEGATIVE) 09/01/18 19:36 Amphetamines Screen NEGATIVE (NEGATIVE) 09/01/18 19:36 U Methamphetamines Scrn NEGATIVE (NEGATIVE) 09/01/18 19:36 U Benzodiazepines Scrn NEGATIVE (NEGATIVE) 09/01/18 19:36 U Cocaine Metab Screen NEGATIVE (NEGATIVE) 09/01/18 19:36 U Cannabinoids Screen NEGATIVE (NEGATIVE) 09/01/18 19:36 Ethyl Alcohol < 10 mg/dL (0-10) 09/01/18 18:00 RPR NONREACTIVE (NONREACTIVE) 09/01/18 18:00 - Physical Exam Vitals and I&O: Vital Signs Temp 97.0 F 09/05/18 14:36 Pulse 59 05/25/19 17:28 Resp 18 09/05/18 14:36 BP 92/59 09/05/18 17:28 Pulse Ox 97 09/05/18 14:36 Intake & Output 09/05/18 09/05/18 09/06/18 06:59 18:59 06:59 Intake Total 680 1000 Balance 680 1000 Intake: Oral 680 1000 Other: # Voids 2 4 # Bowel Movements 1 Active Medications: Current Medications Acetaminophen (Tylenol) 650 mg PO Q4HR PRN PRN Reason: Mild Pain / Temp above 100 Stop: 10/31/18 22:39 Al Hydrox/Mg Hydrox/Simethicone (Maalox) 30 ml PO Q4HR PRN PRN Reason: GI DISTRESS Stop: 10/31/18 22:58 Amlodipine Besylate (Norvasc) 5 mg PO DAILY [facility] [place] Stop: 11/01/18 08:59 Last Admin: 09/05/18 09:54 Dose: 5 mg Aspirin (Aspirin Chewable) 81 mg PO DAILY [facility] [place] Stop: 11/01/18 08:59 Last Admin: 09/05/18 09:43 Dose: 81 mg Carvedilol (Coreg) 25 mg PO BIDWM [facility] Stop: 11/01/18 07:59 Last Admin: 09/05/18 17:28 Dose: Not Given Donepezil HCl (Aricept) 10 mg PO HS [facility] [place] Stop: 11/03/18 20:59 Last Admin: 09/04/18 21:48 Dose: 10 mg Furosemide (Lasix) 20 mg PO TID [facility] Stop: 11/01/18 08:59 Last Admin: 09/05/18 16:42 Dose: Not Given Lactulose (Cephulac) 20 gm PO BID [facility] [place] Stop: 11/01/18 08:59 Last Admin: 09/05/18 17:27 Dose: 20 gm Lorazepam (Ativan) 0.5 mg PO Q4HR PRN; Protocol PRN Reason: Anxiety Stop: 10/01/18 22:56 Magnesium Hydroxide (Milk Of Magnesia) 30 ml PO HS PRN PRN Reason: Constipation Magnesium Oxide (Mag-Oxide) 400 mg PO BID [facility] [place] Stop: 11/01/18 08:59 Last Admin: 09/05/18 17:28 Dose: 400 mg Metolazone (Zaroxolyn) 5 mg PO DAILY [facility] [place] Stop: 11/01/18 08:59 Last Admin: 09/05/18 09:56 Dose: 5 mg Multivitamins/Vitamin C (Theragran) 1 tab PO DAILY [facility] [place] Stop: 11/01/18 08:59 Last Admin: 09/05/18 09:43 Dose: 1 tab Oxcarbazepine (Trileptal) 300 mg PO BID [facility] [place]; Protocol Stop: 11/01/18 08:59 Last Admin: 09/05/18 17:28 Dose: 300 mg Potassium Chloride (Klor-Con) 40 meq PO DAILY [facility] [place] Stop: 11/01/18 08:59 Last Admin: 09/05/18 09:43 Dose: 40 meq Risperidone (Risperdal) 3 mg PO BID [facility] [place]; Protocol Stop: 11/01/18 08:59 Last Admin: 09/05/18 17:28 Dose: 3 mg Spironolactone (Aldactone) 25 mg PO DAILY [facility] [place] Stop: 11/01/18 08:59 Last Admin: 09/05/18 09:44 Dose: 25 mg Tamsulosin HCl (Flomax) 0.4 mg PO HS [facility] [place] Stop: 11/01/18 20:59 Last Admin: 09/04/18 21:48 Dose: 0.4 mg Trazodone HCl (Desyrel) 25 mg PO HS [facility] [place]; Protocol Stop: 11/03/18 20:59 Last Admin: 09/04/18 21:49 Dose: 25 mg Zolpidem Tartrate (Ambien) 5 mg PO HS PRN PRN Reason: Insomnia Stop: 10/31/18 22:56 Last Admin: 09/02/18 20:42 Dose: 5 mg General: No acute distress HEENT: Atraumatic, PERRLA Neck: Supple, JVD Cardiovascular: Regular rate, Normal S1, Normal S2 Lungs: Clear to auscultation Abdomen: Bowel sounds, Soft - Procedures Procedures: Procedures Procedure Code Date OTHER GROUP THERAPY 94.44 09/01/14 RECREATIONAL THERAPY 93.81 12/23/11 Assessment/Plan - Assessment Assessment: 1.HTN. 2.CHF. 3.CARDIOMYOPATHY. 4.BPH. 5.SCHIZOAFFECTIVE DISORDER. - Plan Plan: CONTINUE CURRENT TREATMENT Nutritional Asmnt/Malnutr-PDOC - Dietary Evaluation Malnutrition Findings (Please click <Entered> for more info): Nutritional Asmnt/Malnutrition Start: 09/05/18 08: 51 Text: Status: Complete Freq: Protocol: Document 09/05/18 08:51 GAETANO (Rec: 09/05/18 08:56 GAETANO BYRNES- [email or web address]) Nutritional Asmnt/Malnutrition Patient General Information Diagnosis psychosis Pertinent Medical Hx/Surgical Hx HTN, CHF, cardiomyopathy, beningn prostatic hypertrophy Current Diet Order/ Nutrition Support CCHO no added salt Pertinent Medications Maalox, lasix, lacutlose, theragran, KCl 40mEq/daily Pertinent Labs no labs since 09/02 Nutritional Hx/Data Height 1.42 m Height (Calculated Centimeters) 142.2 Current Weight (lbs) 86.183 kg Weight (Calculated Kilograms) 86.2 Weight (Calculated Grams) 53050.6 Body Mass Index (BMI) 42.5 Recent Weight Change No Weight Status Morbidly Obese GI Symptoms GI Symptoms None Last BM 09/04 Cultural/Ethnic/Temple Belief unknown Usual diet at home regular Skin Integrity/Comment: adenike score 22 Current %PO Good (75-100%) Estimated Nutritional Goals BEE in Kcals: Adj wt of IBW Calories/Kcals/Kg 25-30kcals/kg Kcals Calculated 1400-1680kcals/day Protein: Adj wt of IBW Protein g/k.2+g/kg Protein Calculated 67g/day Fluid: ml per MD Nutritional Problem 1. Problem Problem Obese related to Etiology excessive oral intake Signs/Symptoms: as evidenced by BMI 42.6. Intervention/Recommendation Comments Recommend continuing CCHO no added salt Expected Outcomes/Goals Expected Outcomes/Goals PO intake >75% of meals
[2018-09-06] MEDS: Lactulose 10 Gm/15 mL 30mL UDC PO SCH ×2 (08:50→16:55)
[2018-09-06] MEDS: Aspirin 81mg Chewable Tab PO SCH (08:59)
[2018-09-06] MEDS: Multivitamin Tab PO SCH (08:59)
[2018-09-06] MEDS: Potassium Chloride 20 mEq ER Tab PO SCH (08:59)
[2018-09-06] MEDS: Metolazone 5 MG TAB PO SCH (09:00)
[2018-09-06] MEDS: risperiDONE 1 mg/mL 30 mL Bottle PO SCH ×2 (09:03→16:54)
--- NOTE | 2018-09-06 19:00 | General Progress Note ---
Subjective - Review of Systems Service Date: 09/06/18 Subjective: RESTING COMFORTABLY NO DISTRESS Objective - Results Result Diagrams: 09/02/18 06:05 09/02/18 06:05 Recent Labs: Laboratory Last Values WBC 8.6 Th/cmm (4.8-10.8) 09/02/18 06:05 RBC 4.38 Mil/cmm (4.30-5.70) 09/02/18 06:05 Hgb 13.2 gm/dL (12-16) 09/02/18 06:05 Hct 39.8 % (41.0-60) L 09/02/18 06:05 MCV 90.7 fl (80-99) 09/02/18 06:05 MCH 30.1 pg (26.0-30.0) H 09/02/18 06:05 MCHC Differential 33.2 pg (28.0-36.0) 09/02/18 06:05 RDW 13.3 % (11.5-20.0) 09/02/18 06:05 Plt Count 236 Th/cmm (150-400) 09/02/18 06:05 MPV 7.5 fl 09/02/18 06:05 Neutrophils % 63.0 % (40.0-80.0) 09/02/18 06:05 Lymphocytes % 20.9 % (20.0-50.0) 09/02/18 06:05 Monocytes % 10.7 % (2.0-10.0) H 09/02/18 06:05 Eosinophils % 4.2 % (0.0-5.0) 09/02/18 06:05 Basophils % 1.2 % (0.0-2.0) 09/02/18 06:05 Sodium 140 mEq/L (136-145) 09/02/18 06:05 Potassium 4.2 mEq/L (3.5-5.1) 09/02/18 06:05 Chloride 103 mEq/L (98-107) 09/02/18 06:05 Carbon Dioxide 30.2 mEq/L (21.0-31.0) 09/02/18 06:05 Anion Gap 11.0 (7.0-16.0) 09/02/18 06:05 BUN 12 mg/dL (7-25) 09/02/18 06:05 Creatinine 0.9 mg/dL (0.7-1.3) 09/02/18 06:05 Est GFR ( Amer) > 60.0 ml/min (>90) 09/02/18 06:05 Est GFR (Non-Af Amer) > 60.0 ml/min 09/02/18 06:05 BUN/Creatinine Ratio 13.3 09/02/18 06:05 Glucose 91 mg/dL (70-105) 09/02/18 06:05 Calcium 9.8 mg/dL (8.6-10.3) 09/02/18 06:05 Total Bilirubin 0.7 mg/dL (0.3-1.0) 09/02/18 06:05 AST 36 U/L (13-39) 09/02/18 06:05 ALT 32 U/L (7-52) 09/02/18 06:05 Alkaline Phosphatase 81 U/L (34-104) 09/02/18 06:05 Troponin I 0.02 ng/mL (0.01-0.05) 09/01/18 18:00 Total Protein 7.1 gm/dL (6.0-8.3) 09/02/18 06:05 Albumin 3.8 gm/dL (4.2-5.5) L 09/02/18 06:05 Globulin 3.3 gm/dL 09/02/18 06:05 Albumin/Globulin Ratio 1.2 (1.0-1.8) 09/02/18 06:05 Triglycerides 102 mg/dL (<150) 09/02/18 06:05 Cholesterol 127 mg/dL (<200) 09/02/18 06:05 LDL Cholesterol Direct 63 mg/dL (75-193) L 09/02/18 06:05 HDL Cholesterol 44 mg/dL (23-92) 09/02/18 06:05 TSH 0.80 uIU/ml (0.34-5.60) 09/01/18 18:00 Urine Source CLEAN C 09/01/18 18:45 Urine Color YELLOW 09/01/18 18:45 Urine Clarity CLEAR (CLEAR) 09/01/18 18:45 Urine pH 7.5 (4.6 - 8.0) 09/01/18 18:45 Ur Specific [place] 1.020 (1.005-1.030) 09/01/18 18:45 Urine Protein NEGATIVE mg/dL (NEGATIVE) 09/01/18 18:45 Urine Glucose (UA) 100 mg/dL (NEGATIVE) H 09/01/18 18:45 Urine Ketones NEGATIVE mg/dL (NEGATIVE) 09/01/18 18:45 Urine Blood NEGATIVE (NEGATIVE) 09/01/18 18:45 Urine Nitrate NEGATIVE (NEGATIVE) 09/01/18 18:45 Urine Bilirubin NEGATIVE (NEGATIVE) 09/01/18 18:45 Urine Urobilinogen 0.2 E.U./dL (0.2 - 1.0) 09/01/18 18:45 Ur Leukocyte Esterase NEGATIVE (NEGATIVE) 09/01/18 18:45 Urine RBC NONE SEEN /hpf (0-5) 09/01/18 18:45 Urine WBC 0-2 /hpf (0-5) 09/01/18 18:45 Ur Epithelial Cells OCCASIONAL /lpf (FEW) 09/01/18 18:45 Urine Bacteria FEW /hpf (NONE SEEN) 09/01/18 18:45 Salicylates < 25.0 mg/L (30.0-100.0) L 09/01/18 18:00 Urine Opiates Screen NEGATIVE (NEGATIVE) 09/01/18 19:36 Urine Methadone Screen NEGATIVE (NEGATIVE) 09/01/18 19:36 Acetaminophen < 10.0 ug/mL (10.0-30.0) L 09/01/18 18:00 Ur Barbiturates Screen NEGATIVE (NEGATIVE) 09/01/18 19:36 Ur Tricyclics Screen NEGATIVE (NEGATIVE) 09/01/18 19:36 Ur Phencyclidine Scrn NEGATIVE (NEGATIVE) 09/01/18 19:36 Amphetamines Screen NEGATIVE (NEGATIVE) 09/01/18 19:36 U Methamphetamines Scrn NEGATIVE (NEGATIVE) 09/01/18 19:36 U Benzodiazepines Scrn NEGATIVE (NEGATIVE) 09/01/18 19:36 U Cocaine Metab Screen NEGATIVE (NEGATIVE) 09/01/18 19:36 U Cannabinoids Screen NEGATIVE (NEGATIVE) 09/01/18 19:36 Ethyl Alcohol < 10 mg/dL (0-10) 09/01/18 18:00 RPR NONREACTIVE (NONREACTIVE) 09/01/18 18:00 - Physical Exam Vitals and I&O: Vital Signs Temp 97.7 F 09/06/18 14:00 Pulse 76 05/26/19 14:00 Resp 18 09/06/18 14:00 BP 122/76 09/06/18 14:00 Pulse Ox 97 09/06/18 14:00 Intake & Output 09/06/18 09/06/18 09/07/18 06:59 18:59 06:59 Intake Total 240 Balance 240 Intake: Oral 240 Other: # Voids 3 # Bowel Movements 0 Active Medications: Current Medications Acetaminophen (Tylenol) 650 mg PO Q4HR PRN PRN Reason: Mild Pain / Temp above 100 Stop: 10/31/18 22:39 Al Hydrox/Mg Hydrox/Simethicone (Maalox) 30 ml PO Q4HR PRN PRN Reason: GI DISTRESS Stop: 10/31/18 22:58 Amlodipine Besylate (Norvasc) 5 mg PO DAILY [facility] Stop: 11/01/18 08:59 Last Admin: 09/06/18 08:59 Dose: 5 mg Aspirin (Aspirin Chewable) 81 mg PO DAILY [facility] Stop: 11/01/18 08:59 Last Admin: 09/06/18 08:59 Dose: 81 mg Carvedilol (Coreg) 25 mg PO BIDWM [facility] Stop: 11/01/18 07:59 Last Admin: 09/06/18 17:33 Dose: Not Given Donepezil HCl (Aricept) 10 mg PO HS [facility] Stop: 11/03/18 20:59 Last Admin: 09/05/18 21:31 Dose: Not Given Furosemide (Lasix) 20 mg PO TID [facility] Stop: 11/01/18 08:59 Last Admin: 09/06/18 13:55 Dose: Not Given Lactulose (Cephulac) 20 gm PO BID [facility] Stop: 11/01/18 08:59 Last Admin: 09/06/18 16:55 Dose: 20 gm Lorazepam (Ativan) 0.5 mg PO Q4HR PRN; Protocol PRN Reason: Anxiety Stop: 10/01/18 22:56 Last Admin: 09/06/18 09:00 Dose: 0.5 mg Magnesium Hydroxide (Milk Of Magnesia) 30 ml PO HS PRN PRN Reason: Constipation Magnesium Oxide (Mag-Oxide) 400 mg PO BID [facility] Stop: 11/01/18 08:59 Last Admin: 09/06/18 16:55 Dose: 400 mg Metolazone (Zaroxolyn) 5 mg PO DAILY [facility] Stop: 11/01/18 08:59 Last Admin: 09/06/18 09:00 Dose: 5 mg Multivitamins/Vitamin C (Theragran) 1 tab PO DAILY [facility] Stop: 11/01/18 08:59 Last Admin: 09/06/18 08:59 Dose: 1 tab Mupirocin (Bactroban Oint) 10 appl TP BID [facility] Stop: 09/11/18 17:01 Oxcarbazepine (Trileptal) 300 mg PO BID [facility]; Protocol Stop: 11/01/18 08:59 Last Admin: 09/06/18 16:55 Dose: 300 mg Potassium Chloride (Klor-Con) 40 meq PO DAILY [facility] Stop: 11/01/18 08:59 Last Admin: 09/06/18 08:59 Dose: 40 meq Risperidone (Risperdal) 3 mg PO BID [facility]; Protocol Stop: 11/01/18 08:59 Last Admin: 09/06/18 16:54 Dose: 3 mg Spironolactone (Aldactone) 25 mg PO DAILY [facility] Stop: 11/01/18 08:59 Last Admin: 09/06/18 08:59 Dose: 25 mg Tamsulosin HCl (Flomax) 0.4 mg PO HS [facility] Stop: 11/01/18 20:59 Last Admin: 09/05/18 21:40 Dose: Not Given Trazodone HCl (Desyrel) 25 mg PO HS [facility]; Protocol Stop: 11/03/18 20:59 Last Admin: 09/05/18 21:41 Dose: Not Given Zolpidem Tartrate (Ambien) 5 mg PO HS PRN PRN Reason: Insomnia Stop: 10/31/18 22:56 Last Admin: 09/02/18 20:42 Dose: 5 mg General: No acute distress HEENT: Atraumatic, PERRLA Neck: Supple, JVD Cardiovascular: Regular rate, Normal S1, Normal S2 Lungs: Clear to auscultation Abdomen: Bowel sounds, Soft - Procedures Procedures: Procedures Procedure Code Date OTHER GROUP THERAPY 94.44 09/01/14 RECREATIONAL THERAPY 93.81 12/23/11 Assessment/Plan - Assessment Assessment: 1.HTN. 2.CHF. 3.CARDIOMYOPATHY. 4.BPH. 5.SCHIZOAFFECTIVE DISORDER. - Plan Plan: CONTINUE CURRENT TREATMENT Nutritional Asmnt/Malnutr-PDOC - Dietary Evaluation Malnutrition Findings (Please click <Entered> for more info): Nutritional Asmnt/Malnutrition Start: 09/05/18 08: 51 Text: Status: Complete Freq: Protocol: Document 09/05/18 08:51 GAETANO (Rec: 09/05/18 08:56 GAETANO ALBARADON- [email or web address]) Nutritional Asmnt/Malnutrition Patient General Information Diagnosis psychosis Pertinent Medical Hx/Surgical Hx HTN, CHF, cardiomyopathy, beningn prostatic hypertrophy Current Diet Order/ Nutrition Support CCHO no added salt Pertinent Medications Maalox, lasix, lacutlose, theragran, KCl 40mEq/daily Pertinent Labs no labs since 09/02 Nutritional Hx/Data Height 1.42 m Height (Calculated Centimeters) 142.2 Current Weight (lbs) 86.183 kg Weight (Calculated Kilograms) 86.2 Weight (Calculated Grams) 22336.6 Body Mass Index (BMI) 42.5 Recent Weight Change No Weight Status Morbidly Obese GI Symptoms GI Symptoms None Last BM 09/04 Cultural/Ethnic/L[employer] Belief unknown Usual diet at home regular Skin Integrity/Comment: adenike score 22 Current %PO Good (75-100%) Estimated Nutritional Goals BEE in Kcals: Adj wt of IBW Calories/Kcals/Kg 25-30kcals/kg Kcals Calculated 1400-1680kcals/day Protein: Adj wt of IBW Protein g/k.2+g/kg Protein Calculated 67g/day Fluid: ml per MD Nutritional Problem 1. Problem Problem Obese related to Etiology excessive oral intake Signs/Symptoms: as evidenced by BMI 42.6. Intervention/Recommendation Comments Recommend continuing CCHO no added salt Expected Outcomes/Goals Expected Outcomes/Goals PO intake >75% of meals
[2018-09-07] MEDS: Aspirin 81mg Chewable Tab PO SCH (09:40)
[2018-09-07] MEDS: Potassium Chloride 20 mEq ER Tab PO SCH (09:40)
[2018-09-07] MEDS: Metolazone 5 MG TAB PO SCH (09:41)
[2018-09-07] MEDS: Lactulose 10 Gm/15 mL 30mL UDC PO SCH ×3 (09:41→17:52)
[2018-09-07] MEDS: Multivitamin Tab PO SCH (09:41)
[2018-09-07] MEDS: risperiDONE 1 mg/mL 30 mL Bottle PO SCH ×3 (09:42→17:51)
--- NOTE | 2018-09-07 09:48 | Progress Notes ---
DATE: 09/06/2018 SUBJECTIVE: Chart reviewed and the patient interviewed. Also discussed the patient's condition with the staff and reviewed records and labs. The patient is still anxious and in irritable mood. The patient also is still suspicious and paranoid. The patient also still have episodes of extreme anger and irritability and paranoia with difficulty following directions or to calm him down. He also is still pacing up and down the unit. Otherwise, the patient is compliant with taking his medications with no side effects to take medications, although it seems to be reluctant to take it. ASSESSMENT: The patient is still agitated and in irritable mood. TREATMENT PLAN: Continue to monitor behavior and condition closely. Also, continue adjusting psychotropic medications and followup. [facility]# [id number]
--- NOTE | 2018-09-07 14:55 | General Progress Note ---
Subjective - Review of Systems Service Date: 09/07/18 Subjective: RESTING COMFORTABLY NO DISTRESS Objective - Results Result Diagrams: 09/02/18 06:05 09/02/18 06:05 Recent Labs: Laboratory Last Values WBC 8.6 Th/cmm (4.8-10.8) 09/02/18 06:05 RBC 4.38 Mil/cmm (4.30-5.70) 09/02/18 06:05 Hgb 13.2 gm/dL (12-16) 09/02/18 06:05 Hct 39.8 % (41.0-60) L 09/02/18 06:05 MCV 90.7 fl (80-99) 09/02/18 06:05 MCH 30.1 pg (26.0-30.0) H 09/02/18 06:05 MCHC Differential 33.2 pg (28.0-36.0) 09/02/18 06:05 RDW 13.3 % (11.5-20.0) 09/02/18 06:05 Plt Count 236 Th/cmm (150-400) 09/02/18 06:05 MPV 7.5 fl 09/02/18 06:05 Neutrophils % 63.0 % (40.0-80.0) 09/02/18 06:05 Lymphocytes % 20.9 % (20.0-50.0) 09/02/18 06:05 Monocytes % 10.7 % (2.0-10.0) H 09/02/18 06:05 Eosinophils % 4.2 % (0.0-5.0) 09/02/18 06:05 Basophils % 1.2 % (0.0-2.0) 09/02/18 06:05 Sodium 140 mEq/L (136-145) 09/02/18 06:05 Potassium 4.2 mEq/L (3.5-5.1) 09/02/18 06:05 Chloride 103 mEq/L (98-107) 09/02/18 06:05 Carbon Dioxide 30.2 mEq/L (21.0-31.0) 09/02/18 06:05 Anion Gap 11.0 (7.0-16.0) 09/02/18 06:05 BUN 12 mg/dL (7-25) 09/02/18 06:05 Creatinine 0.9 mg/dL (0.7-1.3) 09/02/18 06:05 Est GFR ( Amer) > 60.0 ml/min (>90) 09/02/18 06:05 Est GFR (Non-Af Amer) > 60.0 ml/min 09/02/18 06:05 BUN/Creatinine Ratio 13.3 09/02/18 06:05 Glucose 91 mg/dL (70-105) 09/02/18 06:05 Calcium 9.8 mg/dL (8.6-10.3) 09/02/18 06:05 Total Bilirubin 0.7 mg/dL (0.3-1.0) 09/02/18 06:05 AST 36 U/L (13-39) 09/02/18 06:05 ALT 32 U/L (7-52) 09/02/18 06:05 Alkaline Phosphatase 81 U/L (34-104) 09/02/18 06:05 Troponin I 0.02 ng/mL (0.01-0.05) 09/01/18 18:00 Total Protein 7.1 gm/dL (6.0-8.3) 09/02/18 06:05 Albumin 3.8 gm/dL (4.2-5.5) L 09/02/18 06:05 Globulin 3.3 gm/dL 09/02/18 06:05 Albumin/Globulin Ratio 1.2 (1.0-1.8) 09/02/18 06:05 Triglycerides 102 mg/dL (<150) 09/02/18 06:05 Cholesterol 127 mg/dL (<200) 09/02/18 06:05 LDL Cholesterol Direct 63 mg/dL (75-193) L 09/02/18 06:05 HDL Cholesterol 44 mg/dL (23-92) 09/02/18 06:05 TSH 0.80 uIU/ml (0.34-5.60) 09/01/18 18:00 Urine Source CLEAN C 09/01/18 18:45 Urine Color YELLOW 09/01/18 18:45 Urine Clarity CLEAR (CLEAR) 09/01/18 18:45 Urine pH 7.5 (4.6 - 8.0) 09/01/18 18:45 Ur Specific [place] 1.020 (1.005-1.030) 09/01/18 18:45 Urine Protein NEGATIVE mg/dL (NEGATIVE) 09/01/18 18:45 Urine Glucose (UA) 100 mg/dL (NEGATIVE) H 09/01/18 18:45 Urine Ketones NEGATIVE mg/dL (NEGATIVE) 09/01/18 18:45 Urine Blood NEGATIVE (NEGATIVE) 09/01/18 18:45 Urine Nitrate NEGATIVE (NEGATIVE) 09/01/18 18:45 Urine Bilirubin NEGATIVE (NEGATIVE) 09/01/18 18:45 Urine Urobilinogen 0.2 E.U./dL (0.2 - 1.0) 09/01/18 18:45 Ur Leukocyte Esterase NEGATIVE (NEGATIVE) 09/01/18 18:45 Urine RBC NONE SEEN /hpf (0-5) 09/01/18 18:45 Urine WBC 0-2 /hpf (0-5) 09/01/18 18:45 Ur Epithelial Cells OCCASIONAL /lpf (FEW) 09/01/18 18:45 Urine Bacteria FEW /hpf (NONE SEEN) 09/01/18 18:45 Salicylates < 25.0 mg/L (30.0-100.0) L 09/01/18 18:00 Urine Opiates Screen NEGATIVE (NEGATIVE) 09/01/18 19:36 Urine Methadone Screen NEGATIVE (NEGATIVE) 09/01/18 19:36 Acetaminophen < 10.0 ug/mL (10.0-30.0) L 09/01/18 18:00 Ur Barbiturates Screen NEGATIVE (NEGATIVE) 09/01/18 19:36 Ur Tricyclics Screen NEGATIVE (NEGATIVE) 09/01/18 19:36 Ur Phencyclidine Scrn NEGATIVE (NEGATIVE) 09/01/18 19:36 Amphetamines Screen NEGATIVE (NEGATIVE) 09/01/18 19:36 U Methamphetamines Scrn NEGATIVE (NEGATIVE) 09/01/18 19:36 U Benzodiazepines Scrn NEGATIVE (NEGATIVE) 09/01/18 19:36 U Cocaine Metab Screen NEGATIVE (NEGATIVE) 09/01/18 19:36 U Cannabinoids Screen NEGATIVE (NEGATIVE) 09/01/18 19:36 Ethyl Alcohol < 10 mg/dL (0-10) 09/01/18 18:00 RPR NONREACTIVE (NONREACTIVE) 09/01/18 18:00 - Physical Exam Vitals and I&O: Vital Signs Temp 97.6 F 09/07/18 05:59 Pulse 56 05/27/19 09:55 Resp 20 09/07/18 05:59 BP 159/78 09/07/18 09:55 Pulse Ox 97 09/07/18 05:59 Intake & Output 09/06/18 09/07/18 09/07/18 18:59 06:59 18:59 Intake Total 120 Balance 120 Intake: Oral 120 Other: # Voids 3 # Bowel Movements 0 Active Medications: Current Medications Acetaminophen (Tylenol) 650 mg PO Q4HR PRN PRN Reason: Mild Pain / Temp above 100 Stop: 10/31/18 22:39 Al Hydrox/Mg Hydrox/Simethicone (Maalox) 30 ml PO Q4HR PRN PRN Reason: GI DISTRESS Stop: 10/31/18 22:58 Amlodipine Besylate (Norvasc) 5 mg PO DAILY [facility] Stop: 11/01/18 08:59 Last Admin: 09/07/18 09:55 Dose: Not Given Aspirin (Aspirin Chewable) 81 mg PO DAILY [facility] Stop: 11/01/18 08:59 Last Admin: 09/07/18 09:40 Dose: 81 mg Carvedilol (Coreg) 25 mg PO BIDWM [facility]IK[facility] Stop: 11/01/18 07:59 Last Admin: 09/07/18 09:54 Dose: Not Given Donepezil HCl (Aricept) 10 mg PO HS [facility] Stop: 11/03/18 20:59 Last Admin: 09/06/18 20:58 Dose: 10 mg Furosemide (Lasix) 20 mg PO TID [facility]IKEL Stop: 11/01/18 08:59 Last Admin: 09/07/18 09:49 Dose: 20 mg Lactulose (Cephulac) 20 gm PO BID [facility] Stop: 11/01/18 08:59 Last Admin: 09/07/18 09:55 Dose: Not Given Lorazepam (Ativan) 0.5 mg PO Q4HR PRN; Protocol PRN Reason: Anxiety Stop: 10/01/18 22:56 Last Admin: 09/06/18 20:58 Dose: 0.5 mg Magnesium Hydroxide (Milk Of Magnesia) 30 ml PO HS PRN PRN Reason: Constipation Magnesium Oxide (Mag-Oxide) 400 mg PO BID [facility] Stop: 11/01/18 08:59 Last Admin: 09/07/18 09:40 Dose: 400 mg Metolazone (Zaroxolyn) 5 mg PO DAILY [facility] Stop: 11/01/18 08:59 Last Admin: 09/07/18 09:41 Dose: 5 mg Multivitamins/Vitamin C (Theragran) 1 tab PO DAILY [facility] Stop: 11/01/18 08:59 Last Admin: 09/07/18 09:41 Dose: 1 tab Mupirocin (Bactroban Oint) 10 appl TP BID [facility] Stop: 09/11/18 17:01 Last Admin: 09/07/18 09:55 Dose: Not Given Oxcarbazepine (Trileptal) 300 mg PO BID [facility]; Protocol Stop: 11/01/18 08:59 Last Admin: 09/07/18 09:40 Dose: 300 mg Potassium Chloride (Klor-Con) 40 meq PO DAILY [facility] Stop: 11/01/18 08:59 Last Admin: 09/07/18 09:40 Dose: 40 meq Risperidone (Risperdal) 3 mg PO BID [facility]; Protocol Stop: 11/01/18 08:59 Last Admin: 09/06/18 16:54 Dose: 3 mg Spironolactone (Aldactone) 25 mg PO DAILY [facility] Stop: 11/01/18 08:59 Last Admin: 09/07/18 09:49 Dose: 25 mg Tamsulosin HCl (Flomax) 0.4 mg PO HS [facility] Stop: 11/01/18 20:59 Last Admin: 09/06/18 20:59 Dose: 0.4 mg Trazodone HCl (Desyrel) 25 mg PO HS [facility]; Protocol Stop: 11/03/18 20:59 Last Admin: 09/06/18 20:58 Dose: 25 mg Zolpidem Tartrate (Ambien) 5 mg PO HS PRN PRN Reason: Insomnia Stop: 10/31/18 22:56 Last Admin: 09/02/18 20:42 Dose: 5 mg General: No acute distress HEENT: Atraumatic, PERRLA Neck: Supple, JVD Cardiovascular: Regular rate, Normal S1, Normal S2 Lungs: Clear to auscultation Abdomen: Bowel sounds, Soft - Procedures Procedures: Procedures Procedure Code Date OTHER GROUP THERAPY 94.44 09/01/14 RECREATIONAL THERAPY 93.81 12/23/11 Assessment/Plan - Assessment Assessment: 1.HTN. 2.CHF. 3.CARDIOMYOPATHY. 4.BPH. 5.SCHIZOAFFECTIVE DISORDER. - Plan Plan: CONTINUE CURRENT TREATMENT Nutritional Asmnt/Malnutr-PDOC - Dietary Evaluation Malnutrition Findings (Please click <Entered> for more info): Nutritional Asmnt/Malnutrition Start: 09/05/18 08: 51 Text: Status: Complete Freq: Protocol: Document 09/05/18 08:51 GAETANO (Rec: 09/05/18 08:56 SUNITAANA MARIA ALBARADON- [id number]) Nutritional Asmnt/Malnutrition Patient General Information Diagnosis psychosis Pertinent Medical Hx/Surgical Hx HTN, CHF, cardiomyopathy, beningn prostatic hypertrophy Current Diet Order/ Nutrition Support CCHO no added salt Pertinent Medications Maalox, lasix, lacutlose, theragran, KCl 40mEq/daily Pertinent Labs no labs since 09/02 Nutritional Hx/Data Height 1.42 m Height (Calculated Centimeters) 142.2 Current Weight (lbs) 86.183 kg Weight (Calculated Kilograms) 86.2 Weight (Calculated Grams) 06522.6 Body Mass Index (BMI) 42.5 Recent Weight Change No Weight Status Morbidly Obese GI Symptoms GI Symptoms None Last BM 09/04 Cultural/Ethnic/Christian Belief unknown Usual diet at home regular Skin Integrity/Comment: adenike score 22 Current %PO Good (75-100%) Estimated Nutritional Goals BEE in Kcals: Adj wt of IBW Calories/Kcals/Kg 25-30kcals/kg Kcals Calculated 1400-1680kcals/day Protein: Adj wt of IBW Protein g/k.2+g/kg Protein Calculated 67g/day Fluid: ml per MD Nutritional Problem 1. Problem Problem Obese related to Etiology excessive oral intake Signs/Symptoms: as evidenced by BMI 42.6. Intervention/Recommendation Comments Recommend continuing CCHO no added salt Expected Outcomes/Goals Expected Outcomes/Goals PO intake >75% of meals
--- NOTE | 2018-09-07 19:59 | Progress Notes ---
DATE: 09/07/2018 SUBJECTIVE: Chart reviewed and the patient interviewed. Also discussed the patient's condition with the staff and reviewed records and labs. The patient continued to be in irritable and angry mood, but the patient seems to be slightly quieter and easier to redirect him. The patient also is interacting more. Also, motivated and participating more. The patient still needs redirections and still pacing, but slightly easier to redirect him. The patient also compliant with taking his medications. ASSESSMENT: The patient is still psychotic and agitated. TREATMENT PLAN: Continue to monitor behavior and condition closely. Also, continue adjusting psychotropic medications and work on behavioral modification. JOB# [id number]
[2018-09-08] MEDS: Potassium Chloride 20 mEq ER Tab PO SCH (08:46)
[2018-09-08] MEDS: Metolazone 5 MG TAB PO SCH ×2 (08:48→09:04)
[2018-09-08] MEDS: Aspirin 81mg Chewable Tab PO SCH (08:49)
[2018-09-08] MEDS: Lactulose 10 Gm/15 mL 30mL UDC PO SCH ×2 (08:50→16:45)
[2018-09-08] MEDS: Multivitamin Tab PO SCH (08:50)
[2018-09-08] MEDS: risperiDONE 1 mg/mL 30 mL Bottle PO SCH ×2 (08:50→16:45)
--- NOTE | 2018-09-08 23:49 | Internal Medicine Prog Note ---
Internal Medicine Subjective - Subjective Service Date: 09/08/18 Patient seen and examined:: without staff (HE FEELS BETTER) Patient is:: awake, verbal, talking, confused Per staff patient has:: no adverse event Internal Medicine Objective - Results Result Diagrams: 09/02/18 06:05 09/02/18 06:05 Recent Labs: Laboratory Last Values WBC 8.6 Th/cmm (4.8-10.8) 09/02/18 06:05 RBC 4.38 Mil/cmm (4.30-5.70) 09/02/18 06:05 Hgb 13.2 gm/dL (12-16) 09/02/18 06:05 Hct 39.8 % (41.0-60) L 09/02/18 06:05 MCV 90.7 fl (80-99) 09/02/18 06:05 MCH 30.1 pg (26.0-30.0) H 09/02/18 06:05 MCHC Differential 33.2 pg (28.0-36.0) 09/02/18 06:05 RDW 13.3 % (11.5-20.0) 09/02/18 06:05 Plt Count 236 Th/cmm (150-400) 09/02/18 06:05 MPV 7.5 fl 09/02/18 06:05 Neutrophils % 63.0 % (40.0-80.0) 09/02/18 06:05 Lymphocytes % 20.9 % (20.0-50.0) 09/02/18 06:05 Monocytes % 10.7 % (2.0-10.0) H 09/02/18 06:05 Eosinophils % 4.2 % (0.0-5.0) 09/02/18 06:05 Basophils % 1.2 % (0.0-2.0) 09/02/18 06:05 Sodium 140 mEq/L (136-145) 09/02/18 06:05 Potassium 4.2 mEq/L (3.5-5.1) 09/02/18 06:05 Chloride 103 mEq/L (98-107) 09/02/18 06:05 Carbon Dioxide 30.2 mEq/L (21.0-31.0) 09/02/18 06:05 Anion Gap 11.0 (7.0-16.0) 09/02/18 06:05 BUN 12 mg/dL (7-25) 09/02/18 06:05 Creatinine 0.9 mg/dL (0.7-1.3) 09/02/18 06:05 Est GFR ( Amer) > 60.0 ml/min (>90) 09/02/18 06:05 Est GFR (Non-Af Amer) > 60.0 ml/min 09/02/18 06:05 BUN/Creatinine Ratio 13.3 09/02/18 06:05 Glucose 91 mg/dL (70-105) 09/02/18 06:05 Calcium 9.8 mg/dL (8.6-10.3) 09/02/18 06:05 Total Bilirubin 0.7 mg/dL (0.3-1.0) 09/02/18 06:05 AST 36 U/L (13-39) 09/02/18 06:05 ALT 32 U/L (7-52) 09/02/18 06:05 Alkaline Phosphatase 81 U/L (34-104) 09/02/18 06:05 Troponin I 0.02 ng/mL (0.01-0.05) 09/01/18 18:00 Total Protein 7.1 gm/dL (6.0-8.3) 09/02/18 06:05 Albumin 3.8 gm/dL (4.2-5.5) L 09/02/18 06:05 Globulin 3.3 gm/dL 09/02/18 06:05 Albumin/Globulin Ratio 1.2 (1.0-1.8) 09/02/18 06:05 Triglycerides 102 mg/dL (<150) 09/02/18 06:05 Cholesterol 127 mg/dL (<200) 09/02/18 06:05 LDL Cholesterol Direct 63 mg/dL (75-193) L 09/02/18 06:05 HDL Cholesterol 44 mg/dL (23-92) 09/02/18 06:05 TSH 0.80 uIU/ml (0.34-5.60) 09/01/18 18:00 Urine Source CLEAN C 09/01/18 18:45 Urine Color YELLOW 09/01/18 18:45 Urine Clarity CLEAR (CLEAR) 09/01/18 18:45 Urine pH 7.5 (4.6 - 8.0) 09/01/18 18:45 Ur Specific [place] 1.020 (1.005-1.030) 09/01/18 18:45 Urine Protein NEGATIVE mg/dL (NEGATIVE) 09/01/18 18:45 Urine Glucose (UA) 100 mg/dL (NEGATIVE) H 09/01/18 18:45 Urine Ketones NEGATIVE mg/dL (NEGATIVE) 09/01/18 18:45 Urine Blood NEGATIVE (NEGATIVE) 09/01/18 18:45 Urine Nitrate NEGATIVE (NEGATIVE) 09/01/18 18:45 Urine Bilirubin NEGATIVE (NEGATIVE) 09/01/18 18:45 Urine Urobilinogen 0.2 E.U./dL (0.2 - 1.0) 09/01/18 18:45 Ur Leukocyte Esterase NEGATIVE (NEGATIVE) 09/01/18 18:45 Urine RBC NONE SEEN /hpf (0-5) 09/01/18 18:45 Urine WBC 0-2 /hpf (0-5) 09/01/18 18:45 Ur Epithelial Cells OCCASIONAL /lpf (FEW) 09/01/18 18:45 Urine Bacteria FEW /hpf (NONE SEEN) 09/01/18 18:45 Salicylates < 25.0 mg/L (30.0-100.0) L 09/01/18 18:00 Urine Opiates Screen NEGATIVE (NEGATIVE) 09/01/18 19:36 Urine Methadone Screen NEGATIVE (NEGATIVE) 09/01/18 19:36 Acetaminophen < 10.0 ug/mL (10.0-30.0) L 09/01/18 18:00 Ur Barbiturates Screen NEGATIVE (NEGATIVE) 09/01/18 19:36 Ur Tricyclics Screen NEGATIVE (NEGATIVE) 09/01/18 19:36 Ur Phencyclidine Scrn NEGATIVE (NEGATIVE) 09/01/18 19:36 Amphetamines Screen NEGATIVE (NEGATIVE) 09/01/18 19:36 U Methamphetamines Scrn NEGATIVE (NEGATIVE) 09/01/18 19:36 U Benzodiazepines Scrn NEGATIVE (NEGATIVE) 09/01/18 19:36 U Cocaine Metab Screen NEGATIVE (NEGATIVE) 09/01/18 19:36 U Cannabinoids Screen NEGATIVE (NEGATIVE) 09/01/18 19:36 Ethyl Alcohol < 10 mg/dL (0-10) 09/01/18 18:00 RPR NONREACTIVE (NONREACTIVE) 09/01/18 18:00 - Physical Exam Vitals and I&O: Vital Signs Temp 97.8 F 09/08/18 19:47 Pulse 73 09/08/18 19:47 Resp 18 09/08/18 19:47 BP 131/70 09/08/18 20:33 Pulse Ox 97 09/08/18 19:47 Intake & Output 09/08/18 09/08/18 09/09/18 06:59 18:59 06:59 Intake Total 480 240 Balance 480 240 Intake: Oral 480 240 Other: # Voids 3 2 # Bowel Movements 0 Active Medications: Current Medications Acetaminophen (Tylenol) 650 mg PO Q4HR PRN PRN Reason: Mild Pain / Temp above 100 Stop: 10/31/18 22:39 Al Hydrox/Mg Hydrox/Simethicone (Maalox) 30 ml PO Q4HR PRN PRN Reason: GI DISTRESS Stop: 10/31/18 22:58 Amlodipine Besylate (Norvasc) 5 mg PO DAILY COUNTS INCLUDE 234 BEDS AT [facility] Stop: 11/01/18 08:59 Last Admin: 09/08/18 09:02 Dose: 5 mg Aspirin (Aspirin Chewable) 81 mg PO DAILY [facility] Stop: 11/01/18 08:59 Last Admin: 09/08/18 08:49 Dose: 81 mg Carvedilol (Coreg) 25 mg PO BIDWM [facility] Stop: 11/01/18 07:59 Last Admin: 09/08/18 18:32 Dose: Not Given Donepezil HCl (Aricept) 10 mg PO HS [facility] Stop: 11/03/18 20:59 Last Admin: 09/08/18 20:33 Dose: 10 mg Furosemide (Lasix) 20 mg PO TID [facility] Stop: 11/01/18 08:59 Last Admin: 09/08/18 20:33 Dose: 20 mg Lactulose (Cephulac) 20 gm PO BID [facility] Stop: 11/01/18 08:59 Last Admin: 09/08/18 16:45 Dose: 20 gm Lorazepam (Ativan) 0.5 mg PO Q4HR PRN; Protocol PRN Reason: Anxiety Stop: 10/01/18 22:56 Last Admin: 09/06/18 20:58 Dose: 0.5 mg Magnesium Hydroxide (Milk Of Magnesia) 30 ml PO HS PRN PRN Reason: Constipation Magnesium Oxide (Mag-Oxide) 400 mg PO BID COUNTS INCLUDE 234 BEDS AT [facility] Stop: 11/01/18 08:59 Last Admin: 09/08/18 16:45 Dose: 400 mg Metolazone (Zaroxolyn) 5 mg PO DAILY [facility] Stop: 11/01/18 08:59 Last Admin: 09/08/18 09:04 Dose: 5 mg Multivitamins/Vitamin C (Theragran) 1 tab PO DAILY [facility] Stop: 11/01/18 08:59 Last Admin: 09/08/18 08:50 Dose: Not Given Mupirocin (Bactroban Oint) 10 appl TP BID COUNTS INCLUDE 234 BEDS AT [facility] Stop: 09/11/18 17:01 Last Admin: 09/08/18 16:45 Dose: 10 appl Oxcarbazepine (Trileptal) 300 mg PO BID COUNTS INCLUDE 234 BEDS AT [facility]; Protocol Stop: 11/01/18 08:59 Last Admin: 09/08/18 16:45 Dose: 300 mg Potassium Chloride (Klor-Con) 40 meq PO DAILY COUNTS [facility]CLUDE 234 BEDS AT [facility] Stop: 11/01/18 08:59 Last Admin: 09/08/18 08:46 Dose: 40 meq Risperidone (Risperdal) 3 mg PO BID COUNTS [facility]CLUDE 234 BEDS AT [facility]; Protocol Stop: 11/01/18 08:59 Last Admin: 09/08/18 16:45 Dose: 3 mg Spironolactone (Aldactone) 25 mg PO DAILY COUNTS INCLUDE 234 BEDS AT [facility] Stop: 11/01/18 08:59 Last Admin: 09/08/18 09:03 Dose: 25 mg Tamsulosin HCl (Flomax) 0.4 mg PO HS COUNTS INCLUDE 234 BEDS AT [facility] Stop: 11/01/18 20:59 Last Admin: 09/08/18 20:34 Dose: 0.4 mg Trazodone HCl (Desyrel) 25 mg PO HS COUNTS INCLUDE 234 BEDS AT [facility]; Protocol Stop: 11/03/18 20:59 Last Admin: 09/08/18 20:34 Dose: 25 mg Zolpidem Tartrate (Ambien) 5 mg PO HS PRN PRN Reason: Insomnia Stop: 10/31/18 22:56 Last Admin: 09/02/18 20:42 Dose: 5 mg General: alert, demented HEENT: NC/AT, PERRLA, EOMI, anicteric sclerae, throat clear Neck: Supple, No JVD, No thyromegaly, +2 carotid pulse wo bruit, No LAD Lungs: CTAB Cardiovascular: RRR, Normal S1, Normal S2, without murmur Abdomen: soft, non-tender, non-distended Extremities: clear Neurological: no change - Procedures Procedures: Procedures Procedure Code Date OTHER GROUP THERAPY 94.44 09/01/14 RECREATIONAL THERAPY 93.81 12/23/11 Internal Medicine Assmt/Plan - Assessment Assessment: 1.HTN. 2.CHF. 3.CARDIOMYOPATHY. 4.BPH. 5.SCHIZOAFFECTIVE DISORDER. - Plan Plan: CONTINUE ON CURRENT MEDICATION AND DIET. Nutritional Asmnt/Malnutr-PDOC - Dietary Evaluation Malnutrition Findings (Please click <Entered> for more info): Nutritional Asmnt/Malnutrition Start: 09/05/18 08: 51 Text: Status: Complete Freq: Protocol: Document 09/05/18 08:51 GAETANO (Rec: 09/05/18 08:56 GAETANO BYRNES- FNS1) Nutritional Asmnt/Malnutrition Patient General Information Diagnosis psychosis Pertinent Medical Hx/Surgical Hx HTN, CHF, cardiomyopathy, beningn prostatic hypertrophy Current Diet Order/ Nutrition Support CCHO no added salt Pertinent Medications Maalox, lasix, lacutlose, theragran, KCl 40mEq/daily Pertinent Labs no labs since 09/02 Nutritional Hx/Data Height 1.42 m Height (Calculated Centimeters) 142.2 Current Weight (lbs) 86.183 kg Weight (Calculated Kilograms) 86.2 Weight (Calculated Grams) 30961.6 Body Mass Index (BMI) 42.5 Recent Weight Change No Weight Status Morbidly Obese GI Symptoms GI Symptoms None Last BM 09/04 Cultural/Ethnic/Quaker Belief unknown Usual diet at home regular Skin Integrity/Comment: adenike score 22 Current %PO Good (75-100%) Estimated Nutritional Goals BEE in Kcals: Adj wt of IBW Calories/Kcals/Kg 25-30kcals/kg Kcals Calculated 1400-1680kcals/day Protein: Adj wt of IBW Protein g/k.2+g/kg Protein Calculated 67g/day Fluid: ml per MD Nutritional Problem 1. Problem Problem Obese related to Etiology excessive oral intake Signs/Symptoms: as evidenced by BMI 42.6. Intervention/Recommendation Comments Recommend continuing CCHO no added salt Expected Outcomes/Goals Expected Outcomes/Goals PO intake >75% of meals
--- NOTE | 2018-09-09 02:24 | Progress Notes ---
DATE: 09/08/[address] Alvarado. SUBJECTIVE: This is a well-known case to me. He was admitted. I did the evaluation upon admission. The patient continues to be irritable and angry. Continues to need redirection. It is easier to redirect him according to the staff. He is more motivated to participate. The patient continues to have episodes of agitation and psychosis. No side effects with the medication, no sedation, no nausea and no extrapyramidal symptoms. We will continue the patient in group therapy, milieu therapy, and adjust the medication as needed. JOB# [id number]
[2018-09-09] MEDS: Lactulose 10 Gm/15 mL 30mL UDC PO SCH ×2 (09:25→16:35)
[2018-09-09] MEDS: Metolazone 5 MG TAB PO SCH (09:25)
[2018-09-09] MEDS: Potassium Chloride 20 mEq ER Tab PO SCH (09:27)
[2018-09-09] MEDS: Aspirin 81mg Chewable Tab PO SCH (09:27)
[2018-09-09] MEDS: Multivitamin Tab PO SCH (09:32)
[2018-09-09] MEDS: risperiDONE 1 mg/mL 30 mL Bottle PO SCH ×2 (09:33→16:40)
--- NOTE | 2018-09-09 13:03 | Internal Medicine Prog Note ---
Internal Medicine Subjective - Subjective Service Date: 09/09/18 Patient seen and examined:: with staff (HE FEELS WELL) Patient is:: awake, verbal, talking, confused Per staff patient has:: no adverse event Internal Medicine Objective - Results Result Diagrams: 09/02/18 06:05 09/02/18 06:05 Recent Labs: Laboratory Last Values WBC 8.6 Th/cmm (4.8-10.8) 09/02/18 06:05 RBC 4.38 Mil/cmm (4.30-5.70) 09/02/18 06:05 Hgb 13.2 gm/dL (12-16) 09/02/18 06:05 Hct 39.8 % (41.0-60) L 09/02/18 06:05 MCV 90.7 fl (80-99) 09/02/18 06:05 MCH 30.1 pg (26.0-30.0) H 09/02/18 06:05 MCHC Differential 33.2 pg (28.0-36.0) 09/02/18 06:05 RDW 13.3 % (11.5-20.0) 09/02/18 06:05 Plt Count 236 Th/cmm (150-400) 09/02/18 06:05 MPV 7.5 fl 09/02/18 06:05 Neutrophils % 63.0 % (40.0-80.0) 09/02/18 06:05 Lymphocytes % 20.9 % (20.0-50.0) 09/02/18 06:05 Monocytes % 10.7 % (2.0-10.0) H 09/02/18 06:05 Eosinophils % 4.2 % (0.0-5.0) 09/02/18 06:05 Basophils % 1.2 % (0.0-2.0) 09/02/18 06:05 Sodium 140 mEq/L (136-145) 09/02/18 06:05 Potassium 4.2 mEq/L (3.5-5.1) 09/02/18 06:05 Chloride 103 mEq/L (98-107) 09/02/18 06:05 Carbon Dioxide 30.2 mEq/L (21.0-31.0) 09/02/18 06:05 Anion Gap 11.0 (7.0-16.0) 09/02/18 06:05 BUN 12 mg/dL (7-25) 09/02/18 06:05 Creatinine 0.9 mg/dL (0.7-1.3) 09/02/18 06:05 Est GFR ( Amer) > 60.0 ml/min (>90) 09/02/18 06:05 Est GFR (Non-Af Amer) > 60.0 ml/min 09/02/18 06:05 BUN/Creatinine Ratio 13.3 09/02/18 06:05 Glucose 91 mg/dL (70-105) 09/02/18 06:05 Calcium 9.8 mg/dL (8.6-10.3) 09/02/18 06:05 Total Bilirubin 0.7 mg/dL (0.3-1.0) 09/02/18 06:05 AST 36 U/L (13-39) 09/02/18 06:05 ALT 32 U/L (7-52) 09/02/18 06:05 Alkaline Phosphatase 81 U/L (34-104) 09/02/18 06:05 Troponin I 0.02 ng/mL (0.01-0.05) 09/01/18 18:00 Total Protein 7.1 gm/dL (6.0-8.3) 09/02/18 06:05 Albumin 3.8 gm/dL (4.2-5.5) L 09/02/18 06:05 Globulin 3.3 gm/dL 09/02/18 06:05 Albumin/Globulin Ratio 1.2 (1.0-1.8) 09/02/18 06:05 Triglycerides 102 mg/dL (<150) 09/02/18 06:05 Cholesterol 127 mg/dL (<200) 09/02/18 06:05 LDL Cholesterol Direct 63 mg/dL (75-193) L 09/02/18 06:05 HDL Cholesterol 44 mg/dL (23-92) 09/02/18 06:05 TSH 0.80 uIU/ml (0.34-5.60) 09/01/18 18:00 Urine Source CLEAN C 09/01/18 18:45 Urine Color YELLOW 09/01/18 18:45 Urine Clarity CLEAR (CLEAR) 09/01/18 18:45 Urine pH 7.5 (4.6 - 8.0) 09/01/18 18:45 Ur Specific [place] 1.020 (1.005-1.030) 09/01/18 18:45 Urine Protein NEGATIVE mg/dL (NEGATIVE) 09/01/18 18:45 Urine Glucose (UA) 100 mg/dL (NEGATIVE) H 09/01/18 18:45 Urine Ketones NEGATIVE mg/dL (NEGATIVE) 09/01/18 18:45 Urine Blood NEGATIVE (NEGATIVE) 09/01/18 18:45 Urine Nitrate NEGATIVE (NEGATIVE) 09/01/18 18:45 Urine Bilirubin NEGATIVE (NEGATIVE) 09/01/18 18:45 Urine Urobilinogen 0.2 E.U./dL (0.2 - 1.0) 09/01/18 18:45 Ur Leukocyte Esterase NEGATIVE (NEGATIVE) 09/01/18 18:45 Urine RBC NONE SEEN /hpf (0-5) 09/01/18 18:45 Urine WBC 0-2 /hpf (0-5) 09/01/18 18:45 Ur Epithelial Cells OCCASIONAL /lpf (FEW) 09/01/18 18:45 Urine Bacteria FEW /hpf (NONE SEEN) 09/01/18 18:45 Salicylates < 25.0 mg/L (30.0-100.0) L 09/01/18 18:00 Urine Opiates Screen NEGATIVE (NEGATIVE) 09/01/18 19:36 Urine Methadone Screen NEGATIVE (NEGATIVE) 09/01/18 19:36 Acetaminophen < 10.0 ug/mL (10.0-30.0) L 09/01/18 18:00 Ur Barbiturates Screen NEGATIVE (NEGATIVE) 09/01/18 19:36 Oxcarbazepine None Detected ug/mL (10-35) 09/02/18 06:05 Ur Tricyclics Screen NEGATIVE (NEGATIVE) 09/01/18 19:36 Ur Phencyclidine Scrn NEGATIVE (NEGATIVE) 09/01/18 19:36 Amphetamines Screen NEGATIVE (NEGATIVE) 09/01/18 19:36 U Methamphetamines Scrn NEGATIVE (NEGATIVE) 09/01/18 19:36 U Benzodiazepines Scrn NEGATIVE (NEGATIVE) 09/01/18 19:36 U Cocaine Metab Screen NEGATIVE (NEGATIVE) 09/01/18 19:36 U Cannabinoids Screen NEGATIVE (NEGATIVE) 09/01/18 19:36 Ethyl Alcohol < 10 mg/dL (0-10) 09/01/18 18:00 RPR NONREACTIVE (NONREACTIVE) 09/01/18 18:00 - Physical Exam Vitals and I&O: Vital Signs Temp 98.0 F 09/09/18 04:57 Pulse 88 09/09/18 09:31 Resp 19 09/09/18 04:57 BP 128/80 09/09/18 09:31 Pulse Ox 95 09/09/18 04:57 Intake & Output 09/08/18 09/09/18 09/09/18 18:59 06:59 18:59 Intake Total 480 Balance 480 Intake: Oral 480 Other: # Voids 2 Active Medications: Current Medications Acetaminophen (Tylenol) 650 mg PO Q4HR PRN PRN Reason: Mild Pain / Temp above 100 Stop: 10/31/18 22:39 Al Hydrox/Mg Hydrox/Simethicone (Maalox) 30 ml PO Q4HR PRN PRN Reason: GI DISTRESS Stop: 10/31/18 22:58 Amlodipine Besylate (Norvasc) 5 mg PO DAILY [facility] Stop: 11/01/18 08:59 Last Admin: 09/09/18 09:31 Dose: 5 mg Aspirin (Aspirin Chewable) 81 mg PO DAILY [facility] Stop: 11/01/18 08:59 Last Admin: 09/09/18 09:27 Dose: 81 mg Carvedilol (Coreg) 25 mg PO BIDWM [facility] Stop: 11/01/18 07:59 Last Admin: 09/09/18 09:28 Dose: 25 mg Donepezil HCl (Aricept) 10 mg PO HS [facility] Stop: 11/03/18 20:59 Last Admin: 09/08/18 20:33 Dose: 10 mg Furosemide (Lasix) 20 mg PO TID [facility] Stop: 11/01/18 08:59 Last Admin: 09/09/18 09:27 Dose: 20 mg Lactulose (Cephulac) 20 gm PO BID [facility] Stop: 11/01/18 08:59 Last Admin: 09/09/18 09:25 Dose: 20 gm Lorazepam (Ativan) 0.5 mg PO Q4HR PRN; Protocol PRN Reason: Anxiety Stop: 10/01/18 22:56 Last Admin: 09/06/18 20:58 Dose: 0.5 mg Magnesium Hydroxide (Milk Of Magnesia) 30 ml PO HS PRN PRN Reason: Constipation Magnesium Oxide (Mag-Oxide) 400 mg PO BID [facility] Stop: 11/01/18 08:59 Last Admin: 09/09/18 09:26 Dose: 400 mg Metolazone (Zaroxolyn) 5 mg PO DAILY [facility]IKEL Stop: 11/01/18 08:59 Last Admin: 09/09/18 09:25 Dose: 5 mg Multivitamins/Vitamin C (Theragran) 1 tab PO DAILY MAIKEL Stop: 11/01/18 08:59 Last Admin: 09/09/18 09:32 Dose: 1 tab Mupirocin (Bactroban Oint) 10 appl TP BID [facility] Stop: 09/11/18 17:01 Last Admin: 09/09/18 09:33 Dose: 10 appl Oxcarbazepine (Trileptal) 300 mg PO BID [facility]; Protocol Stop: 11/01/18 08:59 Last Admin: 09/09/18 09:27 Dose: 300 mg Potassium Chloride (Klor-Con) 40 meq PO DAILY MAIKEL Stop: 11/01/18 08:59 Last Admin: 09/09/18 09:27 Dose: 40 meq Risperidone (Risperdal) 3 mg PO BID [facility]; Protocol Stop: 11/01/18 08:59 Last Admin: 09/09/18 09:33 Dose: 3 mg Spironolactone (Aldactone) 25 mg PO DAILY [facility] Stop: 11/01/18 08:59 Last Admin: 09/09/18 09:26 Dose: 25 mg Tamsulosin HCl (Flomax) 0.4 mg PO HS [facility] Stop: 11/01/18 20:59 Last Admin: 09/08/18 20:34 Dose: 0.4 mg Trazodone HCl (Desyrel) 25 mg PO HS [facility]; Protocol Stop: 11/03/18 20:59 Last Admin: 09/08/18 20:34 Dose: 25 mg Zolpidem Tartrate (Ambien) 5 mg PO HS PRN PRN Reason: Insomnia Stop: 10/31/18 22:56 Last Admin: 09/02/18 20:42 Dose: 5 mg General: alert, demented HEENT: NC/AT, PERRLA, EOMI, anicteric sclerae, throat clear Neck: Supple, No JVD, No thyromegaly, +2 carotid pulse wo bruit, No LAD Lungs: CTAB Cardiovascular: RRR, Normal S1, Normal S2, without murmur Abdomen: soft, non-tender, non-distended Extremities: clear Neurological: no change - Procedures Procedures: Procedures Procedure Code Date OTHER GROUP THERAPY 94.44 09/01/14 RECREATIONAL THERAPY 93.81 12/23/11 Internal Medicine Assmt/Plan - Assessment Assessment: 1.HTN. 2.CHF. 3.CARDIOMYOPATHY. 4.BPH. 5.SCHIZOAFFECTIVE DISORDER. - Plan Plan: CONTINUE ON CURRENT MEDICATION AND DIET. Nutritional Asmnt/Malnutr-PDOC - Dietary Evaluation Malnutrition Findings (Please click <Entered> for more info): Nutritional Asmnt/Malnutrition Start: 09/05/18 08: 51 Text: Status: Complete Freq: Protocol: Document 09/05/18 08:51 GAETANO (Rec: 09/05/18 08:56 GAETANO BYRNES- [id number]) Nutritional Asmnt/Malnutrition Patient General Information Diagnosis psychosis Pertinent Medical Hx/Surgical Hx HTN, CHF, cardiomyopathy, beningn prostatic hypertrophy Current Diet Order/ Nutrition Support CCHO no added salt Pertinent Medications Maalox, lasix, lacutlose, theragran, KCl 40mEq/daily Pertinent Labs no labs since 09/02 Nutritional Hx/Data Height 1.42 m Height (Calculated Centimeters) 142.2 Current Weight (lbs) 86.183 kg Weight (Calculated Kilograms) 86.2 Weight (Calculated Grams) 29772.6 Body Mass Index (BMI) 42.5 Recent Weight Change No Weight Status Morbidly Obese GI Symptoms GI Symptoms None Last BM 09/04 Cultural/Ethnic/Episcopalian Belief unknown Usual diet at home regular Skin Integrity/Comment: adenike score 22 Current %PO Good (75-100%) Estimated Nutritional Goals BEE in Kcals: Adj wt of IBW Calories/Kcals/Kg 25-30kcals/kg Kcals Calculated 1400-1680kcals/day Protein: Adj wt of IBW Protein g/k.2+g/kg Protein Calculated 67g/day Fluid: ml per MD Nutritional Problem 1. Problem Problem Obese related to Etiology excessive oral intake Signs/Symptoms: as evidenced by BMI 42.6. Intervention/Recommendation Comments Recommend continuing CCHO no added salt Expected Outcomes/Goals Expected Outcomes/Goals PO intake >75% of meals
[2018-09-10 07:30] LABS: ALKALINE PHOSPHATASE 90 U/L (34-104); BILIRUBIN,TOTAL 0.6 mg/dL (0.3-1.0); BUN - UREA NITROGEN 20 mg/dL (7-25); CALCIUM SERUM 10.1 mg/dL (8.6-10.3); CARBON DIOXIDE 32.1 mEq/L (21.0-31.0); CHLORIDE 97 mEq/L (98-107); CREATININE - SERUM 0.9 mg/dL (0.7-1.3); GFR AFRICAN-AMERICAN > 60.0 ml/min (>90); GFR NON AFRICAN-AMERICAN > 60.0 ml/min; GLUCOSE 85 mg/dL (70-105); POTASSIUM SERUM 3.1 mEq/L (3.5-5.1); SGOT 32 U/L (13-39); SGPT/ALT 28 U/L (7-52); SODIUM SERUM 136 mEq/L (136-145)
[2018-09-10] MEDS: Aspirin 81mg Chewable Tab PO SCH (09:01)
[2018-09-10] MEDS: Metolazone 5 MG TAB PO SCH (09:04)
[2018-09-10] MEDS: Potassium Chloride 20 mEq ER Tab PO SCH (09:05)
[2018-09-10] MEDS: Multivitamin Tab PO SCH (09:05)
[2018-09-10] MEDS: Lactulose 10 Gm/15 mL 30mL UDC PO SCH ×2 (09:07→17:38)
[2018-09-10] MEDS: risperiDONE 1 mg/mL 30 mL Bottle PO SCH ×2 (09:14→17:34)
--- NOTE | 2018-09-10 10:59 | Progress Notes ---
DATE: 09/09/2018 SUBJECTIVE: Chart was reviewed and the patient interviewed. Also discussed the patient's condition with the staff and reviewed records and labs. The patient is still depressed mood and is still suspicious and paranoid. The patient also has been withdrawn and guarded, actively hallucinating and still talking to himself. Otherwise, the patient said that his visited him, and they have good relationship. The patient also is less agitated and less irritable. The patient and he also has been compliant with taking his medications with no side effects of medications. ASSESSMENT: The patient is still psychotic and anxious. TREATMENT PLAN: Continue to monitor his behavior and his condition closely. Also, continue adjusting psychotropic medications and followup. [facility]# [id number]
--- NOTE | 2018-09-10 14:16 | Internal Medicine Prog Note ---
Internal Medicine Subjective - Subjective Service Date: 09/10/18 Patient seen and examined:: with staff (HE FEELS WELL) Patient is:: awake, verbal, talking, confused Per staff patient has:: no adverse event Internal Medicine Objective - Results Result Diagrams: 09/02/18 06:05 09/10/18 06:30 Recent Labs: Laboratory Last Values WBC 8.6 Th/cmm (4.8-10.8) 09/02/18 06:05 RBC 4.38 Mil/cmm (4.30-5.70) 09/02/18 06:05 Hgb 13.2 gm/dL (12-16) 09/02/18 06:05 Hct 39.8 % (41.0-60) L 09/02/18 06:05 MCV 90.7 fl (80-99) 09/02/18 06:05 MCH 30.1 pg (26.0-30.0) H 09/02/18 06:05 MCHC Differential 33.2 pg (28.0-36.0) 09/02/18 06:05 RDW 13.3 % (11.5-20.0) 09/02/18 06:05 Plt Count 236 Th/cmm (150-400) 09/02/18 06:05 MPV 7.5 fl 09/02/18 06:05 Neutrophils % 63.0 % (40.0-80.0) 09/02/18 06:05 Lymphocytes % 20.9 % (20.0-50.0) 09/02/18 06:05 Monocytes % 10.7 % (2.0-10.0) H 09/02/18 06:05 Eosinophils % 4.2 % (0.0-5.0) 09/02/18 06:05 Basophils % 1.2 % (0.0-2.0) 09/02/18 06:05 Sodium 136 mEq/L (136-145) 09/10/18 06:30 Potassium 3.1 mEq/L (3.5-5.1) L 09/10/18 06:30 Chloride 97 mEq/L (98-107) L 09/10/18 06:30 Carbon Dioxide 32.1 mEq/L (21.0-31.0) H 09/10/18 06:30 Anion Gap 10.0 (7.0-16.0) 09/10/18 06:30 BUN 20 mg/dL (7-25) 09/10/18 06:30 Creatinine 0.9 mg/dL (0.7-1.3) 09/10/18 06:30 Est GFR ( Amer) > 60.0 ml/min (>90) 09/10/18 06:30 Est GFR (Non-Af Amer) > 60.0 ml/min 09/10/18 06:30 BUN/Creatinine Ratio 22.2 09/10/18 06:30 Glucose 85 mg/dL (70-105) 09/10/18 06:30 Calcium 10.1 mg/dL (8.6-10.3) 09/10/18 06:30 Total Bilirubin 0.6 mg/dL (0.3-1.0) 09/10/18 06:30 AST 32 U/L (13-39) 09/10/18 06:30 ALT 28 U/L (7-52) 09/10/18 06:30 Alkaline Phosphatase 90 U/L (34-104) 09/10/18 06:30 Troponin I 0.02 ng/mL (0.01-0.05) 09/01/18 18:00 Total Protein 8.0 gm/dL (6.0-8.3) 09/10/18 06:30 Albumin 4.0 gm/dL (4.2-5.5) L 09/10/18 06:30 Globulin 4.0 gm/dL 09/10/18 06:30 Albumin/Globulin Ratio 1.0 (1.0-1.8) 09/10/18 06:30 Triglycerides 102 mg/dL (<150) 09/02/18 06:05 Cholesterol 127 mg/dL (<200) 09/02/18 06:05 LDL Cholesterol Direct 63 mg/dL (75-193) L 09/02/18 06:05 HDL Cholesterol 44 mg/dL (23-92) 09/02/18 06:05 TSH 0.80 uIU/ml (0.34-5.60) 09/01/18 18:00 Urine Source CLEAN C 09/01/18 18:45 Urine Color YELLOW 09/01/18 18:45 Urine Clarity CLEAR (CLEAR) 09/01/18 18:45 Urine pH 7.5 (4.6 - 8.0) 09/01/18 18:45 Ur Specific [place] 1.020 (1.005-1.030) 09/01/18 18:45 Urine Protein NEGATIVE mg/dL (NEGATIVE) 09/01/18 18:45 Urine Glucose (UA) 100 mg/dL (NEGATIVE) H 09/01/18 18:45 Urine Ketones NEGATIVE mg/dL (NEGATIVE) 09/01/18 18:45 Urine Blood NEGATIVE (NEGATIVE) 09/01/18 18:45 Urine Nitrate NEGATIVE (NEGATIVE) 09/01/18 18:45 Urine Bilirubin NEGATIVE (NEGATIVE) 09/01/18 18:45 Urine Urobilinogen 0.2 E.U./dL (0.2 - 1.0) 09/01/18 18:45 Ur Leukocyte Esterase NEGATIVE (NEGATIVE) 09/01/18 18:45 Urine RBC NONE SEEN /hpf (0-5) 09/01/18 18:45 Urine WBC 0-2 /hpf (0-5) 09/01/18 18:45 Ur Epithelial Cells OCCASIONAL /lpf (FEW) 09/01/18 18:45 Urine Bacteria FEW /hpf (NONE SEEN) 09/01/18 18:45 Salicylates < 25.0 mg/L (30.0-100.0) L 09/01/18 18:00 Urine Opiates Screen NEGATIVE (NEGATIVE) 09/01/18 19:36 Urine Methadone Screen NEGATIVE (NEGATIVE) 09/01/18 19:36 Acetaminophen < 10.0 ug/mL (10.0-30.0) L 09/01/18 18:00 Ur Barbiturates Screen NEGATIVE (NEGATIVE) 09/01/18 19:36 Oxcarbazepine None Detected ug/mL (10-35) 09/02/18 06:05 Ur Tricyclics Screen NEGATIVE (NEGATIVE) 09/01/18 19:36 Ur Phencyclidine Scrn NEGATIVE (NEGATIVE) 09/01/18 19:36 Amphetamines Screen NEGATIVE (NEGATIVE) 09/01/18 19:36 U Methamphetamines Scrn NEGATIVE (NEGATIVE) 09/01/18 19:36 U Benzodiazepines Scrn NEGATIVE (NEGATIVE) 09/01/18 19:36 U Cocaine Metab Screen NEGATIVE (NEGATIVE) 09/01/18 19:36 U Cannabinoids Screen NEGATIVE (NEGATIVE) 09/01/18 19:36 Ethyl Alcohol < 10 mg/dL (0-10) 09/01/18 18:00 RPR NONREACTIVE (NONREACTIVE) 09/01/18 18:00 - Physical Exam Vitals and I&O: Vital Signs Temp 97.3 F 09/10/18 14:00 Pulse 59 09/10/18 14:00 Resp 18 09/10/18 14:00 BP 103/59 09/10/18 14:00 Pulse Ox 97 09/10/18 14:00 Intake & Output 09/09/18 09/10/18 09/10/18 18:59 06:59 18:59 Intake Total 1450 Balance 1450 Intake: Oral 1450 Other: # Voids 3 # Bowel Movements 0 Active Medications: Current Medications Acetaminophen (Tylenol) 650 mg PO Q4HR PRN PRN Reason: Mild Pain / Temp above 100 Stop: 10/31/18 22:39 Al Hydrox/Mg Hydrox/Simethicone (Maalox) 30 ml PO Q4HR PRN PRN Reason: GI DISTRESS Stop: 10/31/18 22:58 Amlodipine Besylate (Norvasc) 5 mg PO DAILY MAIKEL Stop: 11/01/18 08:59 Last Admin: 09/10/18 09:05 Dose: 5 mg Aspirin (Aspirin Chewable) 81 mg PO DAILY [facility]IKEL Stop: 11/01/18 08:59 Last Admin: 09/10/18 09:01 Dose: 81 mg Carvedilol (Coreg) 25 mg PO BIDWM MAIKEL Stop: 11/01/18 07:59 Last Admin: 09/10/18 09:00 Dose: 25 mg Donepezil HCl (Aricept) 10 mg PO HS [facility] Stop: 11/03/18 20:59 Last Admin: 09/09/18 20:15 Dose: 10 mg Furosemide (Lasix) 20 mg PO TID MAIKEL Stop: 11/01/18 08:59 Last Admin: 09/10/18 09:06 Dose: 20 mg Lactulose (Cephulac) 20 gm PO BID [facility]IK[facility] Stop: 11/01/18 08:59 Last Admin: 09/10/18 09:07 Dose: 20 gm Lorazepam (Ativan) 0.5 mg PO Q4HR PRN; Protocol PRN Reason: Anxiety Stop: 10/01/18 22:56 Last Admin: 09/06/18 20:58 Dose: 0.5 mg Magnesium Hydroxide (Milk Of Magnesia) 30 ml PO HS PRN PRN Reason: Constipation Magnesium Oxide (Mag-Oxide) 400 mg PO BID [facility] Stop: 11/01/18 08:59 Last Admin: 09/10/18 09:02 Dose: 400 mg Metolazone (Zaroxolyn) 5 mg PO DAILY MAIKEL Stop: 11/01/18 08:59 Last Admin: 09/10/18 09:04 Dose: 5 mg Multivitamins/Vitamin C (Theragran) 1 tab PO DAILY MAIKEL Stop: 11/01/18 08:59 Last Admin: 09/10/18 09:05 Dose: 1 tab Mupirocin (Bactroban Oint) 1 appl TP BID [facility] Stop: 09/12/18 17:01 Oxcarbazepine (Trileptal) 300 mg PO BID [facility]; Protocol Stop: 11/01/18 08:59 Last Admin: 09/10/18 09:06 Dose: 300 mg Potassium Chloride (Klor-Con) 40 meq PO DAILY [facility]IKEL Stop: 11/01/18 08:59 Last Admin: 09/10/18 09:05 Dose: 40 meq Risperidone (Risperdal) 3 mg PO BID [facility]; Protocol Stop: 11/01/18 08:59 Last Admin: 09/10/18 09:14 Dose: 3 mg Spironolactone (Aldactone) 25 mg PO DAILY MAIKEL Stop: 11/01/18 08:59 Last Admin: 09/10/18 09:04 Dose: 25 mg Tamsulosin HCl (Flomax) 0.4 mg PO HS [facility] Stop: 11/01/18 20:59 Last Admin: 09/09/18 20:16 Dose: 0.4 mg Trazodone HCl (Desyrel) 25 mg PO HS [facility]; Protocol Stop: 11/03/18 20:59 Last Admin: 09/09/18 20:16 Dose: 25 mg Zolpidem Tartrate (Ambien) 5 mg PO HS PRN PRN Reason: Insomnia Stop: 10/31/18 22:56 Last Admin: 09/02/18 20:42 Dose: 5 mg General: alert, demented HEENT: NC/AT, PERRLA, EOMI, anicteric sclerae, throat clear Neck: Supple, No JVD, No thyromegaly, +2 carotid pulse wo bruit, No LAD Lungs: CTAB Cardiovascular: RRR, Normal S1, Normal S2, without murmur Abdomen: soft, non-tender, non-distended Extremities: clear Neurological: no change - Procedures Procedures: Procedures Procedure Code Date OTHER GROUP THERAPY 94.44 09/01/14 RECREATIONAL THERAPY 93.81 12/23/11 Internal Medicine Assmt/Plan - Assessment Assessment: 1.HTN. 2.CHF. 3.CARDIOMYOPATHY. 4.BPH. 5.SCHIZOAFFECTIVE DISORDER. - Plan Plan: CONTINUE ON CURRENT MEDICATION AND DIET. Nutritional Asmnt/Malnutr-PDOC - Dietary Evaluation Malnutrition Findings (Please click <Entered> for more info): Nutritional Asmnt/Malnutrition Start: 09/05/18 08: 51 Text: Status: Complete Freq: Protocol: Document 09/05/18 08:51 GAETANO (Rec: 09/05/18 08:56 GAETANO BYRNES- [email or web address]) Nutritional Asmnt/Malnutrition Patient General Information Diagnosis psychosis Pertinent Medical Hx/Surgical Hx HTN, CHF, cardiomyopathy, beningn prostatic hypertrophy Current Diet Order/ Nutrition Support CCHO no added salt Pertinent Medications Maalox, lasix, lacutlose, theragran, KCl 40mEq/daily Pertinent Labs no labs since 09/02 Nutritional Hx/Data Height 1.42 m Height (Calculated Centimeters) 142.2 Current Weight (lbs) 86.183 kg Weight (Calculated Kilograms) 86.2 Weight (Calculated Grams) 39181.6 Body Mass Index (BMI) 42.5 Recent Weight Change No Weight Status Morbidly Obese GI Symptoms GI Symptoms None Last BM 09/04 Cultural/Ethnic/Christianity Belief unknown Usual diet at home regular Skin Integrity/Comment: adenike score 22 Current %PO Good (75-100%) Estimated Nutritional Goals BEE in Kcals: Adj wt of IBW Calories/Kcals/Kg 25-30kcals/kg Kcals Calculated 1400-1680kcals/day Protein: Adj wt of IBW Protein g/k.2+g/kg Protein Calculated 67g/day Fluid: ml per MD Nutritional Problem 1. Problem Problem Obese related to Etiology excessive oral intake Signs/Symptoms: as evidenced by BMI 42.6. Intervention/Recommendation Comments Recommend continuing CCHO no added salt Expected Outcomes/Goals Expected Outcomes/Goals PO intake >75% of meals
[2018-09-11] MEDS: Metolazone 5 MG TAB PO SCH (09:01)
[2018-09-11] MEDS: Potassium Chloride 20 mEq ER Tab PO SCH (09:05)
[2018-09-11] MEDS: Aspirin 81mg Chewable Tab PO SCH (09:05)
[2018-09-11] MEDS: Lactulose 10 Gm/15 mL 30mL UDC PO SCH ×2 (09:09→17:29)
[2018-09-11] MEDS: Multivitamin Tab PO SCH (09:09)
[2018-09-11] MEDS: risperiDONE 1 mg/mL 30 mL Bottle PO SCH ×2 (09:14→17:22)
--- NOTE | 2018-09-11 14:12 | Internal Medicine Prog Note ---
Internal Medicine Subjective - Subjective Service Date: 09/11/18 Patient seen and examined:: without staff (HE FEELS WELL) Patient is:: awake, verbal, talking, confused Per staff patient has:: no adverse event Internal Medicine Objective - Results Result Diagrams: 09/02/18 06:05 09/10/18 06:30 Recent Labs: Laboratory Last Values WBC 8.6 Th/cmm (4.8-10.8) 09/02/18 06:05 RBC 4.38 Mil/cmm (4.30-5.70) 09/02/18 06:05 Hgb 13.2 gm/dL (12-16) 09/02/18 06:05 Hct 39.8 % (41.0-60) L 09/02/18 06:05 MCV 90.7 fl (80-99) 09/02/18 06:05 MCH 30.1 pg (26.0-30.0) H 09/02/18 06:05 MCHC Differential 33.2 pg (28.0-36.0) 09/02/18 06:05 RDW 13.3 % (11.5-20.0) 09/02/18 06:05 Plt Count 236 Th/cmm (150-400) 09/02/18 06:05 MPV 7.5 fl 09/02/18 06:05 Neutrophils % 63.0 % (40.0-80.0) 09/02/18 06:05 Lymphocytes % 20.9 % (20.0-50.0) 09/02/18 06:05 Monocytes % 10.7 % (2.0-10.0) H 09/02/18 06:05 Eosinophils % 4.2 % (0.0-5.0) 09/02/18 06:05 Basophils % 1.2 % (0.0-2.0) 09/02/18 06:05 Sodium 136 mEq/L (136-145) 09/10/18 06:30 Potassium 3.1 mEq/L (3.5-5.1) L 09/10/18 06:30 Chloride 97 mEq/L (98-107) L 09/10/18 06:30 Carbon Dioxide 32.1 mEq/L (21.0-31.0) H 09/10/18 06:30 Anion Gap 10.0 (7.0-16.0) 09/10/18 06:30 BUN 20 mg/dL (7-25) 09/10/18 06:30 Creatinine 0.9 mg/dL (0.7-1.3) 09/10/18 06:30 Est GFR ( Amer) > 60.0 ml/min (>90) 09/10/18 06:30 Est GFR (Non-Af Amer) > 60.0 ml/min 09/10/18 06:30 BUN/Creatinine Ratio 22.2 09/10/18 06:30 Glucose 85 mg/dL (70-105) 09/10/18 06:30 Calcium 10.1 mg/dL (8.6-10.3) 09/10/18 06:30 Total Bilirubin 0.6 mg/dL (0.3-1.0) 09/10/18 06:30 AST 32 U/L (13-39) 09/10/18 06:30 ALT 28 U/L (7-52) 09/10/18 06:30 Alkaline Phosphatase 90 U/L (34-104) 09/10/18 06:30 Troponin I 0.02 ng/mL (0.01-0.05) 09/01/18 18:00 Total Protein 8.0 gm/dL (6.0-8.3) 09/10/18 06:30 Albumin 4.0 gm/dL (4.2-5.5) L 09/10/18 06:30 Globulin 4.0 gm/dL 09/10/18 06:30 Albumin/Globulin Ratio 1.0 (1.0-1.8) 09/10/18 06:30 Triglycerides 102 mg/dL (<150) 09/02/18 06:05 Cholesterol 127 mg/dL (<200) 09/02/18 06:05 LDL Cholesterol Direct 63 mg/dL (75-193) L 09/02/18 06:05 HDL Cholesterol 44 mg/dL (23-92) 09/02/18 06:05 TSH 0.80 uIU/ml (0.34-5.60) 09/01/18 18:00 Urine Source CLEAN C 09/01/18 18:45 Urine Color YELLOW 09/01/18 18:45 Urine Clarity CLEAR (CLEAR) 09/01/18 18:45 Urine pH 7.5 (4.6 - 8.0) 09/01/18 18:45 Ur Specific Spencer 1.020 (1.005-1.030) 09/01/18 18:45 Urine Protein NEGATIVE mg/dL (NEGATIVE) 09/01/18 18:45 Urine Glucose (UA) 100 mg/dL (NEGATIVE) H 09/01/18 18:45 Urine Ketones NEGATIVE mg/dL (NEGATIVE) 09/01/18 18:45 Urine Blood NEGATIVE (NEGATIVE) 09/01/18 18:45 Urine Nitrate NEGATIVE (NEGATIVE) 09/01/18 18:45 Urine Bilirubin NEGATIVE (NEGATIVE) 09/01/18 18:45 Urine Urobilinogen 0.2 E.U./dL (0.2 - 1.0) 09/01/18 18:45 Ur Leukocyte Esterase NEGATIVE (NEGATIVE) 09/01/18 18:45 Urine RBC NONE SEEN /hpf (0-5) 09/01/18 18:45 Urine WBC 0-2 /hpf (0-5) 09/01/18 18:45 Ur Epithelial Cells OCCASIONAL /lpf (FEW) 09/01/18 18:45 Urine Bacteria FEW /hpf (NONE SEEN) 09/01/18 18:45 Salicylates < 25.0 mg/L (30.0-100.0) L 09/01/18 18:00 Urine Opiates Screen NEGATIVE (NEGATIVE) 09/01/18 19:36 Urine Methadone Screen NEGATIVE (NEGATIVE) 09/01/18 19:36 Acetaminophen < 10.0 ug/mL (10.0-30.0) L 09/01/18 18:00 Ur Barbiturates Screen NEGATIVE (NEGATIVE) 09/01/18 19:36 Oxcarbazepine None Detected ug/mL (10-35) 09/02/18 06:05 Ur Tricyclics Screen NEGATIVE (NEGATIVE) 09/01/18 19:36 Ur Phencyclidine Scrn NEGATIVE (NEGATIVE) 09/01/18 19:36 Amphetamines Screen NEGATIVE (NEGATIVE) 09/01/18 19:36 U Methamphetamines Scrn NEGATIVE (NEGATIVE) 09/01/18 19:36 U Benzodiazepines Scrn NEGATIVE (NEGATIVE) 09/01/18 19:36 U Cocaine Metab Screen NEGATIVE (NEGATIVE) 09/01/18 19:36 U Cannabinoids Screen NEGATIVE (NEGATIVE) 09/01/18 19:36 Ethyl Alcohol < 10 mg/dL (0-10) 09/01/18 18:00 RPR NONREACTIVE (NONREACTIVE) 09/01/18 18:00 - Physical Exam Vitals and I&O: Vital Signs Temp 97.6 F 09/11/18 11:36 Pulse 63 09/11/18 11:36 Resp 18 09/11/18 11:36 BP 128/81 09/11/18 11:36 Pulse Ox 96 09/11/18 06:30 Intake & Output 09/10/18 09/11/18 09/11/18 18:59 06:59 18:59 Intake Total 1400 660 Balance 1400 660 Intake: Oral 1400 660 Other: # Voids 3 3 # Bowel Movements 0 0 Active Medications: Current Medications Acetaminophen (Tylenol) 650 mg PO Q4HR PRN PRN Reason: Mild Pain / Temp above 100 Stop: 10/31/18 22:39 Al Hydrox/Mg Hydrox/Simethicone (Maalox) 30 ml PO Q4HR PRN PRN Reason: GI DISTRESS Stop: 10/31/18 22:58 Amlodipine Besylate (Norvasc) 5 mg PO DAILY MAIKEL Stop: 11/01/18 08:59 Last Admin: 09/11/18 09:06 Dose: 5 mg Aspirin (Aspirin Chewable) 81 mg PO DAILY MAIKEL Stop: 11/01/18 08:59 Last Admin: 09/11/18 09:05 Dose: 81 mg Carvedilol (Coreg) 25 mg PO BIDWM [facility]EL Stop: 11/01/18 07:59 Last Admin: 09/11/18 09:06 Dose: 25 mg Donepezil HCl (Aricept) 10 mg PO HS [facility] Stop: 11/03/18 20:59 Last Admin: 09/10/18 21:04 Dose: 10 mg Furosemide (Lasix) 20 mg PO TID [facility] Stop: 11/01/18 08:59 Last Admin: 09/11/18 09:02 Dose: 20 mg Lactulose (Cephulac) 20 gm PO BID [facility] Stop: 11/01/18 08:59 Last Admin: 09/11/18 09:09 Dose: Not Given Lorazepam (Ativan) 0.5 mg PO Q4HR PRN; Protocol PRN Reason: Anxiety Stop: 10/01/18 22:56 Last Admin: 09/06/18 20:58 Dose: 0.5 mg Magnesium Hydroxide (Milk Of Magnesia) 30 ml PO HS PRN PRN Reason: Constipation Magnesium Oxide (Mag-Oxide) 400 mg PO BID [facility] Stop: 11/01/18 08:59 Last Admin: 09/11/18 09:03 Dose: 400 mg Metolazone (Zaroxolyn) 5 mg PO DAILY [facility] Stop: 11/01/18 08:59 Last Admin: 09/11/18 09:01 Dose: 5 mg Multivitamins/Vitamin C (Theragran) 1 tab PO DAILY [facility] Stop: 11/01/18 08:59 Last Admin: 09/11/18 09:09 Dose: Not Given Mupirocin (Bactroban Oint) 1 appl TP BID [facility] Stop: 09/12/18 17:01 Last Admin: 09/11/18 09:09 Dose: Not Given Oxcarbazepine (Trileptal) 300 mg PO BID [facility]; Protocol Stop: 11/01/18 08:59 Last Admin: 09/11/18 09:03 Dose: 300 mg Potassium Chloride (Klor-Con) 40 meq PO DAILY [facility] Stop: 11/01/18 08:59 Last Admin: 09/11/18 09:05 Dose: 40 meq Risperidone (Risperdal) 3 mg PO BID [facility]; Protocol Stop: 11/01/18 08:59 Last Admin: 09/11/18 09:14 Dose: 3 mg Spironolactone (Aldactone) 25 mg PO DAILY [facility] Stop: 11/01/18 08:59 Last Admin: 09/11/18 09:02 Dose: 25 mg Tamsulosin HCl (Flomax) 0.4 mg PO HS [facility] Stop: 11/01/18 20:59 Last Admin: 09/10/18 21:05 Dose: 0.4 mg Trazodone HCl (Desyrel) 25 mg PO HS [facility]; Protocol Stop: 11/03/18 20:59 Last Admin: 09/10/18 21:05 Dose: 25 mg Zolpidem Tartrate (Ambien) 5 mg PO HS PRN PRN Reason: Insomnia Stop: 10/31/18 22:56 Last Admin: 09/02/18 20:42 Dose: 5 mg General: alert, demented HEENT: NC/AT, PERRLA, EOMI, anicteric sclerae, throat clear Neck: Supple, No JVD, No thyromegaly, +2 carotid pulse wo bruit, No LAD Lungs: CTAB Cardiovascular: RRR, Normal S1, Normal S2, without murmur Abdomen: soft, non-tender, non-distended Extremities: clear Neurological: no change - Procedures Procedures: Procedures Procedure Code Date OTHER GROUP THERAPY 94.44 09/01/14 RECREATIONAL THERAPY 93.81 12/23/11 Internal Medicine Assmt/Plan - Assessment Assessment: 1.HTN. 2.CHF. 3.CARDIOMYOPATHY. 4.BPH. 5.SCHIZOAFFECTIVE DISORDER. - Plan Plan: CONTINUE ON CURRENT MEDICATION AND DIET. Nutritional Asmnt/Malnutr-PDOC - Dietary Evaluation Malnutrition Findings (Please click <Entered> for more info): Nutritional Asmnt/Malnutrition Start: 09/05/18 08: 51 Text: Status: Complete Freq: Protocol: Document 09/05/18 08:51 GAETANO (Rec: 09/05/18 08:56 GAETANO FITZ- [id number]) Nutritional Asmnt/Malnutrition Patient General Information Diagnosis psychosis Pertinent Medical Hx/Surgical Hx HTN, CHF, cardiomyopathy, beningn prostatic hypertrophy Current Diet Order/ Nutrition Support CCHO no added salt Pertinent Medications Maalox, lasix, lacutlose, theragran, KCl 40mEq/daily Pertinent Labs no labs since 09/02 Nutritional Hx/Data Height 1.42 m Height (Calculated Centimeters) 142.2 Current Weight (lbs) 86.183 kg Weight (Calculated Kilograms) 86.2 Weight (Calculated Grams) 28952.6 Body Mass Index (BMI) 42.5 Recent Weight Change No Weight Status Morbidly Obese GI Symptoms GI Symptoms None Last BM 09/04 Cultural/Ethnic/Taoism Belief unknown Usual diet at home regular Skin Integrity/Comment: adenike score 22 Current %PO Good (75-100%) Estimated Nutritional Goals BEE in Kcals: Adj wt of IBW Calories/Kcals/Kg 25-30kcals/kg Kcals Calculated 1400-1680kcals/day Protein: Adj wt of IBW Protein g/k.2+g/kg Protein Calculated 67g/day Fluid: ml per MD Nutritional Problem 1. Problem Problem Obese related to Etiology excessive oral intake Signs/Symptoms: as evidenced by BMI 42.6. Intervention/Recommendation Comments [facility] salt Expected Outcomes/Goals Expected Outcomes/Goals PO intake >75% of meals
--- NOTE | 2018-09-11 17:34 | Progress Notes ---
DATE: SUBJECTIVE: Chart was reviewed and the patient interviewed. Also discussed the patient's condition with the staff and reviewed records and labs. The patient is still confused and forgetful. The patient also is still anxious and is still depressed and suspicious and paranoid. The patient also is interacting minimally with others. He also still has episodes of severe anger and agitation. Otherwise, the patient continued to comply taking his Trileptal, Risperdal, Aricept with no side effects. ASSESSMENT: The patient is still agitated and in angry and in irritable mood. TREATMENT PLAN: Continue to monitor his behavior and his condition closely. Also, continue adjusting psychotropic medications and work on behavioral modification. [facility]# [id number]
--- NOTE | 2018-09-12 06:08 | Discharge Summary ---
DATE OF DISCHARGE: 09/11/2018 PATIENT'S AGE: 58-year-old. SEX: Male. PHYSICIAN: Dr. Alvarado. FINAL DIAGNOSES: PRIMARY DIAGNOSIS: Schizoaffective disorder, bipolar type, with psychotic features. MEDICAL DIAGNOSES: 1. Hypertension. 2. Hyperlipidemia. REASON FOR HOSPITALIZATION: The patient was admitted to the hospital from [facility] because of increased agitation and increased irritability and the patient was impulsive and have unpredictable behavior. HOSPITAL COURSE: The patient continued to be aggressive and in irritable mood. The patient also was easily agitated. Also, the patient was suspicious and was paranoid. He also was interacting minimally with others. The patient was given Aricept and also was given Risperdal and the Risperdal dose adjusted to 3 mg twice a day. Also, was given Trileptal in a dose of 300 mg twice a day. Also, the patient was not able to sleep at night and the patient was given trazodone. Gradually, the patient's affect was brighter. The patient was less agitated and less irritable. The patient also was easier to follow directions. The patient's was coming to visit him, which made him feel slightly better. Otherwise, the patient was not suicidal or homicidal or psychotic. The patient was discharged from the hospital back to [facility]. PHYSICAL EXAM OF THE PATIENT: Basically showing no major behavioral problems. Blood workup was also basically within normal. The patient had no major medical problems while in the hospital. AFTER DISCHARGE PLANS: The patient discharged from the hospital with plans to continue his treatment as an outpatient in [facility]. EXPECTED OUTCOME AFTER DISCHARGE: Fair if the patient continues with his treatment and take his medications. [facility]# [id number]
[2018-09-12] MEDS: Aspirin 81mg Chewable Tab PO SCH (08:19)
[2018-09-12] MEDS: Lactulose 10 Gm/15 mL 30mL UDC PO SCH ×2 (08:19→16:39)
[2018-09-12] MEDS: Multivitamin Tab PO SCH (08:20)
[2018-09-12] MEDS: Potassium Chloride 20 mEq ER Tab PO SCH (08:20)
[2018-09-12] MEDS: risperiDONE 1 mg/mL 30 mL Bottle PO SCH ×2 (08:20→16:39)
[2018-09-12] MEDS: Metolazone 5 MG TAB PO SCH (08:20)
--- NOTE | 2018-09-12 23:45 | Progress Notes ---
DATE: 09/12/[address] Alvarado. SUBJECTIVE: Case was discussed with staff of the patient, reviewed records. This gentleman has seen him before covering for Dr. Alvarado. Apparently, he was discharged yesterday. For some reason, he was not discharged, not able to tell me the reason. The patient was supposed to go [facility]. The patient has been calmer. He was alert and oriented to place, person, time, and situation. Denies any current intent to harm himself or anyone. Denies delusions, hallucinations or paranoia. No side effects. Meanwhile, we will continue outpatient group therapy, milieu therapy until a placement is arranged for him. [facility]# [id number]
--- NOTE | 2018-09-12 23:47 | Internal Medicine Prog Note ---
Internal Medicine Subjective - Subjective Service Date: 09/12/18 Patient seen and examined:: without staff (HE IS REFUSING HIS MEDICATION) Patient is:: awake, verbal, talking, confused Per staff patient has:: no adverse event Internal Medicine Objective - Results Result Diagrams: 09/02/18 06:05 09/10/18 06:30 Recent Labs: Laboratory Last Values WBC 8.6 Th/cmm (4.8-10.8) 09/02/18 06:05 RBC 4.38 Mil/cmm (4.30-5.70) 09/02/18 06:05 Hgb 13.2 gm/dL (12-16) 09/02/18 06:05 Hct 39.8 % (41.0-60) L 09/02/18 06:05 MCV 90.7 fl (80-99) 09/02/18 06:05 MCH 30.1 pg (26.0-30.0) H 09/02/18 06:05 MCHC Differential 33.2 pg (28.0-36.0) 09/02/18 06:05 RDW 13.3 % (11.5-20.0) 09/02/18 06:05 Plt Count 236 Th/cmm (150-400) 09/02/18 06:05 MPV 7.5 fl 09/02/18 06:05 Neutrophils % 63.0 % (40.0-80.0) 09/02/18 06:05 Lymphocytes % 20.9 % (20.0-50.0) 09/02/18 06:05 Monocytes % 10.7 % (2.0-10.0) H 09/02/18 06:05 Eosinophils % 4.2 % (0.0-5.0) 09/02/18 06:05 Basophils % 1.2 % (0.0-2.0) 09/02/18 06:05 Sodium 136 mEq/L (136-145) 09/10/18 06:30 Potassium 3.1 mEq/L (3.5-5.1) L 09/10/18 06:30 Chloride 97 mEq/L (98-107) L 09/10/18 06:30 Carbon Dioxide 32.1 mEq/L (21.0-31.0) H 09/10/18 06:30 Anion Gap 10.0 (7.0-16.0) 09/10/18 06:30 BUN 20 mg/dL (7-25) 09/10/18 06:30 Creatinine 0.9 mg/dL (0.7-1.3) 09/10/18 06:30 Est GFR ( Amer) > 60.0 ml/min (>90) 09/10/18 06:30 Est GFR (Non-Af Amer) > 60.0 ml/min 09/10/18 06:30 BUN/Creatinine Ratio 22.2 09/10/18 06:30 Glucose 85 mg/dL (70-105) 09/10/18 06:30 Calcium 10.1 mg/dL (8.6-10.3) 09/10/18 06:30 Total Bilirubin 0.6 mg/dL (0.3-1.0) 09/10/18 06:30 AST 32 U/L (13-39) 09/10/18 06:30 ALT 28 U/L (7-52) 09/10/18 06:30 Alkaline Phosphatase 90 U/L (34-104) 09/10/18 06:30 Troponin I 0.02 ng/mL (0.01-0.05) 09/01/18 18:00 Total Protein 8.0 gm/dL (6.0-8.3) 09/10/18 06:30 Albumin 4.0 gm/dL (4.2-5.5) L 09/10/18 06:30 Globulin 4.0 gm/dL 09/10/18 06:30 Albumin/Globulin Ratio 1.0 (1.0-1.8) 09/10/18 06:30 Triglycerides 102 mg/dL (<150) 09/02/18 06:05 Cholesterol 127 mg/dL (<200) 09/02/18 06:05 LDL Cholesterol Direct 63 mg/dL (75-193) L 09/02/18 06:05 HDL Cholesterol 44 mg/dL (23-92) 09/02/18 06:05 TSH 0.80 uIU/ml (0.34-5.60) 09/01/18 18:00 Urine Source CLEAN C 09/01/18 18:45 Urine Color YELLOW 09/01/18 18:45 Urine Clarity CLEAR (CLEAR) 09/01/18 18:45 Urine pH 7.5 (4.6 - 8.0) 09/01/18 18:45 Ur Specific Maud 1.020 (1.005-1.030) 09/01/18 18:45 Urine Protein NEGATIVE mg/dL (NEGATIVE) 09/01/18 18:45 Urine Glucose (UA) 100 mg/dL (NEGATIVE) H 09/01/18 18:45 Urine Ketones NEGATIVE mg/dL (NEGATIVE) 09/01/18 18:45 Urine Blood NEGATIVE (NEGATIVE) 09/01/18 18:45 Urine Nitrate NEGATIVE (NEGATIVE) 09/01/18 18:45 Urine Bilirubin NEGATIVE (NEGATIVE) 09/01/18 18:45 Urine Urobilinogen 0.2 E.U./dL (0.2 - 1.0) 09/01/18 18:45 Ur Leukocyte Esterase NEGATIVE (NEGATIVE) 09/01/18 18:45 Urine RBC NONE SEEN /hpf (0-5) 09/01/18 18:45 Urine WBC 0-2 /hpf (0-5) 09/01/18 18:45 Ur Epithelial Cells OCCASIONAL /lpf (FEW) 09/01/18 18:45 Urine Bacteria FEW /hpf (NONE SEEN) 09/01/18 18:45 Salicylates < 25.0 mg/L (30.0-100.0) L 09/01/18 18:00 Urine Opiates Screen NEGATIVE (NEGATIVE) 09/01/18 19:36 Urine Methadone Screen NEGATIVE (NEGATIVE) 09/01/18 19:36 Acetaminophen < 10.0 ug/mL (10.0-30.0) L 09/01/18 18:00 Ur Barbiturates Screen NEGATIVE (NEGATIVE) 09/01/18 19:36 Oxcarbazepine None Detected ug/mL (10-35) 09/02/18 06:05 Ur Tricyclics Screen NEGATIVE (NEGATIVE) 09/01/18 19:36 Ur Phencyclidine Scrn NEGATIVE (NEGATIVE) 09/01/18 19:36 Amphetamines Screen NEGATIVE (NEGATIVE) 09/01/18 19:36 U Methamphetamines Scrn NEGATIVE (NEGATIVE) 09/01/18 19:36 U Benzodiazepines Scrn NEGATIVE (NEGATIVE) 09/01/18 19:36 U Cocaine Metab Screen NEGATIVE (NEGATIVE) 09/01/18 19:36 U Cannabinoids Screen NEGATIVE (NEGATIVE) 09/01/18 19:36 Ethyl Alcohol < 10 mg/dL (0-10) 09/01/18 18:00 RPR NONREACTIVE (NONREACTIVE) 09/01/18 18:00 - Physical Exam Vitals and I&O: Vital Signs Temp 98 F 09/12/18 20:00 Pulse 93 09/12/18 20:00 Resp 20 09/12/18 20:00 BP 146/74 09/12/18 21:30 Pulse Ox 98 09/12/18 20:00 Intake & Output 09/12/18 09/12/18 09/13/18 06:59 18:59 06:59 Intake Total 1200 Balance 1200 Intake: Oral 1200 Other: # Voids 2 3 # Bowel Movements 1 Active Medications: Current Medications Acetaminophen (Tylenol) 650 mg PO Q4HR PRN PRN Reason: Mild Pain / Temp above 100 Stop: 10/31/18 22:39 Al Hydrox/Mg Hydrox/Simethicone (Maalox) 30 ml PO Q4HR PRN PRN Reason: GI DISTRESS Stop: 10/31/18 22:58 Amlodipine Besylate (Norvasc) 5 mg PO DAILY [facility]IK[facility] Stop: 11/01/18 08:59 Last Admin: 09/12/18 08:19 Dose: Not Given Aspirin (Aspirin Chewable) 81 mg PO DAILY [facility] Stop: 11/01/18 08:59 Last Admin: 09/12/18 08:19 Dose: Not Given Carvedilol (Coreg) 25 mg PO BIDWM [facility] Stop: 11/01/18 07:59 Last Admin: 09/12/18 18:05 Dose: Not Given Donepezil HCl (Aricept) 10 mg PO HS [facility] Stop: 11/03/18 20:59 Last Admin: 09/12/18 21:30 Dose: 10 mg Furosemide (Lasix) 20 mg PO TID [facility] Stop: 11/01/18 08:59 Last Admin: 09/12/18 21:30 Dose: 20 mg Lactulose (Cephulac) 20 gm PO BID [facility] Stop: 11/01/18 08:59 Last Admin: 09/12/18 16:39 Dose: Not Given Lorazepam (Ativan) 0.5 mg PO Q4HR PRN; Protocol PRN Reason: Anxiety Stop: 10/01/18 22:56 Last Admin: 09/06/18 20:58 Dose: 0.5 mg Magnesium Hydroxide (Milk Of Magnesia) 30 ml PO HS PRN PRN Reason: Constipation Magnesium Oxide (Mag-Oxide) 400 mg PO BID [facility] Stop: 11/01/18 08:59 Last Admin: 09/12/18 16:39 Dose: Not Given Metolazone (Zaroxolyn) 5 mg PO DAILY [facility] Stop: 11/01/18 08:59 Last Admin: 09/12/18 08:20 Dose: Not Given Multivitamins/Vitamin C (Theragran) 1 tab PO DAILY [facility] Stop: 11/01/18 08:59 Last Admin: 09/12/18 08:20 Dose: Not Given Oxcarbazepine (Trileptal) 300 mg PO BID [facility]; Protocol Stop: 11/01/18 08:59 Last Admin: 09/12/18 16:39 Dose: Not Given Potassium Chloride (Klor-Con) 40 meq PO DAILY [facility] Stop: 11/01/18 08:59 Last Admin: 09/12/18 08:20 Dose: Not Given Risperidone (Risperdal) 3 mg PO BID [facility]; Protocol Stop: 11/01/18 08:59 Last Admin: 09/12/18 16:39 Dose: Not Given Spironolactone (Aldactone) 25 mg PO DAILY [facility] Stop: 11/01/18 08:59 Last Admin: 09/12/18 08:20 Dose: Not Given Tamsulosin HCl (Flomax) 0.4 mg PO HS [facility] Stop: 11/01/18 20:59 Last Admin: 09/12/18 21:30 Dose: 0.4 mg Trazodone HCl (Desyrel) 25 mg PO HS [facility]; Protocol Stop: 11/03/18 20:59 Last Admin: 09/12/18 21:31 Dose: 25 mg Zolpidem Tartrate (Ambien) 5 mg PO HS PRN PRN Reason: Insomnia Stop: 10/31/18 22:56 Last Admin: 09/02/18 20:42 Dose: 5 mg General: alert, demented HEENT: NC/AT, PERRLA, EOMI, anicteric sclerae, throat clear Neck: Supple, No JVD, No thyromegaly, +2 carotid pulse wo bruit, No LAD Lungs: CTAB Cardiovascular: RRR, Normal S1, Normal S2, without murmur Abdomen: soft, non-tender, non-distended Extremities: clear Neurological: no change - Procedures Procedures: Procedures Procedure Code Date OTHER GROUP THERAPY 94.44 09/01/14 RECREATIONAL THERAPY 93.81 12/23/11 Internal Medicine Assmt/Plan - Assessment Assessment: 1.HTN. 2.CHF. 3.CARDIOMYOPATHY. 4.BPH. 5.SCHIZOAFFECTIVE DISORDER. - Plan Plan: CONTINUE ON CURRENT MEDICATION AND DIET. Nutritional Asmnt/Malnutr-PDOC - Dietary Evaluation Malnutrition Findings (Please click <Entered> for more info): Nutritional Asmnt/Malnutrition Start: 09/05/18 08: 51 Text: Status: Complete Freq: Protocol: Document 09/05/18 08:51 GAETANO (Rec: 09/05/18 08:56 GAETANO BYRNES- [email or web address]) Nutritional Asmnt/Malnutrition Patient General Information Diagnosis psychosis Pertinent Medical Hx/Surgical Hx HTN, CHF, cardiomyopathy, beningn prostatic hypertrophy Current Diet Order/ Nutrition Support CCHO no added salt Pertinent Medications Maalox, lasix, lacutlose, theragran, KCl 40mEq/daily Pertinent Labs no labs since 09/02 Nutritional Hx/Data Height 1.42 m Height (Calculated Centimeters) 142.2 Current Weight (lbs) 86.183 kg Weight (Calculated Kilograms) 86.2 Weight (Calculated Grams) 38936.6 Body Mass Index (BMI) 42.5 Recent Weight Change No Weight Status Morbidly Obese GI Symptoms GI Symptoms None Last BM 09/04 Cultural/Ethnic/Protestant Belief unknown Usual diet at home regular Skin Integrity/Comment: adenike score 22 Current %PO Good (75-100%) Estimated Nutritional Goals BEE in Kcals: Adj wt of IBW Calories/Kcals/Kg 25-30kcals/kg Kcals Calculated 1400-1680kcals/day Protein: Adj wt of IBW Protein g/k.2+g/kg Protein Calculated 67g/day Fluid: ml per MD Nutritional Problem 1. Problem Problem Obese related to Etiology excessive oral intake Signs/Symptoms: as evidenced by BMI 42.6. Intervention/Recommendation Comments Recommend continuing [facility] no added salt Expected Outcomes/Goals Expected Outcomes/Goals PO intake >75% of meals
[2018-09-13] MEDS: Lactulose 10 Gm/15 mL 30mL UDC PO SCH ×2 (08:34→17:12)
[2018-09-13] MEDS: Potassium Chloride 20 mEq ER Tab PO SCH (09:35)
[2018-09-13] MEDS: Metolazone 5 MG TAB PO SCH (09:35)
[2018-09-13] MEDS: Multivitamin Tab PO SCH (09:36)
[2018-09-13] MEDS: Aspirin 81mg Chewable Tab PO SCH (09:36)
[2018-09-13] MEDS: risperiDONE 1 mg/mL 30 mL Bottle PO SCH ×2 (09:36→17:12)
--- NOTE | 2018-09-13 12:59 | Internal Medicine Prog Note ---
Internal Medicine Subjective - Subjective Service Date: 09/13/18 Patient seen and examined:: with staff (HE FEELS GOOD) Patient is:: awake, verbal, talking, confused Per staff patient has:: no adverse event Internal Medicine Objective - Results Result Diagrams: 09/02/18 06:05 09/10/18 06:30 Recent Labs: Laboratory Last Values WBC 8.6 Th/cmm (4.8-10.8) 09/02/18 06:05 RBC 4.38 Mil/cmm (4.30-5.70) 09/02/18 06:05 Hgb 13.2 gm/dL (12-16) 09/02/18 06:05 Hct 39.8 % (41.0-60) L 09/02/18 06:05 MCV 90.7 fl (80-99) 09/02/18 06:05 MCH 30.1 pg (26.0-30.0) H 09/02/18 06:05 MCHC Differential 33.2 pg (28.0-36.0) 09/02/18 06:05 RDW 13.3 % (11.5-20.0) 09/02/18 06:05 Plt Count 236 Th/cmm (150-400) 09/02/18 06:05 MPV 7.5 fl 09/02/18 06:05 Neutrophils % 63.0 % (40.0-80.0) 09/02/18 06:05 Lymphocytes % 20.9 % (20.0-50.0) 09/02/18 06:05 Monocytes % 10.7 % (2.0-10.0) H 09/02/18 06:05 Eosinophils % 4.2 % (0.0-5.0) 09/02/18 06:05 Basophils % 1.2 % (0.0-2.0) 09/02/18 06:05 Sodium 136 mEq/L (136-145) 09/10/18 06:30 Potassium 3.1 mEq/L (3.5-5.1) L 09/10/18 06:30 Chloride 97 mEq/L (98-107) L 09/10/18 06:30 Carbon Dioxide 32.1 mEq/L (21.0-31.0) H 09/10/18 06:30 Anion Gap 10.0 (7.0-16.0) 09/10/18 06:30 BUN 20 mg/dL (7-25) 09/10/18 06:30 Creatinine 0.9 mg/dL (0.7-1.3) 09/10/18 06:30 Est GFR ( Amer) > 60.0 ml/min (>90) 09/10/18 06:30 Est GFR (Non-Af Amer) > 60.0 ml/min 09/10/18 06:30 BUN/Creatinine Ratio 22.2 09/10/18 06:30 Glucose 85 mg/dL (70-105) 09/10/18 06:30 Calcium 10.1 mg/dL (8.6-10.3) 09/10/18 06:30 Total Bilirubin 0.6 mg/dL (0.3-1.0) 09/10/18 06:30 AST 32 U/L (13-39) 09/10/18 06:30 ALT 28 U/L (7-52) 09/10/18 06:30 Alkaline Phosphatase 90 U/L (34-104) 09/10/18 06:30 Troponin I 0.02 ng/mL (0.01-0.05) 09/01/18 18:00 Total Protein 8.0 gm/dL (6.0-8.3) 09/10/18 06:30 Albumin 4.0 gm/dL (4.2-5.5) L 09/10/18 06:30 Globulin 4.0 gm/dL 09/10/18 06:30 Albumin/Globulin Ratio 1.0 (1.0-1.8) 09/10/18 06:30 Triglycerides 102 mg/dL (<150) 09/02/18 06:05 Cholesterol 127 mg/dL (<200) 09/02/18 06:05 LDL Cholesterol Direct 63 mg/dL (75-193) L 09/02/18 06:05 HDL Cholesterol 44 mg/dL (23-92) 09/02/18 06:05 TSH 0.80 uIU/ml (0.34-5.60) 09/01/18 18:00 Urine Source CLEAN C 09/01/18 18:45 Urine Color YELLOW 09/01/18 18:45 Urine Clarity CLEAR (CLEAR) 09/01/18 18:45 Urine pH 7.5 (4.6 - 8.0) 09/01/18 18:45 Ur Specific [place] 1.020 (1.005-1.030) 09/01/18 18:45 Urine Protein NEGATIVE mg/dL (NEGATIVE) 09/01/18 18:45 Urine Glucose (UA) 100 mg/dL (NEGATIVE) H 09/01/18 18:45 Urine Ketones NEGATIVE mg/dL (NEGATIVE) 09/01/18 18:45 Urine Blood NEGATIVE (NEGATIVE) 09/01/18 18:45 Urine Nitrate NEGATIVE (NEGATIVE) 09/01/18 18:45 Urine Bilirubin NEGATIVE (NEGATIVE) 09/01/18 18:45 Urine Urobilinogen 0.2 E.U./dL (0.2 - 1.0) 09/01/18 18:45 Ur Leukocyte Esterase NEGATIVE (NEGATIVE) 09/01/18 18:45 Urine RBC NONE SEEN /hpf (0-5) 09/01/18 18:45 Urine WBC 0-2 /hpf (0-5) 09/01/18 18:45 Ur Epithelial Cells OCCASIONAL /lpf (FEW) 09/01/18 18:45 Urine Bacteria FEW /hpf (NONE SEEN) 09/01/18 18:45 Salicylates < 25.0 mg/L (30.0-100.0) L 09/01/18 18:00 Urine Opiates Screen NEGATIVE (NEGATIVE) 09/01/18 19:36 Urine Methadone Screen NEGATIVE (NEGATIVE) 09/01/18 19:36 Acetaminophen < 10.0 ug/mL (10.0-30.0) L 09/01/18 18:00 Ur Barbiturates Screen NEGATIVE (NEGATIVE) 09/01/18 19:36 Oxcarbazepine None Detected ug/mL (10-35) 09/02/18 06:05 Ur Tricyclics Screen NEGATIVE (NEGATIVE) 09/01/18 19:36 Ur Phencyclidine Scrn NEGATIVE (NEGATIVE) 09/01/18 19:36 Amphetamines Screen NEGATIVE (NEGATIVE) 09/01/18 19:36 U Methamphetamines Scrn NEGATIVE (NEGATIVE) 09/01/18 19:36 U Benzodiazepines Scrn NEGATIVE (NEGATIVE) 09/01/18 19:36 U Cocaine Metab Screen NEGATIVE (NEGATIVE) 09/01/18 19:36 U Cannabinoids Screen NEGATIVE (NEGATIVE) 09/01/18 19:36 Ethyl Alcohol < 10 mg/dL (0-10) 09/01/18 18:00 RPR NONREACTIVE (NONREACTIVE) 09/01/18 18:00 - Physical Exam Vitals and I&O: Vital Signs Temp 97.6 F 09/13/18 06:21 Pulse 77 09/13/18 09:35 Resp 20 09/13/18 06:21 BP 130/76 09/13/18 09:36 Pulse Ox 97 09/13/18 06:21 Intake & Output 09/12/18 09/13/18 09/13/18 18:59 06:59 18:59 Intake Total 120 Balance 120 Intake: Oral 120 Other: # Voids 3 3 # Bowel Movements 1 Active Medications: Current Medications Acetaminophen (Tylenol) 650 mg PO Q4HR PRN PRN Reason: Mild Pain / Temp above 100 Stop: 10/31/18 22:39 Al Hydrox/Mg Hydrox/Simethicone (Maalox) 30 ml PO Q4HR PRN PRN Reason: GI DISTRESS Stop: 10/31/18 22:58 Amlodipine Besylate (Norvasc) 5 mg PO DAILY [facility] Stop: 11/01/18 08:59 Last Admin: 09/13/18 09:34 Dose: 5 mg Aspirin (Aspirin Chewable) 81 mg PO DAILY [facility] Stop: 11/01/18 08:59 Last Admin: 09/13/18 09:36 Dose: Not Given Carvedilol (Coreg) 25 mg PO BIDWM [facility] Stop: 11/01/18 07:59 Last Admin: 09/13/18 09:00 Dose: Not Given Donepezil HCl (Aricept) 10 mg PO HS [facility] Stop: 11/03/18 20:59 Last Admin: 09/12/18 21:30 Dose: 10 mg Furosemide (Lasix) 20 mg PO TID [facility] Stop: 11/01/18 08:59 Last Admin: 09/13/18 09:36 Dose: 20 mg Lactulose (Cephulac) 20 gm PO BID [facility] Stop: 11/01/18 08:59 Last Admin: 09/13/18 08:34 Dose: Not Given Lorazepam (Ativan) 0.5 mg PO Q4HR PRN; Protocol PRN Reason: Anxiety Stop: 10/01/18 22:56 Last Admin: 09/06/18 20:58 Dose: 0.5 mg Magnesium Hydroxide (Milk Of Magnesia) 30 ml PO HS PRN PRN Reason: Constipation Magnesium Oxide (Mag-Oxide) 400 mg PO BID [facility] Stop: 11/01/18 08:59 Last Admin: 09/13/18 09:36 Dose: Not Given Metolazone (Zaroxolyn) 5 mg PO DAILY [facility] Stop: 11/01/18 08:59 Last Admin: 09/13/18 09:35 Dose: 5 mg Multivitamins/Vitamin C (Theragran) 1 tab PO DAILY [facility] Stop: 11/01/18 08:59 Last Admin: 09/13/18 09:36 Dose: Not Given Oxcarbazepine (Trileptal) 300 mg PO BID [facility]; Protocol Stop: 11/01/18 08:59 Last Admin: 09/13/18 09:36 Dose: 300 mg Potassium Chloride (Klor-Con) 40 meq PO DAILY [facility] Stop: 11/01/18 08:59 Last Admin: 09/13/18 09:35 Dose: 40 meq Risperidone (Risperdal) 3 mg PO BID [facility]; Protocol Stop: 11/01/18 08:59 Last Admin: 09/13/18 09:36 Dose: Not Given Spironolactone (Aldactone) 25 mg PO DAILY [facility] Stop: 11/01/18 08:59 Last Admin: 09/13/18 09:35 Dose: 25 mg Tamsulosin HCl (Flomax) 0.4 mg PO HS [facility] Stop: 11/01/18 20:59 Last Admin: 09/12/18 21:30 Dose: 0.4 mg Trazodone HCl (Desyrel) 25 mg PO HS [facility]; Protocol Stop: 11/03/18 20:59 Last Admin: 09/12/18 21:31 Dose: 25 mg Zolpidem Tartrate (Ambien) 5 mg PO HS PRN PRN Reason: Insomnia Stop: 10/31/18 22:56 Last Admin: 09/02/18 20:42 Dose: 5 mg General: alert, demented HEENT: NC/AT, PERRLA, EOMI, anicteric sclerae, throat clear Neck: Supple, No JVD, No thyromegaly, +2 carotid pulse wo bruit, No LAD Lungs: CTAB Cardiovascular: RRR, Normal S1, Normal S2, without murmur Abdomen: soft, non-tender, non-distended Extremities: clear Neurological: no change - Procedures Procedures: Procedures Procedure Code Date OTHER GROUP THERAPY 94.44 09/01/14 RECREATIONAL THERAPY 93.81 12/23/11 Internal Medicine Assmt/Plan - Assessment Assessment: 1.HTN. 2.CHF. 3.CARDIOMYOPATHY. 4.BPH. 5.SCHIZOAFFECTIVE DISORDER. - Plan Plan: CONTINUE ON CURRENT MEDICATION AND DIET. Nutritional Asmnt/Malnutr-PDOC - Dietary Evaluation Malnutrition Findings (Please click <Entered> for more info): Nutritional Asmnt/Malnutrition Start: 09/05/18 08: 51 Text: Status: Complete Freq: Protocol: Document 09/05/18 08:51 GAETANO (Rec: 09/05/18 08:56 GAETANO BYRNES- [id number]) Nutritional Asmnt/Malnutrition Patient General Information Diagnosis psychosis Pertinent Medical Hx/Surgical Hx HTN, CHF, cardiomyopathy, beningn prostatic hypertrophy Current Diet Order/ Nutrition Support CCHO no added salt Pertinent Medications Maalox, lasix, lacutlose, theragran, KCl 40mEq/daily Pertinent Labs no labs since 09/02 Nutritional Hx/Data Height 1.42 m Height (Calculated Centimeters) 142.2 Current Weight (lbs) 86.183 kg Weight (Calculated Kilograms) 86.2 Weight (Calculated Grams) 40934.6 Body Mass Index (BMI) 42.5 Recent Weight Change No Weight Status Morbidly Obese GI Symptoms GI Symptoms None Last BM 09/04 Cultural/Ethnic/Temple Belief unknown Usual diet at home regular Skin Integrity/Comment: adenike score 22 Current %PO Good (75-100%) Estimated Nutritional Goals BEE in Kcals: Adj wt of IBW Calories/Kcals/Kg 25-30kcals/kg Kcals Calculated 1400-1680kcals/day Protein: Adj wt of IBW Protein g/k.2+g/kg Protein Calculated 67g/day Fluid: ml per MD Nutritional Problem 1. Problem Problem Obese related to Etiology excessive oral intake Signs/Symptoms: as evidenced by BMI 42.6. Intervention/Recommendation Comments Recommend continuing CCHO no added salt Expected Outcomes/Goals Expected Outcomes/Goals PO intake >75% of meals
--- NOTE | 2018-09-13 23:44 | Progress Notes ---
DATE: 09/13/2018 SUBJECTIVE: Case was discussed with staff of the patient, reviewed records. The patient reports that he could not go because they have no place for him as in [facility]. The patient is isolating himself. He denies any intent to harm himself or anyone. He denies any visual hallucinations or paranoia. He denies having any side effects. Working on discharge plan. We will continue to work with the patient in group therapy, milieu therapy, and adjust the medications as needed. JOB# [id number]
[2018-09-14] MEDS: Potassium Chloride 20 mEq ER Tab PO SCH (09:16)
[2018-09-14] MEDS: Lactulose 10 Gm/15 mL 30mL UDC PO SCH ×2 (09:18→16:36)
[2018-09-14] MEDS: Metolazone 5 MG TAB PO SCH (09:19)
[2018-09-14] MEDS: Multivitamin Tab PO SCH (09:19)
[2018-09-14] MEDS: risperiDONE 1 mg/mL 30 mL Bottle PO SCH ×2 (09:20→16:41)
[2018-09-14] MEDS: Aspirin 81mg Chewable Tab PO SCH (09:32)
--- NOTE | 2018-09-14 19:34 | Internal Medicine Prog Note ---
Internal Medicine Subjective - Subjective Service Date: 09/14/18 Patient seen and examined:: without staff (HE FEELS WELL) Patient is:: awake, verbal, talking, confused Per staff patient has:: no adverse event Internal Medicine Objective - Results Result Diagrams: 09/02/18 06:05 09/10/18 06:30 Recent Labs: Laboratory Last Values WBC 8.6 Th/cmm (4.8-10.8) 09/02/18 06:05 RBC 4.38 Mil/cmm (4.30-5.70) 09/02/18 06:05 Hgb 13.2 gm/dL (12-16) 09/02/18 06:05 Hct 39.8 % (41.0-60) L 09/02/18 06:05 MCV 90.7 fl (80-99) 09/02/18 06:05 MCH 30.1 pg (26.0-30.0) H 09/02/18 06:05 MCHC Differential 33.2 pg (28.0-36.0) 09/02/18 06:05 RDW 13.3 % (11.5-20.0) 09/02/18 06:05 Plt Count 236 Th/cmm (150-400) 09/02/18 06:05 MPV 7.5 fl 09/02/18 06:05 Neutrophils % 63.0 % (40.0-80.0) 09/02/18 06:05 Lymphocytes % 20.9 % (20.0-50.0) 09/02/18 06:05 Monocytes % 10.7 % (2.0-10.0) H 09/02/18 06:05 Eosinophils % 4.2 % (0.0-5.0) 09/02/18 06:05 Basophils % 1.2 % (0.0-2.0) 09/02/18 06:05 Sodium 136 mEq/L (136-145) 09/10/18 06:30 Potassium 3.1 mEq/L (3.5-5.1) L 09/10/18 06:30 Chloride 97 mEq/L (98-107) L 09/10/18 06:30 Carbon Dioxide 32.1 mEq/L (21.0-31.0) H 09/10/18 06:30 Anion Gap 10.0 (7.0-16.0) 09/10/18 06:30 BUN 20 mg/dL (7-25) 09/10/18 06:30 Creatinine 0.9 mg/dL (0.7-1.3) 09/10/18 06:30 Est GFR ( Amer) > 60.0 ml/min (>90) 09/10/18 06:30 Est GFR (Non-Af Amer) > 60.0 ml/min 09/10/18 06:30 BUN/Creatinine Ratio 22.2 09/10/18 06:30 Glucose 85 mg/dL (70-105) 09/10/18 06:30 Calcium 10.1 mg/dL (8.6-10.3) 09/10/18 06:30 Total Bilirubin 0.6 mg/dL (0.3-1.0) 09/10/18 06:30 AST 32 U/L (13-39) 09/10/18 06:30 ALT 28 U/L (7-52) 09/10/18 06:30 Alkaline Phosphatase 90 U/L (34-104) 09/10/18 06:30 Troponin I 0.02 ng/mL (0.01-0.05) 09/01/18 18:00 Total Protein 8.0 gm/dL (6.0-8.3) 09/10/18 06:30 Albumin 4.0 gm/dL (4.2-5.5) L 09/10/18 06:30 Globulin 4.0 gm/dL 09/10/18 06:30 Albumin/Globulin Ratio 1.0 (1.0-1.8) 09/10/18 06:30 Triglycerides 102 mg/dL (<150) 09/02/18 06:05 Cholesterol 127 mg/dL (<200) 09/02/18 06:05 LDL Cholesterol Direct 63 mg/dL (75-193) L 09/02/18 06:05 HDL Cholesterol 44 mg/dL (23-92) 09/02/18 06:05 TSH 0.80 uIU/ml (0.34-5.60) 09/01/18 18:00 Urine Source CLEAN C 09/01/18 18:45 Urine Color YELLOW 09/01/18 18:45 Urine Clarity CLEAR (CLEAR) 09/01/18 18:45 Urine pH 7.5 (4.6 - 8.0) 09/01/18 18:45 Ur Specific [place] 1.020 (1.005-1.030) 09/01/18 18:45 Urine Protein NEGATIVE mg/dL (NEGATIVE) 09/01/18 18:45 Urine Glucose (UA) 100 mg/dL (NEGATIVE) H 09/01/18 18:45 Urine Ketones NEGATIVE mg/dL (NEGATIVE) 09/01/18 18:45 Urine Blood NEGATIVE (NEGATIVE) 09/01/18 18:45 Urine Nitrate NEGATIVE (NEGATIVE) 09/01/18 18:45 Urine Bilirubin NEGATIVE (NEGATIVE) 09/01/18 18:45 Urine Urobilinogen 0.2 E.U./dL (0.2 - 1.0) 09/01/18 18:45 Ur Leukocyte Esterase NEGATIVE (NEGATIVE) 09/01/18 18:45 Urine RBC NONE SEEN /hpf (0-5) 09/01/18 18:45 Urine WBC 0-2 /hpf (0-5) 09/01/18 18:45 Ur Epithelial Cells OCCASIONAL /lpf (FEW) 09/01/18 18:45 Urine Bacteria FEW /hpf (NONE SEEN) 09/01/18 18:45 Salicylates < 25.0 mg/L (30.0-100.0) L 09/01/18 18:00 Urine Opiates Screen NEGATIVE (NEGATIVE) 09/01/18 19:36 Urine Methadone Screen NEGATIVE (NEGATIVE) 09/01/18 19:36 Acetaminophen < 10.0 ug/mL (10.0-30.0) L 09/01/18 18:00 Ur Barbiturates Screen NEGATIVE (NEGATIVE) 09/01/18 19:36 Oxcarbazepine None Detected ug/mL (10-35) 09/02/18 06:05 Ur Tricyclics Screen NEGATIVE (NEGATIVE) 09/01/18 19:36 Ur Phencyclidine Scrn NEGATIVE (NEGATIVE) 09/01/18 19:36 Amphetamines Screen NEGATIVE (NEGATIVE) 09/01/18 19:36 U Methamphetamines Scrn NEGATIVE (NEGATIVE) 09/01/18 19:36 U Benzodiazepines Scrn NEGATIVE (NEGATIVE) 09/01/18 19:36 U Cocaine Metab Screen NEGATIVE (NEGATIVE) 09/01/18 19:36 U Cannabinoids Screen NEGATIVE (NEGATIVE) 09/01/18 19:36 Ethyl Alcohol < 10 mg/dL (0-10) 09/01/18 18:00 RPR NONREACTIVE (NONREACTIVE) 09/01/18 18:00 - Physical Exam Vitals and I&O: Vital Signs Temp 97.3 F 09/14/18 14:00 Pulse 71 09/14/18 14:00 Resp 18 09/14/18 14:00 BP 121/88 09/14/18 14:00 Pulse Ox 96 09/14/18 14:00 Intake & Output 09/14/18 09/14/18 09/15/18 06:59 18:59 06:59 Intake Total 120 Balance 120 Intake: Oral 120 Other: # Voids 3 Active Medications: Current Medications Acetaminophen (Tylenol) 650 mg PO Q4HR PRN PRN Reason: Mild Pain / Temp above 100 Stop: 10/31/18 22:39 Al Hydrox/Mg Hydrox/Simethicone (Maalox) 30 ml PO Q4HR PRN PRN Reason: GI DISTRESS Stop: 10/31/18 22:58 Amlodipine Besylate (Norvasc) 5 mg PO DAILY [facility] Stop: 11/01/18 08:59 Last Admin: 09/14/18 09:28 Dose: 5 mg Aspirin (Aspirin Chewable) 81 mg PO DAILY [facility] Stop: 11/01/18 08:59 Last Admin: 09/14/18 09:32 Dose: 81 mg Carvedilol (Coreg) 25 mg PO BIDWM [facility] Stop: 11/01/18 07:59 Last Admin: 09/14/18 09:17 Dose: 25 mg Donepezil HCl (Aricept) 10 mg PO HS [facility] Stop: 11/03/18 20:59 Last Admin: 09/13/18 21:42 Dose: 10 mg Furosemide (Lasix) 20 mg PO TID [facility] Stop: 11/01/18 08:59 Last Admin: 09/14/18 16:38 Dose: Not Given Lactulose (Cephulac) 20 gm PO BID [facility] Stop: 11/01/18 08:59 Last Admin: 09/14/18 16:36 Dose: 20 gm Lorazepam (Ativan) 0.5 mg PO Q4HR PRN; Protocol PRN Reason: Anxiety Stop: 10/01/18 22:56 Last Admin: 09/06/18 20:58 Dose: 0.5 mg Magnesium Hydroxide (Milk Of Magnesia) 30 ml PO HS PRN PRN Reason: Constipation Magnesium Oxide (Mag-Oxide) 400 mg PO BID [facility] Stop: 11/01/18 08:59 Last Admin: 09/14/18 16:37 Dose: 400 mg Metolazone (Zaroxolyn) 5 mg PO DAILY [facility] Stop: 11/01/18 08:59 Last Admin: 09/14/18 09:19 Dose: 5 mg Multivitamins/Vitamin C (Theragran) 1 tab PO DAILY [facility] Stop: 11/01/18 08:59 Last Admin: 09/14/18 09:19 Dose: Not Given Oxcarbazepine (Trileptal) 300 mg PO BID [facility]; Protocol Stop: 11/01/18 08:59 Last Admin: 09/14/18 16:37 Dose: 300 mg Potassium Chloride (Klor-Con) 40 meq PO DAILY [facility] Stop: 11/01/18 08:59 Last Admin: 09/14/18 09:16 Dose: 40 meq Risperidone (Risperdal) 3 mg PO BID [facility]; Protocol Stop: 11/01/18 08:59 Last Admin: 09/14/18 16:41 Dose: 3 mg Spironolactone (Aldactone) 25 mg PO DAILY [facility] Stop: 11/01/18 08:59 Last Admin: 09/14/18 09:20 Dose: 25 mg Tamsulosin HCl (Flomax) 0.4 mg PO HS [facility] Stop: 11/01/18 20:59 Last Admin: 09/13/18 21:42 Dose: 0.4 mg Trazodone HCl (Desyrel) 25 mg PO HS [facility]; Protocol Stop: 11/03/18 20:59 Last Admin: 09/13/18 21:42 Dose: 25 mg Zolpidem Tartrate (Ambien) 5 mg PO HS PRN PRN Reason: Insomnia Stop: 10/31/18 22:56 Last Admin: 09/02/18 20:42 Dose: 5 mg General: alert, demented HEENT: NC/AT, PERRLA, EOMI, anicteric sclerae, throat clear Neck: Supple, No JVD, No thyromegaly, +2 carotid pulse wo bruit, No LAD Lungs: CTAB Cardiovascular: RRR, Normal S1, Normal S2, without murmur Abdomen: soft, non-tender, non-distended Extremities: clear Neurological: no change - Procedures Procedures: Procedures Procedure Code Date OTHER GROUP THERAPY 94.44 09/01/14 RECREATIONAL THERAPY 93.81 12/23/11 Internal Medicine Assmt/Plan - Assessment Assessment: 1.HTN. 2.CHF. 3.CARDIOMYOPATHY. 4.BPH. 5.SCHIZOAFFECTIVE DISORDER. - Plan Plan: CONTINUE ON CURRENT MEDICATION AND DIET. Nutritional Asmnt/Malnutr-PDOC - Dietary Evaluation Malnutrition Findings (Please click <Entered> for more info): Nutritional Asmnt/Malnutrition Start: 09/05/18 08: 51 Text: Status: Complete Freq: Protocol: Document 09/05/18 08:51 GAETANO (Rec: 09/05/18 08:56 GAETANO BYRNES- [email or web address]) Nutritional Asmnt/Malnutrition Patient General Information Diagnosis psychosis Pertinent Medical Hx/Surgical Hx HTN, CHF, cardiomyopathy, beningn prostatic hypertrophy Current Diet Order/ Nutrition Support CCHO no added salt Pertinent Medications Maalox, lasix, lacutlose, theragran, KCl 40mEq/daily Pertinent Labs no labs since 09/02 Nutritional Hx/Data Height 1.42 m Height (Calculated Centimeters) 142.2 Current Weight (lbs) 86.183 kg Weight (Calculated Kilograms) 86.2 Weight (Calculated Grams) 80033.6 Body Mass Index (BMI) 42.5 Recent Weight Change No Weight Status Morbidly Obese GI Symptoms GI Symptoms None Last BM 09/04 Cultural/Ethnic/Islam Belief unknown Usual diet at home regular Skin Integrity/Comment: adenike score 22 Current %PO Good (75-100%) Estimated Nutritional Goals BEE in Kcals: Adj wt of IBW Calories/Kcals/Kg 25-30kcals/kg Kcals Calculated 1400-1680kcals/day Protein: Adj wt of IBW Protein g/k.2+g/kg Protein Calculated 67g/day Fluid: ml per MD Nutritional Problem 1. Problem Problem Obese related to Etiology excessive oral intake Signs/Symptoms: as evidenced by BMI 42.6. Intervention/Recommendation Comments Recommend continuing CCHO no added salt Expected Outcomes/Goals Expected Outcomes/Goals PO intake >75% of meals
--- NOTE | 2018-09-15 04:45 | Progress Notes ---
DATE: 09/14/2018 SUBJECTIVE: Chart was reviewed and the patient interviewed. Also discussed the patient's condition with the staff and reviewed the records and labs. The patient was supposed to be discharged last Friday and the patient went to [facility] and he was sent back to the hospital "no bed is available." The patient also still has difficulty with his mood and is still having difficulty complying with taking his medications. Otherwise, the patient is easier to redirect him. ASSESSMENT: The patient is still anxious, but no behavioral problems. PLAN: Plan to discharge the patient today if placement is available and follow up in [facility]. JOB# [id number]
[2018-09-15] MEDS: Lactulose 10 Gm/15 mL 30mL UDC PO SCH ×3 (08:25→17:29)
[2018-09-15] MEDS: Potassium Chloride 20 mEq ER Tab PO SCH (08:27)
[2018-09-15] MEDS: Multivitamin Tab PO SCH (08:27)
[2018-09-15] MEDS: Metolazone 5 MG TAB PO SCH (08:27)
[2018-09-15] MEDS: risperiDONE 1 mg/mL 30 mL Bottle PO SCH ×3 (08:28→17:30)
[2018-09-15] MEDS: Aspirin 81mg Chewable Tab PO SCH (08:28)
--- NOTE | 2018-09-15 11:27 | Progress Notes ---
DATE: SUBJECTIVE: Chart reviewed and the patient interviewed. Also discussed the patient's condition with the staff and reviewed records and labs. The patient's affect is brighter. The patient seems to be calmer. He is less irritable and less agitated. Also, easier to redirect him. Otherwise, the patient is also compliant with taking his medications. According to casework supervisor, the patient still has no beds in [facility] where he came from and trying to get him into other placement or to go back to [facility]. At the same time, we are going to continue current medications and treatment and waiting for placement issue. JOB# [id number]
--- NOTE | 2018-09-15 23:15 | Internal Medicine Prog Note ---
Internal Medicine Subjective - Subjective Service Date: 09/15/18 Patient seen and examined:: without staff (HE DENIES CHEST PAIN) Patient is:: awake, verbal, talking, confused Per staff patient has:: no adverse event Internal Medicine Objective - Results Result Diagrams: 09/02/18 06:05 09/10/18 06:30 Recent Labs: Laboratory Last Values WBC 8.6 Th/cmm (4.8-10.8) 09/02/18 06:05 RBC 4.38 Mil/cmm (4.30-5.70) 09/02/18 06:05 Hgb 13.2 gm/dL (12-16) 09/02/18 06:05 Hct 39.8 % (41.0-60) L 09/02/18 06:05 MCV 90.7 fl (80-99) 09/02/18 06:05 MCH 30.1 pg (26.0-30.0) H 09/02/18 06:05 MCHC Differential 33.2 pg (28.0-36.0) 09/02/18 06:05 RDW 13.3 % (11.5-20.0) 09/02/18 06:05 Plt Count 236 Th/cmm (150-400) 09/02/18 06:05 MPV 7.5 fl 09/02/18 06:05 Neutrophils % 63.0 % (40.0-80.0) 09/02/18 06:05 Lymphocytes % 20.9 % (20.0-50.0) 09/02/18 06:05 Monocytes % 10.7 % (2.0-10.0) H 09/02/18 06:05 Eosinophils % 4.2 % (0.0-5.0) 09/02/18 06:05 Basophils % 1.2 % (0.0-2.0) 09/02/18 06:05 Sodium 136 mEq/L (136-145) 09/10/18 06:30 Potassium 3.1 mEq/L (3.5-5.1) L 09/10/18 06:30 Chloride 97 mEq/L (98-107) L 09/10/18 06:30 Carbon Dioxide 32.1 mEq/L (21.0-31.0) H 09/10/18 06:30 Anion Gap 10.0 (7.0-16.0) 09/10/18 06:30 BUN 20 mg/dL (7-25) 09/10/18 06:30 Creatinine 0.9 mg/dL (0.7-1.3) 09/10/18 06:30 Est GFR ( Amer) > 60.0 ml/min (>90) 09/10/18 06:30 Est GFR (Non-Af Amer) > 60.0 ml/min 09/10/18 06:30 BUN/Creatinine Ratio 22.2 09/10/18 06:30 Glucose 85 mg/dL (70-105) 09/10/18 06:30 Calcium 10.1 mg/dL (8.6-10.3) 09/10/18 06:30 Total Bilirubin 0.6 mg/dL (0.3-1.0) 09/10/18 06:30 AST 32 U/L (13-39) 09/10/18 06:30 ALT 28 U/L (7-52) 09/10/18 06:30 Alkaline Phosphatase 90 U/L (34-104) 09/10/18 06:30 Troponin I 0.02 ng/mL (0.01-0.05) 09/01/18 18:00 Total Protein 8.0 gm/dL (6.0-8.3) 09/10/18 06:30 Albumin 4.0 gm/dL (4.2-5.5) L 09/10/18 06:30 Globulin 4.0 gm/dL 09/10/18 06:30 Albumin/Globulin Ratio 1.0 (1.0-1.8) 09/10/18 06:30 Triglycerides 102 mg/dL (<150) 09/02/18 06:05 Cholesterol 127 mg/dL (<200) 09/02/18 06:05 LDL Cholesterol Direct 63 mg/dL (75-193) L 09/02/18 06:05 HDL Cholesterol 44 mg/dL (23-92) 09/02/18 06:05 TSH 0.80 uIU/ml (0.34-5.60) 09/01/18 18:00 Urine Source CLEAN C 09/01/18 18:45 Urine Color YELLOW 09/01/18 18:45 Urine Clarity CLEAR (CLEAR) 09/01/18 18:45 Urine pH 7.5 (4.6 - 8.0) 09/01/18 18:45 Ur Specific [place] 1.020 (1.005-1.030) 09/01/18 18:45 Urine Protein NEGATIVE mg/dL (NEGATIVE) 09/01/18 18:45 Urine Glucose (UA) 100 mg/dL (NEGATIVE) H 09/01/18 18:45 Urine Ketones NEGATIVE mg/dL (NEGATIVE) 09/01/18 18:45 Urine Blood NEGATIVE (NEGATIVE) 09/01/18 18:45 Urine Nitrate NEGATIVE (NEGATIVE) 09/01/18 18:45 Urine Bilirubin NEGATIVE (NEGATIVE) 09/01/18 18:45 Urine Urobilinogen 0.2 E.U./dL (0.2 - 1.0) 09/01/18 18:45 Ur Leukocyte Esterase NEGATIVE (NEGATIVE) 09/01/18 18:45 Urine RBC NONE SEEN /hpf (0-5) 09/01/18 18:45 Urine WBC 0-2 /hpf (0-5) 09/01/18 18:45 Ur Epithelial Cells OCCASIONAL /lpf (FEW) 09/01/18 18:45 Urine Bacteria FEW /hpf (NONE SEEN) 09/01/18 18:45 Salicylates < 25.0 mg/L (30.0-100.0) L 09/01/18 18:00 Urine Opiates Screen NEGATIVE (NEGATIVE) 09/01/18 19:36 Urine Methadone Screen NEGATIVE (NEGATIVE) 09/01/18 19:36 Acetaminophen < 10.0 ug/mL (10.0-30.0) L 09/01/18 18:00 Ur Barbiturates Screen NEGATIVE (NEGATIVE) 09/01/18 19:36 Oxcarbazepine None Detected ug/mL (10-35) 09/02/18 06:05 Ur Tricyclics Screen NEGATIVE (NEGATIVE) 09/01/18 19:36 Ur Phencyclidine Scrn NEGATIVE (NEGATIVE) 09/01/18 19:36 Amphetamines Screen NEGATIVE (NEGATIVE) 09/01/18 19:36 U Methamphetamines Scrn NEGATIVE (NEGATIVE) 09/01/18 19:36 U Benzodiazepines Scrn NEGATIVE (NEGATIVE) 09/01/18 19:36 U Cocaine Metab Screen NEGATIVE (NEGATIVE) 09/01/18 19:36 U Cannabinoids Screen NEGATIVE (NEGATIVE) 09/01/18 19:36 Ethyl Alcohol < 10 mg/dL (0-10) 09/01/18 18:00 RPR NONREACTIVE (NONREACTIVE) 09/01/18 18:00 - Physical Exam Vitals and I&O: Vital Signs Temp 98 F 09/15/18 20:22 Pulse 64 09/15/18 20:22 Resp 20 09/15/18 20:22 BP 116/56 09/15/18 21:38 Pulse Ox 97 09/15/18 20:22 Intake & Output 09/15/18 09/15/18 09/16/18 06:59 18:59 06:59 Intake Total 240 600 120 Balance 240 600 120 Intake: Oral 240 600 120 Other: # Voids 2 3 3 # Bowel Movements 1 0 Active Medications: Current Medications Acetaminophen (Tylenol) 650 mg PO Q4HR PRN PRN Reason: Mild Pain / Temp above 100 Stop: 10/31/18 22:39 Al Hydrox/Mg Hydrox/Simethicone (Maalox) 30 ml PO Q4HR PRN PRN Reason: GI DISTRESS Stop: 10/31/18 22:58 Amlodipine Besylate (Norvasc) 5 mg PO DAILY [facility] Stop: 11/01/18 08:59 Last Admin: 09/15/18 08:28 Dose: 5 mg Aspirin (Aspirin Chewable) 81 mg PO DAILY [facility] Stop: 11/01/18 08:59 Last Admin: 09/15/18 08:28 Dose: 81 mg Carvedilol (Coreg) 25 mg PO BIDWM [facility] Stop: 11/01/18 07:59 Last Admin: 09/15/18 17:29 Dose: Not Given Donepezil HCl (Aricept) 10 mg PO HS [facility] Stop: 11/03/18 20:59 Last Admin: 09/15/18 21:39 Dose: Not Given Furosemide (Lasix) 20 mg PO TID [facility] Stop: 11/01/18 08:59 Last Admin: 09/15/18 21:38 Dose: Not Given Lactulose (Cephulac) 20 gm PO BID [facility] Stop: 11/01/18 08:59 Last Admin: 09/15/18 17:29 Dose: Not Given Lorazepam (Ativan) 0.5 mg PO Q4HR PRN; Protocol PRN Reason: Anxiety Stop: 10/01/18 22:56 Last Admin: 09/06/18 20:58 Dose: 0.5 mg Magnesium Hydroxide (Milk Of Magnesia) 30 ml PO HS PRN PRN Reason: Constipation Magnesium Oxide (Mag-Oxide) 400 mg PO BID [facility] Stop: 11/01/18 08:59 Last Admin: 09/15/18 17:29 Dose: Not Given Metolazone (Zaroxolyn) 5 mg PO DAILY [facility] Stop: 11/01/18 08:59 Last Admin: 09/15/18 08:27 Dose: 5 mg Multivitamins/Vitamin C (Theragran) 1 tab PO DAILY [facility] Stop: 11/01/18 08:59 Last Admin: 09/15/18 08:27 Dose: 1 tab Oxcarbazepine (Trileptal) 300 mg PO BID [facility]; Protocol Stop: 11/01/18 08:59 Last Admin: 09/15/18 17:30 Dose: Not Given Potassium Chloride (Klor-Con) 40 meq PO DAILY [facility] Stop: 11/01/18 08:59 Last Admin: 09/15/18 08:27 Dose: 40 meq Risperidone (Risperdal) 3 mg PO BID [facility]; Protocol Stop: 11/01/18 08:59 Last Admin: 09/15/18 17:30 Dose: Not Given Spironolactone (Aldactone) 25 mg PO DAILY [facility] Stop: 11/01/18 08:59 Last Admin: 09/15/18 08:27 Dose: 25 mg Tamsulosin HCl (Flomax) 0.4 mg PO HS [facility] Stop: 11/01/18 20:59 Last Admin: 09/15/18 21:39 Dose: Not Given Trazodone HCl (Desyrel) 25 mg PO HS [facility]; Protocol Stop: 11/03/18 20:59 Last Admin: 09/15/18 21:39 Dose: Not Given Zolpidem Tartrate (Ambien) 5 mg PO HS PRN PRN Reason: Insomnia Stop: 10/31/18 22:56 Last Admin: 09/02/18 20:42 Dose: 5 mg General: alert, demented HEENT: NC/AT, PERRLA, EOMI, anicteric sclerae, throat clear Neck: Supple, No JVD, No thyromegaly, +2 carotid pulse wo bruit, No LAD Lungs: CTAB Cardiovascular: RRR, Normal S1, Normal S2, without murmur Abdomen: soft, non-tender, non-distended Extremities: clear Neurological: no change - Procedures Procedures: Procedures Procedure Code Date OTHER GROUP THERAPY 94.44 09/01/14 RECREATIONAL THERAPY 93.81 12/23/11 Internal Medicine Assmt/Plan - Assessment Assessment: 1.HTN. 2.CHF. 3.CARDIOMYOPATHY. 4.BPH. 5.SCHIZOAFFECTIVE DISORDER. - Plan Plan: CONTINUE ON CURRENT MEDICATION AND DIET. Nutritional Asmnt/Malnutr-PDOC - Dietary Evaluation Malnutrition Findings (Please click <Entered> for more info): Nutritional Asmnt/Malnutrition Start: 09/05/18 08: 51 Text: Status: Complete Freq: Protocol: Document 09/05/18 08:51 GAETANO (Rec: 09/05/18 08:56 GAETANO BYRNES- [email or web address]) Nutritional Asmnt/Malnutrition Patient General Information Diagnosis psychosis Pertinent Medical Hx/Surgical Hx HTN, CHF, cardiomyopathy, beningn prostatic hypertrophy Current Diet Order/ Nutrition Support CCHO no added salt Pertinent Medications Maalox, lasix, lacutlose, theragran, KCl 40mEq/daily Pertinent Labs no labs since 09/02 Nutritional Hx/Data Height 1.42 m Height (Calculated Centimeters) 142.2 Current Weight (lbs) 86.183 kg Weight (Calculated Kilograms) 86.2 Weight (Calculated Grams) 68862.6 Body Mass Index (BMI) 42.5 Recent Weight Change No Weight Status Morbidly Obese GI Symptoms GI Symptoms None Last BM 09/04 Cultural/Ethnic/Gnosticist Belief unknown Usual diet at home regular Skin Integrity/Comment: adenike score 22 Current %PO Good (75-100%) Estimated Nutritional Goals BEE in Kcals: Adj wt of IBW Calories/Kcals/Kg 25-30kcals/kg Kcals Calculated 1400-1680kcals/day Protein: Adj wt of IBW Protein g/k.2+g/kg Protein Calculated 67g/day Fluid: ml per MD Nutritional Problem 1. Problem Problem Obese related to Etiology excessive oral intake Signs/Symptoms: as evidenced by BMI 42.6. Intervention/Recommendation Comments Recommend continuing CCHO no added salt Expected Outcomes/Goals Expected Outcomes/Goals PO intake >75% of meals
[2018-09-16] MEDS: Lactulose 10 Gm/15 mL 30mL UDC PO SCH ×2 (09:23→16:55)
[2018-09-16] MEDS: Potassium Chloride 20 mEq ER Tab PO SCH (09:50)
[2018-09-16] MEDS: Aspirin 81mg Chewable Tab PO SCH (09:51)
[2018-09-16] MEDS: Multivitamin Tab PO SCH (09:51)
[2018-09-16] MEDS: Metolazone 5 MG TAB PO SCH (09:51)
[2018-09-16] MEDS: risperiDONE 1 mg/mL 30 mL Bottle PO SCH ×2 (10:04→18:00)
--- NOTE | 2018-09-16 11:19 | Progress Notes ---
DATE: 09/16/2018 SUBJECTIVE: Chart was reviewed and the patient interviewed. Also discussed the patient's condition with the staff and reviewed records and labs. The patient is still anxious about his discharge and still wandering around the unit. The patient still has episodes of agitation and simply it seems that now since he is doing better, the longer he stays worse, he can get and he is getting back to be more agitated. The patient is compliant with taking his medications with no side effects of medications. ASSESSMENT: The patient is less psychotic and is not agitated and ready for discharge. TREATMENT PLAN: manager foreign is still working on discharge plans and it is not clear to me the delay in his discharge except that "no bed available." At the same time, we will continue current medications and continue to work on his discharge plans and placement issue. JOB# [id number]
--- NOTE | 2018-09-16 20:17 | Internal Medicine Prog Note ---
Internal Medicine Subjective - Subjective Service Date: 09/16/18 Patient seen and examined:: with staff (HE FEELS WELL,NO SOB.) Patient is:: awake, verbal, talking, confused Per staff patient has:: no adverse event Internal Medicine Objective - Results Result Diagrams: 09/02/18 06:05 09/10/18 06:30 Recent Labs: Laboratory Last Values WBC 8.6 Th/cmm (4.8-10.8) 09/02/18 06:05 RBC 4.38 Mil/cmm (4.30-5.70) 09/02/18 06:05 Hgb 13.2 gm/dL (12-16) 09/02/18 06:05 Hct 39.8 % (41.0-60) L 09/02/18 06:05 MCV 90.7 fl (80-99) 09/02/18 06:05 MCH 30.1 pg (26.0-30.0) H 09/02/18 06:05 MCHC Differential 33.2 pg (28.0-36.0) 09/02/18 06:05 RDW 13.3 % (11.5-20.0) 09/02/18 06:05 Plt Count 236 Th/cmm (150-400) 09/02/18 06:05 MPV 7.5 fl 09/02/18 06:05 Neutrophils % 63.0 % (40.0-80.0) 09/02/18 06:05 Lymphocytes % 20.9 % (20.0-50.0) 09/02/18 06:05 Monocytes % 10.7 % (2.0-10.0) H 09/02/18 06:05 Eosinophils % 4.2 % (0.0-5.0) 09/02/18 06:05 Basophils % 1.2 % (0.0-2.0) 09/02/18 06:05 Sodium 136 mEq/L (136-145) 09/10/18 06:30 Potassium 3.1 mEq/L (3.5-5.1) L 09/10/18 06:30 Chloride 97 mEq/L (98-107) L 09/10/18 06:30 Carbon Dioxide 32.1 mEq/L (21.0-31.0) H 09/10/18 06:30 Anion Gap 10.0 (7.0-16.0) 09/10/18 06:30 BUN 20 mg/dL (7-25) 09/10/18 06:30 Creatinine 0.9 mg/dL (0.7-1.3) 09/10/18 06:30 Est GFR ( Amer) > 60.0 ml/min (>90) 09/10/18 06:30 Est GFR (Non-Af Amer) > 60.0 ml/min 09/10/18 06:30 BUN/Creatinine Ratio 22.2 09/10/18 06:30 Glucose 85 mg/dL (70-105) 09/10/18 06:30 Calcium 10.1 mg/dL (8.6-10.3) 09/10/18 06:30 Total Bilirubin 0.6 mg/dL (0.3-1.0) 09/10/18 06:30 AST 32 U/L (13-39) 09/10/18 06:30 ALT 28 U/L (7-52) 09/10/18 06:30 Alkaline Phosphatase 90 U/L (34-104) 09/10/18 06:30 Troponin I 0.02 ng/mL (0.01-0.05) 09/01/18 18:00 Total Protein 8.0 gm/dL (6.0-8.3) 09/10/18 06:30 Albumin 4.0 gm/dL (4.2-5.5) L 09/10/18 06:30 Globulin 4.0 gm/dL 09/10/18 06:30 Albumin/Globulin Ratio 1.0 (1.0-1.8) 09/10/18 06:30 Triglycerides 102 mg/dL (<150) 09/02/18 06:05 Cholesterol 127 mg/dL (<200) 09/02/18 06:05 LDL Cholesterol Direct 63 mg/dL (75-193) L 09/02/18 06:05 HDL Cholesterol 44 mg/dL (23-92) 09/02/18 06:05 TSH 0.80 uIU/ml (0.34-5.60) 09/01/18 18:00 Urine Source CLEAN C 09/01/18 18:45 Urine Color YELLOW 09/01/18 18:45 Urine Clarity CLEAR (CLEAR) 09/01/18 18:45 Urine pH 7.5 (4.6 - 8.0) 09/01/18 18:45 Ur Specific [place] 1.020 (1.005-1.030) 09/01/18 18:45 Urine Protein NEGATIVE mg/dL (NEGATIVE) 09/01/18 18:45 Urine Glucose (UA) 100 mg/dL (NEGATIVE) H 09/01/18 18:45 Urine Ketones NEGATIVE mg/dL (NEGATIVE) 09/01/18 18:45 Urine Blood NEGATIVE (NEGATIVE) 09/01/18 18:45 Urine Nitrate NEGATIVE (NEGATIVE) 09/01/18 18:45 Urine Bilirubin NEGATIVE (NEGATIVE) 09/01/18 18:45 Urine Urobilinogen 0.2 E.U./dL (0.2 - 1.0) 09/01/18 18:45 Ur Leukocyte Esterase NEGATIVE (NEGATIVE) 09/01/18 18:45 Urine RBC NONE SEEN /hpf (0-5) 09/01/18 18:45 Urine WBC 0-2 /hpf (0-5) 09/01/18 18:45 Ur Epithelial Cells OCCASIONAL /lpf (FEW) 09/01/18 18:45 Urine Bacteria FEW /hpf (NONE SEEN) 09/01/18 18:45 Salicylates < 25.0 mg/L (30.0-100.0) L 09/01/18 18:00 Urine Opiates Screen NEGATIVE (NEGATIVE) 09/01/18 19:36 Urine Methadone Screen NEGATIVE (NEGATIVE) 09/01/18 19:36 Acetaminophen < 10.0 ug/mL (10.0-30.0) L 09/01/18 18:00 Ur Barbiturates Screen NEGATIVE (NEGATIVE) 09/01/18 19:36 Oxcarbazepine None Detected ug/mL (10-35) 09/02/18 06:05 Ur Tricyclics Screen NEGATIVE (NEGATIVE) 09/01/18 19:36 Ur Phencyclidine Scrn NEGATIVE (NEGATIVE) 09/01/18 19:36 Amphetamines Screen NEGATIVE (NEGATIVE) 09/01/18 19:36 U Methamphetamines Scrn NEGATIVE (NEGATIVE) 09/01/18 19:36 U Benzodiazepines Scrn NEGATIVE (NEGATIVE) 09/01/18 19:36 U Cocaine Metab Screen NEGATIVE (NEGATIVE) 09/01/18 19:36 U Cannabinoids Screen NEGATIVE (NEGATIVE) 09/01/18 19:36 Ethyl Alcohol < 10 mg/dL (0-10) 09/01/18 18:00 RPR NONREACTIVE (NONREACTIVE) 09/01/18 18:00 - Physical Exam Vitals and I&O: Vital Signs Temp 97.9 F 09/16/18 14:26 Pulse 51 09/16/18 14:26 Resp 18 09/16/18 18:05 BP 142/72 09/16/18 14:26 Pulse Ox 96 09/16/18 14:26 Intake & Output 09/16/18 09/16/18 09/17/18 06:59 18:59 06:59 Intake Total 120 Balance 120 Intake: Oral 120 Other: # Voids 3 2 # Bowel Movements 0 1 Stool Characteristics Soft Brown Active Medications: Current Medications Acetaminophen (Tylenol) 650 mg PO Q4HR PRN PRN Reason: Mild Pain / Temp above 100 Stop: 10/31/18 22:39 Al Hydrox/Mg Hydrox/Simethicone (Maalox) 30 ml PO Q4HR PRN PRN Reason: GI DISTRESS Stop: 10/31/18 22:58 Amlodipine Besylate (Norvasc) 5 mg PO DAILY [facility] Stop: 11/01/18 08:59 Last Admin: 09/16/18 09:23 Dose: Not Given Aspirin (Aspirin Chewable) 81 mg PO DAILY [facility] Stop: 11/01/18 08:59 Last Admin: 09/16/18 09:51 Dose: 81 mg Carvedilol (Coreg) 25 mg PO BIDWM [facility] Stop: 11/01/18 07:59 Last Admin: 09/16/18 17:38 Dose: Not Given Donepezil HCl (Aricept) 10 mg PO HS [facility] Stop: 11/03/18 20:59 Last Admin: 09/15/18 21:39 Dose: Not Given Furosemide (Lasix) 20 mg PO TID [facility] Stop: 11/01/18 08:59 Last Admin: 09/16/18 15:02 Dose: Not Given Lactulose (Cephulac) 20 gm PO BID [facility] Stop: 11/01/18 08:59 Last Admin: 09/16/18 16:55 Dose: Not Given Lorazepam (Ativan) 0.5 mg PO Q4HR PRN; Protocol PRN Reason: Anxiety Stop: 10/01/18 22:56 Last Admin: 09/06/18 20:58 Dose: 0.5 mg Magnesium Hydroxide (Milk Of Magnesia) 30 ml PO HS PRN PRN Reason: Constipation Magnesium Oxide (Mag-Oxide) 400 mg PO BID [facility] Stop: 11/01/18 08:59 Last Admin: 09/16/18 18:00 Dose: 400 mg Metolazone (Zaroxolyn) 5 mg PO DAILY [facility] Stop: 11/01/18 08:59 Last Admin: 09/16/18 09:51 Dose: Not Given Multivitamins/Vitamin C (Theragran) 1 tab PO DAILY [facility] Stop: 11/01/18 08:59 Last Admin: 09/16/18 09:51 Dose: Not Given Oxcarbazepine (Trileptal) 300 mg PO BID [facility]; Protocol Stop: 11/01/18 08:59 Last Admin: 09/16/18 18:00 Dose: 300 mg Potassium Chloride (Klor-Con) 40 meq PO DAILY [facility] Stop: 11/01/18 08:59 Last Admin: 09/16/18 09:50 Dose: 40 meq Risperidone (Risperdal) 3 mg PO BID [facility]; Protocol Stop: 11/01/18 08:59 Last Admin: 09/16/18 18:00 Dose: 3 mg Spironolactone (Aldactone) 25 mg PO DAILY [facility] Stop: 11/01/18 08:59 Last Admin: 09/16/18 09:57 Dose: Not Given Tamsulosin HCl (Flomax) 0.4 mg PO HS [facility] Stop: 11/01/18 20:59 Last Admin: 09/15/18 21:39 Dose: Not Given Trazodone HCl (Desyrel) 25 mg PO HS [facility]; Protocol Stop: 11/03/18 20:59 Last Admin: 09/15/18 21:39 Dose: Not Given Zolpidem Tartrate (Ambien) 5 mg PO HS PRN PRN Reason: Insomnia Stop: 10/31/18 22:56 Last Admin: 09/02/18 20:42 Dose: 5 mg General: alert, demented HEENT: NC/AT, PERRLA, EOMI, anicteric sclerae, throat clear Neck: Supple, No JVD, No thyromegaly, +2 carotid pulse wo bruit, No LAD Lungs: CTAB Cardiovascular: RRR, Normal S1, Normal S2, without murmur Abdomen: soft, non-tender, non-distended Extremities: clear Neurological: no change - Procedures Procedures: Procedures Procedure Code Date OTHER GROUP THERAPY 94.44 09/01/14 RECREATIONAL THERAPY 93.81 12/23/11 Internal Medicine Assmt/Plan - Assessment Assessment: 1.HTN. 2.CHF. 3.CARDIOMYOPATHY. 4.BPH. 5.SCHIZOAFFECTIVE DISORDER. - Plan Plan: CONTINUE ON CURRENT MEDICATION AND DIET. Nutritional Asmnt/Malnutr-PDOC - Dietary Evaluation Malnutrition Findings (Please click <Entered> for more info): Nutritional Asmnt/Malnutrition Start: 09/05/18 08: 51 Text: Status: Complete Freq: Protocol: Document 09/05/18 08:51 GAETANO (Rec: 09/05/18 08:56 GAETANO BYRNES- [email or web address]) Nutritional Asmnt/Malnutrition Patient General Information Diagnosis psychosis Pertinent Medical Hx/Surgical Hx HTN, CHF, cardiomyopathy, beningn prostatic hypertrophy Current Diet Order/ Nutrition Support CCHO no added salt Pertinent Medications Maalox, lasix, lacutlose, theragran, KCl 40mEq/daily Pertinent Labs no labs since 09/02 Nutritional Hx/Data Height 1.42 m Height (Calculated Centimeters) 142.2 Current Weight (lbs) 86.183 kg Weight (Calculated Kilograms) 86.2 Weight (Calculated Grams) 04304.6 Body Mass Index (BMI) 42.5 Recent Weight Change No Weight Status Morbidly Obese GI Symptoms GI Symptoms None Last BM 09/04 Cultural/Ethnic/Faith Belief unknown Usual diet at home regular Skin Integrity/Comment: adenike score 22 Current %PO Good (75-100%) Estimated Nutritional Goals BEE in Kcals: Adj wt of IBW Calories/Kcals/Kg 25-30kcals/kg Kcals Calculated 1400-1680kcals/day Protein: Adj wt of IBW Protein g/k.2+g/kg Protein Calculated 67g/day Fluid: ml per MD Nutritional Problem 1. Problem Problem Obese related to Etiology excessive oral intake Signs/Symptoms: as evidenced by BMI 42.6. Intervention/Recommendation Comments Recommend continuing CCHO no added salt Expected Outcomes/Goals Expected Outcomes/Goals PO intake >75% of meals
[2018-09-17] MEDS: Lactulose 10 Gm/15 mL 30mL UDC PO SCH (09:09)
[2018-09-17] MEDS: Potassium Chloride 20 mEq ER Tab PO SCH (09:09)
[2018-09-17] MEDS: Aspirin 81mg Chewable Tab PO SCH (09:09)
[2018-09-17] MEDS: Multivitamin Tab PO SCH (09:10)
[2018-09-17] MEDS: Metolazone 5 MG TAB PO SCH (09:10)
[2018-09-17] MEDS: risperiDONE 1 mg/mL 30 mL Bottle PO SCH (09:17)
--- NOTE | 2018-09-18 14:18 | Discharge Summary ---
DATE OF DISCHARGE: 09/17/2018 THE PATIENT'S AGE: 58. SEX: Male. PHYSICIAN: Dr. Alvarado. FINAL DIAGNOSES: PRIMARY DIAGNOSES: Schizoaffective disorder, bipolar type, severe, with psychotic features. The patient's discharge summary was dictated on 09/11/2018, but the patient was not discharged at the time. The patient did not discharge as there is no bed available in [facility]. The patient was discharged to on 09/17/2018. Not change in his condition from 09/11/2018. Please refer to the dictation of discharge summary and job number is [id number]. JOB# [id number]
--- NOTE | 2018-09-19 16:43 | Progress Notes ---
DATE: 09/17/2018 SUBJECTIVE: Chart reviewed and the patient interviewed. Also discussed the patient's condition with the staff and reviewed records and labs. The patient is still calm and is still actively responding to stimuli but at the same time he is not agitated and is quiet. The patient also is guarded. He is still disappointed for being in the hospital for that long period of time but at the same time, the patient's placement is still not available and [facility] said that they have no bed for the patient yet. At the same time, social work program coordinator continue to work on trying to get the patient for placement. At the same time, we will continue monitoring his behavior and continue to work on behavior modification and assessing his medications. JOB# [id number]
== END 2018-09-17 15:30 | DRG 885 ==
LOC: ER 16:47 → GERO2 19:01 → GERO 19:50
PROVIDERS: ADMIT Psychiatry & Neurology Psychiatry; ATTEND Psychiatry & Neurology Psychiatry
DX: F25.0 Schizoaffective disorder, bipolar type (principal); I11.0 Hypertensive heart disease with heart failure; I42.9 Cardiomyopathy, unspecified; I50.9 Heart failure, unspecified; N40.0 Benign prostatic hyperplasia without lower urinary tract symptoms; E78.5 Hyperlipidemia, unspecified; Z88.8 Allergy status to other drugs, medicaments and biological substances
CPT/HCPCS: 36415-UA; 80053-TC; 80061-TC; 80183-90; 80307; 80320-TC; 80329-TC; 81001-TC; 83036-90; 84443-TC; 84484-TC; 85025-TC; 86592-TC; 90899; 93005; G0410; Z7610